=== PATIENT | female | born 1940 | race Caucasian/White ===

== ENCOUNTER 2016-02-26 13:42 | Inpatient (IN) | payer MEDICARE, BC ==
[2016-02-26] MEDS ORDERED: Piperac/Tazob 3.375 gm in NS* 3.375 GM/100 ML BAG IVPB ONE (14:21)
[2016-02-26] MEDS: NS 0.9% 1000 ML* 2,000 ML IV ONE ×2 (14:30→16:35)
--- NOTE | 2016-02-26 14:59 | RAD ---
INDICATION: Short of breath COMPARISON: December 11, 2015 TECHNIQUE: PA and lateral dual-energy views were obtained. FINDINGS: Bones/Soft Tissues: There are no acute bony findings. There is osteopenia with kyphoscoliosis. Cardiomediastinal: The cardiomediastinal silhouette is normal. Lungs: There are no infiltrates. There is left upper lobe scarring. There is hyperinflation. Pleura: There are no pleural effusions. Other: Postsurgical changes left breast IMPRESSION: NO ACTIVE DISEASE. HYPERINFLATION.
[2016-02-26 15:03] LABS: Hematocrit 45 % (35-47); Hemoglobin 14.7 g/dl (12.0-16.0); Mean Corpuscular HGB Conc 33 g/dl (31-36); Mean Corpuscular Hemoglobin 29 pg (27-31); Mean Corpuscular Volume 89 fL (80-97); Mean Platelet Volume 9 um3 (7.4-10.4); Red Blood Count 5.05 10^6/ul (4.0-5.4); Red Cell Distribution Width 14 % (10.5-15)
[2016-02-26 15:10] LABS: Add Diff/Slide Review? Slide Review Added; Comments Flag Yes
[2016-02-26 15:21] LABS: ALT 15 U/L (7-52); AST 25 U/L (13-39); Albumin 3.6 g/dL (3.2-5.2); Alkaline Phosphatase 58 U/L (34-104); Anion Gap 5 mmol/L (2-11); BUN/Creatinine Ratio 30.3 (8-20); Blood Urea Nitrogen 23 mg/dL (6-24); C Reactive Protein 17.93 mg/L (< 5.00); CO2 Carbon Dioxide 31 mmol/L (22-32); Calcium 10.3 mg/dL (8.6-10.3); Chloride 101 mmol/L (101-111); Creatine Kinase 49 U/L (10-223); EGFR African American 95.2 (>60); Glucose 109 mg/dL (70-100); Lipase < 10 U/L (11.0-82.0); Magnesium 1.9 mg/dL (1.9-2.7); Potassium 3.3 mmol/L (3.5-5.0); Sodium 137 mmol/L (133-145); Total Protein 6.6 g/dL (6.4-8.9)
[2016-02-26] MEDS ORDERED: Ondansetron INJ* 2 MG/ML VIAL IV PRN (15:24)
--- NOTE | 2016-02-26 15:30 | ED ---
Brandi Mesa SooYoung, scribed for Angel Rush MD on 02/26/16 at 1415 . Shortness of Breath - HPI Summary HPI Summary: A 75 y/o F presents to ED with SOB and referred for admission by Dr. Santos at 1200. Pt is being treated for known PNA for past two months, but she is getting worse. She is on Cipro and Prednisone for 30 days. Associated sx: maxT of 102 last night. Neg sx: dysuria, diarrhea, LE edema. - History of Current Complaint Chief Complaint: EDShortnessOfBreath Time Seen by Provider: 02/26/16 13:57 Hx Obtained From: Patient Onset/Duration: Still Present Associated Signs & Symptoms: Fever - Allergy/Home Medications Allergies/Adverse Reactions: Allergies Allergy/AdvReac Type Severity Reaction Status Date / Time Sulfa Drugs Allergy Severe Hives Verified 07/18/15 12:05 Levofloxacin [From Levaquin] Allergy Dizziness Verified 07/18/15 12:05 Varenicline [From Chantix] Allergy Unknown Verified 07/18/15 12:05 Reaction Details PMH/Surg Hx/FS Hx/Imm Hx Previously Healthy: No Endocrine/Hematology History: Reports: Hx Thyroid Disease - parathyroid surgery , Other Endocrine/Hematological Disorders - Parathyroid surgery Denies: Hx Diabetes Cardiovascular History: Reports: Hx Hypercholesterolemia, Hx Hypertension Denies: Hx Congestive Heart Failure, Hx Pacemaker/ICD, Other Cardiovascular Problems/Disorders - denies Respiratory History: Reports: Hx Asthma, Hx Chronic Bronchitis, Hx Chronic Obstructive Pulmonary Disease (COPD), Hx Lung Cancer, Other Respiratory Problems /Disorders - LUNG CANCER GI History: Reports: Hx Gall Bladder Disease - removed, Hx Ileostomy - PEG tube , Other GI Disorders - esophagel issues and abdominal surgeries Denies: Hx Ulcer History: Reports: Hx Renal Disease - cyst kidney new dx, Other Problems/ Disorders - per pt she has a cyst on her kidney found on us Denies: Hx Dialysis Musculoskeletal History: Reports: Hx Arthritis, Hx Osteoporosis, Hx Scoliosis, Other Musculoskeletal History - left side of body under developed r/t radiation per pt Denies: Hx Rheumatoid Arthritis Sensory History: Reports: Hx Contacts or Glasses, Hx Macular Degeneration Denies: Hx Hearing Aid Opthamlomology History: Reports: Hx Contacts or Glasses, Hx Macular Degeneration Neurological History: Reports: Other Neuro Impairments/Disorders - PAIN CLINIC PT Psychiatric History: Denies: Hx Panic Disorder - Cancer History Cancer Type, Location and Year: 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 Hx Chemotherapy: No Hx Radiation Therapy: Yes - As extensive radiation/ PT HAS HX LUNG CA 2012 - Surgical History Surgery Procedure, Year, and Place: hysterectomy;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;appendectomy;D&C x 2;cholecystectomy;left knee tumor; wrist benign;peg tube 16 yrs ago - stricture throat;cataract x 2 12/10, Skin CA removal Hx Anesthesia Reactions: No Infectious Disease History: No Infectious Disease History: Reports: Hx Clostridium Difficile Denies: Hx Hepatitis, Hx Human Immunodeficiency Virus (HIV), Hx of Known/ Suspected MRSA, Hx Shingles, Hx Tuberculosis, Hx Known/Suspected VRE, Hx Known/ Suspected VRSA, History Other Infectious Disease, Traveled Outside the [place] in Last 30 Days - Family History Known Family History: Positive: Other - Neg: breast CA - Social History Occupation: Retired Lives: With Family Alcohol Use: None Substance Use Type: Reports: None Hx Tobacco Use: No Smoking Status (MU): Former Smoker Type: Cigarettes Length of Time of Smoking/Using Tobacco: Trying to quit, uses patch most days Have You Smoked in the Last Year: Yes Review of Systems Positive: Fever Positive: Shortness Of Breath Negative: Diarrhea Negative: dysuria Negative: Edema All Other Systems Reviewed And Are Negative: Yes Physical Exam Triage Information Reviewed: Yes Vital Signs On Initial Exam: Initial Vitals Temp Pulse Resp BP Pulse Ox 98.8 F 115 18 139/51 92 02/26/16 13:46 02/26/16 13:46 02/26/16 13:46 02/26/16 13:46 02/26/16 13:46 Vital Signs Reviewed: Yes Appearance: Positive: Well-Appearing, Ill-Appearing - MILD/MODERATE, Pain Distress - MILD RESPIRATORY DISTRESS Skin: Positive: Warm, Skin Color Reflects Adequate Perfusion, Dry Head/Face: Positive: Normal Head/Face Inspection Eyes: Positive: EOMI, THEODORA ENT: Positive: Normal ENT inspection Neck: Positive: Supple, Nontender Respiratory/Lung Sounds: Positive: Breath Sounds Present, Rhonchi - BILAT Cardiovascular: Positive: RRR Abdomen Description: Positive: Nontender, Soft Bowel Sounds: Positive: Present Musculoskeletal: Positive: Normal, Strength/ROM Intact Neurological: Positive: Normal, Sensory/Motor Intact, Alert, Oriented to Person Place, Time Psychiatric: Positive: Affect/Mood Appropriate Diagnostics - Vital Signs Vital Signs Temp Pulse Resp BP Pulse Ox 02/26/16 13:46 98.8 F 115 18 139/51 92 - Laboratory Lab Results: Lab Results 02/26/16 02/26/16 02/26/16 Range/Units 14:50 14:50 14:50 WBC 12.0 H (3.5-10.8) 10^3/ul RBC 5.05 (4.0-5.4) 10^6/ul Hgb 14.7 (12.0-16.0) g/dl Hct 45 (35-47) % MCV 89 (80-97) fL MCH 29 (27-31) pg MCHC 33 (31-36) g/dl RDW 14 (10.5-15) % Plt Count 234 (150-450) 10^3/ul MPV 9 (7.4-10.4) um3 Neut % (Auto) 73.4 (38-83) % Lymph % (Auto) 11.4 L (25-47) % [place] % (Auto) 14.4 H (1-9) % Eos % (Auto) 0 (0-6) % Baso % (Auto) 0.8 (0-2) % Absolute Neuts (auto) 8.8 H (1.5-7.7) 10^3/ul Absolute Lymphs (auto) 1.4 (1.0-4.8) 10^3/ul Absolute Monos (auto) 1.7 H (0-0.8) 10^3/ul Absolute Eos (auto) 0 (0-0.6) 10^3/ul Absolute Basos (auto) 0.1 (0-0.2) 10^3/ul Absolute Nucleated RBC 0 10^3/ul Nucleated RBC % 0 INR (Anticoag Therapy) 0.90 (0.89-1.11) APTT 26.8 (26.0-36.3) seconds Sodium (133-145) mmol/L Potassium (3.5-5.0) mmol/L Chloride (101-111) mmol/L Carbon Dioxide (22-32) mmol/L Anion Gap (2-11) mmol/L BUN (6-24) mg/dL Creatinine (0.51-0.95) mg/dL Est GFR ( Amer) (>60) Est GFR (Non-Af Amer) (>60) BUN/Creatinine Ratio (8-20) Glucose (70-100) mg/dL Lactic Acid (0.5-2.0) mmol/L Calcium (8.6-10.3) mg/dL Magnesium (1.9-2.7) mg/dL Total Bilirubin (0.2-1.0) mg/dL AST (13-39) U/L ALT (7-52) U/L Alkaline Phosphatase (34-104) U/L Total Creatine Kinase (10-223) U/L CK-MB (CK-2) (0.6-6.3) ng/mL Troponin I C-Reactive Protein (< 5.00) mg/L B-Natriuretic Peptide 104 H ( - 100) pg/mL Total Protein (6.4-8.9) g/dL Albumin (3.2-5.2) g/dL Globulin (2-4) g/dL Albumin/Globulin Ratio (1-3) Lipase (11.0-82.0) U/L TSH 02/26/16 02/26/16 Range/Units 14:50 14:50 WBC (3.5-10.8) 10^3/ul RBC (4.0-5.4) 10^6/ul Hgb (12.0-16.0) g/dl Hct (35-47) % MCV (80-97) fL MCH (27-31) pg MCHC (31-36) g/dl RDW (10.5-15) % Plt Count (150-450) 10^3/ul MPV (7.4-10.4) um3 Neut % (Auto) (38-83) % Lymph % (Auto) (25-47) % [place] % (Auto) (1-9) % Eos % (Auto) (0-6) % Baso % (Auto) (0-2) % Absolute Neuts (auto) (1.5-7.7) 10^3/ul Absolute Lymphs (auto) (1.0-4.8) 10^3/ul Absolute Monos (auto) (0-0.8) 10^3/ul Absolute Eos (auto) (0-0.6) 10^3/ul Absolute Basos (auto) (0-0.2) 10^3/ul Absolute Nucleated RBC 10^3/ul Nucleated RBC % INR (Anticoag Therapy) (0.89-1.11) APTT (26.0-36.3) seconds Sodium 137 (133-145) mmol/L Potassium 3.3 L (3.5-5.0) mmol/L Chloride 101 (101-111) mmol/L Carbon Dioxide 31 (22-32) mmol/L Anion Gap 5 (2-11) mmol/L BUN 23 (6-24) mg/dL Creatinine 0.76 (0.51-0.95) mg/dL Est GFR ( Amer) 95.2 (>60) Est GFR (Non-Af Amer) 74.0 (>60) BUN/Creatinine Ratio 30.3 H (8-20) Glucose 109 H (70-100) mg/dL Lactic Acid 1.7 (0.5-2.0) mmol/L Calcium 10.3 (8.6-10.3) mg/dL Magnesium 1.9 (1.9-2.7) mg/dL Total Bilirubin 0.50 (0.2-1.0) mg/dL AST 25 (13-39) U/L ALT 15 (7-52) U/L Alkaline Phosphatase 58 (34-104) U/L Total Creatine Kinase 49 (10-223) U/L CK-MB (CK-2) 3.6 (0.6-6.3) ng/mL Troponin I Pending C-Reactive Protein 17.93 H (< 5.00) mg/L B-Natriuretic Peptide ( - 100) pg/mL Total Protein 6.6 (6.4-8.9) g/dL Albumin 3.6 (3.2-5.2) g/dL Globulin 3.0 (2-4) g/dL Albumin/Globulin Ratio 1.2 (1-3) Lipase < 10 L (11.0-82.0) U/L TSH Pending Result Diagrams: 02/26/16 14:50 02/26/16 14:50 Lab Statement: Any lab studies that have been ordered have been reviewed, and results considered in the medical decision making process. - Radiology CXR Xray Interpretation: No Acute Changes Radiology Interpretation Completed By: Radiologist - IMPRESSION: No active disease. Hyperinflation. - EKG 1 EKG Rhythm: Sinus Tachycardia ST Segment: Normal Ectopy: None Course/Dx - Course Assessment/Plan: ADMIT HOSPITALIST STABLE. - Diagnoses Provider Diagnoses: Pneumonia, Dyspnea - Physician Notifications Discussed Care of Patient With: Dr. Sears, hospitalist Time Discussed With Above Provider: 14:19 Discharge - Discharge Plan Condition: Stable Disposition: ADMITTED TO [facility] Referrals: Alonso Santos MD [Primary Care Provider] - The documentation as recorded by the Brandi alicia SooYoung accurately reflects the service I personally performed and the decisions made by , Angel Rush MD.
[2016-02-26 15:35] LABS: Troponin I 0.04 ng/mL (<0.04)
[2016-02-26 15:41] LABS: Neutrophil % 79 % (38-83); RBC Morphology Normal (Normal); Reactive Lymph % 5 % (0-6)
[2016-02-26] MEDS ORDERED: NS 0.9% 1000 ML* 1,000 ML IV SCH (15:45)
[2016-02-26] MEDS ORDERED: Fluticasone NASAL SPRAY 50MCG* 16 gm SPRAY BTL BOTH NARES PRN (15:46)
[2016-02-26] MEDS ORDERED: Polyethylene Glycol 3350* 17 GM PACKET G TUBE PRN (15:46)
[2016-02-26] MEDS ORDERED: Albuterol 2.5 MG/3 ML NEB.SOL* (0.083%) INH PRN (15:46)
[2016-02-26] MEDS ORDERED: PTO: Levalbuterol HFA INHALER* 1 PUFF MDI INH PRN (15:46)
[2016-02-26 15:58] LABS: TSH (Thyroid Stimulating Horm) 0.43 mcIU/mL (0.34-5.60)
[2016-02-26] MEDS ORDERED: Enoxaparin(*) 40 MG/0.4 ML SYR SUBCUT SCH (16:00)
[2016-02-26] MEDS ORDERED: Piperac/Tazob 3.375 gm in NS* 3.375 GM/100 ML BAG IVPB SCH ×2 (16:00→18:30)
--- NOTE | 2016-02-26 16:20 | RAD ---
INDICATION: Shortness of breath COMPARISON: Most recent chest CT is dated February 10, 2016 TECHNIQUE: Axial source images of the chest were acquired without intravenous contrast from just above the lung apices to the base of the diaphragm. Coronal and sagittal reconstructed images were acquired. FINDINGS: Again seen is a pleural-based spiculated mass along the posterior margin of the right upper lobe measuring approximately 2.5 x 2.8 cm in the axial plane. There has been no substantial change in the appearance of this mass when compared to the 2 previous CTs of the chest. There is severe centrilobular emphysematous change. Patchy density at the lingula of the left upper lobe is similar in appearance to the [address]s. The heart is normal in size. There is no evidence of pericardial effusion. There is no evidence of aortic aneurysm or dissection. Again seen is advanced atherosclerotic calcification involving the coronary arteries, aortic ring and arch of the aorta. Calcified atherosclerosis is seen at the suprarenal abdominal aorta. There is no readily apparent mediastinal, hilar, or axillary lymphadenopathy. Dextroconvex curvature of the thoracolumbar spine and multilevel degenerative changes are again noted. The percutaneous gastrostomy tube appears to be a properly positioned in the lumen of the stomach. There are surgical clips in the gallbladder fossa. IMPRESSION: Extensive chronic findings as described above with no substantial change when compared to the [address] examinations of the chest.
[2016-02-26] MEDS ORDERED: methylPREDNISolone SOD 40 MG* 1 ML VIAL IV SCH (17:00)
[2016-02-26] MEDS ORDERED: Ciprofloxacin 400MG IVPREMIX(* 400 MG/200 ML BAG IVPB SCH (17:00)
[2016-02-26] MEDS ORDERED: Cinacalcet TAB* 30 MG G TUBE SCH (18:00)
[2016-02-26] MEDS ORDERED: NUTRITIONAL SUPPLEMENTS G TUBE SCH (18:00)
[2016-02-26] MEDS ORDERED: Vancomycin(*) 750 MG in NS 0.9% 250 ML* 250 ML IVPB ONE ×2 (18:00→20:00)
--- NOTE | 2016-02-26 19:03 | PN ---
Hospitalist Progress Note HOSPITALIST ADDENDUM Case was reviewed and d/w Marilin Iqbal DENTAL APPLIANCE REPAIRER. Case was d/w patient's PCP (Dr. Santos) earlier today. Mrs. Trotter is a 75yo F with PMH of COPD and Lung CA who was diagnosed with possible Pseudomonas pneumonia and prescribed a prolonged course of Cipro with no significant improvement. She presented to his office with c/o cough, dyspnea, fever. She'll be admitted as she failed outpatient therapy. Will panculture, and start broad spectrum antibiotics.
[2016-02-26 19:32] LABS: Urine Bilirubin Negative (Negative); Urine Glucose Negative (Negative); Urine Nitrite Negative (Negative)
[2016-02-26] MEDS ORDERED: Vancomycin per Pharmacy* NOTE FOLLOW UP PRN (19:42)
[2016-02-26] MEDS ORDERED: methylPREDNISolone SOD 40 MG* 1 ML VIAL IV ONE (20:00)
[2016-02-26] MEDS: Enoxaparin(*) 40 MG/0.4 ML SYR SUBCUT SCH (20:13)
[2016-02-26] MEDS: Mupirocin 2% OINT* TUBE TOPICAL SCH ×2 (20:14→20:34)
[2016-02-26] MEDS: guaiFENesin LIQ* 100 MG/5 ML UDC G TUBE SCH (20:14)
[2016-02-26] MEDS: Mometasone/Formoter 200/5 MDI INH SCH (20:15)
[2016-02-26] MEDS: Metoclopramide TAB* 10 MG G TUBE SCH ×2 (20:16)
[2016-02-26] MEDS: Cinacalcet TAB* 30 MG G TUBE SCH (20:16)
[2016-02-26] MEDS: PTO: Aclidinium POWDER MDI(NF) INH SCH (21:51)
--- NOTE | 2016-02-26 22:13 | HP ---
ADMISSION HISTORY AND PHYSICAL: DATE OF ADMISSION: 02/26/16 PRIMARY CARE PROVIDER: Alonso Santos MD FISH PACKER: Radha Shea MD ADMITTING PROVIDER: WILBER Saha SUPERVISING PHYSICIAN: Emelia Galvez MD* (report dictated by WILBER Saha). CHIEF COMPLAINT: Shortness of breath and cough. HISTORY OF PRESENT ILLNESS: This is a 75-year-old female with a history of COPD , hypertension, hyperlipidemia, history of squamous cell lung carcinoma, status post radiation, followed by Dr. Trevino as well as a chronic feeding tube in place due to esophageal stricture and recurrent aspiration who was referred from her primary care provider's office for admission today. The patient has been struggling with a pneumonia for the last couple of months. Sputum sample from the end of November grew pseudomonas. The patient had been treated with Ceftin, Biaxin, and doxycycline, but was started on Cipro and prednisone by Dr. Shea approximately 2 weeks ago on 02/10/16. According to micro results from that sputum, pseudomonas at good sensitivity to Cipro. Despite appropriate antibiotics and steroids, the patient continued to have significant fatigue, shortness of breath, and productive cough. She has also been intermittently febrile most afternoon. She said she has a fever between 101 and 103 degrees Fahrenheit. She does not use supplemental oxygen at home. When the patient was seen by her primary care provider earlier today, she was noted to be febrile and hypoxic and was referred to the emergency department for further evaluation. The patient denies any other associated symptoms including chest pain, palpitations, abdominal pain, nausea, vomiting, or diarrhea. Denies associated lower extremity swelling or orthopnea. The patient also reports that in her coughing, she often feels as though she aspirates on her G-tube feedings. She otherwise does not take anything by mouth. PAST MEDICAL HISTORY: 1. COPD. 2. Hypertension. 3. Hyperlipidemia. 4. History of squamous cell lung carcinoma, status post radiation therapy, followed by Dr. Trevino. 5. History of chest radiation as a child. 6. Feeding tube in place due to esophageal stricture and recurrent aspiration. 7. Gastroparesis. PAST SURGICAL HISTORY: 1. Cholecystectomy. 2. Appendectomy. 3. Hysterectomy. 4. Exploratory laparoscopy. HOME MEDICATIONS: 1. Tudorza 400 mcg inhaled twice daily. 2. Albuterol nebulized 2.5 mg inhaled q.6 hours p.r.n. shortness of breath. 3. Aspirin 81 mg via G-tube daily. 4. Atorvastatin 10 mg via G-tube daily. 5. Sensipar 30 mg via G-tube daily. 6. Cipro 750 mg via G-tube twice daily. 7. Vagifem 10 mcg vaginally weekly. 8. Fluconazole oral suspension 200 mg via G-tube daily as needed for yeast infection. 9. Flonase 50 mcg in each nose daily. 10. Advair 500/50 one puff inhaled twice daily. 11. Guaifenesin 200 mg via G-tube twice daily. 12. Ibuprofen 400 mg via G-tube daily. 13. Lactobacillus 1 capsule via G-tube daily. 14. Xopenex inhaler 2 puffs inhaled q.6 hours p.r.n. shortness of breath. 15. Losartan 50 mg via G-tube daily. 16. Reglan 5 mg via G-tube 4 times daily. 17. Singulair 10 mg via G-tube daily. 18. Mupirocin ointment 2% nasally twice daily. 19. Osmolite G-tube feedings 1.2 calories 1 can every 3 hours while awake. 20. Phenylephrine-promethazine with codeine via G-tube every 4 hours as needed for nausea. 21. MiraLAX 17 g via G-tube daily. 22. Prednisone 10 mg via G-tube daily. 23. Detrol 2 mg via G-tube daily. SOCIAL HISTORY: The patient lives at home with her . She does have an extensive smoking history, but quit several years ago. REVIEW OF SYSTEMS: As noted in the HPI. PHYSICAL EXAMINATION GENERAL: This is a very pleasant elderly female accompanied by her , in mild amount of distress and appears mildly ill, but is able to speak in complete sentences. VITAL SIGNS: Temperature 98.8 degrees Fahrenheit, pulse 115 beats per minute, respiratory rate 18 per minute, oxygen saturation 92% on room air, and mid 90s on 2 L via nasal cannula, blood pressure 139/51 mmHg. HEENT: Head is normocephalic and atraumatic. Mucous membranes are pink and moist. RESPIRATORY: There is a wheeze appreciated in the posterior lung mohr associated with decreased breath sounds. No other adventitious sounds appreciated. CARDIOVASCULAR: Heart has a regular rate and rhythm without murmurs, rubs, or gallops. ABDOMEN: Soft and nontender to palpation. EXTREMITIES: No lower extremity edema appreciated. SKIN: Limited exam shows no obvious rashes or lesions. PSYCH: The patient is alert and appropriately oriented and seems to have good understanding of her medical history. LABORATORY DATA: CBC shows white blood cell count of 12,000, hemoglobin 14.7 g /dL, and platelet count of 234,000. INR is 0.9. Comprehensive metabolic panel showed sodium of 137 mmol/L, potassium 3.3 mmol/L , normal BUN of 23, and creatinine of 0.76 with estimated GFR of 74. Transaminases and total bilirubin within normal limits. Troponin mildly elevated at 0.04. CRP mildly elevated at 17.9. BNP slightly elevated at 104. TSH is pending. HOSPITAL IMAGING: Chest x-ray shows significant hyperinflation, but no evidence of acute infiltrate. CT of the chest from 02/10/16 shows bilateral lower lobe infiltrates and left upper lobe cavitary lesion, which is unchanged from prior. CT of the chest today is still pending official read, but per personal review shows previously noted left upper lobe cavitary lesion without obvious changes. Some atelectasis versus infiltrates in the right middle lobe and appears to be otherwise unremarkable. EKG shows a normal sinus rhythm. ASSESSMENT AND PLAN: This is a 75-year-old female with a history of chronic obstructive pulmonary disease and longstanding respiratory infection that has failed outpatient antibiotics. She will be admitted to the hospital for further evaluation and treatment. 1. Respiratory infection: CT scan from a couple of weeks ago showed bilateral lower lobe infiltrates. Per personal review of today's CT, it appears that those infiltrates have resolved. She does have a history of lung cancer and status post radiation and is left with a large cavitary lesion. Sputum from grew pseudomonas sensitive to Zosyn, quinolones, and meropenem. Could consider this being more of a bronchiectasis type picture. We will continue with pseudomonal coverage. Based on prior micro results, we will continue with the Cipro in IV form and add Zosyn for broad spectrum coverage and ask for an additional sputum sample to see if there is any resistant pathogen still growing. Consider there being a chronic obstructive pulmonary disease exacerbation component to this and started Solu-Medrol in addition to continuing her typical inhaled medications. Unfortunately, her tie hacker, Dr. Shea, is not available for consult at this time. 2. Severe chronic obstructive pulmonary disease with exacerbation: Continue inhaled medication and add Solu-Medrol. 3. Elevated troponin: Assume that this is demand related, but we will trend these troponins. She is not having any chest pain and has no EKG changes appreciated. 4. Hypertension: Continue home antihypertensives. 5. Gastroparesis: Continue Reglan. 6. History of squamous cell lung carcinoma status post radiation therapy, followed Dr. Trevino. 7. Feeding tube in place due to esophageal stricture and recurrent aspiration. We will continue her current dietary regimen. All of her medications will need to go through her G-tube as well. 8. Code status: The patient is a full code. 9. Healthcare proxy is listed as her . 10. DVT prophylaxis: The patient is [id number] risk for deep venous thrombosis and will be placed on subcu Lovenox daily. DISPOSITION: The patient is being admitted as an inpatient to the hospital after failing outpatient antibiotics. ANTICIPATED LENGTH OF STAY: Greater than 2 days. WILBER SAHA CC: Dr. Santos; Dr. Shea* [id number]/[facility] #: [id number] TANYA
[2016-02-26] MEDS: Nicotine PATCH 7 MG/24 HR* PATCH TRANSDERM SCH (22:23)
[2016-02-26] MEDS: Ciprofloxacin 400MG IVPREMIX(* 400 MG/200 ML BAG IVPB SCH (22:26)
[2016-02-26] MEDS ORDERED: ALPRAZolam TAB* 0.5 MG ONE (23:46)
[2016-02-26] MEDS: ALPRAZolam TAB* 0.5 MG PO ONE (23:47)
[2016-02-26] MEDS: Piperac/Tazob 3.375 gm in NS* 3.375 GM/100 ML BAG IVPB SCH (23:55)
[2016-02-27] MEDS: ALPRAZolam TAB* 0.5 MG PO ONE (02:59)
[2016-02-27 05:00] LABS: Hematocrit 42 % (35-47); Hemoglobin 13.9 g/dl (12.0-16.0); Mean Corpuscular HGB Conc 33 g/dl (31-36); Mean Corpuscular Hemoglobin 30 pg (27-31); Mean Corpuscular Volume 91 fL (80-97); Mean Platelet Volume 9 um3 (7.4-10.4); Red Blood Count 4.65 10^6/ul (4.0-5.4); Red Cell Distribution Width 14 % (10.5-15)
[2016-02-27 05:09] LABS: BUN/Creatinine Ratio 24.3 (8-20); Calcium 8.5 mg/dL (8.6-10.3); EGFR African American 98.1 (>60); EGFR Non-African American 76.3 (>60); Potassium 3.9 mmol/L (3.5-5.0)
[2016-02-27] MEDS: Piperac/Tazob 3.375 gm in NS* 3.375 GM/100 ML BAG IVPB SCH ×4 (05:41→22:48)
[2016-02-27] MEDS: Mometasone/Formoter 200/5 MDI INH SCH ×2 (08:38→21:15)
[2016-02-27] MEDS ORDERED: Atorvastatin* 10 MG TAB G TUBE SCH (09:00)
[2016-02-27] MEDS ORDERED: Montelukast Sodium TAB* 10 MG PO SCH (09:00)
[2016-02-27] MEDS: Vancomycin(*) 500 MG in NS 0.9% 250 ML* 250 ML IVPB SCH ×2 (10:00→20:32)
[2016-02-27] MEDS: methylPREDNISolone SOD 40 MG* 1 ML VIAL IV SCH ×2 (10:01→20:54)
[2016-02-27] MEDS: guaiFENesin LIQ* 100 MG/5 ML UDC G TUBE SCH ×2 (11:24→21:10)
[2016-02-27] MEDS: PTO: Aclidinium POWDER MDI(NF) INH SCH ×2 (11:24→21:16)
[2016-02-27] MEDS: Metoclopramide TAB* 10 MG G TUBE SCH ×4 (11:26→21:02)
[2016-02-27] MEDS: Oxybutynin XL TAB* 5 MG PO SCH (11:26)
[2016-02-27] MEDS: Lactobacillus Acidophilu (GG)* 1 CAP CAP PO SCH (11:27)
[2016-02-27] MEDS: Losartan TAB* 25 MG G TUBE SCH (11:27)
[2016-02-27] MEDS: Aspirin Low Dose CHEW TAB* 81 MG G TUBE SCH (11:28)
[2016-02-27] MEDS: Mupirocin 2% OINT* TUBE TOPICAL SCH ×2 (11:29→21:06)
[2016-02-27] MEDS: Ibuprofen ADULT LIQ* 600 MG/30 ML UDC G TUBE SCH (11:30)
[2016-02-27] MEDS: Ciprofloxacin 400MG IVPREMIX(* 400 MG/200 ML BAG IVPB SCH ×2 (12:40→23:42)
[2016-02-27] MEDS ORDERED: Piperac/Tazob 3.375 gm in NS* 3.375 GM/100 ML BAG IVPB SCH (15:00)
[2016-02-27] MEDS ORDERED: Albuterol/Ipratropium NEB.SOL* Albuterol 2.5 MG/Ipratropium 0.5 MG 3 ML INH PRN (16:22)
--- NOTE | 2016-02-27 16:24 | PN ---
Subjective Date of Service: 02/27/16 Interval History: This is a 75 yo female with COPD and h/o lung CA with G-tube in place d/t esophageal stricture who presented after failing several weeks of outpatient antibiotics for a pneumonia. She grew Pseudomonas from sputum the end of November. She has been started on Vanco, Cipro and Zosyn. Blood cx neg at this time, sputum pending. She denies any change in symptoms. She still has some dyspnea and freq productive cough. She has been afebrile. Objective Active Medications: Aclidinium [place] (Lino Lowe Mdi(Nf)) 1 puff INH BID [facility] Last Admin: 02/27/16 11:24 Dose: 1 puff Albuterol (Ventolin 2.5 Mg/3 Ml Neb.Nereyda*) 2.5 mg INH Q6H PRN PRN Reason: SOB/WHEEZING Aspirin (Aspirin Low Dose Tab*) 81 mg G TUBE DAILY [facility] Last Admin: 02/27/16 11:28 Dose: 81 mg Atorvastatin Calcium (Lipitor*) 10 mg G TUBE BEDTIME [facility] Cinacalcet (Sensipar Tab*) 30 mg G TUBE 1999 [facility] Last Admin: 02/26/16 20:16 Dose: Not Given Enoxaparin Sodium (Lovenox(*)) 40 mg SUBCUT 1999 [facility] Last Admin: 02/26/16 20:13 Dose: 40 mg Fluticasone Propionate (Flonase Nasal [place] 50mcg*) 1 spray BOTH NARES BID PRN PRN Reason: CONGESTION Guaifenesin (Robitussin*) 10 ml G TUBE BID [facility] Last Admin: 02/27/16 11:24 Dose: 10 ml Vancomycin HCl 500 mg/ Sodium (Chloride) 250 mls @ 166.667 mls/hr IVPB Q12H [facility] Last Admin: 02/27/16 10:00 Dose: 166.667 mls/hr Ciprofloxacin/Dextrose (Cipro 400 Mg Ivpremix(*)) 400 mg in 200 mls @ 200 mls/ hr IVPB 1000,2200 [facility] Last Admin: 02/27/16 12:40 Dose: 200 mls/hr Piperacillin Sod/Tazobactam Sod (Zosyn 3.375 Gm In Ns Premix*) 3.375 gm in 100 mls @ 200 mls/hr IVPB Q6H [facility] Last Admin: 02/27/16 15:35 Dose: 200 mls/hr Ibuprofen (Motrin Liq Adult*) 400 mg G TUBE DAILY [facility] Last Admin: 02/27/16 11:30 Dose: 400 mg Lactobacillus Rhamnosus (Culturelle*) 1 cap PO DAILY [facility] Last Admin: 02/27/16 11:27 Dose: 1 cap Levalbuterol HCl (Xopenex Hfa Inhaler*) 2 puff INH Q6HR PRN PRN Reason: WHEEZING Losartan Potassium (Cozaar Tab*) 50 mg G TUBE DAILY [facility] Last Admin: 02/27/16 11:27 Dose: 50 mg Methylprednisolone Sodium Succinate (Solu-Medrol*) 40 mg IV Q12H [facility] Last Admin: 02/27/16 10:01 Dose: 40 mg Metoclopramide HCl (Reglan Tab*) 5 mg G TUBE QID [facility] Last Admin: 02/27/16 13:28 Dose: 5 mg Mometasone Furoate/Formoterol Fumar (Dulera 200/5 Mdi*) 2 puff INH BID [facility] Last Admin: 02/27/16 08:38 Dose: 2 puff Montelukast Sodium (Singulair Tab*) 10 mg PO BEDTIME [facility] Mupirocin (Bactroban 2 % Oint*) 2 applic TOPICAL BID [facility] Last Admin: 02/27/16 11:29 Dose: Not Given Nicotine (Nicotine Patch 7 Mg/24 Hr*) 1 patch TRANSDERM Q24H [facility] Last Admin: 02/26/16 22:23 Dose: 1 patch Phenyleph- Promethazine W/ Cod [Promethazine Vc/Codeine 6.25-5-10 Mg /5m 1 syp G TUBE Q4H PRN PRN Reason: NAUSEA Ondansetron HCl (Zofran Inj*) 4 mg IV Q4H PRN PRN Reason: NAUSEA/VOMITING Oxybutynin Chloride (Ditropan Xl Tab*) 5 mg PO DAILY [facility] Last Admin: 02/27/16 11:26 Dose: 5 mg Pharmacy Consult (Vancomycin Per Pharmacy*) 1 note FOLLOW UP . PRN PRN Reason: PER PROTOCOL Pharmacy Profile Note (Vancomycin Trough Check) 1 note FOLLOW UP 0745 ONE Stop: 02/28/16 07:46 Pharmacy Profile Note (Nicotine Patch Removal Note*) 1 note FOLLOW UP 2100 [facility] Polyethylene Glycol/Electrolytes (Miralax*) 17 gm G TUBE DAILY PRN PRN Reason: CONSTIPATION Vital Signs: Temp Pulse Resp BP Pulse Ox 97.6 F 72 20 114/54 97 02/27/16 15:44 02/27/16 15:44 02/27/16 15:44 02/27/16 15:44 02/27/16 15:44 Oxygen Devices in Use Now: Nasal Cannula Appearance: Elderly, frail appearing female in NAD. Mildly ill appearing Respiratory: Symmetrical Chest Expansion and Respiratory Effort, - - diffuse wheeze and rhonchi Cardiovascular: NL Sounds; No Murmurs; No JVD, RRR Abdominal: NL Sounds; No Tenderness; No Distention Extremities: No Edema Skin: No Rash or Ulcers Neurological: Alert and Oriented x 3 Result Diagrams: 02/27/16 04:21 02/27/16 04:21 Additional Lab and Data: . Microbiology and Other Data: Microbiology 02/26/16 22:36 Gram Stain - Final Sputum Expectorated Diagnostic Imaging: CXR - NAD CT chest - RUL cavitary lesion which is stable, patchy density at the lingula. Significant emphysematous changes Assess/Plan/Problems-Billing Assessment: This is a 75 yo female with a h/o COPD, sqaumous cell lung CA s/p radiation, with a feeding tube in place due to chronic esophageal stricturewho has been on several weeks of oral antibiotics who presented with fever, hypoxia, dyspnea and prod cough. Admitted for pneumonia v bronchiectasis - Patient Problems (1) Respiratory infection Comment: Pneumonia v bronchiectasis Sputum from 12/22 grew Pseudomonas, she has been on several weeks of Cipro orally without improvement Started on Vanco, Cipro and Zosyn Blood cultures neg Sputum pending (2) COPD (chronic obstructive pulmonary disease) Comment: With acute exacerbation Cont home inhaled medications She still has sig wheeze on exam Start scheduled DuoNebs, cont SoluMedrol (3) History of lung cancer Comment: s/p radiation of squamous cell carcinoma with residual cavitary lesion in RUL that appears stable on serial imaging (4) Feeding by G-tube Comment: Uses Osmolite 1.2, 1 can ~q3h while awake (5) Gastroparesis Comment: Cont Reglan prior to feedings (6) Hyperlipidemia (7) Hypertension Status and Disposition: Cont IV abx, pending sputum results to guide therapy. Anticipate she will need several days of hospitalization.
[2016-02-27] MEDS: PROMETHAZINE G TUBE PRN ×2 (18:18→21:59)
[2016-02-27] MEDS: COD G TUBE PRN ×2 (18:18→21:59)
[2016-02-27] MEDS: [UNRECOGNIZED DRUG - OTHER] G TUBE PRN ×2 (18:18→21:59)
[2016-02-27] MEDS: Enoxaparin(*) 40 MG/0.4 ML SYR SUBCUT SCH (20:59)
[2016-02-27] MEDS: Cinacalcet TAB* 30 MG G TUBE SCH (20:59)
[2016-02-27] MEDS: Atorvastatin* 10 MG TAB G TUBE SCH (21:01)
[2016-02-27] MEDS: Montelukast Sodium TAB* 10 MG PO SCH (21:05)
[2016-02-27] MEDS: Nicotine PATCH 7 MG/24 HR* PATCH TRANSDERM SCH (21:07)
[2016-02-27] MEDS: Albuterol/Ipratropium NEB.SOL* Albuterol 2.5 MG/Ipratropium 0.5 MG 3 ML INH SCH (21:15)
[2016-02-27] MEDS: Nicotine Patch Removal NOTE FOLLOW UP SCH (21:18)
[2016-02-28] MEDS: Albuterol/Ipratropium NEB.SOL* Albuterol 2.5 MG/Ipratropium 0.5 MG 3 ML INH SCH ×7 (00:05→23:01)
[2016-02-28] MEDS: PROMETHAZINE G TUBE PRN ×3 (02:16→22:23)
[2016-02-28] MEDS: [UNRECOGNIZED DRUG - OTHER] G TUBE PRN ×3 (02:16→22:23)
[2016-02-28] MEDS: COD G TUBE PRN ×3 (02:16→22:23)
[2016-02-28] MEDS: Piperac/Tazob 3.375 gm in NS* 3.375 GM/100 ML BAG IVPB SCH ×3 (04:06→15:13)
[2016-02-28] MEDS ORDERED: Vancomycin Trough Check NOTE FOLLOW UP ONE (07:45)
[2016-02-28] MEDS: PTO: Aclidinium POWDER MDI(NF) INH SCH ×2 (07:49→20:38)
[2016-02-28] MEDS: Mometasone/Formoter 200/5 MDI INH SCH ×2 (07:51→20:38)
[2016-02-28] MEDS: Oxybutynin XL TAB* 5 MG PO SCH (08:24)
[2016-02-28] MEDS: Lactobacillus Acidophilu (GG)* 1 CAP CAP PO SCH (08:24)
[2016-02-28] MEDS: Losartan TAB* 25 MG G TUBE SCH (08:24)
[2016-02-28] MEDS: methylPREDNISolone SOD 40 MG* 1 ML VIAL IV SCH (08:24)
[2016-02-28] MEDS: Metoclopramide TAB* 10 MG G TUBE SCH ×4 (08:24→22:15)
[2016-02-28] MEDS: Aspirin Low Dose CHEW TAB* 81 MG G TUBE SCH (08:24)
[2016-02-28] MEDS: Ibuprofen ADULT LIQ* 600 MG/30 ML UDC G TUBE SCH (08:41)
[2016-02-28] MEDS: guaiFENesin LIQ* 100 MG/5 ML UDC G TUBE SCH ×2 (08:41→22:17)
[2016-02-28] MEDS: Mupirocin 2% OINT* TUBE TOPICAL SCH (08:42)
[2016-02-28] MEDS: Vancomycin(*) 500 MG in NS 0.9% 250 ML* 250 ML IVPB SCH (08:42)
[2016-02-28 09:31] LABS: Hematocrit 44 % (35-47); Mean Corpuscular HGB Conc 32 g/dl (31-36); Mean Corpuscular Hemoglobin 29 pg (27-31); Mean Corpuscular Volume 92 fL (80-97); Mean Platelet Volume 9 um3 (7.4-10.4); Red Blood Count 4.77 10^6/ul (4.0-5.4); Red Cell Distribution Width 14 % (10.5-15); White Blood Count 7.5 10^3/ul (3.5-10.8)
[2016-02-28 10:32] LABS: BUN/Creatinine Ratio 26.4 (8-20); Calcium 8.5 mg/dL (8.6-10.3); EGFR African American 101.3 (>60); EGFR Non-African American 78.8 (>60); Potassium 3.8 mmol/L (3.5-5.0)
[2016-02-28] MEDS: Ciprofloxacin 400MG IVPREMIX(* 400 MG/200 ML BAG IVPB SCH (11:48)
--- NOTE | 2016-02-28 16:29 | PN ---
Subjective Date of Service: 02/28/16 Interval History: Patient states that she has had no changes in her symptoms. She does feel some improvement after using a DuoNeb. Continues to cough with c/os dyspnea and fatigue. Objective Active Medications: Aclidinium [place] (Aileenrmega Lowe Mdi(Nf)) 1 puff INH BID [facility] Last Admin: 02/28/16 07:49 Dose: 1 puff Albuterol/Ipratropium (Duoneb Neb.Nereyda*) 1 neb INH [id number] AWAKE [facility] Last Admin: 02/28/16 11:20 Dose: 1 neb Albuterol/Ipratropium (Duoneb Neb.Nereyda*) 1 neb INH Q4H PRN PRN Reason: SOB/WHEEZING Aspirin (Aspirin Low Dose Tab*) 81 mg G TUBE DAILY [facility] Last Admin: 02/28/16 08:24 Dose: 81 mg Atorvastatin Calcium (Lipitor*) 10 mg G TUBE BEDTIME [facility] Last Admin: 02/27/16 21:01 Dose: 10 mg Enoxaparin Sodium (Lovenox(*)) 40 mg SUBCUT 1999 [facility] Last Admin: 02/27/16 20:59 Dose: 40 mg Fluticasone Propionate (Flonase Nasal [place] 50mcg*) 1 spray BOTH NARES BID PRN PRN Reason: CONGESTION Guaifenesin (Robitussin*) 10 ml G TUBE BID [facility] Last Admin: 02/28/16 08:41 Dose: 10 ml Piperacillin Sod/Tazobactam Sod (Zosyn 3.375 Gm In Ns Premix*) 3.375 gm in 100 mls @ 200 mls/hr IVPB Q6H [facility] Last Admin: 02/28/16 15:13 Dose: 200 mls/hr Vancomycin HCl 750 mg/ Sodium (Chloride) 250 mls @ 166.667 mls/hr IVPB 0800, 2000 [facility] Ibuprofen (Motrin Liq Adult*) 400 mg G TUBE DAILY [facility] Last Admin: 02/28/16 08:41 Dose: 400 mg Lactobacillus Rhamnosus (Culturelle*) 1 cap PO DAILY [facility] Last Admin: 02/28/16 08:24 Dose: 1 cap Levalbuterol HCl (Xopenex Hfa Inhaler*) 2 puff INH Q6HR PRN PRN Reason: WHEEZING Losartan Potassium (Cozaar Tab*) 50 mg G TUBE DAILY [facility] Last Admin: 02/28/16 08:24 Dose: 50 mg Metoclopramide HCl (Reglan Tab*) 5 mg G TUBE QID [facility] Last Admin: 02/28/16 11:54 Dose: 5 mg Mometasone Furoate/Formoterol Fumar (Dulera 200/5 Mdi*) 2 puff INH BID [facility] Last Admin: 02/28/16 07:51 Dose: 2 puff Montelukast Sodium (Singulair Tab*) 10 mg PO BEDTIME [facility] Last Admin: 02/27/16 21:05 Dose: 10 mg Nicotine (Nicotine Patch 7 Mg/24 Hr*) 1 patch TRANSDERM Q24H [facility] Last Admin: 02/27/16 21:07 Dose: 1 patch Pto: Promethazine W/Cod [Promethazine Vc/Codeine 6.25-5-10 Mg/5m 1 syp G TUBE Q4H PRN PRN Reason: NAUSEA Last Admin: 02/28/16 02:16 Dose: 1 syp Ondansetron HCl (Zofran Inj*) 4 mg IV Q4H PRN PRN Reason: NAUSEA/VOMITING Oxybutynin Chloride (Ditropan Xl Tab*) 5 mg PO DAILY [facility] Last Admin: 02/28/16 08:24 Dose: 5 mg Pharmacy Consult (Vancomycin Per Pharmacy*) 1 note FOLLOW UP . PRN PRN Reason: PER PROTOCOL Pharmacy Profile Note (Nicotine Patch Removal Note*) 1 note FOLLOW UP 2100 [facility] Last Admin: 02/27/16 21:18 Dose: Not Given Pharmacy Profile Note (Vancomycin Trough Check) 1 note FOLLOW UP 0745 ONE Stop: 03/01/16 07:46 Polyethylene Glycol/Electrolytes (Miralax*) 17 gm G TUBE DAILY PRN PRN Reason: CONSTIPATION Prednisone (Deltasone Tab*) 60 mg PO DAILY [facility] Vital Signs: Temp Pulse Resp BP Pulse Ox 98.2 F 88 18 111/45 97 02/28/16 15:32 02/28/16 15:32 02/28/16 15:32 02/28/16 15:32 02/28/16 15:32 Oxygen Devices in Use Now: Nasal Cannula Appearance: Ill appearing elderly female in NAD. Appears quite fatigued. Respiratory: Symmetrical Chest Expansion and Respiratory Effort, - - reduced breath sounds, with some wheeze, but improved over yesterday Cardiovascular: NL Sounds; No Murmurs; No JVD, RRR Abdominal: NL Sounds; No Tenderness; No Distention Extremities: No Edema Skin: No Rash or Ulcers Neurological: Alert and Oriented x 3 Result Diagrams: 02/28/16 07:26 02/28/16 07:26 Additional Lab and Data: . Microbiology and Other Data: Microbiology 02/26/16 22:36 Gram Stain - Final Sputum Expectorated Sputum culture: Rothia mucilaginosa, sensitivity pending Diagnostic Imaging: CXR - NAD CT chest - RUL cavitary lesion which is stable, patchy density at the lingula. Significant emphysematous changes Assess/Plan/Problems-Billing Assessment: This is a 75 yo female with a h/o COPD, sqaumous cell lung CA s/p radiation, with a feeding tube in place due to chronic esophageal stricture who has been on several weeks of oral antibiotics who presented with fever, hypoxia, dyspnea and prod cough. Admitted for pneumonia v bronchiectasis - Patient Problems (1) Respiratory infection Comment: Pneumonia v bronchiectasis Sputum from 12/22 grew Pseudomonas, she has been on several weeks of Cipro orally without improvement Sputum from admission now growing Rothia mucilaginosa Will discontinue Cipro, cont Zosyn and Vanco until sensitivities are available Blood cultures neg (2) COPD (chronic obstructive pulmonary disease) Comment: With acute exacerbation Cont home inhaled medications Wheeze has improved on exam Patient reports that she's having trouble producing enough force to effectively use her Tudorza, no respimat available on hospital formulation, will cont scheduled DuoNebs Will transition to oral prednisone from Solumedrol (3) History of lung cancer Comment: s/p radiation of squamous cell carcinoma with residual cavitary lesion in RUL that appears stable on serial imaging (4) Feeding by G-tube Comment: Uses Osmolite 1.2, 1 can ~q3h while awake (5) Gastroparesis Comment: Cont Reglan prior to feedings (6) Hyperlipidemia (7) Hypertension Status and Disposition: Cont IV abx, pending sensitvities to guide therapy. Anticipate she will need several days of hospitalization.
[2016-02-28] MEDS: Vancomycin(*) 750 MG in NS 0.9% 250 ML* 250 ML IVPB SCH (21:05)
[2016-02-28] MEDS: Enoxaparin(*) 40 MG/0.4 ML SYR SUBCUT SCH (22:14)
[2016-02-28] MEDS: Montelukast Sodium TAB* 10 MG PO SCH (22:14)
[2016-02-28] MEDS: Atorvastatin* 10 MG TAB G TUBE SCH (22:14)
[2016-02-28] MEDS: Nicotine PATCH 7 MG/24 HR* PATCH TRANSDERM SCH (22:23)
[2016-02-28] MEDS: Nicotine Patch Removal NOTE FOLLOW UP SCH (22:33)
[2016-02-29] MEDS: Piperac/Tazob 3.375 gm in NS* 3.375 GM/100 ML BAG IVPB SCH ×5 (00:09→22:33)
[2016-02-29] MEDS: Albuterol/Ipratropium NEB.SOL* Albuterol 2.5 MG/Ipratropium 0.5 MG 3 ML INH SCH ×6 (03:00→23:00)
[2016-02-29] MEDS: guaiFENesin LIQ* 100 MG/5 ML UDC G TUBE SCH ×2 (08:13→22:34)
[2016-02-29] MEDS: Losartan TAB* 25 MG G TUBE SCH (08:13)
[2016-02-29] MEDS: Lactobacillus Acidophilu (GG)* 1 CAP CAP PO SCH (08:13)
[2016-02-29] MEDS: Oxybutynin XL TAB* 5 MG PO SCH (08:13)
[2016-02-29] MEDS: Ibuprofen ADULT LIQ* 600 MG/30 ML UDC G TUBE SCH (08:13)
[2016-02-29] MEDS: Aspirin Low Dose CHEW TAB* 81 MG G TUBE SCH (08:14)
[2016-02-29] MEDS: Metoclopramide TAB* 10 MG G TUBE SCH ×4 (08:14→22:33)
[2016-02-29] MEDS: Vancomycin(*) 750 MG in NS 0.9% 250 ML* 250 ML IVPB SCH ×2 (08:15→20:13)
[2016-02-29] MEDS: Mometasone/Formoter 200/5 MDI INH SCH ×2 (08:39→20:35)
[2016-02-29] MEDS: PTO: Aclidinium POWDER MDI(NF) INH SCH ×2 (08:47→21:00)
[2016-02-29] MEDS ORDERED: predniSONE TAB* 20 MG PO SCH (09:00)
[2016-02-29] MEDS: methylPREDNISolone SOD 40 MG* 1 ML VIAL IV SCH ×2 (12:24→20:13)
[2016-02-29] MEDS ORDERED: oxyCODONE/Acetamin 5/325 MG* TAB PO PRN (15:48)
--- NOTE | 2016-02-29 15:57 | PN ---
Subjective Date of Service: 02/29/16 Interval History: Patient says she still feels lousy. Wants something to help her sleep like percocet. Objective Active Medications: Aclidinium [place] (iLno Lowe Mdi(Nf)) 1 puff INH BID [facility] Last Admin: 02/29/16 08:47 Dose: Not Given Albuterol/Ipratropium (Duoneb Neb.Nereyda*) 1 neb INH [id number] AWAKE [facility] Last Admin: 02/29/16 12:00 Dose: 1 neb Albuterol/Ipratropium (Duoneb Neb.Nereyda*) 1 neb INH Q4H PRN PRN Reason: SOB/WHEEZING Aspirin (Aspirin Low Dose Tab*) 81 mg G TUBE DAILY [facility] Last Admin: 02/29/16 08:14 Dose: 81 mg Atorvastatin Calcium (Lipitor*) 10 mg G TUBE BEDTIME [facility] Last Admin: 02/28/16 22:14 Dose: 10 mg Enoxaparin Sodium (Lovenox(*)) 40 mg SUBCUT 1999 [facility] Last Admin: 02/28/16 22:14 Dose: 40 mg Fluticasone Propionate (Flonase Nasal [place] 50mcg*) 1 spray BOTH NARES BID PRN PRN Reason: CONGESTION Guaifenesin (Robitussin*) 10 ml G TUBE BID [facility] Last Admin: 02/29/16 08:13 Dose: 10 ml Piperacillin Sod/Tazobactam Sod (Zosyn 3.375 Gm In Ns Premix*) 3.375 gm in 100 mls @ 200 mls/hr IVPB Q6H [facility] Last Admin: 02/29/16 15:37 Dose: 200 mls/hr Vancomycin HCl 750 mg/ Sodium (Chloride) 250 mls @ 166.667 mls/hr IVPB 0800, 1999 [facility] Last Admin: 02/29/16 08:15 Dose: 166.667 mls/hr Ibuprofen (Motrin Liq Adult*) 400 mg G TUBE DAILY [facility] Last Admin: 02/29/16 08:13 Dose: 400 mg Lactobacillus Rhamnosus (Culturelle*) 1 cap PO DAILY [facility] Last Admin: 02/29/16 08:13 Dose: 1 cap Levalbuterol HCl (Xopenex Hfa Inhaler*) 2 puff INH Q6HR PRN PRN Reason: WHEEZING Losartan Potassium (Cozaar Tab*) 50 mg G TUBE DAILY [facility] Last Admin: 02/29/16 08:13 Dose: 50 mg Methylprednisolone Sodium Succinate (Solu-Medrol*) 40 mg IV Q8H [facility] Last Admin: 02/29/16 12:24 Dose: 40 mg Metoclopramide HCl (Reglan Tab*) 5 mg G TUBE QID [facility] Last Admin: 02/29/16 12:25 Dose: 5 mg Mometasone Furoate/Formoterol Fumar (Dulera 200/5 Mdi*) 2 puff INH BID [facility] Last Admin: 02/29/16 08:39 Dose: 2 puff Montelukast Sodium (Singulair Tab*) 10 mg PO BEDTIME [facility] Last Admin: 02/28/16 22:14 Dose: 10 mg Nicotine (Nicotine Patch 7 Mg/24 Hr*) 1 patch TRANSDERM Q24H [facility] Last Admin: 02/28/16 22:23 Dose: 1 patch Pto: Promethazine W/Cod [Promethazine Vc/Codeine 6.25-5-10 Mg/5m 1 syp G TUBE Q4H PRN PRN Reason: NAUSEA Last Admin: 02/28/16 22:23 Dose: 1 syp Ondansetron HCl (Zofran Inj*) 4 mg IV Q4H PRN PRN Reason: NAUSEA/VOMITING Oxybutynin Chloride (Ditropan Xl Tab*) 5 mg PO DAILY [facility] Last Admin: 02/29/16 08:13 Dose: 5 mg Oxycodone/Acetaminophen (Percocet 5/325 Tab*) 1 tab PO BEDTIME PRN PRN Reason: pain/insomnia Pharmacy Consult (Vancomycin Per Pharmacy*) 1 note FOLLOW UP . PRN PRN Reason: PER PROTOCOL Pharmacy Profile Note (Nicotine Patch Removal Note*) 1 note FOLLOW UP 2100 [facility] Last Admin: 02/28/16 22:33 Dose: 1 note Pharmacy Profile Note (Vancomycin Trough Check) 1 note FOLLOW UP 0745 ONE Stop: 03/01/16 07:46 Polyethylene Glycol/Electrolytes (Miralax*) 17 gm G TUBE DAILY PRN PRN Reason: CONSTIPATION Vital Signs 02/28/16 02/28/16 02/28/16 16:43 19:42 21:00 Temperature Pulse Rate 105 103 Respiratory 16 18 20 Rate Blood Pressure (mmHg) O2 Sat by Pulse 99 97 Oximetry 12/30/16 12/31/16 12/31/16 23:01 00:07 08:00 Temperature 98.2 F Pulse Rate 93 108 Respiratory 17 15 22 Rate Blood Pressure 134/51 (mmHg) O2 Sat by Pulse 95 94 Oximetry 02/29/16 02/29/16 08:49 12:12 Temperature Pulse Rate 104 106 Respiratory 22 22 Rate Blood Pressure (mmHg) O2 Sat by Pulse 98 98 Oximetry Oxygen Devices in Use Now: Nasal Cannula Appearance: Thin elderly woman sitting up in her chair in NAD Eyes: No Scleral Icterus Ears/Nose/Mouth/Throat: Clear Oropharnyx Neck: No Thyroid Enlargement, Masses Respiratory: - - Decreased BS throughout Cardiovascular: - - S1S2 alycia Abdominal: NL Sounds; No Tenderness; No Distention, No Hepatosplenomegaly Lymphatic: No Cervical Adenopathy Extremities: No Clubbing, Cyanosis Skin: No Rash or Ulcers Neurological: Alert and Oriented x 3 Result Diagrams: 02/28/16 07:26 02/28/16 07:26 Additional Lab and Data: . Microbiology and Other Data: Microbiology 02/26/16 22:36 Gram Stain - Final Sputum Expectorated Sputum culture: Rothia mucilaginosa, sensitivity pending Diagnostic Imaging: CXR - NAD CT chest - RUL cavitary lesion which is stable, patchy density at the lingula. Significant emphysematous changes Assess/Plan/Problems-Billing Assessment: This is a 75 yo female with a h/o COPD, sqaumous cell lung CA s/p radiation, with a feeding tube in place due to chronic esophageal stricture who has been on several weeks of oral antibiotics who presented with fever, hypoxia, dyspnea and prod cough. Admitted for pneumonia v bronchiectasis - Patient Problems (1) Respiratory infection Current Visit: Yes Status: Acute Code(s): J98.8 - OTHER SPECIFIED RESPIRATORY DISORDERS SNOMED Code(s): 977119715 Comment: Pneumonia vs bronchiectasis Sputum from 12/22 grew Pseudomonas, she had been on several weeks of Cipro orally without improvement. Currently on Zosyn and Vanco. Sputum from admission now growing Rothia mucilaginosa, not a likely pathogen. May benefit from Pulm consult Will discontinue Cipro, cont Zosyn and Vanco until sensitivities are available Blood cultures neg (2) Feeding by G-tube Current Visit: Yes Status: Acute Code(s): Z93.1 - GASTROSTOMY STATUS SNOMED Code(s): 324728714 Comment: Uses Osmolite 1.2, 1 can ~q3h while awake (3) Gastroparesis Current Visit: Yes Status: Acute Code(s): K31.84 - GASTROPARESIS SNOMED Code(s): 191154217 Comment: Cont Reglan prior to feedings (4) History of lung cancer Current Visit: Yes Status: Acute Code(s): Z85.118 - PERSONAL HISTORY OF MALIGNANT NEOPLASM OF BRONCHUS AND LUNG SNOMED Code(s): 011791946 Comment: S/P radiation of squamous cell carcinoma with residual cavitary lesion in RUL that appears stable on serial imaging (5) COPD (chronic obstructive pulmonary disease) Current Visit: No Status: Acute Priority: Low Code(s): J44.9 - CHRONIC OBSTRUCTIVE PULMONARY DISEASE, UNSPECIFIED SNOMED Code(s): 85318804 Comment: With acute exacerbation Cont home inhaled medications No wheezing but not moving much air. Change back to IV solumedrol. (6) Hypertension Current Visit: No Status: Acute Priority: Low Code(s): I10 - ESSENTIAL ( PRIMARY) HYPERTENSION SNOMED Code(s): 23796597 Comment: Adequate control. Continue current regimen (7) DVT prophylaxis Current Visit: Yes Status: Acute Code(s): EDD4377 - SNOMED Code(s): 044052220 Comment: Lovenox (8) Full code status Current Visit: Yes Status: Acute Code(s): Z78.9 - OTHER SPECIFIED HEALTH STATUS SNOMED Code(s): 106018121 Status and Disposition: Cont IV abx, pending sensitvities to guide therapy. Anticipate she will need several days of hospitalization.
--- NOTE | 2016-02-29 16:53 | RAD ---
INDICATION: Pneumonia COMPARISON: Similar chest x-ray February 26, [address] of the chest dated February 26, 2016. TECHNIQUE: PA and lateral views of the chest were obtained. FINDINGS: The heart and mediastinum are normal in size and contour. Similar to the previous chest x-ray there is advanced hyperaeration, flattened diaphragm and increased retrosternal airspace. Again seen is density with a somewhat more focal 9 mm nodule overlying the left upper lobe. On the lateral view chest x-ray this corresponds to a pleural-based triangular density seen at the same level. There is no evidence of large pleural effusion. Visualized bones are normal for the patient's age. There is no radiographic evidence of free air beneath the diaphragm IMPRESSION: 1. DENSITY OVERLYING THE POSTERIOR LEFT UPPER LOBE CORRESPONDS TO THE PLEURAL-BASED DENSITY SEEN ON THE CT OF THE CHEST. 2. AGAIN SEEN IS THE APPEARANCE OF ADVANCED CHRONIC OBSTRUCTIVE PULMONARY DISEASE.
[2016-02-29] MEDS: Enoxaparin(*) 40 MG/0.4 ML SYR SUBCUT SCH (20:13)
[2016-02-29] MEDS: Montelukast Sodium TAB* 10 MG PO SCH (22:33)
[2016-02-29] MEDS: Atorvastatin* 10 MG TAB G TUBE SCH (22:33)
[2016-02-29] MEDS: COD G TUBE PRN (22:34)
[2016-02-29] MEDS: [UNRECOGNIZED DRUG - OTHER] G TUBE PRN (22:34)
[2016-02-29] MEDS: PROMETHAZINE G TUBE PRN (22:34)
[2016-02-29] MEDS: Nicotine PATCH 7 MG/24 HR* PATCH TRANSDERM SCH (22:35)
[2016-02-29] MEDS: Nicotine Patch Removal NOTE FOLLOW UP SCH (22:39)
[2016-03-01] MEDS: Albuterol/Ipratropium NEB.SOL* Albuterol 2.5 MG/Ipratropium 0.5 MG 3 ML INH SCH ×5 (03:00→19:23)
[2016-03-01] MEDS: methylPREDNISolone SOD 40 MG* 1 ML VIAL IV SCH ×3 (03:42→21:27)
[2016-03-01] MEDS: Piperac/Tazob 3.375 gm in NS* 3.375 GM/100 ML BAG IVPB SCH ×3 (03:43→15:24)
[2016-03-01] MEDS ORDERED: Vancomycin Trough Check NOTE FOLLOW UP ONE (07:45)
[2016-03-01] MEDS: Losartan TAB* 25 MG G TUBE SCH (07:54)
[2016-03-01] MEDS: Aspirin Low Dose CHEW TAB* 81 MG G TUBE SCH (07:54)
[2016-03-01] MEDS: guaiFENesin LIQ* 100 MG/5 ML UDC G TUBE SCH ×2 (07:54→21:28)
[2016-03-01] MEDS: Metoclopramide TAB* 10 MG G TUBE SCH ×2 (07:54→12:02)
[2016-03-01] MEDS: Oxybutynin XL TAB* 5 MG PO SCH (07:54)
[2016-03-01] MEDS: Lactobacillus Acidophilu (GG)* 1 CAP CAP PO SCH (07:54)
[2016-03-01] MEDS: Ibuprofen ADULT LIQ* 600 MG/30 ML UDC G TUBE SCH (07:55)
[2016-03-01] MEDS: Mometasone/Formoter 200/5 MDI INH SCH ×2 (07:59→19:26)
[2016-03-01] MEDS: Vancomycin(*) 750 MG in NS 0.9% 250 ML* 250 ML IVPB SCH ×2 (08:09→21:27)
[2016-03-01] MEDS: PTO: Aclidinium POWDER MDI(NF) INH SCH ×2 (08:11→21:28)
[2016-03-01] MEDS ORDERED: Oxybutynin TAB* 5 MG PO SCH (11:00)
[2016-03-01] MEDS: Oxybutynin TAB* 5 MG PO SCH ×2 (11:36→21:29)
--- NOTE | 2016-03-01 13:44 | PN ---
Subjective Date of Service: 03/01/16 Interval History: Patient seen this afternoon with present. Says she does not feel much change from the IV steroids yet. Still feels SOB. No fever or chills. Family History: Unchanged from Admission Social History: Unchanged from Admission Past Medical History: Unchanged from Admission Objective Active Medications: Aclidinium [place] (Aileenrmega Lowe Mdi(Nf)) 1 puff INH BID ARACELI Albuterol/Ipratropium (Duoneb Neb.Nereyda*) 1 neb INH [id number] AWAKE ARACELI Albuterol/Ipratropium (Duoneb Neb.Nereyda*) 1 neb INH Q4H PRN Aspirin (Aspirin Low Dose Tab*) 81 mg G TUBE DAILY ARACELI Atorvastatin Calcium (Lipitor*) 10 mg G TUBE BEDTIME ARACELI Enoxaparin Sodium (Lovenox(*)) 40 mg SUBCUT 2000 ARACELI Fluticasone Propionate (Flonase Nasal [place] 50mcg*) 1 spray BOTH NARES BID PRN Guaifenesin (Robitussin*) 10 ml G TUBE BID ARACELI Piperacillin Sod/Tazobactam Sod (Zosyn 3.375 Gm In Ns Premix*) 3.375 gm in 100 mls @ 200 mls/hr IVPB Q6H ARACELI Vancomycin HCl 750 mg/ Sodium (Chloride) 250 mls @ 166.667 mls/hr IVPB 0800, 2000 ARACELI Ibuprofen (Motrin Liq Adult*) 400 mg G TUBE DAILY ARACELI Lactobacillus Rhamnosus (Culturelle*) 1 cap PO DAILY ARACELI Levalbuterol HCl (Xopenex Hfa Inhaler*) 2 puff INH Q6HR PRN Losartan Potassium (Cozaar Tab*) 50 mg G TUBE DAILY ARACELI Methylprednisolone Sodium Succinate (Solu-Medrol*) 40 mg IV Q8H ARACELI Metoclopramide HCl (Reglan Liq*) 5 mg PEG TUBE QID ARACELI Mometasone Furoate/Formoterol Fumar (Dulera 200/5 Mdi*) 2 puff INH BID ARACELI Montelukast Sodium (Singulair Tab*) 10 mg PO BEDTIME ARACELI Nicotine (Nicotine Patch 7 Mg/24 Hr*) 1 patch TRANSDERM Q24H ARACELI Pto: Promethazine W/Cod [Promethazine Vc/Codeine 6.25-5-10 Mg/5m 1 syp G TUBE Q4H PRN Ondansetron HCl (Zofran Inj*) 4 mg IV Q4H PRN Oxybutynin Chloride (Ditropan Tab*) 5 mg PO BID ARACELI Oxycodone/Acetaminophen (Percocet 5/325 Tab*) 1 tab PO BEDTIME PRN Pharmacy Consult (Vancomycin Per Pharmacy*) 1 note FOLLOW UP . PRN Pharmacy Profile Note (Nicotine Patch Removal Note*) 1 note FOLLOW UP 2100 ARACELI Polyethylene Glycol/Electrolytes (Miralax*) 17 gm G TUBE DAILY PRN Vital Signs 02/29/16 02/29/16 02/29/16 15:54 16:02 20:30 Temperature 98.0 F Pulse Rate 92 84 Respiratory 19 20 20 Rate Blood Pressure 147/52 (mmHg) O2 Sat by Pulse 93 97 Oximetry 02/29/16 02/29/16 03/01/16 20:37 23:52 07:30 Temperature 98.0 F 97.9 F Pulse Rate 86 106 84 Respiratory 20 16 Rate Blood Pressure 122/49 120/60 (mmHg) O2 Sat by Pulse 98 98 99 Oximetry 03/01/16 03/01/16 03/01/16 08:13 09:42 11:24 Temperature Pulse Rate 94 98 Respiratory 20 22 20 Rate Blood Pressure (mmHg) O2 Sat by Pulse 99 99 Oximetry Oxygen Devices in Use Now: Nasal Cannula Appearance: Elderly, F, sitting in bed in NAD Eyes: No Scleral Icterus Ears/Nose/Mouth/Throat: Mucous Membranes Moist Neck: NL Appearance and Movements; NL JVP Respiratory: Symmetrical Chest Expansion and Respiratory Effort, - - Poor air movement, no wheezing appreciated Cardiovascular: NL Sounds; No Murmurs; No JVD, RRR Abdominal: NL Sounds; No Tenderness; No Distention Lymphatic: No Cervical Adenopathy Extremities: - - B/L LE pedal/ankle edema Skin: No Rash or Ulcers Neurological: Alert and Oriented x 3 Result Diagrams: 02/28/16 07:26 02/28/16 07:26 Additional Lab and Data: . Microbiology and Other Data: Microbiology 02/26/16 22:36 Gram Stain - Final Sputum Expectorated Sputum culture: Rothia mucilaginosa, sensitivity pending Diagnostic Imaging: CXR - NAD CT chest - RUL cavitary lesion which is stable, patchy density at the lingula. Significant emphysematous changes Assess/Plan/Problems-Billing Assessment: This is a 75 yo female with a h/o COPD, sqaumous cell lung CA s/p radiation, with a feeding tube in place due to chronic esophageal stricture who has been on several weeks of oral antibiotics who presented with fever, hypoxia, dyspnea and prod cough. Admitted for COPD exacerbation and possible pneumonia v bronchiectasis - Patient Problems (1) Respiratory infection Current Visit: Yes Comment: Pneumonia vs bronchiectasis Sputum from 12/22 grew Pseudomonas, she had been on several weeks of Cipro orally without improvement. Currently on Zosyn and Vanco. Sputum from admission now growing Rothia mucilaginosa, not a likely pathogen. Procaclitnonin negative. I'm not convinced she has a bacterial infection. Will get Pulm and ID consults once available after holiday weekend (2) COPD (chronic obstructive pulmonary disease) Current Visit: No Comment: With acute exacerbation Cont home inhaled medications No wheezing but not moving much air, continue IV solumedrol. (3) Feeding by G-tube Current Visit: Yes Comment: Uses Osmolite 1.2, 1 can ~q3h while awake (4) Gastroparesis Current Visit: Yes Comment: Cont Reglan prior to feedings (5) History of lung cancer Current Visit: Yes Comment: S/P radiation of squamous cell carcinoma with residual cavitary lesion in RUL that appears stable on serial imaging (6) Hypertension Current Visit: No Comment: Adequate control. Continue current regimen (7) DVT prophylaxis Current Visit: Yes Comment: Lovenox (8) Full code status Current Visit: Yes Status and Disposition: Cont IV abx for now, awaiting Pulm and ID input
[2016-03-01] MEDS: Metoclopramide LIQ* 10 MG/10 ML ORAL.SOLN PEG TUBE SCH ×2 (16:26→21:28)
[2016-03-01] MEDS: Atorvastatin* 10 MG TAB G TUBE SCH (21:19)
[2016-03-01] MEDS: Enoxaparin(*) 40 MG/0.4 ML SYR SUBCUT SCH (21:27)
[2016-03-01] MEDS: Montelukast Sodium TAB* 10 MG PO SCH (21:29)
[2016-03-01] MEDS: ALPRAZolam TAB* 0.5 MG PO PRN (21:38)
[2016-03-01] MEDS: [UNRECOGNIZED DRUG - OTHER] G TUBE PRN (21:39)
[2016-03-01] MEDS: PROMETHAZINE G TUBE PRN (21:39)
[2016-03-01] MEDS: COD G TUBE PRN (21:39)
[2016-03-01] MEDS: Nicotine PATCH 7 MG/24 HR* PATCH TRANSDERM SCH (21:40)
[2016-03-01] MEDS: Nicotine Patch Removal NOTE FOLLOW UP SCH (22:00)
[2016-03-02] MEDS: Albuterol/Ipratropium NEB.SOL* Albuterol 2.5 MG/Ipratropium 0.5 MG 3 ML INH SCH ×5 (00:02→15:21)
[2016-03-02] MEDS: Piperac/Tazob 3.375 gm in NS* 3.375 GM/100 ML BAG IVPB SCH ×5 (00:47→18:36)
[2016-03-02] MEDS: methylPREDNISolone SOD 40 MG* 1 ML VIAL IV SCH ×3 (05:01→21:34)
[2016-03-02] MEDS: Mometasone/Formoter 200/5 MDI INH SCH ×2 (08:02→20:41)
[2016-03-02] MEDS: Vancomycin(*) 750 MG in NS 0.9% 250 ML* 250 ML IVPB SCH ×2 (08:16→21:34)
[2016-03-02] MEDS: Ibuprofen ADULT LIQ* 600 MG/30 ML UDC G TUBE SCH (08:16)
[2016-03-02] MEDS: Aspirin Low Dose CHEW TAB* 81 MG G TUBE SCH (08:17)
[2016-03-02] MEDS: Lactobacillus Acidophilu (GG)* 1 CAP CAP PO SCH (08:17)
[2016-03-02] MEDS: Metoclopramide LIQ* 10 MG/10 ML ORAL.SOLN PEG TUBE SCH ×4 (08:17→21:20)
[2016-03-02] MEDS: Oxybutynin TAB* 5 MG PO SCH ×2 (08:17→21:18)
[2016-03-02] MEDS: Losartan TAB* 25 MG G TUBE SCH (08:17)
[2016-03-02] MEDS: guaiFENesin LIQ* 100 MG/5 ML UDC G TUBE SCH ×2 (08:17→21:20)
[2016-03-02] MEDS: PTO: Aclidinium POWDER MDI(NF) INH SCH ×2 (08:33→21:02)
--- NOTE | 2016-03-02 12:04 | PN ---
Subjective Date of Service: 03/02/16 Interval History: Patient seen this morning. Says she feels about the same overall, still somewhat SOB although ambulated to the bathroom with O2 and was pleased with this. Eating OK. No fever or chills. Family History: Unchanged from Admission Social History: Unchanged from Admission Past Medical History: Unchanged from Admission Objective Active Medications: Aclidinium [place] (Lino Lowe Mdi(Nf)) 1 puff INH BID ARACELI Albuterol/Ipratropium (Duoneb Neb.Nereyda*) 1 neb INH [id number] AWAKE ARACELI Albuterol/Ipratropium (Duoneb Neb.Nereyda*) 1 neb INH Q4H PRN Alprazolam (Xanax Tab*) 0.5 mg PO BEDTIME PRN Aspirin (Aspirin Low Dose Tab*) 81 mg G TUBE DAILY ARACELI Atorvastatin Calcium (Lipitor*) 10 mg G TUBE BEDTIME ARACELI Enoxaparin Sodium (Lovenox(*)) 40 mg SUBCUT 2000 ARACELI Fluticasone Propionate (Flonase Nasal [place] 50mcg*) 1 spray BOTH NARES BID PRN Guaifenesin (Robitussin*) 10 ml G TUBE BID ARACELI Vancomycin HCl 750 mg/ Sodium (Chloride) 250 mls @ 166.667 mls/hr IVPB 0800, 2000 ARACELI Piperacillin Sod/Tazobactam Sod (Zosyn 3.375 Gm In Ns Premix*) 3.375 gm in 100 mls @ 200 mls/hr IVPB 0000,0600,1200,1800 ARACELI Ibuprofen (Motrin Liq Adult*) 400 mg G TUBE DAILY ARACELI Lactobacillus Rhamnosus (Culturelle*) 1 cap PO DAILY ARACELI Levalbuterol HCl (Xopenex Hfa Inhaler*) 2 puff INH Q6HR PRN Losartan Potassium (Cozaar Tab*) 50 mg G TUBE DAILY ARACELI Methylprednisolone Sodium Succinate (Solu-Medrol*) 40 mg IV Q8H ARACELI Metoclopramide HCl (Reglan Liq*) 5 mg PEG TUBE QID ARACELI Mometasone Furoate/Formoterol Fumar (Dulera 200/5 Mdi*) 2 puff INH BID ARACELI Montelukast Sodium (Singulair Tab*) 10 mg PO BEDTIME ARACELI Nicotine (Nicotine Patch 7 Mg/24 Hr*) 1 patch TRANSDERM Q24H ARACELI Pto: Promethazine W/Cod [Promethazine Vc/Codeine 6.25-5-10 Mg/5m 1 syp G TUBE Q4H PRN Ondansetron HCl (Zofran Inj*) 4 mg IV Q4H PRN Oxybutynin Chloride (Ditropan Tab*) 5 mg PO BID ARACELI Oxycodone/Acetaminophen (Percocet 5/325 Tab*) 1 tab PO BEDTIME PRN Pharmacy Consult (Vancomycin Per Pharmacy*) 1 note FOLLOW UP . PRN Pharmacy Profile Note (Nicotine Patch Removal Note*) 1 note FOLLOW UP 2100 [facility] Polyethylene Glycol/Electrolytes (Miralax*) 17 gm G TUBE DAILY PRN Vital Signs 03/01/16 03/01/16 03/01/16 16:05 19:26 20:00 Temperature 97.8 F Pulse Rate 67 83 Respiratory 18 20 14 Rate Blood Pressure 141/58 (mmHg) O2 Sat by Pulse 96 95 Oximetry 03/01/16 03/01/16 03/01/16 21:38 23:38 23:44 Temperature 97.7 F Pulse Rate 88 Respiratory 20 16 14 Rate Blood Pressure 110/54 (mmHg) O2 Sat by Pulse 98 Oximetry 03/02/16 03/02/16 03/02/16 07:25 08:00 10:15 Temperature 98.0 F Pulse Rate 70 88 Respiratory 16 18 18 Rate Blood Pressure 118/47 (mmHg) O2 Sat by Pulse 99 96 Oximetry 03/02/16 11:28 Temperature Pulse Rate 78 Respiratory 16 Rate Blood Pressure (mmHg) O2 Sat by Pulse 100 Oximetry Oxygen Devices in Use Now: Nasal Cannula Appearance: Elderly, F, laying in bed in NAD Eyes: No Scleral Icterus Ears/Nose/Mouth/Throat: Mucous Membranes Moist Neck: NL Appearance and Movements; NL JVP Respiratory: Symmetrical Chest Expansion and Respiratory Effort, - - Fair air movement, no wheezing appreciated Cardiovascular: NL Sounds; No Murmurs; No JVD, RRR Abdominal: - - Soft, mild distension, PEG tube in place, ecchymoses over lower abdomen Lymphatic: No Cervical Adenopathy Extremities: No Edema Skin: No Rash or Ulcers Neurological: Alert and Oriented x 3 Result Diagrams: 02/28/16 07:26 02/28/16 07:26 Additional Lab and Data: . Microbiology and Other Data: Microbiology 02/26/16 22:36 Gram Stain - Final Sputum Expectorated Sputum culture: Rothia mucilaginosa, sensitivity pending Diagnostic Imaging: CXR - NAD CT chest - RUL cavitary lesion which is stable, patchy density at the lingula. Significant emphysematous changes Assess/Plan/Problems-Billing Assessment: This is a 75 yo female with a h/o COPD, sqaumous cell lung CA s/p radiation, with a feeding tube in place due to chronic esophageal stricture who has been on several weeks of oral antibiotics who presented with fever, hypoxia, dyspnea and prod cough. Admitted for COPD exacerbation and possible pneumonia v bronchiectasis - Patient Problems (1) Respiratory infection Current Visit: Yes Comment: Pneumonia vs bronchiectasis Sputum from 12/22 grew Pseudomonas, she had been on several weeks of Cipro orally without improvement. Currently on Zosyn and Vanco. Sputum from admission now growing Rothia mucilaginosa, not a likely pathogen. Procaclitnonin negative. I'm not convinced she has a bacterial infection. Will get Pulm and ID consults once available after holiday weekend ?[employer] (2) COPD (chronic obstructive pulmonary disease) Current Visit: No Comment: With acute exacerbation Cont home inhaled medications No wheezing but not moving much air, continue IV solumedrol. (3) Feeding by G-tube Current Visit: Yes Comment: Uses Osmolite 1.2, 1 can ~q3h while awake (4) Gastroparesis Current Visit: Yes Comment: Cont Reglan prior to feedings (5) History of lung cancer Current Visit: Yes Comment: S/P radiation of squamous cell carcinoma with residual cavitary lesion in RUL that appears stable on serial imaging (6) Hypertension Current Visit: No Comment: Adequate control. Continue current regimen (7) DVT prophylaxis Current Visit: Yes Comment: Lovenox (8) Full code status Current Visit: Yes Status and Disposition: Cont IV abx for now, awaiting Pulm and ID input
[2016-03-02] MEDS: Montelukast Sodium TAB* 10 MG PO SCH (21:19)
[2016-03-02] MEDS: Enoxaparin(*) 40 MG/0.4 ML SYR SUBCUT SCH (21:19)
[2016-03-02] MEDS: Atorvastatin* 10 MG TAB G TUBE SCH (21:20)
[2016-03-02] MEDS: ALPRAZolam TAB* 0.5 MG PO PRN (21:31)
[2016-03-02] MEDS: [UNRECOGNIZED DRUG - OTHER] G TUBE PRN (21:32)
[2016-03-02] MEDS: PROMETHAZINE G TUBE PRN (21:32)
[2016-03-02] MEDS: COD G TUBE PRN (21:32)
[2016-03-02] MEDS: Nicotine PATCH 7 MG/24 HR* PATCH TRANSDERM SCH (21:35)
[2016-03-02] MEDS: Nicotine Patch Removal NOTE FOLLOW UP SCH (21:43)
[2016-03-03] MEDS: Piperac/Tazob 3.375 gm in NS* 3.375 GM/100 ML BAG IVPB SCH ×2 (00:08→05:12)
[2016-03-03] MEDS: methylPREDNISolone SOD 40 MG* 1 ML VIAL IV SCH ×2 (05:12→13:15)
[2016-03-03 07:55] VITALS: BP 115/45
[2016-03-03] MEDS: Losartan TAB* 25 MG G TUBE SCH (07:57)
[2016-03-03] MEDS: Oxybutynin TAB* 5 MG PO SCH (07:57)
[2016-03-03] MEDS: Aspirin Low Dose CHEW TAB* 81 MG G TUBE SCH (07:58)
[2016-03-03] MEDS: Metoclopramide LIQ* 10 MG/10 ML ORAL.SOLN PEG TUBE SCH ×2 (07:58→13:15)
[2016-03-03] MEDS: Ibuprofen ADULT LIQ* 600 MG/30 ML UDC G TUBE SCH (07:58)
[2016-03-03] MEDS: Vancomycin(*) 750 MG in NS 0.9% 250 ML* 250 ML IVPB SCH ×2 (07:58→08:05)
[2016-03-03] MEDS: PTO: Aclidinium POWDER MDI(NF) INH SCH (07:58)
[2016-03-03] MEDS: Lactobacillus Acidophilu (GG)* 1 CAP CAP PO SCH (07:58)
[2016-03-03] MEDS: guaiFENesin LIQ* 100 MG/5 ML UDC G TUBE SCH (08:07)
[2016-03-03] MEDS: Mometasone/Formoter 200/5 MDI INH SCH (09:28)
--- NOTE | 2016-03-03 14:40 | DCNOTE ---
Patient seen this morning. Says he breathing feels better. No fever or chills. Dr. Shea felt she was doing well and could go home. Dr. Tavares to see but in discussing case he did not feel she needed any further ABx. On exam, clear lung sounds, poor air movement, mild LE edema. Will discharge home with Prednisone taper, no ABx. Will need to follow-up with Dr. Shea and PCP.
--- NOTE | 2016-03-03 21:20 | CONS ---
CONSULTATION REPORT: DATE OF CONSULTATION: 03/03/16 REQUESTING PHYSICIAN: Dr. Bartlett. CONSULTING SERVICE: Infectious Disease. REASON FOR CONSULTATION: Cough, hypoxia. IMPRESSION: 1. Chronic pulmonary disease with acute worsening of dyspnea and hypoxia, some chills. CT of the chest showed no acute changes, shows chronic lung mass. She did not have influenza like symptoms and she had a flu PCR that was negative mid January. This could have been another viral infection causing a viral bronchitis or lower respiratory tract infection. She did have a few days of vancomycin and Zosyn. A sputum culture include normal gal and Rothia mucilaginosa, which is oral gal. There are 4+ epithelial cells in the samples , so I do not think that represents a pulmonary pathogen. 2. Hypoxia, improving. 3. Chronic obstructive pulmonary disease. 4. Squamous cell lung cancer, status post radiation therapy. 5. Recurrent aspiration with feeding tube. RECOMMENDATION: Agree with stopping antibiotics. She will have monitoring of her oxygen saturation, which was 93% on room air at rest. She has plans to follow up with Dr. Shea. We discussed need to return with fever, worsening cough, hypoxia, or chest pain. HISTORY OF PRESENT ILLNESS: This is a 75-year-old woman with COPD and history of lung cancer and chest radiation admitted with worsening cough and dyspnea at rest on 02/26/16. She has been followed with Dr. Shea as an outpatient. A chest CT was done with patchy airspace disease of left upper lobe, which had been there since in the previous year, unchanged and then a chest mass in the right upper lobe, which is 2.5 x 2.8 cm, which is unchanged as well. She was started on vancomycin and Zosyn. She had been 92% on room air when she arrived. She also noted fatigue and occasional cough, which was nonproductive. She has had 5 days of broad spectrum antibiotics. Sputum culture as above. Blood cultures are negative. She is afebrile. Breathing more comfortably. She has no dyspnea at rest. She is all short of breath when she is walking to bathroom. Otherwise, feels well. She is anxious to go home. PAST MEDICAL HISTORY: 1. COPD. 2. History of chest radiation as a child. 3. Squamous cell lung caner, status post radiation. 4. Hypertension. 5. Hyperlipidemia. 6. Gastrostomy tube for recurrent aspiration. 7. Gastroparesis. 8. Status post cholecystectomy. 9. Status post appendectomy. 10. Status post hysterectomy. 11. Status post exploratory laparoscopy. ALLERGIES: SULFA, LEVAQUIN, CHANTIX. HOME MEDICATIONS: 1. Xanax. 2. Aspirin. 3. Lipitor. 4. Enoxaparin. 5. Fluticasone nasal spray. 6. Lactobacillus. 7. Albuterol inhaler. 8. Losartan. 9. Reglan. 10. Nicotine patch. 11. Oxybutynin. 12. Oxycodone. 13. Methylprednisolone. SOCIAL HISTORY: She lives with her in [place]. No travel. No sick contacts. FAMILY HISTORY: No recurrent infections or tuberculosis. REVIEW OF SYSTEMS: All negative except as noted above. PHYSICAL EXAMINATION: Vital signs: Temperature 36.7, heart rate 87, respiratory rate 20, blood pressure 115/45, O2 sat 93% on room air. General: She is in no acute distress. She is not diaphoretic. Neurologic: She is oriented x3, follows all commands. Moves all extremities. HEENT: There is no conjunctival hemorrhage. Oropharynx without lesions. There is some fissuring of the tongue with white coating. Neck: Supple without nuchal rigidity. Lymph Nodes: There is no cervical, supraclavicular, inguinal, axillary, or epitrochlear lymphadenopathy. Heart: Regular rate and rhythm without murmurs, rubs, or gallops. There is distant heart sounds. Lungs: Decreased breath sounds at the bases without wheezes, rales, or rhonchi. Abdomen: Soft, nontender, nondistended without hepatosplenomegaly. Skin: There are no rashes or splinter hemorrhages. Musculoskeletal: No spine tenderness to palpation or joint synovitis with 1+ bilateral lower extremity edema. DIAGNOSTIC STUDIES/LABORATORY DATA: White blood cell count 17.5, hemoglobin 14 , platelets 176, creatinine 0.7. Procalcitonin is less than 0.1. CRP was 17 on admission. Please see impression and recommendations as outlined above, which I have discussed with Dr. Bartlett. Thanks for asking me to see Ms. Trotter in consultation. [id number]/[facility] #: [id number] [facility]
--- NOTE | 2016-03-03 23:08 | CONS ---
PULMONARY CONSULTATION REPORT: DATE OF CONSULTATION: 03/03/16 CONSULTATION REQUESTED BY: Serjio Bartlett MD REASON FOR CONSULTATION: Evaluation of shortness of breath and fatigue. HISTORY OF PRESENT ILLNESS: The patient is a 75-year-old female with history of COPD, squamous cell carcinoma of the lung, status post radiation, known to me from outpatient evaluation. The patient was admitted over the weekend for evaluation of shortness of breath and cough. The patient was being treated with outpatient antibiotics for pseudomonas bronchitis. The patient was treated with Ceftin, Biaxin, and doxycycline in the past. The patient was found to have resistant pseudomonas and was initiated on Cipro. The patient has been having worsening shortness of breath associated with cough and fatigue , which prompted ED evaluation. The patient also had fevers to 101 and 103 prior to the admission. The patient was sent to the ED by her primary care physician for further evaluation. The patient had repeat sputum cultures, which did not demonstrate pseudomonas. She also had repeat CT scan of the chest which showed left upper lobe cavitary lesion without any change. Layered atelectasis in the right middle lobe which appears to be unchanged. The patient was treated with broad-spectrum antibiotics. ID was consulted regarding further management. The patient was seen and examined at bedside earlier by me this morning. The patient reported improvement in breathing and cough. Fevers have resolved. The patient continues to have significant fatigue. Her O2 requirements have improved since admission. The patient denied chest pain, palpitations, abdominal pain, nausea, vomiting and diarrhea. The patient denied lower extremity swelling. PAST MEDICAL HISTORY: 1. COPD. 2. Hypertension. 3. Hyperlipidemia. 4. Squamous cell carcinoma of the lung, status post radiation. 5. Chest radiation as a child. 6. Feeding tube placement for esophageal strictures and recurrent aspiration. 7. Gastroparesis. PAST SURGICAL HISTORY: 1. Cholecystectomy. 2. Appendectomy. 3. Hysterectomy. 4. Exploratory laparoscopy. MEDICATIONS AT HOME: 1. Tudorza. 2. Albuterol. 3. Aspirin. 4. Atorvastatin. 5. Sensipar. 6. Cipro. 7. Vagifem. 8. Fluconazole. 9. Flonase. 10. Advair. 11. Guaifenesin. 12. Ibuprofen. 13. Lactobacillus. 14. Xopenex. 15. Losartan. 16. Reglan. 17. Singulair. 18. Osmolite tube feeds. 19. Phenylephrine-promethazine with codeine for nausea. 20. MiraLAX. 21. Prednisone 10 mg through G-tube. 22. Detrol 2 mg via G-tube. ALLERGIES: SULFA DRUGS, LEVOFLOXACIN, VARENICLINE. SOCIAL HISTORY: Lives at home with her . An extensive history of smoking, quit several years ago. No history of alcohol or drug abuse. REVIEW OF SYSTEMS: As per HPI, all 14 systems were reviewed. PHYSICAL EXAM: General: The patient in bed in no apparent distress, alert, awake, and oriented. Vital Signs: Temperature 98.1, pulse 79 beats per minute , O2 sat 93% at rest, 89% with ambulation needing O2 at 2 L, blood pressure 115/ 45. HEENT: Pupils equal, reactive to light, mucous membranes moist. Neck: Supple, trachea midline. Respiratory: Scattered wheeze bilaterally, good air entry. Cardiovascular: S1, S2 present, regular. Abdomen: Soft, nontender, nondistended. Bowel sounds present. Extremities: Normal range of motion. No fractures. Skin: No rash or bruits. Neuro: No focal deficits. DIAGNOSTIC STUDIES/LAB DATA: Laboratory data showed leukocytosis on admission, which resolved with a white count of 7.5, hemoglobin of 14. Sodium is 141 with potassium of 3.8, lactic acid of 1.7, troponins stable at 0.04, procalcitonin less than 0.1, and UA negative. CT scan of the chest performed on 02/26/16 was personally reviewed by me - extensive centrilobular emphysematous changes bilaterally, cavitary lesion in left upper lobe with pleural based spiculated mass measuring 2.5 x 2.8 cm with no significant change compared to prior scan. Evidence of linear atelectasis in the right middle lobe. No other acute findings noted. IMPRESSION/RECOMMENDATIONS: 75-year-old female with history of squamous cell cancer of the lung, extensive COPD with outpatient bronchitis secondary to pseudomonas and possible pneumonia, failed outpatient therapy, with fevers and fatigue along with worsening shortness of breath and cough. The patient treated with broad-spectrum antibiotics, repeat sputum cultures are negative for pseudomonas. Her procalcitonin levels were within normal limits , so is the lactate level. Do not suspect residual infection at this point. It is okay to discontinue antibiotics. The patient is stable enough to be discharged home. Might need O2 supplementation at home. Thank you for allowing me to participate in the care of your patient. Will follow up with you. [id number]/[facility] #: [id number] TANYA
--- NOTE | 2016-03-04 03:35 | DS ---
DISCHARGE SUMMARY: DATE OF ADMISSION: 02/26/16 DATE OF DISCHARGE: 03/03/16 PRIMARY CARE PHYSICIAN: Alonso Santos MD. PULMONOLOGY: Dr. Shea. PRINCIPAL DISCHARGE DIAGNOSIS: Chronic obstructive pulmonary disease exacerbation, possible viral infection. SECONDARY DIAGNOSES: 1. Chronic obstructive pulmonary disease. 2. Hypertension. 3. Hyperlipidemia. 4. History of squamous cell lung carcinoma status post radiation therapy. 5. Feeding tube due to esophageal stricture and recurrent aspiration. 6. Gastroparesis. STUDIES DONE DURING HOSPITALIZATION: 1. Chest x-ray, impression: No active disease. Hyperinflation. 2. CT of the chest without contrast, impression: Extensive chronic findings as described above with no substantial change when compared to the previous two CT examinations of the chest. 3. Repeat chest x-ray: Density overlying the posterior left upper lobe corresponds to the pleural-based density seen on the 02/26/16 CT of the chest. Again seen is the appearance of advanced chronic obstructive pulmonary disease. DISCHARGE MEDICATION REGIMEN: 1. Nystatin 100,000 units by mouth 4 times daily. 2. Prednisone taper 40 mL via the G-tube daily for 5 days, then decrease by 10 mL every 5 days until back to prior 10 mL daily dosing. 3. Osmolite 1 can in the G-tube every 3 hours. 4. Flonase 50 mcg 2 times daily as needed for congestion. 5. Aclidinium bromide 400 mcg inhaled 3 times daily. 6. Advair 1 puff inhaled 3 times daily. 7. Xopenex 2 puffs inhaled every 6 hours as needed for shortness of breath. 8. Promethazine 1 syrup with the G-tube every 4 hours as needed for nausea. 9. Atorvastatin 10 mg in the G-tube daily. 10. Ventolin 2.5 mg inhaled every 6 hours as needed for shortness of breath or wheezing. 11. MiraLAX 17 g by mouth daily as needed for constipation. 12. Detrol 2 mg per G-tube daily. 13. Reglan 5 mg per G-tube every 4 times daily. 14. Singulair 10 mg per G-tube daily. 15. Ibuprofen 20 mL in the G-tube daily. 16. Lactobacillus 1 capsule in the G-tube daily. 17. Losartan 50 mg in the G-tube daily. 18. Fluconazole 200 mg in the G-tube daily as needed for yeast infection. 19. Guaifenesin 10 mL via the G-tube 3 times daily. 20. Aspirin 81 mg by mouth daily. 21. Estradiol 10 mcg vaginally weekly. HISTORY OF PRESENT ILLNESS AND HOSPITAL SUMMARY: Please see the full history and physical by WILBER Mehta, for full details. Briefly, Ms. Trotter is a 75-year- old female with a past medical history as above, who presented to the hospital with worsening shortness of breath, productive cough, and fatigue despite outpatient therapy with antibiotics and steroids. The patient states she had been intermittently febrile. Here in the hospital, she had a mild leukocytosis of 12, was afebrile during the hospitalization. She had imaging of the chest, which did not show any significant disease. She was treated with IV Solu-Medrol and was initially started on broad-spectrum antibiotics as she recently had a Pseudomonas from her sputum cultures. Over the following days, her breathing slowly improved. Procalcitonin was added, which was negative. Dr. Tavares evaluated the patient along with Dr. Shea and felt that there was no need for further antibiotic therapy. Dr. Shea felt that the patient was nearly at her baseline and that she could be discharged home and she will follow up with her in the clinic. She was discharged on a prednisone taper as above and no further antibiotic therapy. TIME SPENT: Total time spent on this discharge, 45 minutes. This is a summary of the hospitalization, please see the full medical record for further details. CC: Alonso Santos MD; Dr. Shea* [id number]/[facility] #: [id number] MTDD
== END 2016-03-03 15:20 | disposition home or self-care (01) | DRG 190 ==
LOC: ED 13:42 → MED 15:24
PROVIDERS: ADMIT Internal Medicine; ATTEND Hospitalist
DX: J44.1 Chronic obstructive pulmonary disease with (acute) exacerbation (principal); J15.1 Pneumonia due to Pseudomonas; J98.11 Atelectasis; I10 Essential (primary) hypertension; E78.5 Hyperlipidemia, unspecified; K22.2 Esophageal obstruction; R74.8 Abnormal levels of other serum enzymes; K31.84 Gastroparesis; Z79.82 Long term (current) use of aspirin; Z79.1 Long term (current) use of non-steroidal anti-inflammatories (NSAID); Z79.52 Long term (current) use of systemic steroids; Z79.899 Other long term (current) drug therapy; Z87.891 Personal history of nicotine dependence; Z85.118 Personal history of other malignant neoplasm of bronchus and lung; Z92.3 Personal history of irradiation; Z93.1 Gastrostomy status; Z09 Encounter for follow-up examination after completed treatment for conditions other than malignant neoplasm; Z88.2 Allergy status to sulfonamides; Z88.8 Allergy status to other drugs, medicaments and biological substances
CPT/HCPCS: 36415; 71020; 71250; 80048; 80053; 80202; 81003; 82550; 82553; 83605; 83690; 83735; 83880; 84145; 84443; 84484; 85025; 85610; 85730; 86140; 87040; 87070; 87077; 87205; 93005; 94640; 94760; A9270-GY; J0744; J1650; J2543; J2920; J3370; J7512

== ENCOUNTER 2016-09-06 12:44 | Emergency (ER) | payer MEDICARE, BC ==
--- NOTE | 2016-09-06 13:59 | UC ---
Skin Complaint HPI - HPI Summary HPI Summary: Patient has blood blister and a popped blister on the right side of the body no trauma or pain it has been there for about a week - History of Current Complaint Chief Complaint: UCSkin Time Seen by Provider: 09/06/16 13:27 Stated Complaint: BRUISE ON SIDE Hx Obtained From: Patient ?: No Onset/Duration: Sudden Onset, Lasting Days Skin Exposure Onset/Duration: Days Ago Pain Intensity: 0 Pain Scale Used: 0-10 Numeric Location: Discrete - Allergy/Home Medications Allergies/Adverse Reactions: Allergies Allergy/AdvReac Type Severity Reaction Status Date / Time Sulfa Drugs Allergy Severe Hives Verified 08/06/16 11:26 Levofloxacin [From Levaquin] Allergy Dizziness Verified 08/06/16 11:26 Varenicline [From Chantix] Allergy Unknown Verified 08/06/16 11:26 Reaction Details Review of Systems Constitutional: Negative Skin: Other - 2 lesions Eyes: Negative ENT: Negative Respiratory: Negative Cardiovascular: Negative Gastrointestinal: Negative Genitourinary: Negative Motor: Negative Neurovascular: Negative Musculoskeletal: Negative Neurological: Negative Psychological: Negative All Other Systems Reviewed And Are Negative: Yes PMH/Surg Hx/FS Hx/Imm Hx Previously Healthy: Yes - Surgical History Surgical History: Yes Surgery Procedure, Year, and Place: hysterectomy;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;appendectomy;D&C x 2;cholecystectomy;left knee tumor; wrist benign;peg tube 16 yrs ago - stricture throat;cataract x 2 12/10, Skin CA removal - Family History Known Family History: Positive: Other - Neg: breast CA - Social History Alcohol Use: None Substance Use Type: None Smoking Status (MU): Former Smoker Type: Cigarettes Length of Time of Smoking/Using Tobacco: Trying to quit, uses patch most days Have You Smoked in the Last Year: No When Did the Patient Quit Smoking/Using Tobacco: 2 yrs ago Household Exposure Type: Cigarettes - Immunization History Most Recent Influenza Vaccination: per pt: this season Most Recent Tetanus Shot: fall 2011 Most Recent Pneumonia Vaccination: unk Physical Exam Triage Information Reviewed: Yes Appearance: Well-Appearing, Pain Distress, Thin Vital Signs: Initial Vital Signs Temp 98.2 F 09/06/16 13:08 Pulse 40 09/06/16 13:08 Resp 16 09/06/16 13:08 Pulse Ox 99 09/06/16 13:08 Vital Signs Reviewed: Yes Eye Exam: Normal ENT Exam: Normal Dental Exam: Normal Neck exam: Normal Respiratory Exam: Normal Cardiovascular Exam: Normal Abdominal Exam: Normal Bowel Sounds: Positive: Present Musculoskeletal Exam: Normal Neurological Exam: Normal Psychological Exam: Normal Skin: Positive: significant lesion(s) - 1 cm blood blister to the right flank, not painful, 2 cm open blister on right hip, periwound erythema noted, painful to touch Course/Dx - Course Course Of Treatment: hx obtained, exam performed, area covered, bacitracin to the open blister. - Differential Diagnoses - Skin Complaint Differential Diagnoses: Abscess, Urticaria - Diagnoses Provider Diagnoses: Blood blister,. open blister Discharge - Discharge Plan Condition: Stable Disposition: HOME Referrals: Alonso Santos MD [Primary Care Provider] - Additional Instructions: 1. You have a 1 cm size blood blister on your side, keep the area covered to protect from your clothes, I would continue to use the bacitracin for the next two days on the open blister on your hip and keep it covered as well. If the area becomes more painful follow up with your provider.
== END 2016-09-06 13:45 | disposition home or self-care (01) ==
LOC: UCEAST 12:44
DX: L02.91 Cutaneous abscess, unspecified (principal); L50.9 Urticaria, unspecified; Z72.0 Tobacco use
CPT/HCPCS: 99212; G0463

== ENCOUNTER 2016-11-05 16:30 | Inpatient (IN) | payer MEDICARE, OTHER ==
--- NOTE | 2016-11-05 17:45 | RAD ---
Indication: Shortness of breath. Clinical concern for pneumonia. Chronic obstructive pulmonary disease. Comparison: August 12, 2016 chest radiograph and July 03, 2016 CT. June 06, 2014 CT. Technique: Upright AP 1722 hours Report: Elevated lung volumes and both diffuse mild prominence of the interstitial markings and patchy rarefaction of the mid to upper lung zone interstitial markings. Approximate 3 cm LEFT apical consolidation or mass appears increased in size. Mild bibasilar linear subsegmental atelectasis. Negative for pleural effusions or pneumothorax. The heart, pulmonary vasculature, and mediastinal contours are unremarkable. Upper abdominal surgical clips and percutaneous gastric feeding tube noted. IMPRESSION: 1. Stigmata of advanced chronic obstructive pulmonary disease and emphysema. 2. Consolidation versus mass at the LEFT lung apex. Correlate with clinical assessment and consider contrast-enhanced CT for further evaluation.
[2016-11-05] MEDS: NS 0.9% 1000 ML* 1,000 ML IV SCH (17:51)
[2016-11-05 18:07] LABS: Hematocrit 43 % (35-47); Hemoglobin 14.2 g/dl (12.0-16.0); Mean Corpuscular HGB Conc 33 g/dl (31-36); Mean Corpuscular Hemoglobin 31 pg (27-31); Mean Corpuscular Volume 92 fL (80-97); Mean Platelet Volume 9 um3 (7.4-10.4); Red Blood Count 4.66 10^6/ul (4.0-5.4); Red Cell Distribution Width 14 % (10.5-15); White Blood Count 14.5 10^3/ul (3.5-10.8)
[2016-11-05 18:24] LABS: ALT 38 U/L (7-52); AST 35 U/L (13-39); Albumin 3.6 g/dL (3.2-5.2); Alkaline Phosphatase 91 U/L (34-104); BUN/Creatinine Ratio 33.3 (8-20); Blood Urea Nitrogen 26 mg/dL (6-24); C Reactive Protein 2.71 mg/L (< 5.00); CO2 Carbon Dioxide 27 mmol/L (22-32); Calcium 10.7 mg/dL (8.6-10.3); Chloride 104 mmol/L (101-111); EGFR African American 92.1 (>60); EGFR Non-African American 71.6 (>60); Glucose 94 mg/dL (70-100); Lipase < 10 U/L (11.0-82.0); Magnesium 2.1 mg/dL (1.9-2.7); Potassium 4.1 mmol/L (3.5-5.0); Total Protein 6.6 g/dL (6.4-8.9); Troponin I 0.02 ng/mL (<0.04)
[2016-11-05 18:39] LABS: Anion Gap 7 mmol/L (2-11); Sodium 138 mmol/L (133-145)
[2016-11-05 18:56] LABS: TSH (Thyroid Stimulating Horm) 0.77 mcIU/mL (0.34-5.60)
[2016-11-05] MEDS ORDERED: cefTRIAXone(*) 1 GM in NS 0.9% 50 ML* 50 ML IVPB ONE (19:03)
[2016-11-05] MEDS ORDERED: Azithromycin IV(*) 500 MG in NS 0.9% 250 ML* 250 ML IVPB ONE (19:04)
[2016-11-05] MEDS ORDERED: Iohexol 350* (CONTRAST) 500 ML MDV IV ONE (19:32)
[2016-11-05] MEDS ORDERED: Montelukast Sodium TAB* 10 MG PRN (19:47)
[2016-11-05] MEDS ORDERED: Polyethylene Glycol 3350* 17 GM PACKET G TUBE PRN (19:47)
[2016-11-05] MEDS ORDERED: Al Hydrox/Mg Hydrox/Simet LIQ* 30 ML UDC PO PRN (20:00)
[2016-11-05] MEDS ORDERED: oxyCODONE/Acetamin 5/325 MG* TAB PO PRN (20:00)
[2016-11-05] MEDS ORDERED: Morphine INJ* 2 MG/ML 1 ML SYRINGE IV PRN (20:00)
[2016-11-05] MEDS ORDERED: Magnesium Hydroxide LIQ* 30 ML UDC PO PRN (20:00)
[2016-11-05] MEDS ORDERED: Acetaminophen TAB* 325 MG PO PRN (20:00)
[2016-11-05] MEDS ORDERED: Ondansetron INJ* 2 MG/ML VIAL IV PRN (20:00)
--- NOTE | 2016-11-05 20:24 | RAD ---
INDICATION: LEFT upper chest mass. Hypoxia. COMPARISON: Chest radiograph of the same date and July 03, 2016 CT thorax. TECHNIQUE: Multidetector CT images were obtained from the lung apices to the upper abdomen with 46 mL Omnipaque 350 IV contrast. Pulmonary angiogram protocol. Multiplanar reformation including with maximum intensity projection. REPORT: In addition to the nonspecific pleural parenchymal scarring versus mass at the posterior aspect of the apical posterior segment of the LEFT upper lobe measuring up to 3.2 cm AP by 2.9 cm transverse there is a new irregular shaped focus of consolidation at the anterior aspect of the apical posterior segment of the LEFT upper lobe accounting for the radiographic finding measuring up to 1.8 cm AP by 1.7 cm transverse with suggestion of air bronchograms versus cavitation. Mild bibasilar subsegmental atelectasis. Diffuse moderately severe emphysema. Negative for pleural effusion or pneumothorax. Negative for thoracic lymphadenopathy. Negative for cardiomegaly or pericardial effusion. Mild atherosclerotic plaque of normal diameter abdominal aorta. No evidence for aortic dissection. Normal variant common origin of the RIGHT brachiocephalic and LEFT common carotid arteries. No filling defects are identified from the main to the subsegmental pulmonary arteries to indicate presence of a pulmonary embolism. Images through the upper abdomen are remarkable for a percutaneous gastric feeding tube and innumerable cysts at the partially visualized LEFT kidney. Unchanged LEFT fourth and fifth rib fractures with healing response. Negative for suspicious osseous lesions. IMPRESSION: 1. No evidence for pulmonary embolism. 2. New region of consolidation at the apical posterior segment of the LEFT upper lobe is most suspicious for inflammatory consolidation given suggestion of air bronchograms and absence of gross displacement of normal bronchovascular bundles. Correlate with clinical presentation and consider reassessment after antibiotic therapy to assess for regression versus growth. 3. No significant change in pre-existing parenchymal mass versus scarring at the posterior aspect of the apical posterior segment of the LEFT upper lobe. 4. Advanced chronic obstructive pulmonary disease and emphysema. 6. Negative for thoracic lymphadenopathy.
[2016-11-05 20:35] LABS: Urine Bacteria Absent (Absent); Urine Bilirubin Negative (Negative); Urine Glucose Negative (Negative); Urine Nitrite Negative (Negative)
[2016-11-05] MEDS: Mometasone/Formoter 200/5 MDI INH SCH (21:11)
[2016-11-05] MEDS ORDERED: Azithromycin IV(*) 500 MG in NS 0.9% 250 ML* 250 ML IVPB SCH (21:15)
[2016-11-05] MEDS ORDERED: Codeine TAB* 15 MG PO ONE (21:18)
--- NOTE | 2016-11-05 21:39 | ED ---
Domenico Mesa Benjamin, scribed for Angel Rush MD on 11/05/16 at 1843 . Shortness of Breath - HPI Summary HPI Summary: 76yo female comes in with SOB. Pt had URI like symptoms for 2 weeks, which pt was rxed with Z-adiel then erythromycin by her PCP. Her Abx werent helping and pts symptoms were worsening over time. Pt also reported producing yellow sputum despite her abx meds. Pt was seen again at her PCPs office, where pt had O2 sat of 80s. Pt was given breathing tx and O2, which brought her O2 sat up to 90. Pt was sent to ED to r/o PNA. Pt has hx of lung CA, with radiotherapy interventions. - History of Current Complaint Chief Complaint: EDShortnessOfBreath Time Seen by Provider: 11/05/16 18:09 Hx Obtained From: Patient Onset/Duration: Gradual Onset, Lasting Weeks - 2 weeks, Still Present, Worse Since - gradually worsening Timing: Constant Current Severity: Mild Dyspnea At: Rest Aggrevating Factors: Nothing Alleviating Factors: EMS Tx, Oxygen Associated Signs & Symptoms: Cough (Productive) - yellow - Allergy/Home Medications Allergies/Adverse Reactions: Allergies Allergy/AdvReac Type Severity Reaction Status Date / Time Sulfa Drugs Allergy Severe Hives Verified 11/05/16 16:51 Levofloxacin [From Levaquin] Allergy Dizziness Verified 11/05/16 16:51 Varenicline [From Chantix] Allergy Unknown Verified 11/05/16 16:51 Reaction Details PMH/Surg Hx/FS Hx/Imm Hx Endocrine/Hematology History: Reports: Hx Thyroid Disease - parathyroid surgery , Other Endocrine/Hematological Disorders - Parathyroid surgery Denies: Hx Diabetes Cardiovascular History: Reports: Hx Hypercholesterolemia, Hx Hypertension Denies: Hx Congestive Heart Failure, Hx Pacemaker/ICD, Other Cardiovascular Problems/Disorders - MITRAL VALVE LEAKING Respiratory History: Reports: Hx Asthma, Hx Chronic Bronchitis, Hx Chronic Obstructive Pulmonary Disease (COPD), Hx Lung Cancer, Other Respiratory Problems /Disorders - LUNG CANCER GI History: Reports: Hx Gall Bladder Disease - removed, Hx Ileostomy - PEG tube , Other GI Disorders - esophagel issues and abdominal surgeries, gastroparesis Denies: Hx Ulcer History: Reports: Hx Renal Disease - cyst kidney new dx, Other Problems/ Disorders - per pt she has a cyst on her kidney found on us Denies: Hx Dialysis Musculoskeletal History: Reports: Hx Arthritis, Hx Osteoporosis, Hx Scoliosis, Other Musculoskeletal History - left side of body under developed r/t radiation per pt Denies: Hx Rheumatoid Arthritis Sensory History: Reports: Hx Contacts or Glasses, Hx Macular Degeneration Denies: Hx Hearing Aid Opthamlomology History: Reports: Hx Contacts or Glasses, Hx Macular Degeneration Neurological History: Reports: Other Neuro Impairments/Disorders - PAIN CLINIC PT Psychiatric History: Denies: Hx Panic Disorder - Cancer History Cancer Type, Location and Year: 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 Hx Chemotherapy: No Hx Radiation Therapy: Yes - As infant extensive radiation/ PT HAS HX LUNG CA 2012 - Surgical History Surgery Procedure, Year, and Place: hysterectomy;as ribs- malignant tumor left with radiation;appendectomy;D&C x 2;cholecystectomy;left knee tumor; wrist benign;peg tube 16 yrs ago - stricture throat;cataract x 2 12/10, Skin CA removal Hx Anesthesia Reactions: No Infectious Disease History: No Infectious Disease History: Reports: Hx Clostridium Difficile Denies: Hx Hepatitis, Hx Human Immunodeficiency Virus (HIV), Hx of Known/ Suspected MRSA, Hx Shingles, Hx Tuberculosis, Hx Known/Suspected VRE, Hx Known/ Suspected VRSA, History Other Infectious Disease, Traveled Outside the [place] in Last 30 Days - Family History Known Family History: Positive: Other - Neg: breast CA - Social History Lives: With Family Alcohol Use: None Substance Use Type: Reports: None Hx Tobacco Use: No Smoking Status (MU): Former Smoker Type: Cigarettes Length of Time of Smoking/Using Tobacco: Trying to quit, uses patch most days Have You Smoked in the Last Year: No Review of Systems Constitutional: Negative Eyes: Negative ENT: Negative Cardiovascular: Negative Positive: Shortness Of Breath, Cough - yellow sputum Gastrointestinal: Negative Genitourinary: Negative Musculoskeletal: Negative Skin: Negative Neurological: Negative Psychological: Normal All Other Systems Reviewed And Are Negative: Yes Physical Exam Vital Signs On Initial Exam: Initial Vitals Temp Pulse Resp BP Pulse Ox 99.4 F 102 20 150/54 91 11/05/16 16:41 11/05/16 16:41 11/05/16 16:41 11/05/16 16:41 11/05/16 16:41 Appearance: Positive: Well-Appearing, Well-Nourished, Pain Distress - mildly SOB Skin: Positive: Warm, Skin Color Reflects Adequate Perfusion, Dry Head/Face: Positive: Normal Head/Face Inspection Eyes: Positive: EOMI, THEODORA ENT: Positive: Normal ENT inspection, Hearing grossly normal Neck: Positive: Supple, Nontender Respiratory/Lung Sounds: Positive: Breath Sounds Present, Rhonchi - left side Cardiovascular: Positive: RRR, Pulses are Symmetrical in both Upper and Lower Extremities Abdomen Description: Positive: Nontender, Soft Bowel Sounds: Positive: Present Musculoskeletal: Positive: Strength/ROM Intact Neurological: Positive: Sensory/Motor Intact, Alert, Oriented to Person Place, Time Psychiatric: Positive: Affect/Mood Appropriate - Stef Coma Scale Coma Scale Total: 15 Diagnostics - Vital Signs Vital Signs Temp Pulse Resp BP Pulse Ox 11/05/16 18:30 79 20 139/74 94 11/05/16 18:00 78 19 129/54 95 11/05/16 17:00 93 115/83 94 11/05/16 16:58 98.2 F 95 20 91/78 93 11/05/16 16:55 93 93 11/05/16 16:54 91/78 11/05/16 16:41 99.4 F 102 20 150/54 91 - Laboratory Lab Results: Lab Results 11/05/16 11/05/16 11/05/16 Range/Units 17:50 17:50 17:50 WBC (3.5-10.8) 10^3/ul RBC (4.0-5.4) 10^6/ul Hgb (12.0-16.0) g/dl Hct (35-47) % MCV (80-97) fL MCH (27-31) pg MCHC (31-36) g/dl RDW (10.5-15) % Plt Count (150-450) 10^3/ul MPV (7.4-10.4) um3 Neut % (Auto) (38-83) % Lymph % (Auto) (25-47) % Drew % (Auto) (1-9) % Eos % (Auto) (0-6) % Baso % (Auto) (0-2) % Absolute Neuts (auto) (1.5-7.7) 10^3/ul Absolute Lymphs (auto) (1.0-4.8) 10^3/ul Absolute Monos (auto) (0-0.8) 10^3/ul Absolute Eos (auto) (0-0.6) 10^3/ul Absolute Basos (auto) (0-0.2) 10^3/ul Absolute Nucleated RBC 10^3/ul Nucleated RBC % INR (Anticoag Therapy) 0.88 L (0.89-1.11) APTT 31.0 (26.0-36.3) seconds D-Dimer, Quantitative < 200 (Less Than 230) ng/mL Sodium Pending Potassium 4.1 (3.5-5.0) mmol/L Chloride 104 (101-111) mmol/L Carbon Dioxide 27 (22-32) mmol/L Anion Gap Pending BUN 26 H (6-24) mg/dL Creatinine 0.78 (0.51-0.95) mg/dL Est GFR ( Amer) 92.1 (>60) Est GFR (Non-Af Amer) 71.6 (>60) BUN/Creatinine Ratio 33.3 H (8-20) Glucose 94 (70-100) mg/dL Lactic Acid (0.5-2.0) mmol/L Calcium 10.7 H (8.6-10.3) mg/dL Magnesium 2.1 (1.9-2.7) mg/dL Total Bilirubin 0.90 (0.2-1.0) mg/dL AST 35 (13-39) U/L ALT 38 (7-52) U/L Alkaline Phosphatase 91 (34-104) U/L Troponin I 0.02 (<0.04) ng/mL C-Reactive Protein 2.71 (< 5.00) mg/L B-Natriuretic Peptide 97 ( - 100) pg/mL Total Protein 6.6 (6.4-8.9) g/dL Albumin 3.6 (3.2-5.2) g/dL Globulin 3.0 (2-4) g/dL Albumin/Globulin Ratio 1.2 (1-3) Lipase < 10 L (11.0-82.0) U/L TSH Pending 11/05/16 11/05/16 Range/Units 17:50 17:50 WBC 14.5 H (3.5-10.8) 10^3/ul RBC 4.66 (4.0-5.4) 10^6/ul Hgb 14.2 (12.0-16.0) g/dl Hct 43 (35-47) % MCV 92 (80-97) fL MCH 31 (27-31) pg MCHC 33 (31-36) g/dl RDW 14 (10.5-15) % Plt Count 311 (150-450) 10^3/ul MPV 9 (7.4-10.4) um3 Neut % (Auto) 77.0 (38-83) % Lymph % (Auto) 15.0 L (25-47) % Drew % (Auto) 7.4 (1-9) % Eos % (Auto) 0.1 (0-6) % Baso % (Auto) 0.5 (0-2) % Absolute Neuts (auto) 11.2 H (1.5-7.7) 10^3/ul Absolute Lymphs (auto) 2.2 (1.0-4.8) 10^3/ul Absolute Monos (auto) 1.1 H (0-0.8) 10^3/ul Absolute Eos (auto) 0 (0-0.6) 10^3/ul Absolute Basos (auto) 0.1 (0-0.2) 10^3/ul Absolute Nucleated RBC 0.01 10^3/ul Nucleated RBC % 0 INR (Anticoag Therapy) (0.89-1.11) APTT (26.0-36.3) seconds D-Dimer, Quantitative (Less Than 230) ng/mL Sodium Potassium (3.5-5.0) mmol/L Chloride (101-111) mmol/L Carbon Dioxide (22-32) mmol/L Anion Gap BUN (6-24) mg/dL Creatinine (0.51-0.95) mg/dL Est GFR ( Amer) (>60) Est GFR (Non-Af Amer) (>60) BUN/Creatinine Ratio (8-20) Glucose (70-100) mg/dL Lactic Acid 0.8 (0.5-2.0) mmol/L Calcium (8.6-10.3) mg/dL Magnesium (1.9-2.7) mg/dL Total Bilirubin (0.2-1.0) mg/dL AST (13-39) U/L ALT (7-52) U/L Alkaline Phosphatase (34-104) U/L Troponin I (<0.04) ng/mL C-Reactive Protein (< 5.00) mg/L B-Natriuretic Peptide ( - 100) pg/mL Total Protein (6.4-8.9) g/dL Albumin (3.2-5.2) g/dL Globulin (2-4) g/dL Albumin/Globulin Ratio (1-3) Lipase (11.0-82.0) U/L TSH Result Diagrams: 11/05/16 17:50 11/05/16 17:50 Lab Statement: Any lab studies that have been ordered have been reviewed, and results considered in the medical decision making process. - Radiology CXR Xray Interpretation: Positive (See Comments) - IMPRESSION: 1. Stigmata of advanced chronic obstructive pulmonary disease and emphysema. 2. Consolidation versus mass at the LEFT lung apex. Correlate with clinical assessment and consider contrast-enhanced CT for further evaluation. Radiology Interpretation Completed By: Radiologist - ED physician has reviewed this radiology report and agrees. - CT CTA Chest CT Interpretation: Positive (See Comments) - IMPRESSION: 1. No evidence for pulmonary embolism. 2. New region of consolidation at the apical posterior segment of the LEFT upper lobe is most suspicious for inflammatory consolidation given suggestion of air bronchograms and absence of gross displacement of normal bronchovascular bundles. Correlate with clinical presentation and consider reassessment after antibiotic therapy to assess for regression versus growth. 3. No significant change in pre-existing parenchymal mass versus scarring at the posterior aspect of the apical posterior segment of the LEFT upper lobe. 4. Advanced chronic obstructive pulmonary disease and emphysema. 6. Negative for thoracic lymphadenopathy. CT Interpretation Completed By: Radiologist - ED physician has reviewed this radiology report and agrees. - EKG 1733. Cardiac Rate: NL - 88bpm EKG Rhythm: Sinus Rhythm ST Segment: : Normal - borderline T abnormalities in the lateral leads Ectopy: PACs EKG Interpretation: LVH Course/Dx - Course Course Of Treatment: Reviewed pts medication and allergy lists. High blood pressure noted. ADMIT HOSPITALIST. NO CRITICAL CARE TIME. - Diagnoses Provider Diagnoses: Pneumonia, Lung cancer, Hypoxia Discharge - Discharge Plan Condition: Stable Disposition: ADMITTED TO [facility] documentation as recorded by the Domenico alicia Benjamin accurately reflects the service I personally performed and the decisions made by , Angel Rush MD.
[2016-11-05] MEDS: cefTRIAXone VIAL(*) 1,000 MG in NS 0.9% 50 ML* 50 ML IVPB SCH (21:52)
[2016-11-05] MEDS: Promethazine TAB* 25 MG PO SCH (22:37)
[2016-11-06] MEDS ORDERED: CMCS Melatonin (NF) 3 MG TAB PO PRN (00:11)
--- NOTE | 2016-11-06 00:16 | HP ---
CC: Dr. Santos; Dr. Shea; Dr. Trevino * HISTORY AND PHYSICAL: DATE OF ADMISSION: 11/05/16 PRIMARY CARE PROVIDER: Alonso Santos MD CHIEF COMPLAINT: Shortness of breath and cough. HISTORY OF PRESENT ILLNESS: Leilani Trotter is a 76-year-old female with history of COPD, not oxygen dependent continuously, but the patient uses oxygen at night , who has been having cough and complaining of bringing up brown sputum for the past 3 weeks. Originally, she was on azithromycin for several days and she is on approximately 10th day of clarithromycin. Despite that, she continues to feel worn down. She feels short of breath with exertion. She continues to bring up brown sputum. The patient has a history of COPD, and she stopped smoking just 6 months ago. She had history of 70-heiv-laja smoking prior. She also has a history of esophageal stricture and recurrent aspirations. She had a G-tube placed in the past. In the past year, she lost approximately 10 pounds of weight and she stated that her tube feed residuals had been high. She stated that she has a medical laboratory technician whom she sees from [place], who is managing her problems with possible gastroparesis. When the patient presented to her primary care provider today, she was noted to have oxygen saturation in the 80s and cyanosis. She received a nebulizer treatment and currently her oxygen saturation is 96% on room air. She is going to be placed for admission with the diagnosis of pneumonia. PAST MEDICAL HISTORY: 1. COPD, on oxygen at night. 2. Hypertension. 3. Hyperlipidemia. 4. 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 Trevino. 5. History of status post G-tube placement due to esophageal stricture, recurrent aspiration, possibility of gastroparesis. 6. History of cholecystectomy. 7. History of appendectomy. 8. History of hysterectomy. 9. History of exploratory laparoscopy in the past. MEDICATIONS: Outpatient medications include: 1. Promethazine with Codeine nightly for cough. 2. Nicotine 7 mg daily. 3. Oxygen 2 L at night. 4. Albuterol nebulizer. 5. Aspirin 81 mg daily. 6. Tylenol on a p.r.n. basis. 7. Maalox 30 mg every 6 hours p.r.n. 8. Lipitor 10 mg daily. 9. Sensipar 30 mg daily. 10. Tudorza Pressair 400 mcg b.i.d. 11. Lactobacillus 1 capsule daily. 12. Ibuprofen 20 mL via G-tube daily. 13. Advair 500/50 one puff b.i.d. 14. Fluticasone nasal 50 mcg alternate nares b.i.d. 15. Detrol 2 mg G-tube daily. 16. MiraLAX 17 g G-tube daily p.r.n. 17. Singulair 10 mg daily via G-tube. 18. Cozaar 50 mg daily. 19. Xopenex inhaler 2 puffs every 6 hours p.r.n. ALLERGIES: Include SULFA, LEVOFLOXACIN, and CHANTIX. SOCIAL HISTORY: The patient lives at home with her . She has a history of 60-pack year smoking, and she quit 6 months ago. She denies any alcohol or drug use. She is fully independent with her activities of daily living. She names her son, Angel, as the surrogate. Angel's phone number is [phone]. FAMILY HISTORY: Positive for mother with history of heart disease in her 60s who of big stroke at the age of 72. The patient's father had a history of kidney cancer. REVIEW OF SYSTEMS: Please see history of present illness. In addition to the above mentioned, the patient denies any recent fevers. She denies wheezing. She complains of dyspnea on exertion. As mentioned above, the patient has had high residuals on her tube feeds and she had to cut down in the past year from 6 cans a day to 5 cans a day. She uses Osmolite tube feeds at 1.2 kilocalories. All the remaining 14 systems were reviewed with the patient and were otherwise negative. PHYSICAL EXAMINATION GENERAL: The patient is a very pleasant 76-year-old female whose BMI is 17 kg/ m2 and her total body weight is 83 pounds. The patient is in no acute distress. Alert, awake, and oriented x3. VITAL SIGNS: Blood pressure of 135/64, heart rate 76 and regular, respiratory rate 16, oxygen saturation 96% on room air, temperature 97.8. HEENT: Head: Atraumatic, normocephalic. Eyes: Pupils equal and reactive to light and accommodation. Oropharynx clear. Mucosa moist. NECK: Supple. No JVD. No bruits bilaterally. RESPIRATORY: Distant breath sounds bilaterally with bibasilar crackles. CARDIOVASCULAR: Regular rate and rhythm. No murmur. ABDOMEN: Soft, mildly distended, protuberant, nontender. Bowel sounds present in all 4 quadrants. G-tube is in place. EXTREMITIES: There is no edema. Pulses are +2 bilaterally. No clubbing or cyanosis. NEUROLOGIC: Speech clear. Cranial nerves II through XII are grossly intact. Motor strength is 5/5 bilaterally. PSYCHIATRIC EVALUATION: Oriented x3, pleasant and cooperative with evaluation with no evidence of anxiety or depression. SKIN: On evaluation of the skin, no ecchymotic areas or rashes noted. DIAGNOSTIC STUDIES/LAB DATA: Show white blood cell count of 14.5, hemoglobin of 14.2, hematocrit of 43, and platelets of 311. D-dimer below 200. Procalcitonin level was below 0.1. Liver function tests were unremarkable. Sodium was 138, potassium 4.1, chloride 104, carbon dioxide 27, BUN 26, creatinine 0.78. TSH was 0.77. Urinalysis was grossly unremarkable apart from epithelial cells present and trace of esterase. CT angiogram of the chest obtained in the emergency room prior to admission showed the new lesion of consolidation at the apicoposterior segment of the left upper lobe most suspicious for inflammatory consolidation given suggestion of air bronchograms and absence of gross displacement of normal bronchovascular bundles. Correlate with clinical presentation and consider reassessment after antibiotic treatment to assess for regression versus growth. There was also no significant change in preexisting parenchymal masses, the scarring at the posterior aspect of the apicoposterior segment of the left upper lobe. Advanced emphysema was also seen. The patient's EKG showed normal sinus rhythm with heart rate of 88 beats per minute with occasional PACs and no significant ST changes. ASSESSMENT AND PLAN: 1. In regards to the patient's cough and hypoxemia. At this point, due to procalcitonin levels of below detectible, I doubt this is bacterial infection. Nevertheless for the time being, the patient is going to be continued on ceftriaxone and azithromycin that was started in the emergency department. I will also check legionella and streptococcus pneumoniae antigens in the urine. I will discuss it with Dr. Shea, but my suspicion is that the patient's consolidation in the left lung is either radiation related or related to a viral infection. Also, the patient has history of problems with gaining weight and high G-tube residuals. At this point, her coughing up brown sputum, it is possible that she is just frequently aspirating. I did discuss with the patient that G-tube does not prevent aspiration. Nevertheless, once again, due to low procalcitonin level, possibility of bacterial aspiration pneumonia is very low. At this point once again, the patient is going to be treated with IV antibiotics additionally. I will also place the patient on p.o. prednisone for chronic obstructive pulmonary disease exacerbation and continue nebulizer treatments. Please note that the patient was originally hypoxemic when she was seen in her primary care physician's office, but that resolved after a nebulizer treatment. 2. In regards to her history of aspiration and G-tube feeds, the patient is going to be continued with Osmolite at her current dose. 3. In regards to the patient's history of dyslipidemia, Lipitor is going to be continued. 4. In regards to her history of lung cancer. That is followed with Dr. Trevino. The patient does have some residual changes at the left lung base, which is unchanged from prior. 5. In regards to history of smoking, the patient has not been smoking for 6 months, but she requires a nicotine supplementation which will be provided. 6. For DVT prophylaxis, the patient is going to be placed on heparin subcutaneous. 7. The patient's code status is full and surrogate is son, Angel. TIME SPENT: Approximately 75 minutes were spent on admission of this patient, more than half of the time was spent [id number] with the patient during the interview, physical exam, and counseling. [id number]/[facility] #: [id number] TANYA
[2016-11-06] MEDS: Albuterol/Ipratropium NEB.SOL* Albuterol 2.5 MG/Ipratropium 0.5 MG 3 ML INH SCH ×6 (00:46→22:50)
[2016-11-06] MEDS: NS 0.9% 1000 ML* 1,000 ML IV SCH ×2 (01:45→08:48)
[2016-11-06 05:47] LABS: Hematocrit 37 % (35-47); Hemoglobin 12.3 g/dl (12.0-16.0); Mean Corpuscular HGB Conc 33 g/dl (31-36); Mean Corpuscular Hemoglobin 31 pg (27-31); Mean Corpuscular Volume 93 fL (80-97); Mean Platelet Volume 9 um3 (7.4-10.4); Red Blood Count 4.01 10^6/ul (4.0-5.4); Red Cell Distribution Width 14 % (10.5-15); White Blood Count 10.4 10^3/ul (3.5-10.8)
[2016-11-06 05:59] LABS: BUN/Creatinine Ratio 31.4 (8-20); Calcium 9.1 mg/dL (8.6-10.3); EGFR African American 104.4 (>60); EGFR Non-African American 81.1 (>60); Potassium 4.2 mmol/L (3.5-5.0)
[2016-11-06] MEDS: Mometasone/Formoter 200/5 MDI INH SCH ×2 (07:49→20:09)
[2016-11-06] MEDS: Atorvastatin* 10 MG TAB PEG TUBE SCH (08:43)
[2016-11-06] MEDS: Cinacalcet TAB* 30 MG PO SCH (08:43)
[2016-11-06] MEDS: Nicotine PATCH 7 MG/24 HR* PATCH TRANSDERM SCH (08:43)
[2016-11-06] MEDS: Losartan TAB* 25 MG G TUBE SCH (08:43)
[2016-11-06] MEDS: Aspirin Low Dose CHEW TAB* 81 MG G TUBE SCH (08:43)
[2016-11-06] MEDS: predniSONE TAB* 20 MG PO SCH (10:26)
--- NOTE | 2016-11-06 11:40 | CONS ---
PULMONARY CONSULTATION REPORT: DATE OF CONSULT: 11/06/16 CONSULTATION REQUESTED BY: Bisi Redmond MD. REASON FOR CONSULTATION: Evaluation of abnormal CT chest. HISTORY OF PRESENT ILLNESS: 76-year-old female known to me from prior outpatient and inpatient evaluation. The patient has history of severe COPD with significant emphysematous changes, history of recurrent pneumonias, lung cancer of the left lung, status post radiation, has been following up with Oncology in [place] and also locally with Dr. Trevino. 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 The patient also has history of recurrent aspirations secondary to esophageal strictures status post G-tube placement and has history of gastroparesis. The patient was sent in from primary care physician's office for evaluation of hypoxemia and shortness of breath. The patient reported having worsening shortness of breath and cough productive of brown to yellow phlegm over the past 2 weeks. The patient was seen by primary care physician 2 weeks ago and was given [id number]. The patient's symptoms did not improve, followed with primary care again and was started on clarithromycin. The patient was on the 10th day of clarithromycin, she was feeling worn down and has significant dyspnea on exertion and went back to her primary care physician. The patient was noted to be hypoxemic in the primary care physician's office, which improved with nebulizer treatment. The patient was sent in to the emergency room for evaluation and possible admission. The patient was admitted for possible COPD exacerbation. CT of the chest performed in the emergency room was personally reviewed by me - patient noted to have consolidation in the apical posterior segment of left upper lobe suspicious for inflammatory consolidation with evidence of air bronchograms. This finding is new in comparison with her prior CT. The patient also has known history of left upper lobe lesion, status post radiation with evidence of scarring in the area which has not changed significantly. No other changes were noted. She does have mild atelectasis in the right middle lobe and also the left lower lobe areas which is unchanged. The patient has extensive emphysematous changes. Patient was seen and examined at [facility] this morning. Patient was started on nebulizers, started on antibiotics with Rocephin and Zithromax. The patient also is on prednisone for acute COPD exacerbation. The patient reports mild improvement in breathing this morning. The patient reported that she did receive nebulizer treatment last night. The patient continues to intermittently cough and is bringing up brown phlegm. The patient denies fevers or chills at home. The patient does have a history of aspiration of stomach content due to gastroparesis and esophageal stricture. Her esophagus appears to be dilated on the CT scan. The patient has normal procalcitonin level. She had elevated WBC count on admission, which could have been secondary to being on prednisone recently. The patient also with normal lactate. Her Pro-BNP is within normal limits. Her bicarb does not appear to be elevated on BMP. Patient denied N. V, constipation, headaches, weakness, urinary complaints. PAST MEDICAL HISTORY: 1. COPD on O2 at night. 2. Significant emphysema. 3. Hypertension. 4. Hyperlipidemia. 5. History of squamous cell carcinoma of the left lung, status post radiation. 6. Status post G-tube placement for esophageal strictures. 7. Recurrent aspiration and gastroparesis. 8. Cholecystectomy. 9. Appendectomy. 10. Hysterectomy. 11. Exploratory laparoscopy in the past. MEDICATIONS: 1. Promethazine with codeine nightly for cough. 2. Nicotine 7 mg daily. 3. Oxygen 2 L at night. 4. Albuterol nebulizers. 5. Aspirin 81 mg daily. 6. Tylenol p.r.n. 7. Maalox 30 mg q. 6 hours. 8. Lipitor 10 mg daily. 9. Sensipar 30 mg daily. 10. Tudorza 400 mcg b.i.d. 11. Lactobacillus 1 capsule daily. 12. Ibuprofen 20 mg via G-tube daily. 13. Advair 500/50. 14. Fluticasone nasal spray. 15. Detrol 2 mg through G-tube daily. 16. MiraLAX 17 g through G-tube p.r.n. 17. Singulair 10 mg daily via G-tube. 18. Cozaar 50 mg daily. 19. Xopenex 2 puffs q. 6 hours p.r.n. ALLERGIES: SULFA, LEVOFLOXACIN, and CHANTIX. FAMILY HISTORY: Mother with history of heart disease in 60 who due to stroke at 70. Father with kidney cancer. SOCIAL HISTORY: She lives at home with her . [id number] smoking history and quit 6 months ago. Denies alcohol or drug abuse. Independent with activities of daily living. REVIEW OF SYSTEMS: All 14 systems reviewed and as per HPI. PHYSICAL EXAM: General: The patient is in bed, in no apparent distress, mild use of accessory respiratory muscles. Vital Signs: Temperature 98, pulse 71 beats per minute, respiratory rate 18 per minute, O2 sat 99% on 2 L. HEENT: Pupils are equal and reactive to light, mucous membranes moist. Neck: Supple. No JVD. Respiratory: Distant breath sounds bilaterally, bibasilar crackles, wheeze present bilaterally. Cardiovascular: Regular rate and rhythm. No murmur. Abdomen: Soft, nondistended, and nontender. G-tube in place. Extremities: No edema, 2+ pulses. No cyanosis or clubbing. Neurologic: Alert , awake, and oriented x3. No focal deficits. Skin: No ecchymosis or rash. DIAGNOSTIC STUDIES/LABORATORY DATA: WBC count 14.5 on admission and 10.4 this morning. Hemoglobin 12.3, hematocrit 37, and platelet count 255. Sodium 141, potassium 4.2, chloride 111, BUN 27, creatinine 0.7. Procalcitonin less than 0.1, TSH 0.77. Troponin within normal limits. BNP normal. CT of the chest as described above in HPI. IMPRESSION AND RECOMMENDATIONS: 76-year-old female with significant emphysema, chronic obstructive pulmonary disease on O2 at night, recurrent aspiration pneumonias, admitted with worsening shortness of breath, hypoxemia likely secondary to acute chronic obstructive pulmonary disease exacerbation. 1. Acute chronic obstructive pulmonary disease exacerbation. 2. New left upper lobe lesion with air bronchogram suggestive of possible pneumonia, fungal pneumonia in the differential. 3. Hypoxemic respiratory failure likely secondary to acute chronic obstructive pulmonary disease exacerbation. The patient with improvement in symptoms. Procalcitonin within normal limits probably since she was treated with antibiotics for at least 10 days as outpatient. She does appear to have consolidative changes in the left upper lobe with some air bronchograms; differentials include pneumonia with possibility of fungal pneumonia, patient had radiation 6 years ago less likely; however, cannot rule out completely rule out the possibility of radiation pneumonitis, recurrence of malignancy possible, probably less likely. Continue with current management for chronic obstructive pulmonary disease. Continue with tapering doses of prednisone, bronchodilators, O2 supplementation. Continue with antibiotics even though procalcitonin is normal. She does have history of C. diff in the past and understands the risk of antibiotic usage without good evidence of underlying infection. Will check sputum cultures, and send for fungal cultures. Flutter valve usage. The patient has a followup appointment with her cancer doctors at [place] in 2 weeks. Further recommendations as per them regarding the new density. Thank you for allowing me to participate in the care of Ms Trotter. Will follow up with you. [id number]/[facility] #: [id number] TANYA
--- NOTE | 2016-11-06 16:52 | PN ---
Subjective Date of Service: 11/06/16 Interval History: Pt feels better. Still c/o coughing up brown sputum Objective Active Medications: Acetaminophen (Tylenol Tab*) 650 mg PO Q4H PRN PRN Reason: FEVER/PAIN Al Hydrox/Mg Hydrox/Simethicone (Maalox Plus*) 30 ml PO Q6H PRN PRN Reason: INDIGESTION Albuterol/Ipratropium (Duoneb (Albuterol 2.5 Mg/Ipratropium 0.5 Mg)) 1 neb INH [id number] AWAKE [facility] Last Admin: 11/06/16 15:39 Dose: 1 neb Aspirin (Aspirin Low Dose Tab*) 81 mg G TUBE DAILY [facility] Last Admin: 11/06/16 08:43 Dose: 81 mg Atorvastatin Calcium (Lipitor*) 10 mg PEG TUBE DAILY [facility] Last Admin: 11/06/16 08:43 Dose: 10 mg Cinacalcet (Sensipar Tab*) 30 mg PO DAILY [facility] Last Admin: 11/06/16 08:43 Dose: Not Given Ceftriaxone Sodium 1,000 mg/ (Sodium Chloride) 50 mls @ 200 mls/hr IVPB Q24H [facility] Last Admin: 11/05/16 21:52 Dose: 200 mls/hr Azithromycin 500 mg/ Sodium (Chloride) 250 mls @ 250 mls/hr IVPB 2000 [facility] Lactobacillus Rhamnosus (Culturelle*) 1 cap .SEE ORDER BID [facility] Losartan Potassium (Cozaar Tab*) 50 mg G TUBE DAILY [facility] Last Admin: 11/06/16 08:43 Dose: 50 mg Magnesium Hydroxide (Milk Of Magnesia Liq*) 30 ml PO Q4H PRN PRN Reason: CONSTIPATION Melatonin (Melatonin (Nf)) 3 mg PO BEDTIME PRN; Protocol PRN Reason: Sleep Mometasone Furoate/Formoterol Fumar (Dulera 200/5 Mdi*) 2 puff INH BID [facility] Last Admin: 11/06/16 07:49 Dose: 2 puff Montelukast Sodium (Singulair Tab*) 10 mg .SEE ORDER DAILY PRN PRN Reason: CONGESTION Morphine Sulfate (Morphine Inj (Syringe)*) 2 mg IV Q4H PRN PRN Reason: PAIN Nicotine (Nicotine Patch 7 Mg/24 Hr*) 1 patch TRANSDERM DAILY [facility] Last Admin: 11/06/16 08:43 Dose: 1 patch Ondansetron HCl (Zofran Inj*) 4 mg IV Q4H PRN PRN Reason: NAUSEA/VOMITING Oxycodone/Acetaminophen (Percocet 5/325 Tab*) 1 tab PO Q4H PRN PRN Reason: Pain Pharmacy Profile Note (Nicotine Patch Removal Note*) 1 note PATCH OFF 2100 [facility] Polyethylene Glycol/Electrolytes (Miralax*) 17 gm G TUBE DAILY PRN PRN Reason: CONSTIPATION Prednisone (Deltasone Tab*) 40 mg PO DAILY [facility] Last Admin: 11/06/16 10:26 Dose: 40 mg Promethazine HCl (Phenergan Tab*) 25 mg PO BEDTIME [facility] Last Admin: 11/05/16 22:37 Dose: 25 mg Vital Signs 11/05/16 11/05/16 11/05/16 19:30 20:00 20:05 Temperature 97.8 F Pulse Rate 77 78 76 Respiratory 18 21 16 Rate Blood Pressure 138/58 135/64 (mmHg) O2 Sat by Pulse 94 96 96 Oximetry 11/05/16 11/05/16 11/05/16 20:11 20:30 22:12 Temperature 98.0 F Pulse Rate 77 78 Respiratory 21 20 20 Rate Blood Pressure 135/64 132/86 (mmHg) O2 Sat by Pulse 96 96 Oximetry 11/05/16 11/05/16 11/06/16 22:37 23:41 04:38 Temperature 98.4 F 98.1 F Pulse Rate 72 72 Respiratory 20 16 16 Rate Blood Pressure 128/56 118/56 (mmHg) O2 Sat by Pulse 100 100 Oximetry 11/06/16 11/06/16 11/06/16 07:48 07:52 08:00 Temperature 98.0 F Pulse Rate 74 71 Respiratory 16 18 16 Rate Blood Pressure 122/54 (mmHg) O2 Sat by Pulse 97 99 Oximetry 11/06/16 11/06/16 11/06/16 12:14 13:46 15:29 Temperature 98.0 F Pulse Rate 71 70 Respiratory 16 18 Rate Blood Pressure 112/50 (mmHg) O2 Sat by Pulse 97 90 99 Oximetry 11/06/16 15:42 Temperature Pulse Rate 78 Respiratory 18 Rate Blood Pressure (mmHg) O2 Sat by Pulse 98 Oximetry Oxygen Devices in Use Now: None Appearance: 76 yo F in NAD, AAOx3, thin body habitus Eyes: No Scleral Icterus, PERRLA Ears/Nose/Mouth/Throat: NL Teeth, Lips, Gums, Mucous Membranes Moist Neck: NL Appearance and Movements; NL JVP, Trachea Midline Respiratory: Symmetrical Chest Expansion and Respiratory Effort, - - distal breath sounds b/l scant bibasiliar wheezes Cardiovascular: NL Sounds; No Murmurs; No JVD, RRR Abdominal: NL Sounds; No Tenderness; No Distention, No Hepatosplenomegaly, - - G tube in place Lymphatic: No Cervical Adenopathy Extremities: No Edema, No Clubbing, Cyanosis Skin: No Rash or Ulcers, No Nodules or Sclerosis Neurological: Alert and Oriented x 3, NL Muscle Strength and Tone Result Diagrams: 11/06/16 05:20 11/06/16 05:20 Additional Lab and Data: Lab Results 11/05/16 11/05/16 11/05/16 Range/Units 17:50 17:50 17:50 WBC (3.5-10.8) 10^3/ul RBC (4.0-5.4) 10^6/ul Hgb (12.0-16.0) g/dl Hct (35-47) % MCV (80-97) fL MCH (27-31) pg MCHC (31-36) g/dl RDW (10.5-15) % Plt Count (150-450) 10^3/ul MPV (7.4-10.4) um3 Neut % (Auto) (38-83) % Lymph % (Auto) (25-47) % Fountain % (Auto) (1-9) % Eos % (Auto) (0-6) % Baso % (Auto) (0-2) % Absolute Neuts (auto) (1.5-7.7) 10^3/ul Absolute Lymphs (auto) (1.0-4.8) 10^3/ul Absolute Monos (auto) (0-0.8) 10^3/ul Absolute Eos (auto) (0-0.6) 10^3/ul Absolute Basos (auto) (0-0.2) 10^3/ul Absolute Nucleated RBC 10^3/ul Nucleated RBC % INR (Anticoag Therapy) 0.88 L (0.89-1.11) APTT 31.0 (26.0-36.3) seconds D-Dimer, Quantitative < 200 (Less Than 230) ng/mL Sodium Pending Potassium 4.1 (3.5-5.0) mmol/L Chloride 104 (101-111) mmol/L Carbon Dioxide 27 (22-32) mmol/L Anion Gap Pending BUN 26 H (6-24) mg/dL Creatinine 0.78 (0.51-0.95) mg/dL Est GFR ( Amer) 92.1 (>60) Est GFR (Non-Af Amer) 71.6 (>60) BUN/Creatinine Ratio 33.3 H (8-20) Glucose 94 (70-100) mg/dL Lactic Acid (0.5-2.0) mmol/L Calcium 10.7 H (8.6-10.3) mg/dL Magnesium 2.1 (1.9-2.7) mg/dL Total Bilirubin 0.90 (0.2-1.0) mg/dL AST 35 (13-39) U/L ALT 38 (7-52) U/L Alkaline Phosphatase 91 (34-104) U/L Troponin I 0.02 (<0.04) ng/mL C-Reactive Protein 2.71 (< 5.00) mg/L B-Natriuretic Peptide 97 ( - 100) pg/mL Total Protein 6.6 (6.4-8.9) g/dL Albumin 3.6 (3.2-5.2) g/dL Globulin 3.0 (2-4) g/dL Albumin/Globulin Ratio 1.2 (1-3) Lipase < 10 L (11.0-82.0) U/L TSH Pending 11/05/16 11/05/16 Range/Units 17:50 17:50 WBC 14.5 H (3.5-10.8) 10^3/ul RBC 4.66 (4.0-5.4) 10^6/ul Hgb 14.2 (12.0-16.0) g/dl Hct 43 (35-47) % MCV 92 (80-97) fL MCH 31 (27-31) pg MCHC 33 (31-36) g/dl RDW 14 (10.5-15) % Plt Count 311 (150-450) 10^3/ul MPV 9 (7.4-10.4) um3 Neut % (Auto) 77.0 (38-83) % Lymph % (Auto) 15.0 L (25-47) % Fountain % (Auto) 7.4 (1-9) % Eos % (Auto) 0.1 (0-6) % Baso % (Auto) 0.5 (0-2) % Absolute Neuts (auto) 11.2 H (1.5-7.7) 10^3/ul Absolute Lymphs (auto) 2.2 (1.0-4.8) 10^3/ul Absolute Monos (auto) 1.1 H (0-0.8) 10^3/ul Absolute Eos (auto) 0 (0-0.6) 10^3/ul Absolute Basos (auto) 0.1 (0-0.2) 10^3/ul Absolute Nucleated RBC 0.01 10^3/ul Nucleated RBC % 0 INR (Anticoag Therapy) (0.89-1.11) APTT (26.0-36.3) seconds D-Dimer, Quantitative (Less Than 230) ng/mL Sodium Potassium (3.5-5.0) mmol/L Chloride (101-111) mmol/L Carbon Dioxide (22-32) mmol/L Anion Gap BUN (6-24) mg/dL Creatinine (0.51-0.95) mg/dL Est GFR ( Amer) (>60) Est GFR (Non-Af Amer) (>60) BUN/Creatinine Ratio (8-20) Glucose (70-100) mg/dL Lactic Acid 0.8 (0.5-2.0) mmol/L Calcium (8.6-10.3) mg/dL Magnesium (1.9-2.7) mg/dL Total Bilirubin (0.2-1.0) mg/dL AST (13-39) U/L ALT (7-52) U/L Alkaline Phosphatase (34-104) U/L Troponin I (<0.04) ng/mL C-Reactive Protein (< 5.00) mg/L B-Natriuretic Peptide ( - 100) pg/mL Total Protein (6.4-8.9) g/dL Albumin (3.2-5.2) g/dL Globulin (2-4) g/dL Albumin/Globulin Ratio (1-3) Lipase (11.0-82.0) U/L TSH Microbiology and Other Data: Microbiology 11/05/16 20:10 Legionella Urinary Antigen - Final Urine Negative Legionella Streptococcus pneumoniae Ag Screen - Final Negative S. pneumo Antigen Assess/Plan/Problems-Billing Assessment: 76 yo F with h/o COPD on 02 at night, G tube for gastroparesis and esophageal stricture, lung ca s/p radiation presents with MARK pneumonia - Patient Problems (1) Pneumonia Comment: suspect viral or post radiation pneumonitis. Nevertheless as d/w Dr. Thompson will cont Ceftriaxone and Azithro (2) COPD (chronic obstructive pulmonary disease) Comment: With acute exacerbation Cont home inhaled medications, prednisone Pt qualifies for 02 when walking (3) Feeding by G-tube Comment: Uses Osmolite 1.2, 1 can ~q3h while awake (4) Hyperlipidemia Comment: cont lipitor (5) Hypertension Comment: Adequate control. Continue current regimen (6) DVT prophylaxis Comment: HSQ Status and Disposition: inpatient
[2016-11-06] MEDS ORDERED: Azithromycin IV(*) 500 MG in NS 0.9% 250 ML* 250 ML IVPB SCH (20:00)
[2016-11-06] MEDS ORDERED: Nicotine Patch Removal NOTE PATCH OFF SCH (21:00)
[2016-11-06] MEDS: cefTRIAXone VIAL(*) 1,000 MG in NS 0.9% 50 ML* 50 ML IVPB SCH (21:07)
[2016-11-06] MEDS: Promethazine TAB* 25 MG PO SCH (21:56)
[2016-11-06] MEDS: Lactobacillus Acidophilu (GG)* 1 CAP CAP SCH (21:56)
[2016-11-07] MEDS: Albuterol/Ipratropium NEB.SOL* Albuterol 2.5 MG/Ipratropium 0.5 MG 3 ML INH SCH ×2 (03:24→07:13)
[2016-11-07] MEDS: Mometasone/Formoter 200/5 MDI INH SCH (07:13)
[2016-11-07] MEDS: predniSONE TAB* 20 MG PO SCH (08:36)
[2016-11-07] MEDS: Aspirin Low Dose CHEW TAB* 81 MG G TUBE SCH (08:36)
[2016-11-07] MEDS: Losartan TAB* 25 MG G TUBE SCH (08:37)
[2016-11-07] MEDS: Lactobacillus Acidophilu (GG)* 1 CAP CAP SCH (08:38)
[2016-11-07] MEDS: Cinacalcet TAB* 30 MG PO SCH (08:46)
[2016-11-07] MEDS: Nicotine PATCH 7 MG/24 HR* PATCH TRANSDERM SCH (08:46)
[2016-11-07] MEDS: Atorvastatin* 10 MG TAB PEG TUBE SCH (08:46)
[2016-11-07 10:18] VITALS: BP 123/51
--- NOTE | 2016-11-07 22:45 | DS ---
CC: Dr. Santos; Dr. Trevino; Dr. Shea DISCHARGE SUMMARY: DATE OF ADMISSION: 11/05/16 DATE OF DISCHARGE: 11/07/16 PRIMARY CARE PROVIDER: Dr. Santos. DISCHARGE DIAGNOSES: 1. Left lung pneumonia, suspect viral or post radiation cause. 2. Chronic obstructive pulmonary disease exacerbation. SECONDARY DIAGNOSES: 1. History of lung cancer, status post radiation. 2. History of chronic dysphagia and gastroparesis, status post G-tube placed. 3. History of cholecystectomy. 4. Appendectomy. 5. History of nephrectomy. 6. Hypertension. 7. Hyperlipidemia. 8. The patient is oxygen dependent at night and currently qualified for oxygen with ambulation at discharge. MEDICATIONS AT DISCHARGE: Include: 1. Detrol 2 mg via G-tube daily. 2. Prednisolone 50 mg via G-tube daily for 4 days start on and then stop. 3. MiraLAX 17 g via G-tube daily. 4. Singulair 10 mg daily. 5. Cozaar 50 mg daily. 6. Xopenex inhaler 2 puffs every 6 hours p.r.n. 7. Probiotic 1 capsule daily. 8. Ibuprofen on a p.r.n. basis. 9. Advair 500/50 one inhalation b.i.d. 10. Fluticasone nasal 50 mcg alternate nares daily. 11. Sensipar 30 mg daily. 12. Cefdinir 300 mg b.i.d. for 7 days total. 13. Azithromycin 200 mg oral solution placed via G-tube daily for total of 4 days. 14. Lipitor 10 mg daily. 15. Aspirin 81 mg daily. 16. Albuterol nebulizer treatment up to 4 times a day p.r.n. wheezing. 17. Tudorza Pressair 400 mcg inhalation b.i.d. CONSULTATIONS DURING THE HISTORY STAY: Included Dr. Shea from Pulmonology. HOSPITALIZATION COURSE: Leilani Trotter is a 76-year-old female with a history of COPD, oxygen dependent at night, who also has a history of G-tube placement and placement over 20 years ago for chronic dysphagia and gastroparesis, who presented to the hospital with complaints of shortness of breath and cough despite 2 courses of antibiotics as an outpatient. The patient was diagnosed with COPD exacerbation and her CT angiogram of the chest showed new region of consolidation at the apical posterior segment of the left upper lobe. Although , the patient's procalcitonin level was below detectable and C-reactive protein was 2.7. The patient did have leukocytosis at admission. At this point, the differential included likely viral infection, although possibly partially treated bacterial pneumonia could yield low procalcitonin level. Nevertheless, the patient was placed on broad spectrum antibiotics and prednisone and did very well over the course of 2 days. She did require oxygen while ambulating and she likely will be discharged with oxygen to ambulate at home. At discharge, the patient will follow up with her primary care provider, Dr. Santos, and Dr. Shea. She is also scheduled with Dr. Trevino as previously noted for routine followup after her lung cancer. LABORATORY DATA/STUDIES PERFORMED DURING THE HOSPITAL STAY: On 11/06/16, white blood cell count of 10.4, hemoglobin of 12.3, hematocrit of 37, platelets of 255. Sodium is 141, potassium of 4.2, chloride 111, carbon dioxide 27, BUN 22, creatinine 0.7. Microbiology study showed negative legionella, negative strep pneumo antigen. Urine cultures, no growth. Blood cultures, no growth. CT angiogram of the chest on 11/05/16. Impression: "No evidence of pulmonary embolism. Region of consolidation at the apical posterior segment of the left upper lobe is most suspicious for inflammatory consolidation given suggestion of air bronchogram and absence of gross displacement of normal bronchovascular bundles. Correlate with clinical presentation and consider reassessment after antibiotic treatment to assess for regression versus growth. No significant change in preexisting parenchymal mass versus scarring into posterior aspect of the apical posterior segment of the left upper lobe. Advanced chronic obstructive pulmonary disease and emphysema. Negative for lymphadenopathy." PHYSICAL EXAMINATION: At the time of discharge, blood pressure 153/51, heart rate of 69 and regular, respiratory rate 22, oxygen saturation 100% on 2 L of oxygen nasal cannula, and temperature of 97.8. General: The patient is a very pleasant 76-year-old female of thin body habitus with BMI of 17. The patient is in no acute distress, alert, awake and oriented x3. HEENT: Head: Atraumatic, normocephalic. Eyes: Pupils are equal, reactive to light and accommodation. Oropharynx clear. Mucosa moist. Neck: Supple. No JVD. No bruits bilaterally. Chest: The patient's bilateral chest appeared, there are distant breath sounds bilaterally with fine crackles in bilateral bases, otherwise clear. Abdomen: Slightly protuberant, soft, nontender. Bowel sounds present in all 4 quadrants. G-tube in place. Left lower extremity: There is minimal left ankle edema. Pulses +2 bilaterally. There is no clubbing or cyanosis. Evaluation of the skin, no ecchymotic areas or rashes noted. Neuro evaluation, speech is clear. Cranial nerves II through XII grossly intact. Motor strength is 5/5 bilaterally. Please note that this is a short summary of the patient's hospitalization. Please refer to further medical records for details. TIME SPENT: Approximately 35 minutes were spent on the patient's discharge. [id number]/[facility] #: [id number] MTDD
== END 2016-11-07 11:45 | disposition home health service (06) | DRG 190 ==
LOC: ED 16:30 → MED 19:02
PROVIDERS: ADMIT Internal Medicine; ATTEND Internal Medicine
DX: J44.0 Chronic obstructive pulmonary disease with (acute) lower respiratory infection (principal); J12.9 Viral pneumonia, unspecified; J70.0 Acute pulmonary manifestations due to radiation; M41.9 Scoliosis, unspecified; K22.2 Esophageal obstruction; K31.84 Gastroparesis; J44.1 Chronic obstructive pulmonary disease with (acute) exacerbation; R13.10 Dysphagia, unspecified; I10 Essential (primary) hypertension; M81.0 Age-related osteoporosis without current pathological fracture; R40.2412 Glasgow coma scale score 13-15, at arrival to emergency department; E78.5 Hyperlipidemia, unspecified; M19.90 Unspecified osteoarthritis, unspecified site; H35.30 Unspecified macular degeneration; Z85.118 Personal history of other malignant neoplasm of bronchus and lung; Z92.3 Personal history of irradiation; Z90.710 Acquired absence of both cervix and uterus; Z90.49 Acquired absence of other specified parts of digestive tract; Z99.81 Dependence on supplemental oxygen; Z98.42 Cataract extraction status, left eye; Z98.41 Cataract extraction status, right eye; Z93.1 Gastrostomy status; Z88.1 Allergy status to other antibiotic agents; Z88.2 Allergy status to sulfonamides; Z88.8 Allergy status to other drugs, medicaments and biological substances; Z82.49 Family history of ischemic heart disease and other diseases of the circulatory system; Z85.828 Personal history of other malignant neoplasm of skin; Z80.3 Family history of malignant neoplasm of breast; Z87.891 Personal history of nicotine dependence; Z82.3 Family history of stroke; Z80.51 Family history of malignant neoplasm of kidney; Z79.82 Long term (current) use of aspirin
CPT/HCPCS: 36415; 71010; 71275; 80048; 80053; 81003; 81015; 83605; 83690; 83735; 83880; 84145; 84443; 84484; 85025; 85379; 85610; 85730; 86140; 87040; 87086; 87899; 93005; 94640; 94760; A9270-GY; J0456; J0696; J7512; Q9967

== ENCOUNTER 2017-01-15 18:17 | Emergency (ER) | payer MEDICARE, OTHER ==
[2017-01-15 18:25] VITALS: BP 145/58
--- NOTE | 2017-01-15 19:17 | UC ---
Lower Extremity/Ankle HPI - HPI Summary HPI Summary: Patient presents with a past medical history of lung cancer, copd. Patient presents with complaints of leg swelling x one day. She states she rode home from [place] yesterday a seven hours car ride and she usually get swelling in her feet.The left left edema has resolved, but the right leg edema has persisted, with calf pain. - History of Current Complaint Chief Complaint: UCLowerExtremity Stated Complaint: FOOT PAIN Time Seen by Provider: 01/15/17 18:36 Hx Obtained From: Patient Onset/Duration: Sudden Onset, Lasting Days Severity Initially: Mild Severity Currently: Moderate Aggravating Factor(s): Standing, Ambulation Alleviating Factor(s): Nothing Able to Bear Weight: Yes - Risk Factors Gout Risk Factors: Negative DVT Risk Factors: Negative - Allergies/Home Medications Allergies/Adverse Reactions: Allergies Allergy/AdvReac Type Severity Reaction Status Date / Time Sulfa Drugs Allergy Severe Hives Verified 01/15/17 19:18 Levofloxacin [From Levaquin] Allergy Dizziness Verified 01/15/17 19:18 Varenicline [From Chantix] Allergy Unknown Verified 01/15/17 19:18 Reaction Details Home Medications: Home Medications Estradiol VAGINAL TAB(NF) [Vagifem] 01/15/17 [History] Oxygen* 01/15/17 [History] PMH/Surg Hx/FS Hx/Imm Hx Previously Healthy: Yes - Surgical History Surgical History: Yes Surgery Procedure, Year, and Place: hysterectomy;as ribs- malignant tumor left with radiation;appendectomy;D&C x 2;cholecystectomy;left knee tumor; wrist benign;peg tube 16 yrs ago - stricture throat;cataract x 2 12/10, Skin CA removal - Family History Known Family History: Positive: Other - Neg: breast CA - Social History Occupation: Retired Lives: Alone Alcohol Use: None Substance Use Type: None Smoking Status (MU): Former Smoker Type: Cigarettes Length of Time of Smoking/Using Tobacco: Trying to quit, uses patch most days Have You Smoked in the Last Year: No When Did the Patient Quit Smoking/Using Tobacco: 2 yrs ago Household Exposure Type: Cigarettes - Immunization History Most Recent Influenza Vaccination: per pt: this season Most Recent Tetanus Shot: fall 2011 Most Recent Pneumonia Vaccination: Patient reports having, but unsure of year Review of Systems Constitutional: Negative Skin: Negative Eyes: Negative ENT: Negative Respiratory: Negative Cardiovascular: Negative Gastrointestinal: Negative Genitourinary: Negative Motor: Negative Neurovascular: Negative Musculoskeletal: Calf Tenderness Neurological: Negative Psychological: Negative All Other Systems Reviewed And Are Negative: Yes Physical Exam Triage Information Reviewed: Yes Appearance: Well-Appearing Vital Signs: Initial Vital Signs Temp 100.0 F 01/15/17 18:21 Pulse 87 01/15/17 18:21 Resp 16 01/15/17 18:21 BP 145/58 01/15/17 18:21 Pulse Ox 98 01/15/17 18:21 Vital Signs Reviewed: Yes Eye Exam: Normal ENT Exam: Normal Neck exam: Normal Neck: Positive: 1 Respiratory Exam: Normal Cardiovascular Exam: Normal Abdominal Exam: Normal Musculoskeletal Exam: Normal Musculoskeletal: Positive: Edema @ - RLE edema 3+ calf tenderness on palpation. foot mildly erthemic. Neurological Exam: Normal Psychological Exam: Normal Skin Exam: Normal Lower Extremity Course/Dx - Course Course Of Treatment: Patient was referred directly to the ED for evaluation of RLE edema to r/o DVT. - Differential Dx/Diagnosis Differential Diagnosis/HQI/PQRI: Other - edema Provider Diagnoses: edema Discharge - Discharge Plan Condition: Stable Disposition: HOME Patient Education Materials: Edema (ED) Referrals: Alonso Santos MD [Primary Care Provider] - Additional Instructions: r/o pe/dvt
== END 2017-01-15 18:45 | disposition home or self-care (01) ==
LOC: UCEAST 18:17
DX: R60.9 Edema, unspecified (principal); Z99.81 Dependence on supplemental oxygen; Z85.118 Personal history of other malignant neoplasm of bronchus and lung; J44.9 Chronic obstructive pulmonary disease, unspecified; Z87.891 Personal history of nicotine dependence
CPT/HCPCS: 99212; G0463

== ENCOUNTER 2017-01-15 19:03 | Inpatient (IN) | payer MEDICARE, OTHER ==
--- NOTE | 2017-01-15 20:32 | RAD ---
INDICATION: RIGHT lower extremity edema. COMPARISON: No relevant prior exams available on the [facility] PACS for comparison. TECHNIQUE: Daugherty scale, color Doppler, and spectral analysis of the deep veins of the RIGHT lower extremity. Vessel compression, phasicity, and augmentation assessed. REPORT: The RIGHT common femoral, great saphenous, profunda femoral, femoral, popliteal, peroneal, and posterior tibial veins are patent. Patency of the LEFT common femoral vein documented. IMPRESSION: No evidence for RIGHT lower extremity deep venous thrombosis.
[2017-01-15] MEDS ORDERED: Acetaminophen TAB* 325 MG PO ONE (20:52)
[2017-01-15] MEDS ORDERED: NS 0.9% 1000 ML* 1,000 ML IV ONE (20:53)
[2017-01-15] MEDS ORDERED: ceFAZolin 1 GM VIAL(*) 1 GM in NS 0.9% 50 ML* 50 ML IVPB ONE (20:58)
[2017-01-15 21:20] LABS: Urine Bilirubin Negative (Negative); Urine Glucose Negative (Negative); Urine Nitrite Negative (Negative)
[2017-01-15] MEDS ORDERED: ceFAZolin 1 GM ADVAN(*) 1 GM ADDV.VIAL IVPB ONE (21:28)
--- NOTE | 2017-01-15 22:00 | RAD ---
INDICATION: Fever. Swollen RIGHT foot and leg after long car trip. COMPARISON: December 25, 2016 PET/CT. TECHNIQUE: Dual energy PA and routine lateral views of the chest were obtained. REPORT: Severely elevated lung volumes and both diffuse mixed prominence and rarefaction of the interstitial markings. Linear atelectasis or pleural-parenchymal scarring along the course of the RIGHT minor fissure. Opacity at the LEFT lung apex is unchanged compared with the December 25, 2016 CT and based on correlation with multiple prior exams appears to represent pleural-parenchymal scarring subjacent to a previous fracture at the LEFT fourth rib posteriorly. Negative for pleural effusions or pneumothorax. Negative for cardiomegaly. Prominent central pulmonary vasculature with peripheral attenuation suspicious for pulmonary arterial hypertension. Gastric feeding tube noted. IMPRESSION: 1. Stigmata of severe chronic obstructive pulmonary disease and emphysema with probable pulmonary arterial hypertension. 2. Opacity at the LEFT lung apex is unchanged compared with the December 25, 2016 CT and based on correlation with multiple prior exams appears to represent pleural-parenchymal scarring subjacent to a previous fracture at the LEFT fourth rib posteriorly. 3. No acute cardiopulmonary process evident.
--- NOTE | 2017-01-15 22:03 | RAD ---
Indication: RIGHT foot pain and edema following a long car ride. Comparison: No relevant prior exams available on the [facility] [place] for comparison. Technique: AP, mortise, and lateral views RIGHT ankle. REPORT AND IMPRESSION: Normal articular alignment. Negative for fracture. No significant arthropathic change evident. Nonspecific soft tissue swelling most prominent over the lateral malleolus.
[2017-01-15 22:18] LABS: Hematocrit 39 % (35-47); Mean Corpuscular HGB Conc 33 g/dl (31-36); Mean Corpuscular Hemoglobin 31 pg (27-31); Mean Corpuscular Volume 92 fL (80-97); Mean Platelet Volume 9 um3 (7.4-10.4); Red Blood Count 4.27 10^6/ul (4.0-5.4); Red Cell Distribution Width 14 % (10.5-15); White Blood Count 11.9 10^3/ul (3.5-10.8)
[2017-01-15 22:31] LABS: Albumin 3.8 g/dL (3.2-5.2); BUN/Creatinine Ratio 32.4 (8-20); Calcium 10.7 mg/dL (8.6-10.3); EGFR African American 102.7 (>60); EGFR Non-African American 79.8 (>60); Globulin 2.8 g/dL (2-4); Potassium 3.8 mmol/L (3.5-5.0); Total Bilirubin 0.7 mg/dL (0.2-1.0); Total Protein 6.6 g/dL (6.4-8.9)
--- NOTE | 2017-01-15 23:00 | ED ---
Vibha Mesa Gabriel, scribed for Josemanuel Santiago MD on 01/15/17 at 2050 . Lower Extremity - HPI Summary HPI Summary: This patient is a 76 year old F presenting to [facility] accompanied by family with a chief complaint of a painful and swollen right foot since yesterday. The patient rates the pain 4/10 in severity and described the pain as throbbing and radiating up to her knee. Symptoms aggravated by bearing weight. Symptoms alleviated by nothing. Patient reports erythema and flakey skin on right foot. Patient denies any trauma to ankle. - History of Current Complaint Chief Complaint: EDExtremityLower Stated Complaint: RT FOOT PAIN/SENT FROM [facility] Time Seen by Provider: 01/15/17 20:10 Hx Obtained From: Patient Onset/Duration: Days - 1 Severity Currently: Moderate Pain Intensity: 4 Pain Scale Used: 0-10 Numeric Timing: Constant Location: Radiates To - knee Character Of Pain: Throbbing Associated Signs And Symptoms: Positive: Redness, Fever, Other - flaking Aggravating Factor(s): Weight Bearing Able to Bear Weight: Yes - with some discomfort - Allergies/Home Medications Allergies/Adverse Reactions: Allergies Allergy/AdvReac Type Severity Reaction Status Date / Time Sulfa Drugs Allergy Severe Hives Verified 01/15/17 19:18 Levofloxacin [From Levaquin] Allergy Dizziness Verified 01/15/17 19:18 Varenicline [From Chantix] Allergy Unknown Verified 01/15/17 19:18 Reaction Details PMH/Surg Hx/FS Hx/Imm Hx Previously Healthy: No Endocrine/Hematology History: Reports: Hx Thyroid Disease - parathyroid surgery , Other Endocrine/Hematological Disorders - Parathyroid surgery Denies: Hx Diabetes Cardiovascular History: Reports: Hx Hypercholesterolemia, Hx Hypertension Denies: Hx Congestive Heart Failure, Hx Pacemaker/ICD, Other Cardiovascular Problems/Disorders - MITRAL VALVE LEAKING Respiratory History: Reports: Hx Asthma, Hx Chronic Bronchitis, Hx Chronic Obstructive Pulmonary Disease (COPD), Hx Lung Cancer, Other Respiratory Problems /Disorders - LUNG CANCER GI History: Reports: Hx Gall Bladder Disease - removed, Hx Ileostomy - PEG tube , Other GI Disorders - esophagel issues and abdominal surgeries, gastroparesis Denies: Hx Ulcer History: Reports: Hx Renal Disease - cyst kidney new dx, Other Problems/ Disorders - per pt she has a cyst on her kidney found on us Denies: Hx Dialysis Musculoskeletal History: Reports: Hx Arthritis, Hx Osteoporosis, Hx Scoliosis, Other Musculoskeletal History - left side of body under developed r/t radiation per pt Denies: Hx Rheumatoid Arthritis Sensory History: Reports: Hx Contacts or Glasses, Hx Macular Degeneration Denies: Hx Hearing Aid Opthamlomology History: Reports: Hx Contacts or Glasses, Hx Macular Degeneration Neurological History: Reports: Other Neuro Impairments/Disorders - PAIN CLINIC PT Psychiatric History: Denies: Hx Panic Disorder - Cancer History Cancer Type, Location and Year: 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 Hx Chemotherapy: No Hx Radiation Therapy: Yes - As extensive radiation/ PT HAS HX LUNG CA 2012 - Surgical History Surgery Procedure, Year, and Place: hysterectomy;as ribs- malignant tumor left with radiation;appendectomy;D&C x 2;cholecystectomy;left knee tumor; wrist benign;peg tube 16 yrs ago - stricture throat;cataract x 2 12/10, Skin CA removal Hx Anesthesia Reactions: No Infectious Disease History: No Infectious Disease History: Reports: Hx Clostridium Difficile Denies: Hx Hepatitis, Hx Human Immunodeficiency Virus (HIV), Hx of Known/ Suspected MRSA, Hx Shingles, Hx Tuberculosis, Hx Known/Suspected VRE, Hx Known/ Suspected VRSA, History Other Infectious Disease, Traveled Outside the [place] in Last 30 Days - Family History Known Family History: Positive: Other - Neg: breast CA - Social History Alcohol Use: None Substance Use Type: Reports: None Hx Tobacco Use: No Smoking Status (MU): Former Smoker Type: Cigarettes Length of Time of Smoking/Using Tobacco: Trying to quit, uses patch most days Have You Smoked in the Last Year: No Review of Systems Constitutional: Negative - trauma Positive: Fever Positive: Edema - right food, Other - Pain in right foot radiating to knee Positive: Other - Erythema and flaking of right foot All Other Systems Reviewed And Are Negative: Yes Physical Exam Triage Information Reviewed: Yes Vital Signs On Initial Exam: Initial Vitals Temp Pulse Resp BP Pulse Ox 100.1 F 92 14 139/71 94 01/15/17 19:14 01/15/17 19:14 01/15/17 19:14 01/15/17 19:14 01/15/17 19:14 Vital Signs Reviewed: Yes Appearance: Positive: Well-Appearing, No Pain Distress Head/Face: Positive: Normal Head/Face Inspection Eyes: Positive: EOMI ENT: Positive: Pharynx normal Respiratory/Lung Sounds: Positive: Clear to Auscultation, Breath Sounds Present Cardiovascular: Positive: RRR. Negative: Murmur Abdomen Description: Positive: Nontender, Other: - there is a feeding tube present Musculoskeletal: Positive: Other - right ankle and upper foot with redness, tenderness and probable effusion. Pain on rom Neurological: Positive: Sensory/Motor Intact, Alert, Oriented to Person Place, Time, CN Intact II-III Psychiatric: Positive: Normal - [place] Coma Scale Best Eye Response: 4 - Spontaneous Best Motor Response: 6 - Obeys Commands Best Verbal Response: 5 - Oriented Diagnostics - Vital Signs Vital Signs Temp Pulse Resp BP Pulse Ox 01/15/17 20:08 102 92 01/15/17 20:05 139/72 01/15/17 19:14 100.1 F 92 14 139/71 94 - Laboratory Lab Results: Lab Results 01/15/17 01/15/17 Range/Units 20:50 22:02 WBC 11.9 H (3.5-10.8) 10^3/ul RBC 4.27 (4.0-5.4) 10^6/ul Hgb 13.0 (12.0-16.0) g/dl Hct 39 (35-47) % MCV 92 (80-97) fL MCH 31 (27-31) pg MCHC 33 (31-36) g/dl RDW 14 (10.5-15) % Plt Count 296 (150-450) 10^3/ul MPV 9 (7.4-10.4) um3 Neut % (Auto) 68.5 (38-83) % Lymph % (Auto) 21.3 L (25-47) % [place] % (Auto) 9.3 H (1-9) % Eos % (Auto) 0 (0-6) % Baso % (Auto) 0.9 (0-2) % Absolute Neuts (auto) 8.2 H (1.5-7.7) 10^3/ul Absolute Lymphs (auto) 2.5 (1.0-4.8) 10^3/ul Absolute Monos (auto) 1.1 H (0-0.8) 10^3/ul Absolute Eos (auto) 0 (0-0.6) 10^3/ul Absolute Basos (auto) 0.1 (0-0.2) 10^3/ul Absolute Nucleated RBC 0 10^3/ul Nucleated RBC % 0 ESR Pending Urine Color Yellow Urine Appearance Clear Urine pH 8.0 (5-9) Ur Specific [place] 1.006 L (1.010-1.030) Urine Protein Negative (Negative) Urine Ketones Negative (Negative) Urine Blood Negative (Negative) Urine Nitrate Negative (Negative) Urine Bilirubin Negative (Negative) Urine Urobilinogen Negative (Negative) Ur Leukocyte Esterase Negative (Negative) Urine Glucose Negative (Negative) Urine Ascorbic Acid * H (Negative) Result Diagrams: 01/15/17 22:02 01/15/17 22:02 Lab Statement: Any lab studies that have been ordered have been reviewed, and results considered in the medical decision making process. - Radiology CXR Radiology Interpretation Completed By: Radiologist - CXR reveals, per radiologist, 1. Stigmata of severe chronic obstructive pulmonary disease and emphysema with probable pulmonary arterial hypertension. 2. Opacity at the LEFT lung apex is unchanged compared with the December 25, 2016 CT and based on correlation with multiple prior exams appears to represent pleural-parenchymal scarring subjacent to a previous fracture at the LEFT fourth rib posteriorly. 3. No acute cardiopulmonary process evident. ED physician has reviewed this radiology report and agrees. Ankle X-RAY Radiology Interpretation Completed By: Radiologist - Normal articular alignment. Negative for fracture. No significant arthropathic change evident. Nonspecific soft tissue swelling most prominent over the lateral malleolus. ED physician has reviewed this radiology report and agrees. - Additional Comments Diagnostic Additional Comments: Venous Doppler Study reveals, per radiologist, No evidence for RIGHT lower extremity deep venous thrombosis. ED physician has reviewed this radiology report and agrees. Lower Extremity Course/Dx - Course Course Of Treatment: 76 yr old with redness, probable effusion, fever and pain to right ankle. I have consulted Dr Polo from ortho who will see the patient. She has cellulitis to the skin. Admit to hospitalists for IV antibiotics. - Diagnoses Provider Diagnoses: Fever, Right ankle pain, Cellulitis Discharge - Discharge Plan Condition: Good Disposition: ADMITTED TO [facility] Referrals: Alonso Santos MD [Primary Care Provider] - The documentation as recorded by the Vibha alicia Gabriel accurately reflects the service I personally performed and the decisions made by me, Josemanuel Santiago MD.
[2017-01-15 23:31] LABS: Erythrocyte Sed Rate 20 mm/Hr (0-40)
[2017-01-16] MEDS ORDERED: Polyethylene Glycol 3350* 17 GM PACKET G TUBE PRN (00:48)
[2017-01-16] MEDS: Enoxaparin(*) 40 MG/0.4 ML SYR SUBCUT SCH ×2 (02:09→23:57)
[2017-01-16] MEDS: guaiFENesin/CODIEN 100MG-10MG* 5 ML UDC PO PRN ×2 (02:34→21:18)
[2017-01-16] MEDS: HYDROcodone/ACETAMIN 5-325 MG* 1 TAB PO PRN ×2 (02:48→14:12)
[2017-01-16] MEDS: ceFAZolin 1 GM VIAL(*) 1 GM in NS 0.9% 50 ML* 50 ML IVPB SCH ×3 (06:12→21:03)
[2017-01-16] MEDS: Mometasone/Formoter 200/5 MDI INH SCH ×2 (08:31→21:02)
--- NOTE | 2017-01-16 08:48 | PN ---
Subjective Date of Service: 01/16/17 Interval History: patient reports she traveled this week to [place] for a routine f/u with her Oncologist. She reports her feet and ankles usually swell with travel however she noted on Wednesday that her right ankle became red, painful and more swollen. She reports its painful to apply weight and painful with any touch or movement. No fevers or chills. No N/V/D. Otherwise feels well. Objective Active Medications: Hydrocodone Bitart/Acetaminophen ([place] 5-325 Tab*) 1 tab PO Q4H PRN PRN Reason: PAIN Last Admin: 01/16/17 02:48 Dose: 1 tab Aclidinium [place] (Tudorza Pressair Mdi(Nf)) 1 puff INH BID [facility] Albuterol (Ventolin 2.5 Mg/3 Ml Neb.Nereyda*) 2.5 mg INH Q6H PRN PRN Reason: WHEEZING Aspirin (Aspirin Low Dose Tab*) 81 mg G TUBE DAILY [facility] Atorvastatin Calcium (Lipitor*) 10 mg G TUBE DAILY [facility] Cinacalcet (Sensipar Tab*) 30 mg PO DAILY [facility] Enoxaparin Sodium (Lovenox(*)) 40 mg SUBCUT Q24H [facility] Last Admin: 01/16/17 02:09 Dose: 40 mg Guaifenesin/Codeine Phosphate (Robitussin Ac 100mg-10mg*) 10 ml PO Q6H PRN PRN Reason: COUGH Last Admin: 01/16/17 02:34 Dose: 10 ml Cefazolin Sodium 1 gm/ Sodium (Chloride) 50 mls @ 200 mls/hr IVPB Q8H [facility] Last Admin: 01/16/17 06:12 Dose: 200 mls/hr Lactobacillus Rhamnosus (Culturelle*) 1 cap PO DAILY [facility] Losartan Potassium (Cozaar Tab*) 25 mg G TUBE DAILY [facility] Mometasone Furoate/Formoterol Fumar (Dulera 200/5 Mdi*) 2 puff INH BID [facility] Last Admin: 01/16/17 08:31 Dose: 2 puff Nicotine (Nicotine Patch 7 Mg/24 Hr*) 1 patch TRANSDERM DAILY [facility] Oxybutynin Chloride (Ditropan Tab*) 5 mg G TUBE DAILY [facility] Pharmacy Profile Note (Nicotine Patch Removal Note*) 1 note FOLLOW UP 2100 [facility] Polyethylene Glycol/Electrolytes (Miralax*) 17 gm G TUBE DAILY PRN PRN Reason: CONSTIPATION Vital Signs 01/16/17 01/16/17 01/16/17 00:00 00:14 00:17 Temperature Pulse Rate 89 82 83 Respiratory Rate Blood Pressure 137/102 141/62 (mmHg) O2 Sat by Pulse 96 96 96 Oximetry 01/16/17 01/16/17 01/16/17 00:30 00:43 01:00 Temperature Pulse Rate 80 73 Respiratory 16 Rate Blood Pressure 123/70 126/61 (mmHg) O2 Sat by Pulse 97 97 Oximetry 01/16/17 01/16/17 01/16/17 02:17 02:48 06:06 Temperature 98.2 F Pulse Rate 76 Respiratory 16 15 16 Rate Blood Pressure 139/64 (mmHg) O2 Sat by Pulse 97 Oximetry 01/16/17 07:19 Temperature 98.5 F Pulse Rate 64 Respiratory 16 Rate Blood Pressure 137/58 (mmHg) O2 Sat by Pulse 99 Oximetry Oxygen Devices in Use Now: None Appearance: thin elderly female sitting up in bed in NAD A+O x3 Eyes: No Scleral Icterus, PERRLA Ears/Nose/Mouth/Throat: NL Teeth, Lips, Gums, Mucous Membranes Moist Neck: NL Appearance and Movements; NL JVP Respiratory: Symmetrical Chest Expansion and Respiratory Effort, Clear to Auscultation Cardiovascular: NL Sounds; No Murmurs; No JVD, RRR, No Edema Abdominal: NL Sounds; No Tenderness; No Distention Extremities: - - right medial and lateral malleous both tender of palpation; mild generalized edema of the ankle/foot; with generalized erythema. Neurological: Alert and Oriented x 3, NL Sensation Lines/Tubes/Other Access: Clean, Dry and Intact Other Access - peg tube Result Diagrams: 01/16/17 09:04 01/16/17 09:04 Additional Lab and Data: Lab Results 01/15/17 01/15/17 Range/Units 20:50 22:02 WBC 11.9 H (3.5-10.8) 10^3/ul RBC 4.27 (4.0-5.4) 10^6/ul Hgb 13.0 (12.0-16.0) g/dl Hct 39 (35-47) % MCV 92 (80-97) fL MCH 31 (27-31) pg MCHC 33 (31-36) g/dl RDW 14 (10.5-15) % Plt Count 296 (150-450) 10^3/ul MPV 9 (7.4-10.4) um3 Neut % (Auto) 68.5 (38-83) % Lymph % (Auto) 21.3 L (25-47) % [place] % (Auto) 9.3 H (1-9) % Eos % (Auto) 0 (0-6) % Baso % (Auto) 0.9 (0-2) % Absolute Neuts (auto) 8.2 H (1.5-7.7) 10^3/ul Absolute Lymphs (auto) 2.5 (1.0-4.8) 10^3/ul Absolute Monos (auto) 1.1 H (0-0.8) 10^3/ul Absolute Eos (auto) 0 (0-0.6) 10^3/ul Absolute Basos (auto) 0.1 (0-0.2) 10^3/ul Absolute Nucleated RBC 0 10^3/ul Nucleated RBC % 0 ESR Pending Urine Color Yellow Urine Appearance Clear Urine pH 8.0 (5-9) Ur Specific [place] 1.006 L (1.010-1.030) Urine Protein Negative (Negative) Urine Ketones Negative (Negative) Urine Blood Negative (Negative) Urine Nitrate Negative (Negative) Urine Bilirubin Negative (Negative) Urine Urobilinogen Negative (Negative) Ur Leukocyte Esterase Negative (Negative) Urine Glucose Negative (Negative) Urine Ascorbic Acid * H (Negative) Assess/Plan/Problems-Billing Assessment: 76 yo female with a PMH of COPD, on O2 QHS, HTN, 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 - blood cx pending - continue cefazolin - appreciate ortho consult; plan for MRI right ankle to evaluate for effusion and infection (2) COPD (chronic obstructive pulmonary disease) Comment: not an acute issue at this time Cont home inhaled medications (3) Feeding by G-tube Comment: hx of esophageal stricture s/p peg tube placement 20 years Uses Osmolite 1.2, 1 can ~q3h while awake (4) History of lung cancer Comment: S/P radiation of squamous cell carcinoma with residual cavitary lesion in RUL that appears stable on serial imaging - Dx [address] Trevino locally, but mostly follows with an Onc group in [place] (5) Tobacco abuse Comment: - Quit Mar 2016 - nictotine patch - reports she plans to use lifelong - smoking cessation (6) DVT prophylaxis Comment: Lovenox (7) Full code status Status and Disposition: inpatient with cellulitis with concern for septic ankle joint. Home when stable.
[2017-01-16] MEDS ORDERED: Atorvastatin* 10 MG TAB G TUBE SCH (09:00)
[2017-01-16] MEDS ORDERED: Cinacalcet TAB* 30 MG PO SCH (09:00)
[2017-01-16] MEDS: ACLIDINIUM INH SCH ×2 (09:07→21:01)
[2017-01-16] MEDS: Losartan TAB* 25 MG G TUBE SCH (09:24)
[2017-01-16] MEDS: Lactobacillus Acidophilu (GG)* 1 CAP CAP PO SCH (09:24)
[2017-01-16] MEDS: Nicotine PATCH 7 MG/24 HR* PATCH TRANSDERM SCH (09:25)
[2017-01-16] MEDS: Aspirin Low Dose CHEW TAB* 81 MG G TUBE SCH (09:25)
[2017-01-16] MEDS: Oxybutynin TAB* 5 MG G TUBE SCH (09:25)
[2017-01-16 09:30] LABS: Hematocrit 37 % (35-47); Hemoglobin 12.3 g/dl (12.0-16.0); Mean Corpuscular HGB Conc 33 g/dl (31-36); Mean Corpuscular Hemoglobin 31 pg (27-31); Mean Corpuscular Volume 92 fL (80-97); Mean Platelet Volume 8 um3 (7.4-10.4); Red Blood Count 3.99 10^6/ul (4.0-5.4); Red Cell Distribution Width 14 % (10.5-15); White Blood Count 9.5 10^3/ul (3.5-10.8)
[2017-01-16 09:49] LABS: BUN/Creatinine Ratio 28.6 (8-20); Calcium 9.7 mg/dL (8.6-10.3); EGFR African American 104.4 (>60); EGFR Non-African American 81.1 (>60)
[2017-01-16 11:19] LABS: C Reactive Protein 6.96 mg/L (< 5.00)
--- NOTE | 2017-01-16 14:19 | HP ---
CC: Dr. Polo * ADMISSION HISTORY AND PHYSICAL: DATE OF ADMISSION: 01/15/17. CHIEF COMPLAINT: Right ankle pain. HISTORY OF PRESENT ILLNESS: Ms. Trotter is a 76-year-old woman with complex medical history including lung cancer and hypercalcemia, who noted swelling in both her ankles the day prior to admission after seven hour trip back from [place] where she was a passenger. She has had swelling like this in the past and was not too concerned. However during the day prior to admission, the patient's edema resolved in the left leg and the right ankle became more red and painful. She has similar pain in the right ankle with weightbearing. She has no history of gout or rheumatoid arthritis. She denies any trauma to the right ankle. She denies any fevers at home. She feels well overall. The patient has had history of pneumonia earlier this year in April. She had edema in both legs after hospital stay for pneumonia, which was attributed to right-sided heart failure. This had resolved after a month or two. Most recently, she was admitted to this hospital on 11/15 with a milder case of pneumonia. She had some swelling in her legs after that, but not as severe as in the last winter. PAST MEDICAL HISTORY: COPD, which is advanced, dependent on oxygen at night, hypertension, hyperlipidemia, history of squamous cell carcinoma of the left lung followed at [facility] in [place] and also by Dr. Trevino. She had radiation for this, but no chemotherapy. The patient also had radiation to her left chest area and neck as a child for unclear reasons, potentially a benign growth. The patient has cricopharyngeal dysphagia and is dependent on G- tube for all her nutrition. The patient has recently had rare residuals after losing weight due to poor absorption of her liquid food. She is seeing a surgeon about it, is converting to a J-tube up in [place] or in [place]. She has history of hypo-parathyroidism status post parathyroidectomy, followed by Dr. Milan. She has chronic hypercalcemia and osteoporosis. MEDICATIONS ON ADMISSION: 1. Tudorza one inhalation b.i.d. 2. Albuterol nebulizer q. 6 hours p.r.n. 3. Aspirin 81 mg p.o. q. day. 4. Atorvastatin 10 mg by G-tube q. day. 5. Sensipar 30 mg by G-tube daily. 6. Estradiol Vagifem tablet [address] of vagina 2 times a week. 7. Fluticasone nasal spray 1 spray alternate nostrils daily as needed. 8. Advair 500/50 one inhalation b.i.d. 9. Probiotic one cap by G-tube daily. 10. Xopenex MDI as needed. 11. Losartan 25 mg by G-tube daily. 12. Singulair 10 mg by G-tube daily. 13. MiraLax as needed by G-tube for constipation. 14. Detrol 2 mg by G-tube daily. 15. She takes 7 mg nicotine patch daily. Her food consists of Jevity 1.2, 5 drinks cans per day which she has been having changed by sex therapist recently. ALLERGIES: SULFA, LEVAQUIN, and CHANTIX. FAMILY HISTORY: Notable for heart disease in her mother in the 60s. Mother of stroke in her 70s. The patient's father had kidney cancer. SOCIAL HISTORY: She is a retired teacher. She has 2 children, who are adopted. She is , lives with her . She quit tobacco years ago, but remains dependent on nicotine patch. No alcohol or drug use. REVIEW OF SYSTEMS: The patient denies any anorexia, but she has had weight loss recently due to possible gastroparesis. The patient denies any chest pain or palpitations. The patient denies any vomiting or diarrhea. The patient reports chronic shortness of breath with exertion. The remainder of the 14- point review of systems is negative other than mentioned in the HPI. PHYSICAL EXAMINATION GENERAL: She is alert, in no acute distress. VITAL SIGNS: Temperature is 38.3, pulse 85, respirations 14, blood pressure is 132/68, and oxygen saturation is 98%. HEENT: Head is normocephalic and atraumatic. Sclerae anicteric. Pupils are equal, round, and reactive to light and accommodation. Oropharynx is moist, no lesions. NECK: There are postsurgical changes on the left side of the neck. There is no adenopathy. LUNGS: Very diminished throughout. No rales or wheezes. HEART: Regular rate and rhythm without murmurs or gallops. ABDOMEN: There is a G-tube in the left upper quadrant. It is soft and nontender. No masses. EXTREMITIES: There is erythema, warmth, and severe pain with any range of motion of the right ankle. The erythema extends above and below the ankle a few centimeters, is not having sharply defined border. NEUROLOGIC: Cranial nerves II through XII are intact. Motor strength is 5/5 throughout. Deep tendon reflexes are symmetric. SKIN: Notable for bruising on her shins. No open areas. LABORATORY DATA: Sodium 140, potassium 3.8, chloride 106, bicarb 28, BUN 23, creatinine 0.71, glucose is 87, calcium 10.7, albumin 3.8, AST 31, ALT 20, bilirubin 0.7. CRP is 4.9. White count 11.9, hemoglobin 13.0, hematocrit of 39 %, platelets are 296. Urinalysis is negative. IMAGING: Chest x-ray shows chronic changes in the left upper lobe, where she has scarring from previous cancer, as well as signs of COPD, no infiltrates or effusions. X-ray of the right foot shows an ankle effusion, but no joint disruption or fracture. Ultrasound of the right lower extremity shows no DVT. ASSESSMENT AND PLAN: 1. A 76-year-old woman with complex medical history presenting with cellulitis versus septic arthritis in the right ankle. The patient will be going to the hospital and treated for cellulitis with elevation of the right lower extremity and IV Kefzol. There is no history of MRSA, but we could add vancomycin if she is not clinically responding to the Kefzol. The patient will have a consultation with Dr. Polo, Orthopedics. who can look at potentially aspirating the ankle to rule out septic joint. The patient was immunosuppressed due to previous diagnosis of cancer, but there is no obvious cause of severe immunosuppression or septic joint other than her malnutrition. Her malnutrition is evidenced by low ability to take her G-tubes and recent weight loss down to 37 kg with a BMI of 17. She has a borderline albumin also. 2. For chronic obstructive pulmonary disease, continue her normal inhalers. 3. For hypercalcemia, she will continue her Sensipar. 4. Code status is full. 5. She is a very high risk of deep venous thrombosis. So, she will have sequential compressive devices and Lovenox while she is here in the hospital. Discussed the case with her is in the room. The patient identifies her son, Angel as her healthcare proxy. [id number]/[facility] #: [id number] [facility]ITAL[facility]
[2017-01-16] MEDS: Albuterol 2.5 MG/3 ML NEB.SOL* (0.083%) INH PRN (14:22)
--- NOTE | 2017-01-16 20:27 | CONS ---
ORTHOPEDIC CONSULTATION REPORT: DATE OF CONSULT: 01/16/17. CHIEF COMPLAINT: Right ankle pain. HISTORY OF PRESENT ILLNESS: Ms. Trotter is a 76-year-old female with 48 hours of right ankle pain, sw elling and erythema. She reports that she traveled to [place] to see her oncologist. She has been tr eated for years for lung cancer. She has had prolonged history of feeding tube and needs a G-tube pl acement, so she went back to [place] to speak with her surgeon about her gastroparesis. Upon her retur n, she has had swelling and pain with weightbearing in the right ankle. She developed some erythema and warmth. She was seen at [facility] Room last night and [facility] for cellulitis. I am consulted for orthopedic care and my opinion on whether she has a septic right ankle joint. The patient had a low-grade temperature yesterday, but is currently afebrile. Some mild leukocytosis which is normalized today. No elevated CRP or ESR. She reports 4/10 aching pain. She has difficulty weightbearing. She denies any other areas of eryth jacob, swelling or pain. She reports that she frequently has lower extremity swelling, but it resolves on its own. PAST MEDICAL HISTORY: 1. COPD with emphysema. 2. Hypertension. 3. Hyperlipidemia. 4. History of squamous cell carcinoma of the left lung status post radiation. 5. Recurrent gastroparesis and aspiration. 6. Chronic G-tube placement for esophageal stricture. PAST SURGICAL HISTORY: 1. G-tube placement, feeding tube placement. 2. Cholecystectomy. 3. Appendectomy. 4. Hysterectomy. 5. Exploratory laparoscopy. HOME MEDICATIONS: 1. Promethazine q.h.s. 2. Nicotine patch daily. 3. Oxygen 2 L at night. 4. Albuterol nebulizers. 5. Aspirin 81 mg p.o. daily. 6. Tylenol p.r.n. for pain. 7. MiraLAX 30 mL p.o. q.6 hours. 8. Lipitor 10 mg p.o. daily. 9. Sensipar 30 mg p.o. daily. 10. Tudorza 400 mcg p.o. b.i.d. 11. Lactobacillus 1 capsule p.o. daily. 12. Ibuprofen as needed. 13. Advair 500/50. 14. Fluticasone nasal spray. 15. Detrol 2 mg through G-tube daily. 16. MiraLAX 17 g through G-tube daily. 17. Singulair 10 mg daily through G-tube. 18. Cozaar 50 mg p.o. daily. 19. Xopenex 2 puffs q.6 hours p.r.n. ALLERGIES: SULFA, LEVOFLOXACIN, CHANTIX. FAMILY HISTORY: Patient has maternal heart disease and stroke. Paternal kidney cancer. SOCIAL HISTORY: Patient lives with her . [id number]-pibc smoking history, quit 6 months ago. S he denies alcohol or drug abuse. Normally ambulates independently. REVIEW OF SYSTEMS: A 14-systems reviewed with the patient today. Positive for right ankle pain and swelling. Chronic GI problems. Recent low-grade fever. She denies chills, chest pain, shortness of breath, nausea, vomiting, headache or dizziness. Otherwise, patient reports review of systems is ne gative or not relevant. PHYSICAL EXAM: General: The patient is a thin female in no apparent distress. Alert and oriented x3 . Pleasant mood and appropriate affect, accompanied by her at the bedside. Vitals: Temperat ure 98.5, pulse 64, blood pressure 137/58. HEENT: Atraumatic, normocephalic. Chest: No labored b reathing. Right lower extremity: The patient's skin is intact. No abrasions or open wounds. Some slight erythema around the dorsal foot and ankle up to the distal tibial region. Some generalized swe lling here. This is non-pitting edema. Mild effusion at the ankle. She can dorsiflex and plantarfl ex with some pain. 4+/5 strength. Full sensation to light touch in all nerve distributions and 2+ p alpable DP pulse. No calf swelling or tenderness. RADIOGRAPHS: Multiple views of the right ankle show no obvious fracture or dislocation. Some soft t issue swelling is noted as well as possible effusion at the ankle joint. LABORATORY DATA: Laboratory values 01/15/17, white blood cell elevated at 11.9, today at 9.5, it is normalized, no left shift; hematocrit 37; platelets 242. Chemistry shows sodium 139, potassium 4.0, B UN and creatinine 20 and 0.7. Urine is negative. Urinalysis is negative. On 01/15/17, CRP normal a t 4.94. ESR normal at 20. ASSESSMENT AND PLAN: Ms. Rose Marie is a 76-year-old female with chronic medical problems. She has long standing COPD, lung cancer and difficulty gaining weight. The patient has no leukocytosis or elevated CRP, ESR today. My suspicion for inspection is low. How ever, with the patient's frail state and chronic likely malnutrition, I am unsure whether she can osmar nt an appropriate immune response to significant joint infection. The patient and I discussed and I agree with IV antibiotics for cellulitis. We discussed the risks a nd benefits of a right ankle aspiration as the definitive way to exclude any infection in the joint. She would like to hold off on this procedure for now due to pain associated with the procedure. I would like an MRI of the right ankle without contrast to evaluate further for an effusion in the an kle joint or any sign of infection. If there is indeed an effusion at the ankle joint, I will once a gain recommend an aspiration of the right ankle joint to the patient. For now, she will be monitored and have her IV antibiotics. I will follow up after the MRI. Thank you for this orthopedic consultation. [id number]/[facility] #: [id number]
[2017-01-16] MEDS: Cinacalcet TAB* 30 MG PO SCH (21:02)
[2017-01-16] MEDS: Atorvastatin* 10 MG TAB G TUBE SCH (21:02)
[2017-01-16] MEDS: Nicotine Patch Removal NOTE FOLLOW UP SCH (21:03)
[2017-01-17 04:39] LABS: Hematocrit 37 % (35-47); Hemoglobin 12.4 g/dl (12.0-16.0); Mean Corpuscular HGB Conc 33 g/dl (31-36); Mean Corpuscular Hemoglobin 31 pg (27-31); Mean Corpuscular Volume 92 fL (80-97); Mean Platelet Volume 9 um3 (7.4-10.4); Red Blood Count 4.05 10^6/ul (4.0-5.4); Red Cell Distribution Width 14 % (10.5-15)
[2017-01-17 04:56] LABS: BUN/Creatinine Ratio 25.4 (8-20); Calcium 9.1 mg/dL (8.6-10.3); EGFR African American 109.8 (>60); EGFR Non-African American 85.3 (>60); Potassium 3.7 mmol/L (3.5-5.0)
[2017-01-17] MEDS: ceFAZolin 1 GM VIAL(*) 1 GM in NS 0.9% 50 ML* 50 ML IVPB SCH ×3 (06:23→21:38)
[2017-01-17] MEDS: Losartan TAB* 25 MG G TUBE SCH (08:47)
[2017-01-17] MEDS: Lactobacillus Acidophilu (GG)* 1 CAP CAP PO SCH (08:47)
[2017-01-17] MEDS: Oxybutynin TAB* 5 MG G TUBE SCH (08:48)
[2017-01-17] MEDS: HYDROcodone/ACETAMIN 5-325 MG* 1 TAB PO PRN ×2 (08:49→21:44)
[2017-01-17] MEDS: Aspirin Low Dose CHEW TAB* 81 MG G TUBE SCH (08:49)
[2017-01-17] MEDS: Nicotine PATCH 7 MG/24 HR* PATCH TRANSDERM SCH (08:51)
[2017-01-17] MEDS: Mometasone/Formoter 200/5 MDI INH SCH ×2 (09:24→21:55)
[2017-01-17] MEDS: ACLIDINIUM INH SCH ×2 (09:35→21:54)
--- NOTE | 2017-01-17 12:55 | PN ---
Progress Note - Progress Note Date of Service: 01/17/17 SOAP: Subjective: Pt. reports continued pain R ankle. Objective: RLE - 2+ pitting edema to mid calf, erythema entire foot, mild warmth. nvi. Vital Signs: Temp Pulse Resp BP Pulse Ox 98.2 F 94 18 125/60 97 01/17/17 07:20 01/17/17 07:20 01/17/17 12:49 01/17/17 07:20 01/17/17 07:20 Laboratory Results - last 24 hr 01/17/17 01/17/17 04:13 04:13 WBC 10.0 RBC 4.05 Hgb 12.4 Hct 37 MCV 92 MCH 31 MCHC 33 RDW 14 Plt Count 251 MPV 9 Neut % (Auto) 70.8 Lymph % (Auto) 21.0 L [place] % (Auto) 7.5 Eos % (Auto) 0 Baso % (Auto) 0.7 Absolute Neuts (auto) 7.1 Absolute Lymphs (auto) 2.1 Absolute Monos (auto) 0.8 Absolute Eos (auto) 0 Absolute Basos (auto) 0.1 Absolute Nucleated RBC 0 Nucleated RBC % 0 Sodium 137 Potassium 3.7 Chloride 107 Carbon Dioxide 26 Anion Gap 4 BUN 17 Creatinine 0.67 Est GFR ( Amer) 109.8 Est GFR (Non-Af Amer) 85.3 BUN/Creatinine Ratio 25.4 H Glucose 89 Calcium 9.1 C-React Prot High Sens 9.01 Assessment: 76 yo F with RLE cellulitis/ankle pain Plan: cont iv abx will order fx boot - recommend mobilize with RW and PT MRI - no effusion R ankle or indication of infection ortho to follow
--- NOTE | 2017-01-17 13:45 | PN ---
Subjective Date of Service: 01/17/17 Interval History: Pt reports she continues to have pain and swelling but a little better today. No fevers or chills. Otherwise she feels well. Continues to be painful when bearing weight. no hx of gout. Objective Active Medications: Hydrocodone Bitart/Acetaminophen ([place] 5-325 Tab*) 1 tab PO Q4H PRN PRN Reason: PAIN Last Admin: 01/17/17 08:49 Dose: 1 tab Aclidinium [place] (Tudorza Pressair Mdi(Nf)) 1 puff INH BID [facility] Last Admin: 01/17/17 09:35 Dose: 1 puff Albuterol (Ventolin 2.5 Mg/3 Ml Neb.Nereyda*) 2.5 mg INH Q6H PRN PRN Reason: WHEEZING Last Admin: 01/16/17 14:22 Dose: 2.5 mg Aspirin (Aspirin Low Dose Tab*) 81 mg G TUBE DAILY [facility] Last Admin: 01/17/17 08:49 Dose: 81 mg Atorvastatin Calcium (Lipitor*) 10 mg G TUBE 2100 [facility] Last Admin: 01/16/17 21:02 Dose: 10 mg Cinacalcet (Sensipar Tab*) 30 mg PO 2100 [facility] Last Admin: 01/16/17 21:02 Dose: 30 mg Enoxaparin Sodium (Lovenox(*)) 40 mg SUBCUT Q24H [facility] Last Admin: 01/16/17 23:57 Dose: 40 mg Guaifenesin/Codeine Phosphate (Robitussin Ac 100mg-10mg*) 10 ml PO Q6H PRN PRN Reason: COUGH Last Admin: 01/16/17 21:18 Dose: 10 ml Cefazolin Sodium 1 gm/ Sodium (Chloride) 50 mls @ 200 mls/hr IVPB Q8H [facility] Last Admin: 01/17/17 06:23 Dose: 200 mls/hr Lactobacillus Rhamnosus (Culturelle*) 1 cap PO DAILY [facility] Last Admin: 01/17/17 08:47 Dose: 1 cap Losartan Potassium (Cozaar Tab*) 25 mg G TUBE DAILY [facility] Last Admin: 01/17/17 08:47 Dose: 25 mg Mometasone Furoate/Formoterol Fumar (Dulera 200/5 Mdi*) 2 puff INH BID [facility] Last Admin: 11/19/17 09:24 Dose: 2 puff Nicotine (Nicotine Patch 7 Mg/24 Hr*) 1 patch TRANSDERM DAILY [facility] Last Admin: 01/17/17 08:51 Dose: 1 patch Oxybutynin Chloride (Ditropan Tab*) 5 mg G TUBE DAILY [facility] Last Admin: 01/17/17 08:48 Dose: 5 mg Pharmacy Profile Note (Nicotine Patch Removal Note*) 1 note FOLLOW UP 2100 [facility] Last Admin: 01/16/17 21:03 Dose: 1 note Polyethylene Glycol/Electrolytes (Miralax*) 17 gm G TUBE DAILY PRN PRN Reason: CONSTIPATION Vital Signs 01/16/17 01/16/17 01/16/17 14:12 14:25 15:34 Temperature 98.3 F Pulse Rate 73 78 Respiratory 24 20 22 Rate Blood Pressure 115/51 (mmHg) O2 Sat by Pulse 93 91 Oximetry 01/16/17 01/16/17 01/16/17 15:36 19:14 19:48 Temperature 98.6 F Pulse Rate 75 Respiratory 16 20 Rate Blood Pressure 129/49 (mmHg) O2 Sat by Pulse 91 94 Oximetry 01/16/17 01/16/17 01/17/17 20:00 23:18 00:00 Temperature 98.5 F Pulse Rate 73 Respiratory 20 18 Rate Blood Pressure 133/58 (mmHg) O2 Sat by Pulse 97 97 Oximetry 01/17/17 01/17/17 01/17/17 03:33 07:20 08:00 Temperature 99.0 F 98.2 F Pulse Rate 71 94 Respiratory 18 20 20 Rate Blood Pressure 122/51 125/60 (mmHg) O2 Sat by Pulse 95 97 Oximetry 01/17/17 01/17/17 08:49 12:49 Temperature Pulse Rate Respiratory 18 18 Rate Blood Pressure (mmHg) O2 Sat by Pulse Oximetry Oxygen Devices in Use Now: Nasal Cannula Appearance: 76 yo eldelry female A+O x3 in NAD Eyes: No Scleral Icterus, PERRLA Ears/Nose/Mouth/Throat: NL Teeth, Lips, Gums, Mucous Membranes Moist Respiratory: Symmetrical Chest Expansion and Respiratory Effort, Clear to Auscultation Cardiovascular: NL Sounds; No Murmurs; No JVD, RRR, No Edema Abdominal: NL Sounds; No Tenderness; No Distention, - - peg tube intact - no noted erythema Extremities: No Clubbing, Cyanosis Skin: - - right foot ankle generalized 1+ edema with generalized erythema - + sensation Neurological: Alert and Oriented x 3, NL Sensation, NL Gait, NL Muscle Strength and Tone Lines/Tubes/Other Access: Clean, Dry and Intact Peripheral IV Nutrition: Taking PO's Result Diagrams: 01/17/17 04:13 01/17/17 04:13 Additional Lab and Data: Lab Results 01/15/17 01/15/17 Range/Units 20:50 22:02 WBC 11.9 H (3.5-10.8) 10^3/ul RBC 4.27 (4.0-5.4) 10^6/ul Hgb 13.0 (12.0-16.0) g/dl Hct 39 (35-47) % MCV 92 (80-97) fL MCH 31 (27-31) pg MCHC 33 (31-36) g/dl RDW 14 (10.5-15) % Plt Count 296 (150-450) 10^3/ul MPV 9 (7.4-10.4) um3 Neut % (Auto) 68.5 (38-83) % Lymph % (Auto) 21.3 L (25-47) % [place] % (Auto) 9.3 H (1-9) % Eos % (Auto) 0 (0-6) % Baso % (Auto) 0.9 (0-2) % Absolute Neuts (auto) 8.2 H (1.5-7.7) 10^3/ul Absolute Lymphs (auto) 2.5 (1.0-4.8) 10^3/ul Absolute Monos (auto) 1.1 H (0-0.8) 10^3/ul Absolute Eos (auto) 0 (0-0.6) 10^3/ul Absolute Basos (auto) 0.1 (0-0.2) 10^3/ul Absolute Nucleated RBC 0 10^3/ul Nucleated RBC % 0 ESR Pending Urine Color Yellow Urine Appearance Clear Urine pH 8.0 (5-9) Ur Specific [place] 1.006 L (1.010-1.030) Urine Protein Negative (Negative) Urine Ketones Negative (Negative) Urine Blood Negative (Negative) Urine Nitrate Negative (Negative) Urine Bilirubin Negative (Negative) Urine Urobilinogen Negative (Negative) Ur Leukocyte Esterase Negative (Negative) Urine Glucose Negative (Negative) Urine Ascorbic Acid * H (Negative) Assess/Plan/Problems-Billing Assessment: 76 yo female with a PMH of COPD, on O2 QHS, HTN, hx of squamous cell lung carcinome of the left lung s/p radiation, s/p peg-tube placement 2nd to esophageal stricture, recurrent aspiration, gastroparesis, hx of tobacco abuse who presented to the emergency department on 01/15 with c/o right ankle swelling and redness found to have cellulitis and concern for effusion - Patient Problems (1) Cellulitis Comment: - right ankle/foot - xray showing no fx, but showing soft tissue swelling most prominent over lateral malleolus. Spoke with Dr. Miller -MRI showing superficial inflammation consistent with cellulitis, no joint effusion noted - does not think septic arthritis. CRP and ESR are normal. Dr. Polo following also has low suspicion for septic joint- suggested possible Gout flare and cellulitis? No Hx of Gout and CRP/ESR are normal. Will add on uric acid level. Discussed with pt and plan to wait another 24 hours and re-evaluate - if she has continued swelling and pain - consider colchicine. - blood cx negative Day 1 - continue IV cefazolin - Ortho is following; plan to order a boot for her. (2) COPD (chronic obstructive pulmonary disease) Comment: not an acute issue at this time Cont home inhaled medications (3) Feeding by G-tube Comment: hx of esophageal stricture s/p peg tube placement 20 years Uses Osmolite 1.2, 1 can ~q3h while awake (4) History of lung cancer Comment: S/P radiation of squamous cell carcinoma with residual cavitary lesion in RUL that appears stable on serial imaging - Dx [address] Trevino locally, but mostly follows with an Onc group in [place] (5) Tobacco abuse Comment: - Quit Mar 2016 - nictotine patch - reports she plans to use lifelong - smoking cessation (6) DVT prophylaxis Comment: Lovenox (7) Full code status Status and Disposition: inpatient with cellulitis with concern for septic ankle joint. Home when stable.
[2017-01-17 14:16] LABS: Uric Acid 3.7 mg/dL (2.3-6.6)
[2017-01-17] MEDS: Cinacalcet TAB* 30 MG PO SCH (21:38)
[2017-01-17] MEDS: Nicotine Patch Removal NOTE FOLLOW UP SCH (21:38)
[2017-01-17] MEDS: Atorvastatin* 10 MG TAB G TUBE SCH (21:38)
[2017-01-17] MEDS: guaiFENesin/CODIEN 100MG-10MG* 5 ML UDC PO PRN (21:47)
[2017-01-18] MEDS: Enoxaparin(*) 40 MG/0.4 ML SYR SUBCUT SCH ×2 (00:09→22:53)
[2017-01-18 04:53] LABS: Hematocrit 36 % (35-47); Hemoglobin 12.3 g/dl (12.0-16.0); Mean Corpuscular HGB Conc 34 g/dl (31-36); Mean Corpuscular Hemoglobin 31 pg (27-31); Mean Corpuscular Volume 93 fL (80-97); Mean Platelet Volume 9 um3 (7.4-10.4); Red Blood Count 3.93 10^6/ul (4.0-5.4); Red Cell Distribution Width 14 % (10.5-15); White Blood Count 11.1 10^3/ul (3.5-10.8)
[2017-01-18 05:06] LABS: BUN/Creatinine Ratio 30.4 (8-20); Calcium 9.1 mg/dL (8.6-10.3); EGFR African American 106.1 (>60); EGFR Non-African American 82.5 (>60); Potassium 3.7 mmol/L (3.5-5.0)
[2017-01-18] MEDS: ceFAZolin 1 GM VIAL(*) 1 GM in NS 0.9% 50 ML* 50 ML IVPB SCH ×3 (06:19→21:43)
--- NOTE | 2017-01-18 08:06 | RAD ---
Indication: RIGHT ankle pain and swelling with redness after a long car ride. Cellulitis. Comparison: January 15, 2017 radiographs. Technique: Noncontrast multiplanar T1 and inversion recovery series of the RIGHT ankle. Remember The [place] 1.5 Frances [id number] with GEM suite. Report: Diffuse subcutaneous edema and mild edema within the muscular compartments throughout without evidence for a loculated abscess collection. Normal bone marrow signal throughout the [id number]. Negative for fracture or focal osseous lesion. Small talocrural and subtalar joint effusions. Partial-thickness generalized thinning of the hyaline articular cartilage without focal osteochondral lesion. No significant abnormality of the supporting ligaments about the ankle or tendons within the [id number]. IMPRESSION: Extensive superficial and to a lesser extent deep soft tissue edema as well as small talocrural and subtalar joint effusions. No loculated abscess collection or evidence for osteomyelitis.
[2017-01-18] MEDS: Mometasone/Formoter 200/5 MDI INH SCH ×2 (08:55→20:55)
[2017-01-18] MEDS: ACLIDINIUM INH SCH ×2 (08:56→20:58)
[2017-01-18] MEDS: HYDROcodone/ACETAMIN 5-325 MG* 1 TAB PO PRN ×2 (09:16→20:36)
[2017-01-18] MEDS: Lactobacillus Acidophilu (GG)* 1 CAP CAP PO SCH (09:16)
[2017-01-18] MEDS: Nicotine PATCH 7 MG/24 HR* PATCH TRANSDERM SCH (09:17)
[2017-01-18] MEDS: Aspirin Low Dose CHEW TAB* 81 MG G TUBE SCH (09:17)
[2017-01-18] MEDS: Losartan TAB* 25 MG G TUBE SCH (09:17)
[2017-01-18] MEDS: Oxybutynin TAB* 5 MG G TUBE SCH (09:17)
--- NOTE | 2017-01-18 11:16 | PN ---
Progress Note - Progress Note Date of Service: 01/18/17 SOAP: Subjective: []Patient seen at bedside. She reports her right ankle has decreased redness and swelling. She has not yet had PT Objective: [] Vital Signs Temp 98.8 F 01/18/17 07:13 Pulse 68 01/18/17 07:13 Resp 22 01/18/17 09:16 BP 150/59 01/18/17 07:13 Pulse Ox 99 01/18/17 08:00 Intake & Output 01/17/17 01/18/17 01/18/17 18:59 06:59 18:59 Intake Total 874 917 337 Output Total 0 Balance 874 917 337 Intake: IV Fluids 80 ceFAZolin 80 IVPB 50 ceFAZolin 50 Oral 300 450 Tube Feeding 474 237 237 Tube Feeding Flush Amount 100 100 100 Output: Urine 0 Other: Estimated Void Medium # Bowel Movements 1 Estimated Stool Amount Medium # Voids 2 Laboratory Last Values WBC 11.1 10^3/ul (3.5-10.8) H 01/18/17 04:18 RBC 3.93 10^6/ul (4.0-5.4) L 01/18/17 04:18 Hgb 12.3 g/dl (12.0-16.0) 01/18/17 04:18 Hct 36 % (35-47) 01/18/17 04:18 MCV 93 fL (80-97) 01/18/17 04:18 MCH 31 pg (27-31) 01/18/17 04:18 MCHC 34 g/dl (31-36) 01/18/17 04:18 RDW 14 % (10.5-15) 01/18/17 04:18 Plt Count 261 10^3/ul (150-450) 01/18/17 04:18 MPV 9 um3 (7.4-10.4) 01/18/17 04:18 Neut % (Auto) 70.5 % (38-83) 01/18/17 04:18 Lymph % (Auto) 19.6 % (25-47) L 01/18/17 04:18 [place] % (Auto) 9.4 % (1-9) H 01/18/17 04:18 Eos % (Auto) 0 % (0-6) 01/18/17 04:18 Baso % (Auto) 0.5 % (0-2) 01/18/17 04:18 Absolute Neuts (auto) 7.8 10^3/ul (1.5-7.7) H 01/18/17 04:18 Absolute Lymphs (auto) 2.2 10^3/ul (1.0-4.8) 01/18/17 04:18 Absolute Monos (auto) 1.0 10^3/ul (0-0.8) H 01/18/17 04:18 Absolute Eos (auto) 0 10^3/ul (0-0.6) 01/18/17 04:18 Absolute Basos (auto) 0.1 10^3/ul (0-0.2) 01/18/17 04:18 Absolute Nucleated RBC 0 10^3/ul 01/18/17 04:18 Nucleated RBC % 0 01/18/17 04:18 ESR 20 mm/Hr (0-40) 01/15/17 22:02 Sodium 137 mmol/L (133-145) 01/18/17 04:18 Potassium 3.7 mmol/L (3.5-5.0) 01/18/17 04:18 Chloride 105 mmol/L (101-111) 01/18/17 04:18 Carbon Dioxide 27 mmol/L (22-32) 01/18/17 04:18 Anion Gap 5 mmol/L (2-11) 01/18/17 04:18 BUN 21 mg/dL (6-24) 01/18/17 04:18 Creatinine 0.69 mg/dL (0.51-0.95) 01/18/17 04:18 Est GFR ( Amer) 106.1 (>60) 01/18/17 04:18 Est GFR (Non-Af Amer) 82.5 (>60) 01/18/17 04:18 BUN/Creatinine Ratio 30.4 (8-20) H 01/18/17 04:18 Glucose 93 mg/dL (70-100) 01/18/17 04:18 Lactic Acid 0.9 mmol/L (0.5-2.0) 01/15/17 22:02 Uric Acid 3.7 mg/dL (2.3-6.6) 01/17/17 04:13 Calcium 9.1 mg/dL (8.6-10.3) 01/18/17 04:18 Total Bilirubin 0.70 mg/dL (0.2-1.0) 01/15/17 22:02 AST 31 U/L (13-39) 01/15/17 22:02 ALT 20 U/L (7-52) 01/15/17 22:02 Alkaline Phosphatase 83 U/L (34-104) 01/15/17 22:02 C-Reactive Protein 6.96 mg/L (< 5.00) H 01/16/17 09:04 C-React Prot High Sens 9.01 mg/L 01/17/17 04:13 Total Protein 6.6 g/dL (6.4-8.9) 01/15/17 22:02 Albumin 3.8 g/dL (3.2-5.2) 01/15/17 22:02 Globulin 2.8 g/dL (2-4) 01/15/17 22:02 Albumin/Globulin Ratio 1.4 (1-3) 01/15/17 22:02 Urine Color Yellow 01/15/17 20:50 Urine Appearance Clear 01/15/17 20:50 Urine pH 8.0 (5-9) 01/15/17 20:50 Ur Specific [place] 1.006 (1.010-1.030) L 01/15/17 20:50 Urine Protein Negative (Negative) 01/15/17 20:50 Urine Ketones Negative (Negative) 01/15/17 20:50 Urine Blood Negative (Negative) 01/15/17 20:50 Urine Nitrate Negative (Negative) 01/15/17 20:50 Urine Bilirubin Negative (Negative) 01/15/17 20:50 Urine Urobilinogen Negative (Negative) 01/15/17 20:50 Ur Leukocyte Esterase Negative (Negative) 01/15/17 20:50 Urine Glucose Negative (Negative) 01/15/17 20:50 Urine Ascorbic Acid * (Negative) H 01/15/17 20:50 General: Well appearing in no acute distress, calm and cooperative RLE: Minimal erythema spanning proximal aspect of medial maleolus to medial midfoot. Warm and tender, no fluctuance. 2+ DP/PT pulses. Pain of proximal dorsum with dorsiflexion, inversion and eversion. Sensation intact distally. Assessment: [] Plan: []cont iv abx fx boot - recommend mobilize with RW and PT MRI showed no effusion R ankle or indication of infection ortho to follow
--- NOTE | 2017-01-18 12:36 | PN ---
Subjective Date of Service: 01/18/17 Interval History: Patient seen and examined at bedside. Denies fever, chills, chest discomfort, N/ V/D. Pt states that she has shortness of breath at baseline and uses 2L O2 at HS at home. Pt states that her right ankle is feeling better today and the redness is improving. Family History: Unchanged from Admission Social History: Unchanged from Admission Past Medical History: Unchanged from Admission Objective Active Medications: Hydrocodone Bitart/Acetaminophen ([place] 5-325 Tab*) 1 tab PO Q4H PRN Reason: PAIN Aclidinium [place] (Tudorza Pressair Mdi(Nf)) 1 puff INH BID ARACELI Albuterol (Ventolin 2.5 Mg/3 Ml Neb.Nereyda*) 2.5 mg INH Q6H PRN Reason: WHEEZING Aspirin (Aspirin Low Dose Tab*) 81 mg G TUBE DAILY ARACELI Atorvastatin Calcium (Lipitor*) 10 mg G TUBE 2100 ARACELI Cinacalcet (Sensipar Tab*) 30 mg PO 2100 ARACELI Enoxaparin Sodium (Lovenox(*)) 40 mg SUBCUT Q24H ARACELI Guaifenesin/Codeine Phosphate (Robitussin Ac 100mg-10mg*) 10 ml PO Q6H PRN Reason: COUGH Cefazolin Sodium 1 gm/ Sodium (Chloride) 50 mls @ 200 mls/hr IVPB Q8H ARACELI Lactobacillus Rhamnosus (Culturelle*) 1 cap PO DAILY ARACELI Losartan Potassium (Cozaar Tab*) 25 mg G TUBE DAILY ARACELI Mometasone Furoate/Formoterol Fumar (Dulera 200/5 Mdi*) 2 puff INH BID ARACELI Nicotine (Nicotine Patch 7 Mg/24 Hr*) 1 patch TRANSDERM DAILY ARACELI Oxybutynin Chloride (Ditropan Tab*) 5 mg G TUBE DAILY ARACELI Pharmacy Profile Note (Nicotine Patch Removal Note*) 1 note FOLLOW UP 2100 ARACELI Polyethylene Glycol/Electrolytes (Miralax*) 17 gm G TUBE DAILY PRN Reason: CONSTIPATION Vital Signs 01/17/17 01/17/17 01/17/17 12:49 15:39 19:45 Temperature 99.1 F Pulse Rate 79 Respiratory 18 18 18 Rate Blood Pressure 125/50 (mmHg) O2 Sat by Pulse 96 Oximetry 01/17/17 01/17/17 01/17/17 20:25 21:44 23:15 Temperature 98.8 F 98.7 F Pulse Rate 81 85 Respiratory 18 18 16 Rate Blood Pressure 146/58 125/51 (mmHg) O2 Sat by Pulse 95 97 Oximetry 01/18/17 01/18/17 01/18/17 00:39 00:43 03:51 Temperature 97.8 F Pulse Rate 68 Respiratory 18 16 Rate Blood Pressure 118/54 (mmHg) O2 Sat by Pulse 97 98 Oximetry 01/18/17 01/18/17 01/18/17 07:13 08:00 09:16 Temperature 98.8 F Pulse Rate 68 Respiratory 18 22 22 Rate Blood Pressure 150/59 (mmHg) O2 Sat by Pulse 100 99 Oximetry Oxygen Devices in Use Now: Nasal Cannula Appearance: NAD, laying in bed Respiratory: Symmetrical Chest Expansion and Respiratory Effort, Clear to Auscultation Cardiovascular: NL Sounds; No Murmurs; No JVD - 2L, RRR Abdominal: NL Sounds; No Tenderness; No Distention Extremities: - - Mild edema to right medial ankle Skin: - - Erythema to right medial ankle, Pt states improved Neurological: Alert and Oriented x 3, NL Muscle Strength and Tone Lines/Tubes/Other Access: Clean, Dry and Intact Peripheral IV - site benign, Clean, Dry and Intact Percuteneous Feeding Tube Nutrition: Taking PO's Result Diagrams: 01/18/17 04:18 01/18/17 04:18 Additional Lab and Data: Assess/Plan/Problems-Billing Assessment: Ms. 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 - Patient Problems (1) Cellulitis Code(s): L03.90 - CELLULITIS, UNSPECIFIED SNOMED Code(s): 158832079 Comment: - Right ankle/foot. - CRP and ESR are normal. - Xray showing no fx, but showing soft tissue swelling most prominent over lateral malleolus. Spoke with Dr. Miller - MRI showing superficial inflammation consistent with cellulitis, no joint effusion noted - does not think septic arthritis. - Dr. Polo following also has low suspicion for septic joint- suggested possible Gout flare and cellulitis?. - No Hx of Gout and CRP/ESR are normal. Uric acid level is normal. - Blood cx negative, Day 2 - Continue IV cefazolin (2) Feeding by G-tube Code(s): Z93.1 - GASTROSTOMY STATUS SNOMED Code(s): 008196472 Comment: - Hx of esophageal stricture s/p peg tube placement 20 years - Uses Osmolite 1.2, 1 can ~q3h while awake (3) History of lung cancer Code(s): Z85.118 - PERSONAL HISTORY OF MALIGNANT NEOPLASM OF BRONCHUS AND LUNG SNOMED Code(s): 198838931 Comment: - S/P radiation of squamous cell carcinoma with residual cavitary lesion in RUL that appears stable on serial imaging - Dx 2012 - Followed by Dr. Trevino locally, but mostly follows with an Onc group in [place] (4) COPD (chronic obstructive pulmonary disease) Code(s): J44.9 - CHRONIC OBSTRUCTIVE PULMONARY DISEASE, UNSPECIFIED SNOMED Code(s): 94522095 Comment: - No signs of exacerbation at this time - Continue home inhaled medications (5) Tobacco abuse Code(s): Z72.0 - TOBACCO USE SNOMED Code(s): 525981957 Comment: - Quit Mar 2016 - Continue Nictotine patch - reports she plans to use lifelong (6) Hyperlipidemia Code(s): E78.5 - HYPERLIPIDEMIA, UNSPECIFIED SNOMED Code(s): 60913490 Comment: - Continue lipitor (7) Hypertension Code(s): I10 - ESSENTIAL (PRIMARY) HYPERTENSION SNOMED Code(s): 44454036 Comment: - SBP 110-150's - Continue Losartan (8) DVT prophylaxis Code(s): EXX5280 - SNOMED Code(s): 026841863 Comment: - Lovenox (9) Full code status Code(s): Z78.9 - OTHER SPECIFIED HEALTH STATUS SNOMED Code(s): 734410359 Status and Disposition: Inpatient with cellulitis with concern for possible septic ankle joint. Discharge to home when medically stable.
--- NOTE | 2017-01-18 14:21 | PN ---
Progress Note - Progress Note Date of Service: 01/18/17 SOAP: Subjective: []Patient seen at bedside. She reports improvement of pain, swelling and redness of her right ankle. Denies fever or chills. Objective: [] Vital Signs Temp 98.6 F 01/18/17 11:09 Pulse 86 01/18/17 11:09 Resp 18 01/18/17 11:38 BP 125/44 01/18/17 11:09 Pulse Ox 97 01/18/17 11:09 Intake & Output 01/17/17 01/18/17 01/18/17 18:59 06:59 18:59 Intake Total 874 917 737 Output Total 0 Balance 874 917 737 Intake: IV Fluids 80 ceFAZolin 80 IVPB 50 ceFAZolin 50 Oral 300 450 400 Tube Feeding 474 237 237 Tube Feeding Flush Amount 100 100 100 Output: Urine 0 Other: Estimated Void Medium # Bowel Movements 1 Estimated Stool Amount Medium # Voids 2 Laboratory Last Values WBC 11.1 10^3/ul (3.5-10.8) H 01/18/17 04:18 RBC 3.93 10^6/ul (4.0-5.4) L 01/18/17 04:18 Hgb 12.3 g/dl (12.0-16.0) 01/18/17 04:18 Hct 36 % (35-47) 01/18/17 04:18 MCV 93 fL (80-97) 01/18/17 04:18 MCH 31 pg (27-31) 01/18/17 04:18 MCHC 34 g/dl (31-36) 01/18/17 04:18 RDW 14 % (10.5-15) 01/18/17 04:18 Plt Count 261 10^3/ul (150-450) 01/18/17 04:18 MPV 9 um3 (7.4-10.4) 01/18/17 04:18 Neut % (Auto) 70.5 % (38-83) 01/18/17 04:18 Lymph % (Auto) 19.6 % (25-47) L 01/18/17 04:18 [place] % (Auto) 9.4 % (1-9) H 01/18/17 04:18 Eos % (Auto) 0 % (0-6) 01/18/17 04:18 Baso % (Auto) 0.5 % (0-2) 01/18/17 04:18 Absolute Neuts (auto) 7.8 10^3/ul (1.5-7.7) H 01/18/17 04:18 Absolute Lymphs (auto) 2.2 10^3/ul (1.0-4.8) 01/18/17 04:18 Absolute Monos (auto) 1.0 10^3/ul (0-0.8) H 01/18/17 04:18 Absolute Eos (auto) 0 10^3/ul (0-0.6) 01/18/17 04:18 Absolute Basos (auto) 0.1 10^3/ul (0-0.2) 01/18/17 04:18 Absolute Nucleated RBC 0 10^3/ul 01/18/17 04:18 Nucleated RBC % 0 01/18/17 04:18 ESR 20 mm/Hr (0-40) 01/15/17 22:02 Sodium 137 mmol/L (133-145) 01/18/17 04:18 Potassium 3.7 mmol/L (3.5-5.0) 01/18/17 04:18 Chloride 105 mmol/L (101-111) 01/18/17 04:18 Carbon Dioxide 27 mmol/L (22-32) 01/18/17 04:18 Anion Gap 5 mmol/L (2-11) 01/18/17 04:18 BUN 21 mg/dL (6-24) 01/18/17 04:18 Creatinine 0.69 mg/dL (0.51-0.95) 01/18/17 04:18 Est GFR ( Amer) 106.1 (>60) 01/18/17 04:18 Est GFR (Non-Af Amer) 82.5 (>60) 01/18/17 04:18 BUN/Creatinine Ratio 30.4 (8-20) H 01/18/17 04:18 Glucose 93 mg/dL (70-100) 01/18/17 04:18 Lactic Acid 0.9 mmol/L (0.5-2.0) 01/15/17 22:02 Uric Acid 3.7 mg/dL (2.3-6.6) 01/17/17 04:13 Calcium 9.1 mg/dL (8.6-10.3) 01/18/17 04:18 Total Bilirubin 0.70 mg/dL (0.2-1.0) 01/15/17 22:02 AST 31 U/L (13-39) 01/15/17 22:02 ALT 20 U/L (7-52) 01/15/17 22:02 Alkaline Phosphatase 83 U/L (34-104) 01/15/17 22:02 C-Reactive Protein 6.96 mg/L (< 5.00) H 01/16/17 09:04 C-React Prot High Sens 9.01 mg/L 01/17/17 04:13 Total Protein 6.6 g/dL (6.4-8.9) 01/15/17 22:02 Albumin 3.8 g/dL (3.2-5.2) 01/15/17 22:02 Globulin 2.8 g/dL (2-4) 01/15/17 22:02 Albumin/Globulin Ratio 1.4 (1-3) 01/15/17 22:02 Urine Color Yellow 01/15/17 20:50 Urine Appearance Clear 01/15/17 20:50 Urine pH 8.0 (5-9) 01/15/17 20:50 Ur Specific [place] 1.006 (1.010-1.030) L 01/15/17 20:50 Urine Protein Negative (Negative) 01/15/17 20:50 Urine Ketones Negative (Negative) 01/15/17 20:50 Urine Blood Negative (Negative) 01/15/17 20:50 Urine Nitrate Negative (Negative) 01/15/17 20:50 Urine Bilirubin Negative (Negative) 01/15/17 20:50 Urine Urobilinogen Negative (Negative) 01/15/17 20:50 Ur Leukocyte Esterase Negative (Negative) 01/15/17 20:50 Urine Glucose Negative (Negative) 01/15/17 20:50 Urine Ascorbic Acid * (Negative) H 01/15/17 20:50 General: Well appearing, no acute distress RLE: 1+ pitting edema and erythema of right medial ankle/ foot spanning from proximal medial maleolus to medial midfoot. No streaking erythema. Mild tenderness over erythematous area. DP/PT 2+. Painful dorsiflexion, inversion and eversion. Brisk capillary refill distally. Calf supple and nontender without erythema or edema aside from distally as noted above. Assessment: []R ankle cellulitis Plan: []WBAT, oob with PT in cam boot Continue IV cefazolin Hospitalist co-management
[2017-01-18] MEDS: Acetaminophen ADULT LIQ* 650 MG/20.3 ML UDC PO PRN (16:15)
--- NOTE | 2017-01-18 17:17 | RAD ---
INDICATION: Fever COMPARISON: Chest x-ray January 15, 2017 TECHNIQUE: PA and lateral views of the chest were obtained. FINDINGS: The heart and mediastinum are normal in size and contour. Similar the prior chest x-rays the lungs appear hyper aerated. On the lateral view there is an increased retrosternal airspace and flattened diaphragm. There is increased blunting of the right costophrenic angle. Linear density crossing the mid-level right lung is unchanged in the prior chest x-ray. Visualized bones are normal for the patient's age. There is no radiographic evidence of free air beneath the diaphragm IMPRESSION: AGAIN SEEN IS THE STIGMATA OF CHRONIC OBSTRUCTIVE PULMONARY DISEASE WITH LIKELY INCREASE IN THE SIZE OF THE SMALL RIGHT PLEURAL EFFUSION.
[2017-01-18] MEDS: Atorvastatin* 10 MG TAB G TUBE SCH (20:30)
[2017-01-18] MEDS: Cinacalcet TAB* 30 MG PO SCH (20:30)
[2017-01-18] MEDS: guaiFENesin/CODIEN 100MG-10MG* 5 ML UDC PO PRN (20:30)
[2017-01-18] MEDS: Nicotine Patch Removal NOTE FOLLOW UP SCH (20:39)
[2017-01-18 23:30] LABS: Urine Bilirubin Negative (Negative); Urine Glucose Negative (Negative); Urine Nitrite Negative (Negative)
[2017-01-19] MEDS: HYDROcodone/ACETAMIN 5-325 MG* 1 TAB PO PRN ×2 (03:06→22:16)
[2017-01-19 05:24] LABS: Hematocrit 34 % (35-47); Hemoglobin 11.3 g/dl (12.0-16.0); Mean Corpuscular HGB Conc 34 g/dl (31-36); Mean Corpuscular Hemoglobin 31 pg (27-31); Mean Corpuscular Volume 92 fL (80-97); Mean Platelet Volume 8 um3 (7.4-10.4); Red Blood Count 3.62 10^6/ul (4.0-5.4); Red Cell Distribution Width 14 % (10.5-15); White Blood Count 12.1 10^3/ul (3.5-10.8)
[2017-01-19] MEDS: ceFAZolin 1 GM VIAL(*) 1 GM in NS 0.9% 50 ML* 50 ML IVPB SCH ×3 (05:50→22:17)
[2017-01-19] MEDS: ACLIDINIUM INH SCH ×2 (07:31→20:56)
[2017-01-19] MEDS: Mometasone/Formoter 200/5 MDI INH SCH ×2 (07:32→20:59)
--- NOTE | 2017-01-19 07:37 | PN ---
Progress Note - Progress Note Date of Service: 01/19/17 SOAP: Subjective: Pt. is alert, reports pain and wb improved R ankle/foot. Objective: RLE - erythema resolving, improved df/pf, swelling continues. distally nvi. Vital Signs: Temp Pulse Resp BP Pulse Ox 99.2 F 70 16 116/52 98 01/19/17 03:03 01/19/17 03:03 01/19/17 06:16 01/19/17 03:03 01/19/17 03:03 Laboratory Results - last 24 hr 01/18/17 01/18/17 01/18/17 15:59 18:14 23:10 WBC RBC Hgb Hct MCV MCH MCHC RDW Plt Count MPV Neut % (Auto) Lymph % (Auto) [place] % (Auto) Eos % (Auto) Baso % (Auto) Absolute Neuts (auto) Absolute Lymphs (auto) Absolute Monos (auto) Absolute Eos (auto) Absolute Basos (auto) Absolute Nucleated RBC Nucleated RBC % Lactic Acid 1.3 C-Reactive Protein Urine Color Yellow Urine Appearance Clear Urine pH 6.0 Ur Specific [place] 1.014 Urine Protein Negative Urine Ketones Negative Urine Blood Negative Urine Nitrate Negative Urine Bilirubin Negative Urine Urobilinogen Negative Ur Leukocyte Esterase Negative Urine Glucose Negative Urine Ascorbic Acid * H Influenza A (Rapid) Negative Influenza B (Rapid) Negative 01/19/17 01/19/17 05:00 05:00 WBC 12.1 H RBC 3.62 L Hgb 11.3 L Hct 34 L MCV 92 MCH 31 MCHC 34 RDW 14 Plt Count 236 MPV 8 Neut % (Auto) 73.4 Lymph % (Auto) 13.3 L [place] % (Auto) 13.0 H Eos % (Auto) 0 Baso % (Auto) 0.3 Absolute Neuts (auto) 8.9 H Absolute Lymphs (auto) 1.6 Absolute Monos (auto) 1.6 H Absolute Eos (auto) 0 Absolute Basos (auto) 0 Absolute Nucleated RBC 0 Nucleated RBC % 0 Lactic Acid C-Reactive Protein 54.95 H Urine Color Urine Appearance Urine pH Ur Specific [place] Urine Protein Urine Ketones Urine Blood Urine Nitrate Urine Bilirubin Urine Urobilinogen Ur Leukocyte Esterase Urine Glucose Urine Ascorbic Acid Influenza A (Rapid) Influenza B (Rapid) Assessment: 76 yo F with RLE cellulitis, ankle pain without trauma. Multiple medical comorbidities and general frailty. Plan: mobilize with PT wbat rle IV abx - cellulitis resolving
[2017-01-19] MEDS: Losartan TAB* 25 MG G TUBE SCH (09:53)
[2017-01-19] MEDS: Oxybutynin TAB* 5 MG G TUBE SCH (09:53)
[2017-01-19] MEDS: Lactobacillus Acidophilu (GG)* 1 CAP CAP PO SCH (09:53)
[2017-01-19] MEDS: Aspirin Low Dose CHEW TAB* 81 MG G TUBE SCH (09:53)
[2017-01-19] MEDS: Acetaminophen ADULT LIQ* 650 MG/20.3 ML UDC PO PRN ×2 (09:58→17:49)
[2017-01-19] MEDS: Nicotine PATCH 7 MG/24 HR* PATCH TRANSDERM SCH (09:59)
[2017-01-19] MEDS: guaiFENesin/CODIEN 100MG-10MG* 5 ML UDC PO PRN ×2 (11:57→22:16)
--- NOTE | 2017-01-19 15:19 | PN ---
Subjective Date of Service: 01/19/17 Interval History: Patient seen and examined at bedside. Denies fever, chills, chest discomfort, N/ V/D. Pt states that she has some shortness of breath, this is near her baseline. Pt notes that she is having some low O2 sats. Pt continues to feel generally ill and reports an intermittent cough. Pt states that she has lost ~ 17 ponds in the last 6-12 months. She reports that she has recently been able to gain a few pounds back. Family History: Unchanged from Admission Social History: Unchanged from Admission Past Medical History: Unchanged from Admission Objective Active Medications: Acetaminophen (Tylenol Adult Liq*) 650 mg PO Q4H PRN Reason: FEVER/PAIN Hydrocodone Bitart/Acetaminophen ([place] 5-325 Tab*) 1 tab PO Q4H PRN Reason: PAIN Aclidinium [place] (Tudorza Pressair Mdi(Nf)) 1 puff INH BID ARACELI Albuterol (Ventolin 2.5 Mg/3 Ml Neb.Nereyda*) 2.5 mg INH Q6H PRN Reason: WHEEZING Aspirin (Aspirin Low Dose Tab*) 81 mg G TUBE DAILY ARACELI Atorvastatin Calcium (Lipitor*) 10 mg G TUBE 2100 ARACELI Cinacalcet (Sensipar Tab*) 30 mg PO 2100 ARACELI Enoxaparin Sodium (Lovenox(*)) 40 mg SUBCUT Q24H ARACELI Guaifenesin/Codeine Phosphate (Robitussin Ac 100mg-10mg*) 10 ml PO Q6H PRN Reason: COUGH Cefazolin Sodium 1 gm/ Sodium (Chloride) 50 mls @ 200 mls/hr IVPB Q8H ARACELI Lactobacillus Rhamnosus (Culturelle*) 1 cap PO DAILY ARACELI Losartan Potassium (Cozaar Tab*) 25 mg G TUBE DAILY ARACELI Mometasone Furoate/Formoterol Fumar (Dulera 200/5 Mdi*) 2 puff INH BID ARACELI Nicotine (Nicotine Patch 7 Mg/24 Hr*) 1 patch TRANSDERM DAILY ARACELI Oxybutynin Chloride (Ditropan Tab*) 5 mg G TUBE DAILY ARACELI Pharmacy Profile Note (Nicotine Patch Removal Note*) 1 note FOLLOW UP 2100 ARACELI Polyethylene Glycol/Electrolytes (Miralax*) 17 gm G TUBE DAILY PRN Reason: CONSTIPATION Vital Signs 01/18/17 01/18/17 01/18/17 15:48 15:50 19:09 Temperature 102.3 F 98.8 F Pulse Rate 86 73 Respiratory 26 20 Rate Blood Pressure 166/62 112/46 (mmHg) O2 Sat by Pulse 99 97 Oximetry 01/18/17 01/18/17 01/18/17 19:37 20:36 22:58 Temperature Pulse Rate Respiratory 20 20 Rate Blood Pressure (mmHg) O2 Sat by Pulse 97 Oximetry 01/18/17 01/18/17 01/19/17 23:26 23:59 03:03 Temperature 98.3 F 99.2 F Pulse Rate 76 70 Respiratory 16 16 16 Rate Blood Pressure 117/46 116/52 (mmHg) O2 Sat by Pulse 98 98 Oximetry 01/19/17 01/19/17 01/19/17 03:06 06:16 07:32 Temperature 99.1 F Pulse Rate 67 Respiratory 16 16 16 Rate Blood Pressure 102/47 (mmHg) O2 Sat by Pulse 96 Oximetry 01/19/17 08:00 Temperature Pulse Rate Respiratory 16 Rate Blood Pressure (mmHg) O2 Sat by Pulse 96 Oximetry Oxygen Devices in Use Now: None Appearance: NAD, sitting up on the side of the bed Ears/Nose/Mouth/Throat: Mucous Membranes Moist Respiratory: Symmetrical Chest Expansion and Respiratory Effort, Clear to Auscultation Cardiovascular: NL Sounds; No Murmurs; No JVD, RRR Abdominal: NL Sounds; No Tenderness; No Distention Extremities: - - Edema to right ankle and foot Skin: - - Erythema to right lateral medial malleous Neurological: Alert and Oriented x 3, NL Muscle Strength and Tone Lines/Tubes/Other Access: Clean, Dry and Intact Peripheral IV - site benign Nutrition: Taking PO's Result Diagrams: 01/19/17 05:00 01/18/17 04:18 Additional Lab and Data: Microbiology and Other Data: Microbiology 01/18/17 17:50 Influenza Types A,B Antigen (CANDIDA) - Final Nasal Specimen received for Influenza A/B Molecular testing Assess/Plan/Problems-Billing Assessment: Ms. 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 - Patient Problems (1) Cellulitis Code(s): L03.90 - CELLULITIS, UNSPECIFIED SNOMED Code(s): 655813227 Comment: - Right ankle/foot. - Fever ~ 102 max, leukocytosis, CRP elevated today. - Xray showing no fx, but showing soft tissue swelling most prominent over lateral malleolus. Spoke with Dr. Miller - MRI showing superficial inflammation consistent with cellulitis, no joint effusion noted - does not think septic arthritis. - Dr. Polo following also has low suspicion for septic joint- suggested possible Gout flare and cellulitis?. - No Hx of Gout and ESR are normal. Uric acid level is normal. - Blood cx negative, Day 3 - Continue IV cefazolin (2) Feeding by G-tube Code(s): Z93.1 - GASTROSTOMY STATUS SNOMED Code(s): 856540340 Comment: - Hx of esophageal stricture s/p peg tube placement 20 years - Uses Osmolite 1.2, 1 can ~q3h while awake (3) History of lung cancer Code(s): Z85.118 - PERSONAL HISTORY OF MALIGNANT NEOPLASM OF BRONCHUS AND LUNG SNOMED Code(s): 446705559 Comment: - S/P radiation of squamous cell carcinoma with residual cavitary lesion in RUL that appears stable on serial imaging - Dx 2012 - Followed by Dr. Trevino locally, but mostly follows with an Onc group in [place] (4) COPD (chronic obstructive pulmonary disease) Code(s): J44.9 - CHRONIC OBSTRUCTIVE PULMONARY DISEASE, UNSPECIFIED SNOMED Code(s): 74236687 Comment: - No signs of exacerbation at this time - Continue home inhaled medications (5) Tobacco abuse Code(s): Z72.0 - TOBACCO USE SNOMED Code(s): 496307043 Comment: - Quit Mar 2016 - Continue Nictotine patch - reports she plans to use lifelong (6) Hyperlipidemia Code(s): E78.5 - HYPERLIPIDEMIA, UNSPECIFIED SNOMED Code(s): 14586445 Comment: - Continue lipitor (7) Hypertension Code(s): I10 - ESSENTIAL (PRIMARY) HYPERTENSION SNOMED Code(s): 32541106 Comment: - SBP 100-160's - Continue Losartan (8) DVT prophylaxis Code(s): ITY6239 - SNOMED Code(s): 423161394 Comment: - Karolinax (9) Full code status Code(s): Z78.9 - OTHER SPECIFIED HEALTH STATUS SNOMED Code(s): 875578637 Status and Disposition: Inpatient with cellulitis with concern for possible septic ankle joint. Discharge to home when medically stable.
[2017-01-19] MEDS: Cinacalcet TAB* 30 MG PO SCH (22:16)
[2017-01-19] MEDS: Atorvastatin* 10 MG TAB G TUBE SCH (22:17)
[2017-01-19] MEDS: Enoxaparin(*) 40 MG/0.4 ML SYR SUBCUT SCH (22:56)
[2017-01-20 05:14] LABS: Hematocrit 35 % (35-47); Hemoglobin 11.4 g/dl (12.0-16.0); Mean Corpuscular HGB Conc 33 g/dl (31-36); Mean Corpuscular Hemoglobin 30 pg (27-31); Mean Corpuscular Volume 93 fL (80-97); Mean Platelet Volume 9 um3 (7.4-10.4); Red Blood Count 3.75 10^6/ul (4.0-5.4); Red Cell Distribution Width 14 % (10.5-15); White Blood Count 11.8 10^3/ul (3.5-10.8)
[2017-01-20] MEDS: ceFAZolin 1 GM VIAL(*) 1 GM in NS 0.9% 50 ML* 50 ML IVPB SCH ×3 (05:47→22:30)
[2017-01-20] MEDS: Nicotine Patch Removal NOTE FOLLOW UP SCH ×2 (06:30→22:30)
[2017-01-20] MEDS: Mometasone/Formoter 200/5 MDI INH SCH ×2 (08:17→20:30)
[2017-01-20] MEDS: ACLIDINIUM INH SCH ×2 (08:18→20:32)
[2017-01-20] MEDS: Nicotine PATCH 7 MG/24 HR* PATCH TRANSDERM SCH (09:15)
[2017-01-20] MEDS: HYDROcodone/ACETAMIN 5-325 MG* 1 TAB PO PRN ×2 (09:20→22:23)
[2017-01-20] MEDS: Losartan TAB* 25 MG G TUBE SCH (09:22)
[2017-01-20] MEDS: Lactobacillus Acidophilu (GG)* 1 CAP CAP PO SCH (09:22)
[2017-01-20] MEDS: Aspirin Low Dose CHEW TAB* 81 MG G TUBE SCH (09:23)
[2017-01-20] MEDS: Oxybutynin TAB* 5 MG G TUBE SCH (09:23)
--- NOTE | 2017-01-20 11:02 | PN ---
Subjective Date of Service: 01/20/17 Interval History: Patient seen and examined at bedside. Denies fever, chills, shortness of breath (not increased from baseline), chest discomfort, N/V/D. Pt states that she has been having neck pain and limited ROM since she woke up Wednesday morning. She feels like she may have slept wrong. Denies any history of injury or falls. Pt states that she has some chest congestion and is able to bring up some sputum after she takes cough syrup. Family History: Unchanged from Admission Social History: Unchanged from Admission Past Medical History: Unchanged from Admission Objective Active Medications: Acetaminophen (Tylenol Adult Liq*) 650 mg PO Q4H PRN Reason: FEVER/PAIN Hydrocodone Bitart/Acetaminophen ([place] 5-325 Tab*) 1 tab PO Q4H PRN Reason: PAIN Aclidinium [place] (Tudorza Pressair Mdi(Nf)) 1 puff INH BID ARACELI Albuterol (Ventolin 2.5 Mg/3 Ml Neb.Nereyda*) 2.5 mg INH Q6H PRN Reason: WHEEZING Aspirin (Aspirin Low Dose Tab*) 81 mg G TUBE DAILY ARACELI Atorvastatin Calcium (Lipitor*) 10 mg G TUBE 2100 ARACELI Cinacalcet (Sensipar Tab*) 30 mg PO 2100 ARACELI Enoxaparin Sodium (Lovenox(*)) 40 mg SUBCUT Q24H ARACELI Guaifenesin/Codeine Phosphate (Robitussin Ac 100mg-10mg*) 10 ml PO Q6H PRN Reason: COUGH Cefazolin Sodium 1 gm/ Sodium (Chloride) 50 mls @ 200 mls/hr IVPB Q8H ARACELI Lactobacillus Rhamnosus (Culturelle*) 1 cap PO DAILY ARACELI Losartan Potassium (Cozaar Tab*) 25 mg G TUBE DAILY ARACELI Mometasone Furoate/Formoterol Fumar (Dulera 200/5 Mdi*) 2 puff INH BID ARACELI Nicotine (Nicotine Patch 7 Mg/24 Hr*) 1 patch TRANSDERM DAILY ARACELI Oxybutynin Chloride (Ditropan Tab*) 5 mg G TUBE DAILY ARACELI Pharmacy Profile Note (Nicotine Patch Removal Note*) 1 note FOLLOW UP 2100 ARACELI Polyethylene Glycol/Electrolytes (Miralax*) 17 gm G TUBE DAILY PRN Reason: CONSTIPATION Vital Signs 01/19/17 01/19/17 01/19/17 15:16 19:22 20:59 Temperature 98.6 F Pulse Rate 84 82 Respiratory 19 20 20 Rate Blood Pressure 114/44 (mmHg) O2 Sat by Pulse 93 99 Oximetry 01/19/17 01/19/17 01/20/17 22:16 23:24 00:00 Temperature 98.8 F Pulse Rate 91 Respiratory 20 16 Rate Blood Pressure 127/90 (mmHg) O2 Sat by Pulse 97 97 Oximetry 01/20/17 01/20/17 01/20/17 05:44 07:16 08:00 Temperature 99.1 F Pulse Rate 78 Respiratory 18 20 20 Rate Blood Pressure 112/78 (mmHg) O2 Sat by Pulse 99 Oximetry 01/20/17 09:20 Temperature Pulse Rate Respiratory 20 Rate Blood Pressure (mmHg) O2 Sat by Pulse Oximetry Oxygen Devices in Use Now: None, Nasal Cannula - 2L at HS Appearance: NAD, sitting up in bed Ears/Nose/Mouth/Throat: Mucous Membranes Moist Respiratory: Symmetrical Chest Expansion and Respiratory Effort, Clear to Auscultation Cardiovascular: NL Sounds; No Murmurs; No JVD, RRR Abdominal: NL Sounds; No Tenderness; No Distention Extremities: - - Right foot and ankle with swelling. Pt's posterior neck with mild tenderness and tightness. Skin: No Rash or Ulcers Neurological: Alert and Oriented x 3, NL Muscle Strength and Tone Lines/Tubes/Other Access: Clean, Dry and Intact Peripheral IV - site benign Nutrition: Taking PO's Result Diagrams: 01/20/17 04:39 01/18/17 04:18 Additional Lab and Data: Microbiology and Other Data: Microbiology 01/18/17 17:50 Influenza Types A,B Antigen (CANDIDA) - Final Nasal Specimen received for Influenza A/B Molecular testing Assess/Plan/Problems-Billing Assessment: Ms. 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 - Patient Problems (1) Cellulitis Code(s): L03.90 - CELLULITIS, UNSPECIFIED SNOMED Code(s): 518865875 Comment: - Right ankle/foot. - Fever ~ 102 max, now afebrile, leukocytosis, CRP elevated. - Xray showing no fx, but showing soft tissue swelling most prominent over lateral malleolus. Spoke with Dr. Miller - MRI showing superficial inflammation consistent with cellulitis, no joint effusion noted - does not think septic arthritis. - Dr. Polo following also has low suspicion for septic joint- suggested possible Gout flare and cellulitis?. - No Hx of Gout and ESR are normal. Uric acid level is normal. - Blood cx negative, Day 4 and Day 1 - Continue IV cefazolin (2) Feeding by G-tube Code(s): Z93.1 - GASTROSTOMY STATUS SNOMED Code(s): 455284741 Comment: - Hx of esophageal stricture s/p peg tube placement 20 years - Uses Osmolite 1.2, 1 can ~q3h while awake (3) Neck pain, bilateral posterior Code(s): M54.2 - CERVICALGIA SNOMED Code(s): 43650154 Comment: - Started 2 days ago, Pt feels she may have slept wrong Wednesday night - Tenderness and tightness to posterior lateral neck - Pt should follow-up with PCP if pain continues (4) History of lung cancer Code(s): Z85.118 - PERSONAL HISTORY OF MALIGNANT NEOPLASM OF BRONCHUS AND LUNG SNOMED Code(s): 934584092 Comment: - S/P radiation of squamous cell carcinoma with residual cavitary lesion in RUL that appears stable on serial imaging - Dx 2012 - Followed by Dr. Trevino locally, but mostly follows with an Onc group in [place] (5) COPD (chronic obstructive pulmonary disease) Code(s): J44.9 - CHRONIC OBSTRUCTIVE PULMONARY DISEASE, UNSPECIFIED SNOMED Code(s): 44429430 Comment: - No signs of exacerbation at this time - Continue home inhaled medications (6) Tobacco abuse Code(s): Z72.0 - TOBACCO USE SNOMED Code(s): 602529416 Comment: - Quit Mar 2016 - Continue Nictotine patch - reports she plans to use lifelong (7) Hyperlipidemia Code(s): E78.5 - HYPERLIPIDEMIA, UNSPECIFIED SNOMED Code(s): 53570291 Comment: - Continue lipitor (8) Hypertension Code(s): I10 - ESSENTIAL (PRIMARY) HYPERTENSION SNOMED Code(s): 83041036 Comment: - SBP 100-120's - Continue Losartan (9) DVT prophylaxis Code(s): DQI3794 - SNOMED Code(s): 630845747 Comment: - Lovenox (10) Full code status Code(s): Z78.9 - OTHER SPECIFIED HEALTH STATUS SNOMED Code(s): 117514828 Status and Disposition: Inpatient with cellulitis. Discharge to home when medically stable, possibly in 1-2 days.
[2017-01-20] MEDS: guaiFENesin/CODIEN 100MG-10MG* 5 ML UDC PO PRN ×2 (13:15→22:24)
[2017-01-20] MEDS: Acetaminophen ADULT LIQ* 650 MG/20.3 ML UDC PO PRN (17:30)
[2017-01-20] MEDS: Albuterol 2.5 MG/3 ML NEB.SOL* (0.083%) INH PRN (17:40)
[2017-01-20] MEDS: Ciprofloxacin 400MG IVPREMIX(* 400 MG/200 ML BAG IVPB SCH (18:55)
[2017-01-20] MEDS: Cinacalcet TAB* 30 MG PO SCH (22:20)
[2017-01-20] MEDS: Atorvastatin* 10 MG TAB G TUBE SCH (22:21)
[2017-01-20] MEDS: Enoxaparin(*) 40 MG/0.4 ML SYR SUBCUT SCH (22:37)
[2017-01-21] MEDS: Ciprofloxacin 400MG IVPREMIX(* 400 MG/200 ML BAG IVPB SCH ×2 (03:13→11:10)
[2017-01-21] MEDS: ceFAZolin 1 GM VIAL(*) 1 GM in NS 0.9% 50 ML* 50 ML IVPB SCH (05:47)
[2017-01-21 06:01] LABS: Hematocrit 32 % (35-47); Hemoglobin 10.6 g/dl (12.0-16.0); Mean Corpuscular HGB Conc 34 g/dl (31-36); Mean Corpuscular Hemoglobin 31 pg (27-31); Mean Corpuscular Volume 93 fL (80-97); Mean Platelet Volume 9 um3 (7.4-10.4); Red Blood Count 3.41 10^6/ul (4.0-5.4); Red Cell Distribution Width 13 % (10.5-15); White Blood Count 12.1 10^3/ul (3.5-10.8)
[2017-01-21] MEDS: Lactobacillus Acidophilu (GG)* 1 CAP CAP PO SCH (08:21)
[2017-01-21] MEDS: Oxybutynin TAB* 5 MG G TUBE SCH (08:21)
[2017-01-21] MEDS: Nicotine PATCH 7 MG/24 HR* PATCH TRANSDERM SCH (08:21)
[2017-01-21] MEDS: Aspirin Low Dose CHEW TAB* 81 MG G TUBE SCH (08:21)
[2017-01-21] MEDS: Losartan TAB* 25 MG G TUBE SCH (08:21)
[2017-01-21] MEDS: HYDROcodone/ACETAMIN 5-325 MG* 1 TAB PO PRN ×2 (08:28→22:13)
[2017-01-21] MEDS: guaiFENesin/CODIEN 100MG-10MG* 5 ML UDC PO PRN ×2 (08:28→22:13)
[2017-01-21] MEDS: ACLIDINIUM INH SCH ×2 (09:11→19:30)
[2017-01-21] MEDS: Mometasone/Formoter 200/5 MDI INH SCH ×2 (09:11→19:33)
--- NOTE | 2017-01-21 09:46 | PN ---
Progress Note - Progress Note Date of Service: 01/21/17 SOAP: Subjective: [Pt reports pain with movement of R ankle, foot. Otherwise pain managed with meds. Has been wbat RLE.] Objective: [A and O x 3, NAD. Afebrile. Laboratory Results - last 24 hr 01/21/17 05:25 WBC 12.1 H RBC 3.41 L Hgb 10.6 L Hct 32 L MCV 93 MCH 31 MCHC 34 RDW 13 Plt Count 247 MPV 9 Neut % (Auto) 72.6 Lymph % (Auto) 15.5 L [place] % (Auto) 11.5 H Eos % (Auto) 0.1 Baso % (Auto) 0.3 Absolute Neuts (auto) 8.8 H Absolute Lymphs (auto) 1.9 Absolute Monos (auto) 1.4 H Absolute Eos (auto) 0 Absolute Basos (auto) 0 Absolute Nucleated RBC 0 Nucleated RBC % 0 R ankle /foot with mild/mod pitting edema. TTP generally. Erythema continues to resolve. Good motion in ankle and toes but painful Distally nvi. Vital Signs: Temp Pulse Resp BP Pulse Ox 98.6 F 81 22 111/50 96 01/21/17 07:20 01/21/17 09:18 01/21/17 09:18 01/21/17 07:23 01/21/17 09:18 ] Assessment: [RLE cellulitis, ankle pain without trauma. Multiple medical comorbidities and general frailty] Plan: [Mobilize with PT WABAT RLE Con't IV abx Cellulitis resolving]
--- NOTE | 2017-01-21 11:27 | PN ---
Subjective Date of Service: 01/21/17 Interval History: Patient seen and examined at bedside. Denies fever, chills, chest discomfort, N/ V/D. Pt states that she continues to have increased shortness of breath and cough with some sputum production. Pt would like to see Dr. Shea is she is available tomorrow. Family History: Unchanged from Admission Social History: Unchanged from Admission Past Medical History: Unchanged from Admission Objective Active Medications: Acetaminophen (Tylenol Adult Liq*) 650 mg PO Q4H PRN Reason: FEVER/PAIN Hydrocodone Bitart/Acetaminophen ([place] 5-325 Tab*) 1 tab PO Q4H PRN Reason: PAIN Aclidinium [place] (Tudorza Pressair Mdi(Nf)) 1 puff INH BID ARACELI Albuterol (Ventolin 2.5 Mg/3 Ml Neb.Nereyda*) 2.5 mg INH Q6H PRN Reason: WHEEZING Aspirin (Aspirin Low Dose Tab*) 81 mg G TUBE DAILY ARACELI Atorvastatin Calcium (Lipitor*) 10 mg G TUBE 2100 ARACELI Cinacalcet (Sensipar Tab*) 30 mg PO 2100 ARACELI Enoxaparin Sodium (Lovenox(*)) 40 mg SUBCUT Q24H ARACELI Guaifenesin/Codeine Phosphate (Robitussin Ac 100mg-10mg*) 10 ml PO Q6H PRN Reason: COUGH Cefazolin Sodium 1 gm/ Sodium (Chloride) 50 mls @ 200 mls/hr IVPB Q8H ARACELI Ciprofloxacin/Dextrose (Cipro 400 Mg Ivpremix(*)) 400 mg in 200 mls @ 200 mls/ hr IVPB Q8H ARACELI Lactobacillus Rhamnosus (Culturelle*) 1 cap PO DAILY ARACELI Losartan Potassium (Cozaar Tab*) 25 mg G TUBE DAILY ARACELI Mometasone Furoate/Formoterol Fumar (Dulera 200/5 Mdi*) 2 puff INH BID ARACELI Nicotine (Nicotine Patch 7 Mg/24 Hr*) 1 patch TRANSDERM DAILY ARACELI Oxybutynin Chloride (Ditropan Tab*) 5 mg G TUBE DAILY ARACELI Pharmacy Profile Note (Nicotine Patch Removal Note*) 1 note FOLLOW UP 2100 ARACELI Polyethylene Glycol/Electrolytes (Miralax*) 17 gm G TUBE DAILY PRN Reason: CONSTIPATION Vital Signs 01/20/17 01/20/17 01/20/17 13:14 15:12 16:00 Temperature 100.0 F Pulse Rate 94 Respiratory 16 18 Rate Blood Pressure 131/52 (mmHg) O2 Sat by Pulse 100 98 Oximetry 01/20/17 01/20/17 01/20/17 17:49 19:10 20:00 Temperature 98.4 F Pulse Rate 97 91 Respiratory 18 20 16 Rate Blood Pressure 112/54 (mmHg) O2 Sat by Pulse 98 96 Oximetry 01/20/17 01/20/17 01/20/17 20:34 22:23 23:15 Temperature 98.7 F Pulse Rate 91 85 Respiratory 20 20 22 Rate Blood Pressure 101/43 (mmHg) O2 Sat by Pulse 97 99 Oximetry 01/21/17 01/21/17 01/21/17 00:00 01:03 07:20 Temperature 98.6 F Pulse Rate 79 Respiratory 18 18 Rate Blood Pressure 80/51 (mmHg) O2 Sat by Pulse 99 98 Oximetry 01/21/17 01/21/17 01/21/17 07:23 08:00 08:28 Temperature Pulse Rate 78 Respiratory 18 18 Rate Blood Pressure 111/50 (mmHg) O2 Sat by Pulse 98 Oximetry 01/21/17 09:18 Temperature Pulse Rate 81 Respiratory 22 Rate Blood Pressure (mmHg) O2 Sat by Pulse 96 Oximetry Oxygen Devices in Use Now: Nasal Cannula - 2L Appearance: NAD, sitting up in bed Respiratory: Symmetrical Chest Expansion and Respiratory Effort, Clear to Auscultation Cardiovascular: NL Sounds; No Murmurs; No JVD, RRR Abdominal: NL Sounds; No Tenderness; No Distention Extremities: - - Edema to right lateral malleous, edema to foot and medial malleous almost resolved Neurological: Alert and Oriented x 3, NL Muscle Strength and Tone Lines/Tubes/Other Access: Clean, Dry and Intact Peripheral IV - site benign, Clean, Dry and Intact Percuteneous Feeding Tube - site benign Nutrition: Taking PO's - Pt takes clear liquids Result Diagrams: 01/21/17 05:25 01/18/17 04:18 Additional Lab and Data: Microbiology and Other Data: Microbiology 01/18/17 17:50 Influenza Types A,B Antigen (CANDIDA) - Final Nasal Specimen received for Influenza A/B Molecular testing Assess/Plan/Problems-Billing Assessment: Ms. 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 - Patient Problems (1) Pneumonia Code(s): J18.9 - PNEUMONIA, UNSPECIFIED ORGANISM SNOMED Code(s): 809148037 Comment: - Now afebrile with intermittent low grade fevers - Sputum with psudomonas - 01/18/17 Chest xray - COPD, small right pleural effusion - Will check a chest xray today with the increased SOB - Will check s. pneumo and legionella in urine - Started Cipro IV (Pt states that she has toelrated in the past) yesterday, but will change to meropenem now that sensitivities are back - Will consider pulm consult if Pt continues to have increased SOB and not improving (2) Cellulitis Code(s): L03.90 - CELLULITIS, UNSPECIFIED SNOMED Code(s): 566849545 Comment: - Right ankle/foot. Overall erythema and swelling improving. - Fever ~ 102 max 3 days ago, now afebrile but intermittent low grade temp, leukocytosis, CRP elevated. - Xray showing no fx, but showing soft tissue swelling most prominent over lateral malleolus. Spoke with Dr. Miller - MRI showing superficial inflammation consistent with cellulitis, no joint effusion noted - does not think septic arthritis. - Dr. Polo following also has low suspicion for septic joint- suggested possible Gout flare and cellulitis?. - No Hx of Gout and ESR are normal. Uric acid level is normal. - Blood cx negative, Day 5 and Day 2 - Change IV ABX to meropenem (3) Feeding by G-tube Code(s): Z93.1 - GASTROSTOMY STATUS SNOMED Code(s): 205728542 Comment: - Hx of esophageal stricture s/p peg tube placement 20 years - Uses Osmolite 1.2, 1 can ~q3h while awake (4) Neck pain, bilateral posterior Code(s): M54.2 - CERVICALGIA SNOMED Code(s): 03661127 Comment: - Improving - Started 2 days ago, Pt feels she may have slept wrong Wednesday night - Tenderness and tightness to posterior lateral neck - Pt should follow-up with PCP if pain continues (5) Asymptomatic bacteriuria Code(s): R82.71 - BACTERIURIA SNOMED Code(s): 218202566 Comment: - Urine culture with Group B strep 10-25K (6) History of lung cancer Code(s): Z85.118 - PERSONAL HISTORY OF MALIGNANT NEOPLASM OF BRONCHUS AND LUNG SNOMED Code(s): 530788432 Comment: - S/P radiation of squamous cell carcinoma with residual cavitary lesion in RUL that appears stable on serial imaging - Dx 2012 - Followed by Dr. Trevino locally, but mostly follows with an Onc group in [place] (7) COPD (chronic obstructive pulmonary disease) Code(s): J44.9 - CHRONIC OBSTRUCTIVE PULMONARY DISEASE, UNSPECIFIED SNOMED Code(s): 84304265 Comment: - No signs of exacerbation at this time - Continue home inhaled medications (8) Tobacco abuse Code(s): Z72.0 - TOBACCO USE SNOMED Code(s): 682008668 Comment: - Quit Mar 2016 - Continue Nictotine patch - reports she plans to use lifelong (9) Hyperlipidemia Code(s): E78.5 - HYPERLIPIDEMIA, UNSPECIFIED SNOMED Code(s): 21314406 Comment: - Continue lipitor (10) Hypertension Code(s): I10 - ESSENTIAL (PRIMARY) HYPERTENSION SNOMED Code(s): 94539298 Comment: - SBP 80-130's - Continue Losartan (11) DVT prophylaxis Code(s): ULV9714 - SNOMED Code(s): 384574319 Comment: - Lovenox (12) Full code status Code(s): Z78.9 - OTHER SPECIFIED HEALTH STATUS SNOMED Code(s): 444649549 Status and Disposition: Inpatient with cellulitis. Discharge to home when medically stable, possibly in 1-2 days.
[2017-01-21] MEDS ORDERED: Albuterol 2.5 MG/3 ML NEB.SOL* (0.083%) INH SCH ×2 (12:00→13:00)
[2017-01-21] MEDS: Meropenem 500MG PREMIX(*) 500 MG/50 ML BAG IV SCH ×3 (12:55→20:35)
--- NOTE | 2017-01-21 13:04 | RAD ---
INDICATION: Worsening shortness of breath COMPARISON: Most recent comparison chest x-ray January 18, 2017 TECHNIQUE: PA and lateral views of the chest were obtained. FINDINGS: The heart and mediastinum are normal in size and contour. Similar to the prior chest x-ray the lungs are hyperaerated on the AP view. There is flattened diaphragm and increased retrosternal airspace on the lateral view. There is a stable horizontal density crossing the midline and right lung unchanged in the prior chest x-ray. Density obscuring the right lung base has increased in size relative to the previous chest x-ray. There is blunting of the left costophrenic angle as well. Visualized bones are normal for the patient's age. There is no radiographic evidence of free air beneath the diaphragm IMPRESSION: INTERVAL CHANGES SINCE THE PRIOR CHEST X-RAY INDICATE WORSENING PLEURAL EFFUSION AND/OR CONSOLIDATION INVOLVING THE RIGHT LUNG BASE. ADDITIONAL CHRONIC FINDINGS INCLUDING THE STIGMATA OF COPD ARE UNCHANGED.
[2017-01-21] MEDS: Albuterol 2.5 MG/3 ML NEB.SOL* (0.083%) INH SCH ×2 (13:35→19:34)
[2017-01-21] MEDS: Acetaminophen ADULT LIQ* 650 MG/20.3 ML UDC PO PRN (19:45)
[2017-01-21] MEDS: Atorvastatin* 10 MG TAB G TUBE SCH (22:12)
[2017-01-21] MEDS: Cinacalcet TAB* 30 MG PO SCH ×2 (22:12→22:32)
[2017-01-21] MEDS: Nicotine Patch Removal NOTE FOLLOW UP SCH (22:14)
[2017-01-21] MEDS: Enoxaparin(*) 40 MG/0.4 ML SYR SUBCUT SCH (23:26)
[2017-01-22] MEDS: Albuterol 2.5 MG/3 ML NEB.SOL* (0.083%) INH SCH ×4 (01:33→20:15)
[2017-01-22] MEDS: Meropenem 500MG PREMIX(*) 500 MG/50 ML BAG IV SCH ×2 (04:15→11:53)
[2017-01-22 05:56] LABS: Hematocrit 32 % (35-47); Hemoglobin 10.7 g/dl (12.0-16.0); Mean Corpuscular HGB Conc 34 g/dl (31-36); Mean Corpuscular Hemoglobin 31 pg (27-31); Mean Corpuscular Volume 92 fL (80-97); Mean Platelet Volume 9 um3 (7.4-10.4); Red Blood Count 3.44 10^6/ul (4.0-5.4); Red Cell Distribution Width 13 % (10.5-15); White Blood Count 10.1 10^3/ul (3.5-10.8)
[2017-01-22] MEDS: Mometasone/Formoter 200/5 MDI INH SCH ×2 (07:01→20:13)
[2017-01-22] MEDS: ACLIDINIUM INH SCH ×2 (07:02→20:15)
[2017-01-22] MEDS: Oxybutynin TAB* 5 MG G TUBE SCH (10:00)
[2017-01-22] MEDS: HYDROcodone/ACETAMIN 5-325 MG* 1 TAB PO PRN ×2 (10:00→21:58)
[2017-01-22] MEDS: Losartan TAB* 25 MG G TUBE SCH (10:00)
[2017-01-22] MEDS: Nicotine PATCH 7 MG/24 HR* PATCH TRANSDERM SCH (10:01)
[2017-01-22] MEDS: Lactobacillus Acidophilu (GG)* 1 CAP CAP PO SCH (10:01)
[2017-01-22] MEDS: Aspirin Low Dose CHEW TAB* 81 MG G TUBE SCH (10:01)
--- NOTE | 2017-01-22 13:26 | PN ---
Progress Note - Progress Note Date of Service: 01/22/17 SOAP: Subjective: 76 y/o female admitted with PNA with concurrent R ankle edema, erythema. Patient reports pain localized to bridge of foot, continued swelling, pain with WB. Seen by PT, D/C'd. Objective: General- well appearing, NAD, AO, sitting in bed doing annie tx. MSK- L ankle with minimal pitting edema, full ROM without pain, no warmth. PT pulses 2+ b/l, sensation intact to light touch b/l. R ankle with pain with dorsiflexion, full plantarflexion. full ROM toes without difficulty, tenderness to palpation over anterior ankle and prox 1, 2, metatarsal, no tenderness over b/l mal. +1 pitting edema R ankle diffusely. Vital Signs Temp 97.6 F 01/22/17 07:14 Pulse 78 01/22/17 13:12 Resp 16 01/22/17 13:12 BP 124/55 01/22/17 07:14 Pulse Ox 98 01/22/17 13:12 Intake & Output 01/21/17 01/22/17 01/22/17 18:59 06:59 18:59 Intake Total 607 457 726 Output Total 0 200 Balance 607 257 726 Intake: IV Fluids 20 Merrem 20 IVPB 270 120 59 Merrem 60 120 59 cipro 210 Oral 100 0 170 Tube Feeding 237 237 237 Tube Feeding Flush Amount 100 240 Output: Urine 0 200 Other: Estimated Void Medium # Bowel Movements 0 # Voids 2 Laboratory Results - last 24 hr 01/22/17 01/22/17 05:21 05:21 WBC 10.1 RBC 3.44 L Hgb 10.7 L Hct 32 L MCV 92 MCH 31 MCHC 34 RDW 13 Plt Count 273 MPV 9 Neut % (Auto) 70.6 Lymph % (Auto) 18.0 L [place] % (Auto) 10.9 H Eos % (Auto) 0 Baso % (Auto) 0.5 Absolute Neuts (auto) 7.1 Absolute Lymphs (auto) 1.8 Absolute Monos (auto) 1.1 H Absolute Eos (auto) 0 Absolute Basos (auto) 0.1 Absolute Nucleated RBC 0 Nucleated RBC % 0 C-Reactive Protein 68.39 H Assessment: R ankle edema, erythema Plan: - Continue ABX for PNA - Continued pain, swelling in ankle- Elevate as much as possible, ice PRN for pain, swelling. Re-eval over weekend, if no improvement possible repeat doppler - Continue ambulation as tolerated on foot - MRI neg for joint infection, abscess;, doppler neg for DVT 01/15 Active Medications Generic Name Dose Route Start Last Admin Trade Name Freq PRN Reason Stop Dose Admin Acetaminophen 650 mg 01/18/17 15:57 01/21/17 19:45 Tylenol Adult Liq* PO 650 mg Q4H PRN Administration FEVER/PAIN Hydrocodone Bitart/Acetaminophen 1 tab 01/16/17 02:37 01/22/17 10:00 [place] 5-325 Tab* PO 1 tab Q4H PRN Administration PAIN Aclidinium [place] 1 puff 01/16/17 09:00 01/22/17 07:02 Lino [place] Mdi(Nf) INH 1 puff BID ARACELI Administration Albuterol 2.5 mg 01/21/17 13:00 01/22/17 13:09 Ventolin 2.5 Mg/3 Ml Neb.Nereyda* INH 2.5 mg Q6H ARACELI Administration Aspirin 81 mg 01/16/17 09:00 01/22/17 10:01 Aspirin Low Dose Tab* G TUBE 81 mg DAILY ARACELI Administration Atorvastatin Calcium 10 mg 01/16/17 21:00 01/21/17 22:12 Lipitor* G TUBE 10 mg 2100 ARACELI Administration Cinacalcet 30 mg 01/16/17 21:00 01/21/17 22:32 Sensipar Tab* PO Not Given 2100 ARACELI Enoxaparin Sodium 40 mg 01/15/17 23:45 01/21/17 23:26 Lovenox(*) SUBCUT 40 mg Q24H ARACELI Administration Guaifenesin/Codeine Phosphate 10 ml 01/16/17 00:47 01/21/17 22:13 Robitussin Ac 100mg-10mg* PO 10 ml Q6H PRN Administration COUGH Meropenem 500 mg in 50 mls @ 100 mls/hr 01/21/17 12:00 01/22/17 11:53 Merrem 500mg Premix(*) IV 100 mls/hr Q8H ARACELI Administration Lactobacillus Rhamnosus 1 cap 01/16/17 09:00 01/22/17 10:01 Culturelle* PO 1 cap DAILY ARACELI Administration Losartan Potassium 25 mg 01/16/17 09:00 01/22/17 10:00 Cozaar Tab* G TUBE 25 mg DAILY ARACELI Administration Mometasone Furoate/Formoterol Fumar 2 puff 01/16/17 09:00 01/22/17 07:01 Dulera 200/5 Mdi* INH 2 puff BID ARACELI Administration Nicotine 1 patch 01/16/17 09:00 01/22/17 10:01 Nicotine Patch 7 Mg/24 Hr* TRANSDERM 1 patch DAILY ARACELI Administration Oxybutynin Chloride 5 mg 01/16/17 09:00 01/22/17 10:00 Ditropan Tab* G TUBE 5 mg DAILY ARACELI Administration Pharmacy Profile Note 1 note 01/16/17 21:00 01/21/17 22:14 Nicotine Patch Removal Note* FOLLOW UP 1 note 2100 ARACELI Administration Polyethylene Glycol/Electrolytes 17 gm 01/16/17 00:48 Miralax* G TUBE DAILY PRN CONSTIPATION
--- NOTE | 2017-01-22 18:16 | PN ---
Subjective Date of Service: 01/22/17 Interval History: Alana is a 76 yo female with a PMH of COPD, , HTN, hx of squamous cell lung CA, s /p peg-tube placement 2nd to esophageal stricture, recurrent aspiration, gastroparesis, who presented to the emergency department on 01/15 with c/o right ankle swelling, pain and redness found to have cellulitis. Family History: Unchanged from Admission Social History: Unchanged from Admission Past Medical History: Unchanged from Admission Objective Active Medications: Acetaminophen (Tylenol Adult Liq*) 650 mg PO Q4H PRN PRN Reason: FEVER/PAIN Last Admin: 01/21/17 19:45 Dose: 650 mg Hydrocodone Bitart/Acetaminophen ([place] 5-325 Tab*) 1 tab PO Q4H PRN PRN Reason: PAIN Last Admin: 01/22/17 10:00 Dose: 1 tab Aclidinium [place] (Tudorza Pressair Mdi(Nf)) 1 puff INH BID [facility] Last Admin: 01/22/17 07:02 Dose: 1 puff Albuterol (Ventolin 2.5 Mg/3 Ml Neb.Nereyda*) 2.5 mg INH Q6H [facility] Last Admin: 01/22/17 13:09 Dose: 2.5 mg Aspirin (Aspirin Low Dose Tab*) 81 mg G TUBE DAILY [facility] Last Admin: 01/22/17 10:01 Dose: 81 mg Atorvastatin Calcium (Lipitor*) 10 mg G TUBE 2100 [facility] Last Admin: 01/21/17 22:12 Dose: 10 mg Cinacalcet (Sensipar Tab*) 30 mg PO 2100 [facility] Last Admin: 01/21/17 22:32 Dose: Not Given Enoxaparin Sodium (Lovenox(*)) 40 mg SUBCUT Q24H [facility] Last Admin: 01/21/17 23:26 Dose: 40 mg Guaifenesin/Codeine Phosphate (Robitussin Ac 100mg-10mg*) 10 ml PO Q6H PRN PRN Reason: COUGH Last Admin: 01/21/17 22:13 Dose: 10 ml Ciprofloxacin/Dextrose (Cipro 400 Mg Ivpremix(*)) 400 mg in 200 mls @ 200 mls/ hr IVPB Q8HR [facility] Lactobacillus Rhamnosus (Culturelle*) 1 cap PO DAILY [facility] Last Admin: 01/22/17 10:01 Dose: 1 cap Losartan Potassium (Cozaar Tab*) 25 mg G TUBE DAILY [facility] Last Admin: 01/22/17 10:00 Dose: 25 mg Mometasone Furoate/Formoterol Fumar (Dulera 200/5 Mdi*) 2 puff INH BID [facility] Last Admin: 01/22/17 07:01 Dose: 2 puff Nicotine (Nicotine Patch 7 Mg/24 Hr*) 1 patch TRANSDERM DAILY [facility] Last Admin: 01/22/17 10:01 Dose: 1 patch Oxybutynin Chloride (Ditropan Tab*) 5 mg G TUBE DAILY [facility] Last Admin: 01/22/17 10:00 Dose: 5 mg Pharmacy Profile Note (Nicotine Patch Removal Note*) 1 note FOLLOW UP 2100 [facility] Last Admin: 01/21/17 22:14 Dose: 1 note Polyethylene Glycol/Electrolytes (Miralax*) 17 gm G TUBE DAILY PRN PRN Reason: CONSTIPATION Vital Signs 01/21/17 01/21/17 01/21/17 19:18 19:30 19:36 Temperature 100.6 F Pulse Rate 98 110 Respiratory 18 18 Rate Blood Pressure 115/51 (mmHg) O2 Sat by Pulse 98 97 Oximetry 01/21/17 01/21/17 01/21/17 19:45 20:00 20:07 Temperature Pulse Rate 120 74 109 Respiratory 18 Rate Blood Pressure (mmHg) O2 Sat by Pulse 99 Oximetry 01/21/17 01/21/17 01/21/17 20:18 20:27 23:34 Temperature 98.3 F Pulse Rate 85 Respiratory Rate Blood Pressure (mmHg) O2 Sat by Pulse 94 Oximetry 01/22/17 01/22/17 01/22/17 01:00 01:33 07:05 Temperature Pulse Rate 74 68 Respiratory 16 18 17 Rate Blood Pressure (mmHg) O2 Sat by Pulse 99 98 Oximetry 01/22/17 01/22/17 01/22/17 07:14 08:00 10:00 Temperature 97.6 F Pulse Rate 79 Respiratory 16 16 16 Rate Blood Pressure 124/55 (mmHg) O2 Sat by Pulse 99 99 Oximetry 01/22/17 01/22/17 01/22/17 11:56 13:12 15:18 Temperature 98.3 F Pulse Rate 78 75 Respiratory 16 16 20 Rate Blood Pressure 122/58 (mmHg) O2 Sat by Pulse 98 99 Oximetry 01/22/17 15:31 Temperature Pulse Rate Respiratory Rate Blood Pressure (mmHg) O2 Sat by Pulse 99 Oximetry Oxygen Devices in Use Now: Nasal Cannula Eyes: No Scleral Icterus, PERRLA Ears/Nose/Mouth/Throat: NL Teeth, Lips, Gums, Mucous Membranes Moist Respiratory: Symmetrical Chest Expansion and Respiratory Effort, - - diminished breath sounds, no appreciable wheeze Cardiovascular: RRR - grade II/ Murmur Abdominal: NL Sounds; No Tenderness; No Distention, - - PEG tube in place Skin: - - erythematous right foot, primarily on the dorsal aspect Neurological: Alert and Oriented x 3 Lines/Tubes/Other Access: Clean, Dry and Intact Percuteneous Feeding Tube - PEG Nutrition: - - Tube feeds Result Diagrams: 01/22/17 05:21 01/18/17 04:18 Additional Lab and Data: Microbiology and Other Data: Microbiology 01/18/17 17:50 Influenza Types A,B Antigen (CANDIDA) - Final Nasal Specimen received for Influenza A/B Molecular testing Diagnostic Imaging: CXR - R lung consolidation/effusion Assess/Plan/Problems-Billing Assessment: This is a 76 year old female with complex pulmonary issues that presents with rith foot cellulitis - Patient Problems (1) Cellulitis Code(s): L03.90 - CELLULITIS, UNSPECIFIED SNOMED Code(s): 046963238 Comment: - Right ankle/foot. Overall erythema and swelling improving. - Trend temps, improving - Monitor WBCs and CRP - Imaging shows no joint effusion, no fracture not septic joint - Ortho consult appreciated, supportive care, no intervention at this point - Does not appear gouty in nature - Blood cx NTD - If there is joint or bone involvement, will leave on cipro for now (2) Pneumonia SNOMED Code(s): 243677247 Comment: - Now afebrile with intermittent low grade fevers, mostly improved - Sputum with psudomonas, susceptibility to cipro - 01/18/17 Chest xray - COPD, small right pleural effusion - Respiratory status is stable - Continue O2 to keep sate >92% (3) Asthma Code(s): J45.909 - UNSPECIFIED ASTHMA, UNCOMPLICATED SNOMED Code(s): 946680165 Comment: - Currently stable (4) COPD (chronic obstructive pulmonary disease) Current Visit: No Status: Chronic Priority: Low Code(s): J44.9 - CHRONIC OBSTRUCTIVE PULMONARY DISEASE, UNSPECIFIED SNOMED Code(s): 61273195 Comment: - No signs of exacerbation at this time - Continue home inhaled medications (5) Feeding by G-tube Code(s): Z93.1 - GASTROSTOMY STATUS SNOMED Code(s): 756334002 Comment: - Hx of esophageal stricture s/p peg tube placement 20 years - Continue Osmolite 1.2, 1 can ~q3h while awake (6) History of lung cancer Code(s): Z85.118 - PERSONAL HISTORY OF MALIGNANT NEOPLASM OF BRONCHUS AND LUNG SNOMED Code(s): 867598900 Comment: - Last tx in 2012, stable (7) Hyperlipidemia Code(s): E78.5 - HYPERLIPIDEMIA, UNSPECIFIED SNOMED Code(s): 60362789 Comment: - Continue lipitor in evening (8) Hypertension Code(s): I10 - ESSENTIAL (PRIMARY) HYPERTENSION SNOMED Code(s): 09519230 Comment: - Monitor BP, stable last 24 h - Continue Losartan Status and Disposition: Inpatient with cellulitis/PNA. Discharge to home when medically stable, possibly over the weekend. Continue to follow cultures to tailor atbx therapy FULL CODE Counseling and/or Coordination of Care Minutes: Coordinated with nursing staff Attending: Clarita Beach
[2017-01-22] MEDS: guaiFENesin/CODIEN 100MG-10MG* 5 ML UDC PO PRN (21:54)
[2017-01-22] MEDS: Acetaminophen ADULT LIQ* 650 MG/20.3 ML UDC PO PRN (21:56)
[2017-01-22] MEDS: Atorvastatin* 10 MG TAB G TUBE SCH (21:58)
[2017-01-22] MEDS: Cinacalcet TAB* 30 MG PO SCH (21:58)
[2017-01-22] MEDS: Nicotine Patch Removal NOTE FOLLOW UP SCH (22:06)
[2017-01-22] MEDS: Ciprofloxacin 400MG IVPREMIX(* 400 MG/200 ML BAG IVPB SCH (22:17)
[2017-01-22] MEDS: Enoxaparin(*) 40 MG/0.4 ML SYR SUBCUT SCH (23:57)
[2017-01-23] MEDS: Albuterol 2.5 MG/3 ML NEB.SOL* (0.083%) INH SCH ×4 (02:01→20:16)
[2017-01-23] MEDS: Ciprofloxacin 400MG IVPREMIX(* 400 MG/200 ML BAG IVPB SCH ×3 (05:24→22:46)
[2017-01-23] MEDS: ACLIDINIUM INH SCH ×2 (08:21→20:18)
[2017-01-23] MEDS: Mometasone/Formoter 200/5 MDI INH SCH ×2 (08:22→20:18)
[2017-01-23] MEDS: Losartan TAB* 25 MG G TUBE SCH (09:47)
[2017-01-23] MEDS: Nicotine PATCH 7 MG/24 HR* PATCH TRANSDERM SCH (09:47)
[2017-01-23] MEDS: Oxybutynin TAB* 5 MG G TUBE SCH (09:47)
[2017-01-23] MEDS: Lactobacillus Acidophilu (GG)* 1 CAP CAP PO SCH (09:47)
[2017-01-23] MEDS: Aspirin Low Dose CHEW TAB* 81 MG G TUBE SCH (09:47)
[2017-01-23] MEDS: HYDROcodone/ACETAMIN 5-325 MG* 1 TAB PO PRN ×2 (09:53→22:31)
[2017-01-23] MEDS: guaiFENesin/CODIEN 100MG-10MG* 5 ML UDC PO PRN ×2 (09:53→22:35)
--- NOTE | 2017-01-23 14:43 | PN ---
Subjective Date of Service: 01/23/17 Interval History: Patient is dyspneic beyond baseline. Cough is dry. Edema in RT ankle comes and goes when dependent. Redness in ankle is less than admission. Family History: Unchanged from Admission Social History: Unchanged from Admission Past Medical History: Unchanged from Admission Objective Active Medications: Acetaminophen (Tylenol Adult Liq*) 650 mg PO Q4H PRN PRN Reason: FEVER/PAIN Last Admin: 01/22/17 21:56 Dose: 650 mg Hydrocodone Bitart/Acetaminophen ([place] 5-325 Tab*) 1 tab PO Q4H PRN PRN Reason: PAIN Last Admin: 01/23/17 09:53 Dose: 1 tab Aclidinium [place] (Tudorza Pressair Mdi(Nf)) 1 puff INH BID [facility] Last Admin: 01/23/17 08:21 Dose: 1 puff Albuterol (Ventolin 2.5 Mg/3 Ml Neb.Nereyda*) 2.5 mg INH Q6H [facility] Last Admin: 01/23/17 12:47 Dose: 2.5 mg Aspirin (Aspirin Low Dose Tab*) 81 mg G TUBE DAILY [facility] Last Admin: 01/23/17 09:47 Dose: 81 mg Atorvastatin Calcium (Lipitor*) 10 mg G TUBE 2100 [facility] Last Admin: 01/22/17 21:58 Dose: 10 mg Cinacalcet (Sensipar Tab*) 30 mg PO 2100 [facility] Last Admin: 01/22/17 21:58 Dose: 30 mg Enoxaparin Sodium (Lovenox(*)) 40 mg SUBCUT Q24H [facility] Last Admin: 01/22/17 23:57 Dose: 40 mg Guaifenesin/Codeine Phosphate (Robitussin Ac 100mg-10mg*) 10 ml PO Q6H PRN PRN Reason: COUGH Last Admin: 01/23/17 09:53 Dose: 10 ml Ciprofloxacin/Dextrose (Cipro 400 Mg Ivpremix(*)) 400 mg in 200 mls @ 200 mls/ hr IVPB Q8HR [facility] Last Admin: 01/23/17 14:05 Dose: 200 mls/hr Lactobacillus Rhamnosus (Culturelle*) 1 cap PO DAILY [facility] Last Admin: 01/23/17 09:47 Dose: 1 cap Losartan Potassium (Cozaar Tab*) 25 mg G TUBE DAILY [facility] Last Admin: 01/23/17 09:47 Dose: 25 mg Mometasone Furoate/Formoterol Fumar (Dulera 200/5 Mdi*) 2 puff INH BID [facility] Last Admin: 01/23/17 08:22 Dose: 2 puff Nicotine (Nicotine Patch 7 Mg/24 Hr*) 1 patch TRANSDERM DAILY [facility] Last Admin: 01/23/17 09:47 Dose: 1 patch Oxybutynin Chloride (Ditropan Tab*) 5 mg G TUBE DAILY [facility] Last Admin: 01/23/17 09:47 Dose: 5 mg Pharmacy Profile Note (Nicotine Patch Removal Note*) 1 note FOLLOW UP 2100 [facility] Last Admin: 01/22/17 22:06 Dose: 1 note Polyethylene Glycol/Electrolytes (Miralax*) 17 gm G TUBE DAILY PRN PRN Reason: CONSTIPATION Vital Signs 01/23/17 01/23/17 01/23/17 02:36 07:11 07:28 Temperature 36.6 C Pulse Rate 70 Respiratory 18 16 16 Rate Blood Pressure 124/54 (mmHg) O2 Sat by Pulse 99 99 Oximetry 01/23/17 01/23/17 01/23/17 07:33 08:23 09:53 Temperature Pulse Rate 81 Respiratory 18 18 24 Rate Blood Pressure (mmHg) O2 Sat by Pulse 98 Oximetry Oxygen Devices in Use Now: Nasal Cannula Appearance: no distress Eyes: No Scleral Icterus Ears/Nose/Mouth/Throat: NL Teeth, Lips, Gums Neck: No Thyroid Enlargement, Masses Respiratory: - - diminished throughout, no rales/wheezes Cardiovascular: RRR, - - 2/6 systolic murmur Abdominal: NL Sounds; No Tenderness; No Distention, - - G-tube LUQ Extremities: - - 1+ edema LLE, 2+ edema RT ankle, w/ mild erythema, pain w/ full dorsiflexion Neurological: Alert and Oriented x 3 Lines/Tubes/Other Access: Clean, Dry and Intact Peripheral IV, Clean, Dry and Intact Other Access - G-tube Nutrition: - - NPO Result Diagrams: 01/22/17 05:21 01/18/17 04:18 Microbiology and Other Data: Microbiology Microbiology 01/21/17 22:10 Urine Legionella Urinary Antigen - Final 01/21/17 22:10 Urine Streptococcus pneumoniae Ag Screen - Final Negative Legionella Negative S. pneumo Antigen 01/19/17 14:15 Sputum Gram Stain - Final 01/19/17 14:15 Sputum Sputum Culture - Final Pseudomonas Aeruginosa Normal Paulina 01/18/17 23:20 Blood Venous Aerobic Blood Culture - Preliminary 01/18/17 23:20 Blood Venous Anaerobic Blood Culture - Preliminary No Growth Day 4 No Growth Day 4 01/18/17 18:59 Blood Venous Aerobic Blood Culture - Preliminary 01/18/17 18:59 Blood Venous Anaerobic Blood Culture - Preliminary No Growth Day 4 No Growth Day 4 Diagnostic Imaging: CXR - R lung consolidation/effusion Assess/Plan/Problems-Billing Assessment: This is a 76 year old female with complex pulmonary issues that presents with right foot cellulitis, developed pneumonia while inpatient - Patient Problems (1) Cellulitis Current Visit: Yes Status: Acute Priority: High Code(s): L03.90 - CELLULITIS, UNSPECIFIED SNOMED Code(s): 082475142 Comment: - Right ankle/foot. Overall erythema and swelling improving. - Monitor WBCs and CRP - Does not appear gouty in nature - will discharge home w/ oral cephalosporin (2) Pneumonia Current Visit: Yes Status: Acute Priority: High Code(s): J18.9 - PNEUMONIA , UNSPECIFIED ORGANISM SNOMED Code(s): 557507417 Comment: - Now afebrile with intermittent low grade fevers, mostly improved - Sputum with psudomonas, susceptible to cipro - COPD exacerbation also present, will add steroids by G-tube - Continue O2 to keep sate >92% (3) Feeding by G-tube Current Visit: No Status: Chronic Code(s): Z93.1 - GASTROSTOMY STATUS SNOMED Code(s): 142138741 Comment: - Hx of esophageal stricture s/p peg tube placement 20 years - Continue Osmolite 1.2, 1 can ~q3h while awake (4) DVT prophylaxis Current Visit: Yes Status: Acute Code(s): MDL2732 - SNOMED Code(s): 302551102 Comment: - on SC Lovenox Status and Disposition: Inpatient with cellulitis/PNA. Discharge to home when medically stable, possibly tomorrow. FULL CODE
[2017-01-23] MEDS: PrednisoLONE LIQ 3 MG/ML* 15 MG/5 ML UDC G TUBE SCH (15:30)
[2017-01-23] MEDS: Atorvastatin* 10 MG TAB G TUBE SCH (22:30)
[2017-01-23] MEDS: Cinacalcet TAB* 30 MG PO SCH (22:31)
[2017-01-23] MEDS: Nicotine Patch Removal NOTE FOLLOW UP SCH (22:46)
[2017-01-23] MEDS: Enoxaparin(*) 40 MG/0.4 ML SYR SUBCUT SCH (23:24)
[2017-01-24] MEDS: Albuterol 2.5 MG/3 ML NEB.SOL* (0.083%) INH SCH ×2 (01:32→07:59)
[2017-01-24] MEDS: Ciprofloxacin 400MG IVPREMIX(* 400 MG/200 ML BAG IVPB SCH (05:32)
--- NOTE | 2017-01-24 07:44 | PN ---
Progress Note - Progress Note Date of Service: 01/24/17 SOAP: Subjective: [Pt. reprts feeling better but cont's to c/o swelling, pain R ankle/foot. Has concerns about being discharged because of medical issues (PNA, R ankle swelling) and the fact that she has limited help at home. Denies CP, SOB, nausea, dizziness, calf pain.] Objective: [A and O x 3, NAD R ankle with edema, mild erythema. Good motion of ankle and toes but pain with motion, TTP at ankle and across bridge of foot. 1 + pitting edema diffusely around ankle. NV function intact. Vital Signs: Temp Pulse Resp BP Pulse Ox 98.3 F 82 18 134/54 98 01/23/17 23:39 01/24/17 01:33 01/24/17 07:22 01/23/17 23:39 01/24/17 01:33 ] Assessment: [76 you female with R ankle edema, erythema and PNA] Plan: [Con't abx Elevation R LE, ice to R ankle WBAT R LE MRI negative for infection, abscess. Doppler negative for DVT 01/15/17. Ortho will con't to follow as needed]
[2017-01-24] MEDS: Mometasone/Formoter 200/5 MDI INH SCH (07:54)
[2017-01-24] MEDS: ACLIDINIUM INH SCH (07:55)
[2017-01-24] MEDS: Nicotine PATCH 7 MG/24 HR* PATCH TRANSDERM SCH (09:56)
[2017-01-24] MEDS: PrednisoLONE LIQ 3 MG/ML* 15 MG/5 ML UDC G TUBE SCH (09:56)
[2017-01-24] MEDS: Oxybutynin TAB* 5 MG G TUBE SCH (09:57)
[2017-01-24] MEDS: Lactobacillus Acidophilu (GG)* 1 CAP CAP PO SCH (09:57)
[2017-01-24] MEDS: Aspirin Low Dose CHEW TAB* 81 MG G TUBE SCH (09:57)
[2017-01-24] MEDS: Losartan TAB* 25 MG G TUBE SCH (09:57)
[2017-01-24] MEDS: guaiFENesin/CODIEN 100MG-10MG* 5 ML UDC PO PRN (10:00)
--- NOTE | 2017-01-24 10:49 | PN ---
Progress Note - Progress Note Date of Service: 01/24/17 Note: Discharge Note Primary diagnosis: Cellulitis RLE Secondary diagnoses: pneumonia, unknown organism COPD exacerbation MARK squamous cell lung cancer, in remission crichopharyngeal dysphagia, on G-tube feeding nicotine dependence hyperlipidemia hypertension peripheral edema due to cor pulmonale hyperparathyroidism, primary osteoporosis Procedures; None Consultations: Dr. Polo of Orthopedics Pertinent lab/radiology findings: Laboratory Tests 01/18/17 01/19/17 01/20/17 15:59 05:00 04:39 Lactic Acid 1.3 C-Reactive Protein 54.95 H 69.84 H 01/22/17 05:21 Lactic Acid C-Reactive Protein 68.39 H 01/21 ; CXR shows RLL infiltrate, small effusion MRI RT ankle: no effusion, no osteomyelitis RLE venous doppler: no DVT Ankle X-ray: swelling, no fracture Tests pending on discharge: none Physical Exam on discharge: Frail, no distress Lungs: diminished BS throughout, no rales Heart; RRR, no murmur Abdo: soft, NT, G-tube LUQ 1+ ankle edema bilat, no significant erythema Selected Entries 01/23/17 01/24/17 23:39 07:57 Temperature 36.8 C Pulse Rate 94 74 Respiratory 16 20 Rate Blood Pressure 134/54 (mmHg) Blood Pressure 76 Mean O2 Sat by Pulse 98 99 Oximetry Oxygen Flow 2 Rate Patient on Room No No Air
[2017-01-24] MEDS ORDERED: Levalbuterol HFA INHALER* 1 PUFF MDI INH PRN (12:07)
[2017-01-24 14:09] VITALS: BP 117/52
[2017-01-24] MEDS ORDERED: CIPROFLOXACIN 250 MG/5 ML G TUBE SCH (21:00)
--- NOTE | 2017-01-25 04:25 | DS ---
Cc: Dr. Polo; Dr. Trevino; Dr. Tavares; Dr. Shea. * DISCHARGE SUMMARY: DATE OF ADMISSION: 01/16/17 DATE OF DISCHARGE: 01/24/17 PRIMARY DIAGNOSIS: Cellulitis of right ankle due to unknown organism. SECONDARY DIAGNOSES: 1. Pneumonia. 2. Chronic obstructive pulmonary disease exacerbation. 3. History of left upper lobe squamous lung cancer, in remission post radiation treatment. 4. Cricopharyngeal dysphagia, on chronic gastric tube feeding with malabsorption and malnutrition. 5. Nicotine dependence. 6. Hyperlipidemia. 7. Hypertension. 8. Peripheral edema due to cor pulmonale. 9. Hyperparathyroidism. 10. Osteoporosis. MEDICATIONS UPON DISCHARGE: 1. Tudorza 400 mcg inhale b.i.d. 2. Albuterol nebulizer 4 times a day p.r.n. 3. Aspirin 81 mg p.o. daily. 4. Atorvastatin 10 mg G-tube q.p.m. 5. Sensipar 30 mg G-tube daily. 6. Ciprofloxacin liquid 500 mg G-tube b.i.d. for 5 days. 7. Estradiol vaginal tab, Vagifem 10 mcg per vagina twice a week. 8. Fluticasone nasal spray 50 mcg alternate nostrils daily. `. 10. Furosemide liquid 20 mg G-tube q.a.m. for 1 week. 11. Probiotic 1 cap by G-tube daily. 12. Albuterol inhaler 2 puffs q.4 hours p.r.n. wheezing. 13. Cozaar 25 mg G-tube daily. 14. Singulair 10 mg G-tube daily. 15. Nicotine patch 7 mg topically daily. 16. Oxygen 2 L nasal cannula, continuous. 17. MiraLAX 17 g by G-tube daily, mix with water. 18. Prednisolone 3 mg/mL liquid 39 mg by G-tube tomorrow and then 30 mg G-tube for 3 days and then reduce by 6 mg every 2 days until stopped. 19. Detrol 2 mg G-tube daily. ALLERGIES: SULFA DRUGS, LEVAQUIN AND CHANTIX. HOSPITAL COURSE: The patient was admitted with new onset of redness and swelling and loss of range of motion and pain with weightbearing of the right ankle. There was concern about septic arthritis versus cellulitis. Blood cultures did not reveal any causitive organism. MRI of the right ankle was obtained which showed no effusion, no osteomyelitis. Orthopedic consult was obtained with Dr. Polo who felt that the patient had cellulitis and not septic arthritis or osteomyelitis and no biopsies or joint taps were performed. The patient also had a right lower extremity venous Doppler, which showed no DVT and an ankle x-ray, which showed no fracture. The patient's white count was 11.9 on admission and was 10.1 as discharge. Her hematocrit was 32% on discharge. Electrolytes were normal. Lactic acid 1.3. C-reactive protein was 54 up to 68 and 69 during the hospital stay. Influenza A and B by nasal swab were negative. The patient after initial treatment for cellulitis with intravenous Kefzol, the patient developed cough and shortness of breath. Chest x-ray that was completed on the 01/18/17 showed small right pleural effusion with a small infiltrate nearby. The patient was treated with IV Cipro due to growth of pseudomonas from her sputum. The patient completed her 7- day course of cephalosporins and was discharged to complete Cipro by G-tube to treat this pseudomonal lung infection. DISPOSITION: To home where she is to have activity as tolerated. Her diet should be low-salt, low-fat. She is to elevate her legs when she is at rest. The patient will be seen in primary care office within a week and referred to see Dr. Tavares about the pseudomonas infection in her lung as well as to Dr. Shea about her recent pulmonary issues. I spent more than 60 minutes in arranging this discharge, examining the patient and communicating with specialists. [id number]/CPS #: [id number] TANYA
[2017-01-25] MEDS ORDERED: Furosemide SOL* 10 MG/ML 60 ML BOT G TUBE SCH (09:00)
== END 2017-01-24 14:48 | disposition home health service (06) | DRG 602 ==
LOC: ED 19:03 → MED 23:34 → MEDTELE 01-16 00:35 → OBSVTOIN 01-16 12:00
PROVIDERS: ADMIT Internal Medicine; ATTEND Internal Medicine
DX: L03.115 Cellulitis of right lower limb (principal); J15.1 Pneumonia due to Pseudomonas; E46 Unspecified protein-calorie malnutrition; I27.81 Cor pulmonale (chronic); J44.1 Chronic obstructive pulmonary disease with (acute) exacerbation; Z99.81 Dependence on supplemental oxygen; R82.71 Bacteriuria; K31.84 Gastroparesis; Z68.1 Body mass index [BMI] 19.9 or less, adult; R13.19 Other dysphagia; E78.5 Hyperlipidemia, unspecified; F17.290 Nicotine dependence, other tobacco product, uncomplicated; I10 Essential (primary) hypertension; E21.3 Hyperparathyroidism, unspecified; M81.0 Age-related osteoporosis without current pathological fracture; R60.0 Localized edema; Z93.1 Gastrostomy status; Z85.118 Personal history of other malignant neoplasm of bronchus and lung; Z79.82 Long term (current) use of aspirin; Z79.899 Other long term (current) drug therapy; Z88.1 Allergy status to other antibiotic agents; Z88.2 Allergy status to sulfonamides; Z88.8 Allergy status to other drugs, medicaments and biological substances; Z82.49 Family history of ischemic heart disease and other diseases of the circulatory system; Z82.3 Family history of stroke; Z80.51 Family history of malignant neoplasm of kidney; M54.2 Cervicalgia
CPT/HCPCS: 36415; 71020; 80048; 80053; 81003; 83605; 84550; 85025; 85652; 86140; 86141; 87040; 87070; 87077; 87086; 87186; 87205; 87502; 87899; 94640; 94760; 99212; A9270-GY; G0463; J0690; J0744; J1650; J7510

== ENCOUNTER 2017-07-05 11:57 | Emergency (ER) | payer MEDICARE, OTHER ==
[2017-07-05 12:17] VITALS: BP 108/62
--- NOTE | 2017-07-05 12:30 | UC ---
Abdominal Pain Female HPI - HPI Summary HPI Summary: 76 y/o female presents to the urgent care accompany by c/o LLQ abdominal pain s/p J-tube placement on 05/18/2017 at [facility] w/ Dr [place]. Pt reports she has been feeling a intermittent burning sensation around the J-tube after placement. She went to see Dr Franco last week and he told her there was not problem w/ the tube. Pain is worse today sharp and burning at times 6/10 around the J-tube associated w/ swelling. Pt denies urinary problems, she has a normal bowel movement today. Pt denies fever, SOB, chest pain, N/V/D. G-tube was placed 20 years ago. - History of Current Complaint Chief Complaint: UCAbdominalPain Stated Complaint: ABD PAIN Time Seen by Provider: 07/05/17 12:18 Hx Obtained From: Patient, Family/Laboratory Apparatus Glass Blower - Onset/Duration: Gradual Onset, Lasting Days - 1 week, Still Present, Worse Since - today Timing: Intermittent Episodes Lasting: - hrs Severity Initially: Mild Severity Currently: Moderate Pain Intensity: 6 Pain Scale Used: 0-10 Numeric Radiates: No Radiates to: LLQ - around J-tube placement Character: Burning, Sharp Aggravating Factor(s): Nothing Alleviating Factor(s): Nothing Associated Signs and Symptoms: Positive: Negative. Negative: Fever, Chest Pain , Dizzy, Constipation, Blood in Stool, Urinary Symptoms, Nausea, Vomiting, Diarrhea - Risk Factors Ectopic Risk Factor: Negative Ovarian Torsion Risk Factor: Negative Allergies/Adverse Reactions: Allergies Allergy/AdvReac Type Severity Reaction Status Date / Time Sulfa (Sulfonamide Allergy Severe Hives Verified 06/15/17 16:08 Antibiotics) levofloxacin Allergy Unknown Dizziness Verified 06/15/17 16:10 [email or web address] Allergy Unknown Verified 06/15/17 16:17 Reaction Details Home Medications: Home Medications Fluticasone NASAL SPRAY 50MCG* [Flonase NASAL SPRAY 50MCG*] 1 spray NASAL BID [History Confirmed 07/05/17] Tolterodine Tartrate [Detrol] 2 mg PO DAILY 07/05/17 [History Confirmed 07/05/17 ] PMH/Surg Hx/FS Hx/Imm Hx Previously Healthy: Yes Cardiovascular History: Hypertension Respiratory History: COPD Cancer History: Lung Cancer Other Cancer History: Skin cancer - Surgical History Surgical History: None Surgery Procedure, Year, and Place: hysterectomy;as ribs- malignant tumor left with radiation;appendectomy;D&C x 2;cholecystectomy;left knee tumor; wrist benign;peg tube 20 yrs ago - stricture throat;cataract x 2 12/10, Skin CA removal, parathyroid surgery, J tube 05/16 - Family History Known Family History: Positive: Hypertension - Social History Occupation: Retired Lives: With Family Alcohol Use: None Substance Use Type: None Smoking Status (MU): Never Smoked Tobacco Type: Cigarettes Length of Time of Smoking/Using Tobacco: Trying to quit, uses patch most days Have You Smoked in the Last Year: No - is currently using AMILCAR patch When Did the Patient Quit Smoking/Using Tobacco: 2 yrs ago Household Exposure Type: Cigarettes - Immunization History Most Recent Influenza Vaccination: per pt: this Most Recent Tetanus Shot: fall 2011 Most Recent Pneumonia Vaccination: Patient reports having, but unsure of year Review of Systems Constitutional: Negative Skin: Negative Eyes: Negative ENT: Negative Respiratory: Negative Cardiovascular: Negative Gastrointestinal: Abdominal Pain - LLQ burining and sharp pain around J-tube Genitourinary: Negative Motor: Negative Neurovascular: Negative Musculoskeletal: Negative Neurological: Negative Psychological: Negative Is Patient Immunocompromised?: No All Other Systems Reviewed And Are Negative: Yes Physical Exam - Summary Physical Exam Summary: Vital Signs Reviewed: Yes General:Patient is a well developed and nourished thin female who is sitting comfortable in the examining table. Patient is not in any acute respiratory distress. Eyes: Positive: Conjunctiva Clear - PERRLA, EOMI, fundi grossly normal ENT: Positive: Normal ENT inspection, Hearing grossly normal, Pharynx normal, TMs normal Neck: Positive: Supple, Nontender, No Lymphadenopathy Respiratory: Positive: Chest non-tender, Lungs clear, Normal breath sounds, No respiratory distress Cardiovascular: Positive: RRR,S1 and S2 present, No Murmur, Pulses Normal, Brisk Capillary Refill Abdomen Description: Positive: Nontender, Abd: w/ a G tube in the mid abdomen , no signs of infection, and a J tube in the LLQ w/ mild distention around, J tube in place, sroounding area moderated tenderness on palpation . normal bowel sounds present in all four quadrants. . No masses palpated, no pulsation in epigastric area. No organomegaly. Negative [place] signs. No periumbilical tenderness. No rebound in the lower quadrants. NT over McBurneys point. Good femoral pulses bilaterally. No hernia noted. No CVAT bilaterally Musculoskeletal: Positive: Strength Intact, ROM Intact, No Edema,FROM in all major joints, no edema, no cyanosis or clubbing. Neuro: Alert and oriented x 3. No acute neurological deficits. Speech is normal. Psychological: WNL Skin: Dry and warm Triage Information Reviewed: Yes Vital Signs: Initial Vital Signs Temp 99.2 F 07/05/17 12:10 Pulse 93 07/05/17 12:10 Resp 16 07/05/17 12:10 BP 108/62 07/05/17 12:10 Pulse Ox 95 07/05/17 12:10 Abd Pain Female Course/Dx - Course Course Of Treatment: 76 y/o female presents to the urgent care accompany by c/o LLQ abdominal pain s/p J-tube placement on 05/18/2017 at [facility] w/ Dr Montana. Pt reports she has been feeling a intermittent burning sensation around the J-tube after placement. She went to see Dr Franco last week and he told her there was not problem w/ the tube. Pain is worse today sharp and burning at times 6/10 around the J-tube associated w/ swelling. Pt denies urinary problems, she has a normal bowel movement today. Pt denies fever, SOB, chest pain, N/V/D. Hx obtained. Pt w/Abd: w/ a G tube in the mid abdomen , no signs of infection, and a J tube in the LLQ w/ mild distention around, J tube in place, sroounding area moderated tenderness on palpation on examiantion. UA ordered: negative. I discussed Pt's symptoms w/ Dr Ceja who recommended to call DR Franco for consult or sent Pt to the ER. I spoke to DR Franco at his office and he recommended to sent Pt to the ER for further manamgement. I explained the Pt the need for further evaluation and management in the ER. Pt agreed to go and stated he will take her to the ER. I spoke to charge Nurse Obdulia who accepted the Pt. Pt left the clinic hemodynamically stable, A&OX3 - Differential Dx/Diagnosis Differential Diagnosis: Bowel Obstruction, Diverticulitis, Renal Colic, Urinary Tract Infection Provider Diagnoses: 1- Acute LLQ abdominal pain s/p J-tube placement Discharge - Sign-Out/Discharge Documenting (check all that apply): Discharge/Admit/Transfer - Pt navneetnghly recommended to go to the ER for further management. Pt agreed to go by private care - Discharge Plan Condition: Stable Disposition: [facility] [facility] CARE FAC Patient Education Materials: Abdominal Pain (ED) Referrals: Alonso Santos MD [Primary Care Provider] - 1 Day Additional Instructions: I think you need a higher level or care for your presenting symptoms. I highly recommend you to go to the ER for further evaluation and treatment. The risks of not going can be , sepsis, heart attack, etc. I spoke to the ER Charge Nurse Obdulia . They are expecting you. - Billing Disposition and Condition Condition: STABLE Disposition: [facility]
== END 2017-07-05 13:03 | disposition short-term general hospital (02) ==
LOC: UCEAST 11:57
DX: R10.32 Left lower quadrant pain (principal); Z93.1 Gastrostomy status; I10 Essential (primary) hypertension; J44.9 Chronic obstructive pulmonary disease, unspecified; Z85.118 Personal history of other malignant neoplasm of bronchus and lung; Z85.828 Personal history of other malignant neoplasm of skin; Z88.1 Allergy status to other antibiotic agents; Z88.2 Allergy status to sulfonamides; Z87.891 Personal history of nicotine dependence
CPT/HCPCS: 81003; 99212; G0463

== ENCOUNTER 2017-07-05 13:31 | Emergency (ER) | payer MEDICARE, OTHER ==
[2017-07-05 16:47] LABS: ABS Basophils 0.1 10^3/ul (0-0.2); ABS Eosinophils 0 10^3/ul (0-0.6); ABS Lymphocytes 2.7 10^3/ul (1.0-4.8); ABS Neutrophils 7.8 10^3/ul (1.5-7.7); ABS Nucleated RBC 0 10^3/ul; Eosinophil % 0.1 % (0-6); Hematocrit 36 % (35-47); Hemoglobin 11.8 g/dl (12.0-16.0); Lymphocyte % 23.4 % (25-47); Mean Corpuscular HGB Conc 33 g/dl (31-36); Mean Corpuscular Hemoglobin 31 pg (27-31); Mean Corpuscular Volume 93 fL (80-97); Mean Platelet Volume 7.9 um3 (7.4-10.4); Nucleated Red Blood Cells % 0; Platelet Count 357 10^3/ul (150-450); Red Blood Count 3.85 10^6/ul (4.0-5.4); Red Cell Distribution Width 14 % (10.5-15); White Blood Count 11.7 10^3/ul (3.5-10.8)
[2017-07-05 17:05] LABS: EGFR Non-African American 73.8 (>60)
[2017-07-05] MEDS ORDERED: Iohexol 300* (CONTRAST) 10 ML SDV IV ONE (18:18)
--- NOTE | 2017-07-05 19:46 | RAD ---
CLINICAL HISTORY: Abdominal pain. Relevant surgical history includes hysterectomy, appendectomy and cholecystectomy. COMPARISON: Most recent comparison CT examination is dated June 24, 2015 TECHNIQUE: Contrast enhanced CT examination of the abdomen and pelvis from the lung bases through the initial tuberosities. The patient received 48 mL Omnipaque 300 intravenously prior to imaging.The patient received oral contrast as well prior to imaging. FINDINGS: VISUALIZED LUNG BASES: Similar the prior CT examination, there are advanced centrilobular emphysematous changes of the lungs. ABDOMEN AND PELVIS: Evaluation of the gastrointestinal tract is limited in the absence of oral contrast. The patient has a jejunostomy tube with the tip terminating in the junction of the jejunum and ileum at the midline abdomen. Loops of air-filled bowel are top normal in diameter measuring up to 2.2 cm. There is no free intraperitoneal air. There is no definite wall thickening. The liver, spleen, pancreas and adrenal glands are grossly normal in appearance. The gallbladder is surgically absent. There are numerable fluid density cysts in the bilateral kidneys more severely affecting the left than the right. The cortices otherwise enhance symmetrically. There is no definite hydronephrosis. There is no gross retroperitoneal or mesenteric lymphadenopathy. The uterus is surgically absent. There is coarse atherosclerotic calcification of the lower abdominal aorta extending into the iliac arteries. Degenerative changes include multilevel loss of intervertebral disc height involving the lower thoracic and lumbar spine.There are no sinister bone lesions. IMPRESSION: 1. The patient's jejunostomy tube appears to be appropriately positioned with the tip terminating at the junction of the jejunum and ileum. 2. There are air-filled loops of small bowel measuring up to 2.3 cm in diameter exhibiting air-fluid levels which could be due to ileus and/or partial obstruction. The bowel is not pathologically dilated. 3. Extensive chronic, degenerative and iatrogenic findings described in body the report.
[2017-07-05 20:48] LABS: Urine Appearance Clear; Urine Blood Negative (Negative); Urine Color Yellow; Urine Ketones Negative (Negative); Urine Protein Negative (Negative); Urine Specific Gravity 1.034 (1.010-1.030); Urine Urobilinogen Negative (Negative)
[2017-07-05 20:50] VITALS: BP 117/78
--- NOTE | 2017-07-06 01:58 | ED ---
Abdominal Pain/Female - HPI Summary HPI Summary: Patient is a 76-year-old female who presents emergency department for ongoing abdominal pain 2-3 weeks. Patient has a history of lung cancer and has had a PEG tube 20 years. Patient states she had a J-tube placed a surgeon in [place] about 2 months ago. She states she's been having abdominal pain since. She is following with Dr. Franco for surgery in the area. Pt. reportedly saw Dr. Franco last week and was told everything looked good with j tube. She was sent to the ER today for CT scan for further evaluation. Pt. states pain is intermittent. She denies CP, SOB, fever, urinary symptoms, N/V. Has been having normal BMs. Symptoms are moderate in severity. - History of Current Complaint Chief Complaint: EDAbdPain Stated Complaint: NEEDS CT SCAN PER CC Time Seen by Provider: 07/05/17 16:17 Hx Obtained From: Patient Pain Intensity: 5 Pain Scale Used: 0-10 Numeric Allergies/Adverse Reactions: Allergies Allergy/AdvReac Type Severity Reaction Status Date / Time Sulfa (Sulfonamide Allergy Severe Hives Verified 07/05/17 13:39 Antibiotics) levofloxacin Allergy Unknown Dizziness Verified 07/05/17 13:39 [email or web address] Allergy Unknown Verified 07/05/17 13:39 Reaction Details PMH/Surg Hx/FS Hx/Imm Hx Previously Healthy: Yes Endocrine/Hematology History: Reports: Hx Thyroid Disease - parathyroid surgery , Other Endocrine/Hematological Disorders - Parathyroid surgery Denies: Hx Diabetes Cardiovascular History: Reports: Hx Hypercholesterolemia, Hx Hypertension - ON MEDS Denies: Hx Congestive Heart Failure, Hx Pacemaker/ICD, Other Cardiovascular Problems/Disorders - MITRAL VALVE LEAKING Respiratory History: Reports: Hx Asthma, Hx Chronic Bronchitis, Hx Chronic Obstructive Pulmonary Disease (COPD) - WITH EMPHYSEMA, Hx Lung Cancer, Other Respiratory Problems/Disorders - LUNG CANCER, RADIATION TEATMENT GI History: Reports: Hx Gall Bladder Disease - removed, Hx Ileostomy - PEG tube , Other GI Disorders - esophagel issues and abdominal surgeries, gastroparesis Denies: Hx Ulcer History: Reports: Other Problems/Disorders - per pt she has a cyst on her kidney found on us Denies: Hx Dialysis, Hx Renal Disease Musculoskeletal History: Reports: Hx Arthritis, Hx Osteoporosis, Hx Scoliosis, Other Musculoskeletal History - left side of body under developed r/t radiation per pt Denies: Hx Rheumatoid Arthritis Sensory History: Reports: Hx Contacts or Glasses, Hx Macular Degeneration Denies: Hx Hearing Aid Opthamlomology History: Reports: Hx Contacts or Glasses, Hx Macular Degeneration Neurological History: Reports: Other Neuro Impairments/Disorders - PAIN CLINIC PT Psychiatric History: Denies: Hx Panic Disorder - Cancer History Cancer Type, Location and Year: lung ca Hx Chemotherapy: No Hx Radiation Therapy: Yes - As extensive radiation/ PT HAS HX LUNG CA 2012 - Surgical History Surgery Procedure, Year, and Place: hysterectomy;as ribs- malignant tumor left with radiation;appendectomy;D&C x 2;cholecystectomy;left knee tumor; wrist benign;peg tube 20 yrs ago - stricture throat;cataract x 2 12/10, Skin CA removal, parathyroid surgery, J tube 05/16 Hx Anesthesia Reactions: No Infectious Disease History: No Infectious Disease History: Reports: Hx Clostridium Difficile Denies: Hx Hepatitis, Hx Human Immunodeficiency Virus (HIV), Hx of Known/ Suspected MRSA, Hx Shingles, Hx Tuberculosis, Hx Known/Suspected VRE, Hx Known/ Suspected VRSA, History Other Infectious Disease, Traveled Outside the in Last 30 Days - Family History Known Family History: Positive: Hypertension, Other - Neg: breast CA - Social History Occupation: Retired Lives: With Family Alcohol Use: None Substance Use Type: Reports: Prescribed Hx Tobacco Use: Yes Smoking Status (MU): Former Smoker Type: Cigarettes Length of Time of Smoking/Using Tobacco: Trying to quit, uses patch most days Have You Smoked in the Last Year: No - is currently using AMILCAR patch Review of Systems Constitutional: Negative Negative: Fever, Chills Eyes: Negative ENT: Negative Cardiovascular: Negative Negative: Palpitations, Chest Pain Respiratory: Negative Negative: Shortness Of Breath, Cough Positive: Abdominal Pain. Negative: Vomiting, Diarrhea, Nausea Genitourinary: Negative All Other Systems Reviewed And Are Negative: Yes Physical Exam Triage Information Reviewed: Yes Vital Signs On Initial Exam: Initial Vitals Temp Pulse Resp BP Pulse Ox 98.1 F 98 16 124/99 96 07/05/17 13:34 07/05/17 13:34 07/05/17 13:34 07/05/17 13:34 07/05/17 13:34 Vital Signs Reviewed: Yes Appearance: Positive: Well-Appearing - Patient sitting up in bed in no acute distress. present. Skin: Positive: Warm, Dry Head/Face: Positive: Normal Head/Face Inspection Neck: Positive: Supple Respiratory/Lung Sounds: Positive: Clear to Auscultation, Breath Sounds Present Cardiovascular: Positive: Normal Abdomen Description: Positive: Other: - Marked tenderness to left lower quadrant with just light palpation of the skin. PEG tube and J-tube are in place without signs of infection to the skin. Neurological: Positive: Normal, CN Intact II-III Psychiatric: Positive: Normal Diagnostics - Vital Signs Vital Signs Temp Pulse Resp BP Pulse Ox 07/05/17 20:40 99.0 F 90 16 117/78 94 07/05/17 20:36 93 117/78 93 07/05/17 20:08 139/89 07/05/17 20:00 89 20 95 07/05/17 19:39 85 23 143/76 92 07/05/17 19:09 87 27 147/71 93 07/05/17 19:00 85 26 94 07/05/17 18:09 78 27 136/61 94 07/05/17 18:00 83 26 94 07/05/17 17:39 87 26 137/67 94 07/05/17 17:09 88 27 131/71 95 07/05/17 17:00 21 07/05/17 16:38 24 131/61 07/05/17 16:08 85 26 133/68 93 07/05/17 16:00 89 24 95 07/05/17 15:45 91 26 132/64 97 07/05/17 15:43 96 92 07/05/17 13:34 98.1 F 98 16 124/99 96 - Laboratory Lab Results: Lab Results 07/05/17 07/05/17 07/05/17 Range/Units 16:32 16:32 16:32 WBC 11.7 H (3.5-10.8) 10^3/ul RBC 3.85 L (4.0-5.4) 10^6/ul Hgb 11.8 L (12.0-16.0) g/dl Hct 36 (35-47) % MCV 93 (80-97) fL MCH 31 (27-31) pg MCHC 33 (31-36) g/dl RDW 14 (10.5-15) % Plt Count 357 (150-450) 10^3/ul MPV 7.9 (7.4-10.4) um3 Neut % (Auto) 66.9 (38-83) % Lymph % (Auto) 23.4 L (25-47) % Gibson % (Auto) 8.8 H (0-7) % Eos % (Auto) 0.1 (0-6) % Baso % (Auto) 0.8 (0-2) % Absolute Neuts (auto) 7.8 H (1.5-7.7) 10^3/ul Absolute Lymphs (auto) 2.7 (1.0-4.8) 10^3/ul Absolute Monos (auto) 1.0 H (0-0.8) 10^3/ul Absolute Eos (auto) 0 (0-0.6) 10^3/ul Absolute Basos (auto) 0.1 (0-0.2) 10^3/ul Absolute Nucleated RBC 0 10^3/ul Nucleated RBC % 0 Sodium 142 (139-145) mmol/L Potassium 3.3 L (3.5-5.0) mmol/L Chloride 104 (101-111) mmol/L Carbon Dioxide 33 H (22-32) mmol/L Anion Gap 5 (2-11) mmol/L BUN 20 (6-24) mg/dL Creatinine 0.76 (0.51-0.95) mg/dL Est GFR ( Amer) 94.9 (>60) Est GFR (Non-Af Amer) 73.8 (>60) BUN/Creatinine Ratio 26.3 H (8-20) Glucose 90 (70-100) mg/dL Lactic Acid 0.7 (0.5-2.0) mmol/L Calcium 10.2 (8.6-10.3) mg/dL Total Bilirubin 0.60 (0.2-1.0) mg/dL AST 24 (13-39) U/L ALT 19 (7-52) U/L Alkaline Phosphatase 78 (34-104) U/L C-Reactive Protein 7.34 H (< 5.00) mg/L Total Protein 6.2 L (6.4-8.9) g/dL Albumin 3.6 (3.2-5.2) g/dL Globulin 2.6 (2-4) g/dL Albumin/Globulin Ratio 1.4 (1-3) Lipase 12 (11.0-82.0) U/L Urine Color Urine Appearance Urine pH (5-9) Ur Specific [place] (1.010-1.030) Urine Protein (Negative) Urine Ketones (Negative) Urine Blood (Negative) Urine Nitrate (Negative) Urine Bilirubin (Negative) Urine Urobilinogen (Negative) Ur Leukocyte Esterase (Negative) Urine WBC (Auto) (Absent) Urine RBC (Auto) (Absent) Ur Squamous Epith Cells (Absent) Urine Bacteria (Absent) Urine Glucose (Negative) Urine Ascorbic Acid (Negative) 07/05/17 Range/Units 20:15 WBC (3.5-10.8) 10^3/ul RBC (4.0-5.4) 10^6/ul Hgb (12.0-16.0) g/dl Hct (35-47) % MCV (80-97) fL MCH (27-31) pg MCHC (31-36) g/dl RDW (10.5-15) % Plt Count (150-450) 10^3/ul MPV (7.4-10.4) um3 Neut % (Auto) (38-83) % Lymph % (Auto) (25-47) % Gibson % (Auto) (0-7) % Eos % (Auto) (0-6) % Baso % (Auto) (0-2) % Absolute Neuts (auto) (1.5-7.7) 10^3/ul Absolute Lymphs (auto) (1.0-4.8) 10^3/ul Absolute Monos (auto) (0-0.8) 10^3/ul Absolute Eos (auto) (0-0.6) 10^3/ul Absolute Basos (auto) (0-0.2) 10^3/ul Absolute Nucleated RBC 10^3/ul Nucleated RBC % Sodium (139-145) mmol/L Potassium (3.5-5.0) mmol/L Chloride (101-111) mmol/L Carbon Dioxide (22-32) mmol/L Anion Gap (2-11) mmol/L BUN (6-24) mg/dL Creatinine (0.51-0.95) mg/dL Est GFR ( Amer) (>60) Est GFR (Non-Af Amer) (>60) BUN/Creatinine Ratio (8-20) Glucose (70-100) mg/dL Lactic Acid (0.5-2.0) mmol/L Calcium (8.6-10.3) mg/dL Total Bilirubin (0.2-1.0) mg/dL AST (13-39) U/L ALT (7-52) U/L Alkaline Phosphatase (34-104) U/L C-Reactive Protein (< 5.00) mg/L Total Protein (6.4-8.9) g/dL Albumin (3.2-5.2) g/dL Globulin (2-4) g/dL Albumin/Globulin Ratio (1-3) Lipase (11.0-82.0) U/L Urine Color Yellow Urine Appearance Clear Urine pH 8.0 (5-9) Ur Specific [place] 1.034 H (1.010-1.030) Urine Protein Negative (Negative) Urine Ketones Negative (Negative) Urine Blood Negative (Negative) Urine Nitrate Negative (Negative) Urine Bilirubin Negative (Negative) Urine Urobilinogen Negative (Negative) Ur Leukocyte Esterase 2+ A (Negative) Urine WBC (Auto) Trace(0-5/hpf) (Absent) Urine RBC (Auto) Absent (Absent) Ur Squamous Epith Cells Present A (Absent) Urine Bacteria Absent (Absent) Urine Glucose Negative (Negative) Urine Ascorbic Acid * A (Negative) Result Diagrams: 07/05/17 16:32 07/05/17 16:32 Lab Statement: Any lab studies that have been ordered have been reviewed, and results considered in the medical decision making process. Abdominal Pain Fem Course/Dx - Course Course Of Treatment: Patient presenting to the emergency department for ongoing abdominal pain after PEG tube placement. She is afebrile with stable vital signs. Blood work and CAT scan were ordered. Patient was offered pain medication which she declines. Blood work shows a mild elevation in WBC. Mild bleeding decreased potassium. Mild elevation in CRP. Labs are otherwise unremarkable. CT scan per radiology: IMPRESSION: 1. The patient's jejunostomy tube appears to be appropriately positioned with the tip. terminating at the junction of the jejunum and ileum. 2. There are air-filled loops of small bowel measuring up to 2.3 cm in diameter exhibiting. air-fluid levels which could be due to ileus and/or partial obstruction. The bowel is not. pathologically dilated. 3. Extensive chronic, degenerative and iatrogenic findings described in body the report. I discussed case with christo allen Dr. Hogan, who reviewed pt.'s test. He does not feel pt. needs any further evaluation in the ER today. Clinically pt. is well appearing and nontoxic. On re -exam pt. is resting comfortably. Results were discussed. Advised to call her sx tomorrow for a close f.u apt. for further evaluation of ongoing pain. To return to ER if sx change or worsen. - Diagnoses Provider Diagnoses: Abdominal pain Discharge - Sign-Out/Discharge Documenting (check all that apply): Discharge/Admit/Transfer - Discharge Plan Condition: Good Disposition: HOME Patient Education Materials: Abdominal Pain (ED) Referrals: Epi Franco MD [Medical Doctor] - Alonso Santos MD [Primary Care Provider] - Additional Instructions: Call Dr. Franco's office tomorrow for an appointment Return to ER if symptoms change or worsen - Billing Disposition and Condition Condition: GOOD Disposition: HOME
== END 2017-07-05 20:50 | disposition home or self-care (01) ==
LOC: ED 13:31
DX: R10.9 Unspecified abdominal pain (principal); N28.1 Cyst of kidney, acquired; I70.0 Atherosclerosis of aorta; Z93.4 Other artificial openings of gastrointestinal tract status; Z93.1 Gastrostomy status; Z90.49 Acquired absence of other specified parts of digestive tract; Z85.118 Personal history of other malignant neoplasm of bronchus and lung; Z90.710 Acquired absence of both cervix and uterus; Z87.891 Personal history of nicotine dependence; Z88.3 Allergy status to other anti-infective agents; Z88.2 Allergy status to sulfonamides; Z88.8 Allergy status to other drugs, medicaments and biological substances; R10.32 Left lower quadrant pain; I10 Essential (primary) hypertension; J44.9 Chronic obstructive pulmonary disease, unspecified; Z85.828 Personal history of other malignant neoplasm of skin; Z88.1 Allergy status to other antibiotic agents
CPT/HCPCS: 36415; 74177; 80053; 81003; 81015; 83605; 83690; 85025; 86140; 87040; 87086; 99212; 99284; G0463; Q9967

== ENCOUNTER 2017-08-05 23:15 | Inpatient (IN) | payer MEDICARE, OTHER ==
[2017-08-05] MEDS ORDERED: Albuterol/Ipratropium NEB.SOL* Albuterol 2.5 MG/Ipratropium 0.5 MG 3 ML INH ONE (23:20)
[2017-08-05] MEDS ORDERED: methylPREDNISolone 125 MG* 2 ML VIAL IV ONE (23:26)
[2017-08-05] MEDS ORDERED: Magnesium Sulfate 2 GM IV* 2 GM/50 ML BAG IVPB ONE (23:27)
[2017-08-05] MEDS ORDERED: Albuterol 2.5 MG/3 ML NEB.SOL* (0.083%) ONE (23:42)
[2017-08-05] MEDS: Albuterol 2.5 MG/3 ML NEB.SOL* (0.083%) INH SCH (23:45)
[2017-08-05 23:52] LABS: ABS Basophils 0 10^3/ul (0-0.2); ABS Eosinophils 0 10^3/ul (0-0.6); ABS Monocytes 1.3 10^3/ul (0-0.8); ABS Nucleated RBC 0 10^3/ul; Eosinophil % 0.1 % (0-6); Hematocrit 35 % (35-47); Hemoglobin 11.6 g/dl (12.0-16.0); Lymphocyte % 15.9 % (25-47); Mean Corpuscular HGB Conc 33 g/dl (31-36); Mean Corpuscular Hemoglobin 29 pg (27-31); Mean Corpuscular Volume 89 fL (80-97); Mean Platelet Volume 8.2 um3 (7.4-10.4); Nucleated Red Blood Cells % 0; Platelet Count 310 10^3/ul (150-450); Red Blood Count 3.97 10^6/ul (4.0-5.4); Red Cell Distribution Width 14 % (10.5-15); White Blood Count 12.3 10^3/ul (3.5-10.8)
[2017-08-05] MEDS ORDERED: Lidocaine 2.5%/Prilocain 2.5%* 5 GM TUBE ONE (23:56)
[2017-08-06 00:05] LABS: INR 0.87 (0.77-1.02)
[2017-08-06 00:21] LABS: EGFR Non-African American 77.3 (>60)
--- NOTE | 2017-08-06 00:54 | ED ---
[place] Angela, scribed for Antionette Christensen MD on 08/05/17 at 2336 . Shortness of Breath - HPI Summary HPI Summary: This pt is a 76 y/o female presenting to [facility] via EMS for moderate respiratory distress. Pt reports she has hx of COPD and SOB is chronic. She states her SOB has been worsening over the past 2 days, worse today. Pt additionally notes she has chest pain, described as band like around her chest. - History of Current Complaint Time Seen by Provider: 08/05/17 23:20 Hx Obtained From: Patient Onset/Duration: Lasting Days - 2, Still Present Timing: Constant Current Severity: Severe Dyspnea At: Rest Aggrevating Factors: Nothing Alleviating Factors: Nothing Associated Signs & Symptoms: Wheezing, Chest Pain Unrelated to Cough - Allergy/Home Medications Allergies/Adverse Reactions: Allergies Allergy/AdvReac Type Severity Reaction Status Date / Time Sulfa (Sulfonamide Allergy Severe Hives Verified 07/07/17 14:54 Antibiotics) levofloxacin Allergy Unknown Dizziness Verified 07/07/17 14:54 varenicline Allergy Unknown Verified 07/07/17 14:54 Reaction Details PMH/Surg Hx/FS Hx/Imm Hx Endocrine/Hematology History: Reports: Hx Thyroid Disease - parathyroid surgery , Other Endocrine/Hematological Disorders - Parathyroid surgery Denies: Hx Diabetes Cardiovascular History: Reports: Hx Hypercholesterolemia, Hx Hypertension - ON MEDS Denies: Hx Congestive Heart Failure, Hx Pacemaker/ICD, Other Cardiovascular Problems/Disorders - MITRAL VALVE LEAKING Respiratory History: Reports: Hx Asthma, Hx Chronic Bronchitis, Hx Chronic Obstructive Pulmonary Disease (COPD) - WITH EMPHYSEMA, Hx Lung Cancer, Other Respiratory Problems/Disorders - LUNG CANCER, RADIATION TEATMENT GI History: Reports: Hx Gall Bladder Disease - removed, Hx Ileostomy - PEG tube , Other GI Disorders - esophagel issues and abdominal surgeries, gastroparesis Denies: Hx Ulcer History: Reports: Other Problems/Disorders - per pt she has a cyst on her kidney found on us Denies: Hx Dialysis, Hx Renal Disease Musculoskeletal History: Reports: Hx Arthritis, Hx Osteoporosis, Hx Scoliosis, Other Musculoskeletal History - left side of body under developed r/t radiation per pt Denies: Hx Rheumatoid Arthritis Sensory History: Reports: Hx Contacts or Glasses, Hx Macular Degeneration Denies: Hx Hearing Aid Opthamlomology History: Reports: Hx Contacts or Glasses, Hx Macular Degeneration Neurological History: Reports: Other Neuro Impairments/Disorders - PAIN CLINIC PT Psychiatric History: Denies: Hx Panic Disorder - Cancer History Cancer Type, Location and Year: lung ca Hx Chemotherapy: No Hx Radiation Therapy: Yes - As extensive radiation/ PT HAS HX LUNG CA 2012 - Surgical History Surgery Procedure, Year, and Place: hysterectomy;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;appendectomy;D&C x 2;cholecystectomy;left knee tumor; wrist benign;peg tube 20 yrs ago - stricture throat;cataract x 2 12/10, Skin CA removal, parathyroid surgery, J tube 05/16 Hx Anesthesia Reactions: No Infectious Disease History: Reports: Hx Clostridium Difficile Denies: Hx Hepatitis, Hx Human Immunodeficiency Virus (HIV), Hx of Known/ Suspected MRSA, Hx Shingles, Hx Tuberculosis, Hx Known/Suspected VRE, Hx Known/ Suspected VRSA, History Other Infectious Disease, Traveled Outside the [place] in Last 30 Days - Family History Known Family History: Positive: Hypertension, Other - Neg: breast CA - Social History Alcohol Use: None Substance Use Type: Reports: Prescribed Hx Tobacco Use: Yes Smoking Status (MU): Former Smoker Type: Cigarettes Length of Time of Smoking/Using Tobacco: Trying to quit, uses patch most days Have You Smoked in the Last Year: No - is currently using AMILCAR patch Review of Systems Negative: Fever Positive: Chest Pain Positive: Shortness Of Breath Musculoskeletal: Negative Skin: Negative Neurological: Negative All Other Systems Reviewed And Are Negative: Yes Physical Exam - Summary Physical Exam Summary: VITAL SIGNS: Reviewed. GENERAL: Patient is a well-developed and nourished female who is lying comfortable in the stretcher. HEAD AND FACE: No signs of trauma. No ecchymosis, hematomas or skull depressions. No sinus tenderness. EYES: PERRLA, EOMI x 2, No injected conjunctiva, no nystagmus. EARS: Hearing grossly intact. Ear canals and tympanic membranes are within normal limits. MOUTH: Oropharynx within normal limits. NECK: Supple, trachea is midline, no adenopathy, no JVD, no carotid bruit, no c- spine tenderness, neck with full ROM. CHEST: Symmetric, no tenderness at palpation LUNGS: Diminished breath sounds bilaterally. CVS: Regular rate and rhythm, S1 and S2 present, no murmurs or gallops appreciated. ABDOMEN: Soft, non-tender. No signs of distention. No rebound no guarding, and no masses palpated. Bowel sounds are normal. EXTREMITIES: FROM in all major joints, no edema, no cyanosis or clubbing. NEURO: Alert and oriented x 3. No acute neurological deficits. Speech is normal and follows commands. SKIN: Dry and warm Triage Information Reviewed: Yes Vital Signs On Initial Exam: Initial Vitals Temp Pulse Resp BP Pulse Ox 97.9 F 102 25 140/90 95 08/05/17 23:35 08/05/17 23:35 08/05/17 23:35 08/05/17 23:35 08/05/17 23:35 Vital Signs Reviewed: Yes Diagnostics - Laboratory Result Diagrams: 08/05/17 23:36 08/05/17 23:36 Lab Statement: Any lab studies that have been ordered have been reviewed, and results considered in the medical decision making process. - Radiology Chest XR Xray Interpretation: No Acute Changes - CXR shows hyperinflation, no infiltrates. Pending official radiology report. Radiology Interpretation Completed By: ED Physician - EKG 23:20 Cardiac Rate: NL - at 92 bpm EKG Rhythm: Sinus Rhythm EKG Interpretation: Normal axis. Normal interval. No ischemic changes Course/Dx - Course Assessment/Plan: Pt is a 76 y/o female who presents with moderate respiratory distress. Pt reports she has hx of COPD and SOB is chronic. She states her SOB has been worsening over the past 2 days, worse today. Pt additionally notes she has chest pain, described as band like around her chest. Chest XR shows hyperinflation and no infiltrates. In the ED course the pt was given duoneb, solu-medrol, albuterol, BiPAP, magnesium sulfate. I discussed pt care with Dr. Epstein, hospitalist, who accepted the pt for admission. - Diagnoses Provider Diagnoses: COPD (chronic obstructive pulmonary disease) - Physician Notifications Discussed Care of Patient With: Bowen Epstein Time Discussed With Above Provider: 00:40 Instructed by Provider To: Other - I discussed pt care with Dr. Epstein, hospitalist, who accepted the pt for admission. Discharge - Sign-Out/Discharge Documenting (check all that apply): Discharge/Admit/Transfer - Admit - Discharge Plan Condition: Stable Disposition: ADMITTED TO [facility] Referrals: Alonso Santos MD [Primary Care Provider] - The documentation as recorded by the scrib[place] Angela accurately reflects the service I personally performed and the decisions made by me, Antionette Christensen MD.
[2017-08-06] MEDS ORDERED: Ondansetron 40 MG VIAL* 2 MG/ML 20 ML VIAL IV PRN (01:23)
[2017-08-06] MEDS ORDERED: Albuterol 2.5 MG/3 ML NEB.SOL* (0.083%) INH PRN (01:23)
[2017-08-06] MEDS ORDERED: Morphine VIAL* 4 MG/ML VIAL (1 ml vial) IV ONE ×2 (01:28→01:30)
[2017-08-06] MEDS ORDERED: Montelukast Sodium TAB* 10 MG PRN (01:38)
[2017-08-06] MEDS: methylPREDNISolone SOD 40 MG* 1 ML VIAL IV SCH ×3 (02:53→18:18)
[2017-08-06] MEDS: Azithromycin IV(*) 500 MG in NS 0.9% 250 ML* 250 ML IVPB SCH (02:53)
[2017-08-06] MEDS: cefTRIAXone(*) 1 GM in NS 0.9% 50 ML* 50 ML IVPB SCH (04:32)
[2017-08-06] MEDS: Morphine VIAL* 4 MG/ML VIAL (1 ml vial) IV PRN ×4 (04:38→22:20)
[2017-08-06] MEDS: Albuterol/Ipratropium NEB.SOL* Albuterol 2.5 MG/Ipratropium 0.5 MG 3 ML INH SCH ×7 (04:45→22:15)
[2017-08-06 05:37] LABS: ABS Basophils 0 10^3/ul (0-0.2); ABS Eosinophils 0 10^3/ul (0-0.6); ABS Lymphocytes 0.4 10^3/ul (1.0-4.8); ABS Monocytes 0 10^3/ul (0-0.8); ABS Neutrophils 9.3 10^3/ul (1.5-7.7); ABS Nucleated RBC 0 10^3/ul; Eosinophil % 0 % (0-6); Hematocrit 33 % (35-47); Hemoglobin 10.9 g/dl (12.0-16.0); Lymphocyte % 3.9 % (25-47); Mean Corpuscular HGB Conc 33 g/dl (31-36); Mean Corpuscular Hemoglobin 29 pg (27-31); Mean Corpuscular Volume 89 fL (80-97); Mean Platelet Volume 8.3 um3 (7.4-10.4); Nucleated Red Blood Cells % 0; Platelet Count 260 10^3/ul (150-450); Red Blood Count 3.71 10^6/ul (4.0-5.4); Red Cell Distribution Width 14 % (10.5-15); White Blood Count 9.7 10^3/ul (3.5-10.8)
[2017-08-06] MEDS: Heparin VIAL(*) 5000 UNITS/ML VIAL (FIVE THOUSAND) SUBCUT SCH ×3 (05:51→21:45)
[2017-08-06 05:59] LABS: EGFR Non-African American 77.3 (>60)
--- NOTE | 2017-08-06 07:43 | RAD ---
INDICATION: Shortness of breath. COMPARISON: Comparison is made with a prior chest x-ray study from April 09, 2017. TECHNIQUE: A portable view of the chest was obtained. FINDINGS: Cardiac and mediastinal contours appear to be within normal limits. The lungs are hyperinflated. There is slight increased density present at the left lung apex which is unchanged from the prior chest x-ray study and seen on multiple prior CT exams and appears unchanged. No pleural effusion is seen. IMPRESSION: FINDINGS SUGGESTIVE OF COPD, NO EVIDENCE FOR ACUTE FINDING.
[2017-08-06] MEDS: Mometasone/Formoter 200/5 MDI INH SCH ×3 (07:56→19:39)
[2017-08-06] MEDS: Ferrous Sulfate LIQ* 300 MG/5 ML UDC G TUBE SCH (09:18)
[2017-08-06] MEDS: Nicotine PATCH 7 MG/24 HR* PATCH TRANSDERM SCH (09:19)
[2017-08-06] MEDS: Aspirin 81 mg CHEW TAB* 81 MG TAB.CHEW G TUBE SCH (09:20)
[2017-08-06] MEDS: Atorvastatin* 10 MG TAB G TUBE SCH (09:20)
[2017-08-06] MEDS: Losartan TAB* 25 MG G TUBE SCH (09:20)
[2017-08-06] MEDS: Lactobacillus Acidophilus* 1 TAB SCH (09:20)
[2017-08-06] MEDS: Fluticasone NASAL SPRAY 50MCG* 16 gm SPRAY BTL NASAL SCH ×2 (09:21→21:45)
[2017-08-06] MEDS: Oxybutynin TAB* 5 MG G TUBE SCH ×2 (09:21→21:45)
--- NOTE | 2017-08-06 10:34 | PN ---
Progress Note - Progress Note Date of Service: 08/06/17 SOAP: Subjective: []Seen at request of hospitalist team d/t hx. lung cancer. Admitted overnight with COPD exacerbation. Had approx. 2 days of progressive SOB prior to arrival. Exhausted today. Still very SOB with minimal exertion. Band like chest pain stable. 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 Treated with SBRT @ [facility] in [place] (Dr. Alexander), completed 2012. No evidence for recurrence since. Recent CT of chest 08/04/2017 without evidence for recurrence. Question of new scattered nodules in RUL potentially inflammatory which would correlate with current admission. PMH reviewed, no updates Medications: Acetaminophen (Tylenol Adult Liq*) 650 mg G TUBE Q4H PRN PRN Reason: FEVER/PAIN Albuterol (Ventolin 2.5 Mg/3 Ml Neb.Nereyda*) 2.5 mg INH Q2H PRN PRN Reason: SOB/WHEEZING Last Admin: 08/06/17 05:17 Dose: 2.5 mg Albuterol/Ipratropium (Duoneb (Albuterol 2.5 Mg/Ipratropium 0.5 Mg)) 1 neb INH Q4H [facility] Last Admin: 08/06/17 07:57 Dose: Not Given Aspirin (Aspirin 81 Mg Chew Tab*) 81 mg G TUBE DAILY [facility] Last Admin: 08/06/17 09:20 Dose: 81 mg Atorvastatin Calcium (Lipitor*) 10 mg G TUBE DAILY [facility] Last Admin: 08/06/17 09:20 Dose: 10 mg Ferrous Sulfate (Feosol Liq*) 300 mg G TUBE DAILY [facility] Last Admin: 08/06/17 09:18 Dose: 300 mg Fluticasone Propionate (Flonase Nasal [place] 50mcg*) 1 spray NASAL BID [facility] Last Admin: 08/06/17 09:21 Dose: 1 spray Heparin Sodium (Porcine) (Heparin Vial(*)) 5,000 units SUBCUT Q8HR [facility] Last Admin: 08/06/17 05:51 Dose: 5,000 units Ceftriaxone Sodium 1 gm/ (Sodium Chloride) 50 mls @ 200 mls/hr IVPB Q24H [facility] Last Admin: 08/06/17 04:32 Dose: 200 mls/hr Azithromycin 500 mg/ Sodium (Chloride) 250 mls @ 250 mls/hr IVPB Q24H [facility] Last Admin: 08/06/17 02:53 Dose: 250 mls/hr Lactobacillus Rhamnosus (Lactobacillus Acidophilus*) 1 tab .SEE ORDER DAILY [facility] Last Admin: 08/06/17 09:20 Dose: 1 tab Losartan Potassium (Cozaar Tab*) 12.5 mg G TUBE DAILY [facility] Last Admin: 08/06/17 09:20 Dose: 12.5 mg Methylprednisolone Sodium Succinate (Solu-Medrol 40 Mg) 60 mg IV Q8H [facility] Last Admin: 08/06/17 09:19 Dose: 60 mg Mometasone Furoate/Formoterol Fumar (Dulera 200/5 Mdi*) 2 puff INH BID [facility] Last Admin: 08/06/17 07:56 Dose: Not Given Morphine Sulfate (Morphine Vial*) 2 mg IV Q4H PRN PRN Reason: PAIN - MILD Last Admin: 08/06/17 09:52 Dose: 2 mg Nicotine (Nicotine Patch 7 Mg/24 Hr*) 1 patch TRANSDERM DAILY [facility] Last Admin: 08/06/17 09:19 Dose: 1 patch Ondansetron HCl (Zofran 40 Mg Vial*) 4 mg IV Q6H PRN PRN Reason: NAUSEA Oxybutynin Chloride (Ditropan Tab*) 5 mg G TUBE BID [facility] Last Admin: 08/06/17 09:21 Dose: 5 mg Oxycodone HCl (Oxycodone Oral.Soln*) 5 mg PO Q6H PRN PRN Reason: PAIN Pharmacy Profile Note (Nicotine Patch Removal Note*) 1 note FOLLOW UP 2100 [facility] Objective: [] Vital Signs Temp Pulse Resp BP Pulse Ox 97.9 F 80 18 116/51 99 08/06/17 07:23 08/06/17 07:23 08/06/17 09:52 08/06/17 07:23 08/06/17 07:23 A&Ox3, EOMI, communicating clearly HRR, SR on tele LS diminished with labored respirations No edema, frail Laboratory Results - last 24 hr 08/05/17 08/05/17 08/05/17 23:36 23:36 23:36 WBC 12.3 H RBC 3.97 L Hgb 11.6 L Hct 35 MCV 89 MCH 29 MCHC 33 RDW 14 Plt Count 310 MPV 8.2 Neut % (Auto) 72.9 Lymph % (Auto) 15.9 L [place] % (Auto) 10.7 H Eos % (Auto) 0.1 Baso % (Auto) 0.4 Absolute Neuts (auto) 9.0 H Absolute Lymphs (auto) 2.0 Absolute Monos (auto) 1.3 H Absolute Eos (auto) 0 Absolute Basos (auto) 0 Absolute Nucleated RBC 0 Nucleated RBC % 0 INR (Anticoag Therapy) 0.87 APTT 31.1 ABG pH ABG pCO2 ABG pO2 ABG HCO3 ABG O2 Saturation ABG Base Excess Sodium 138 L Potassium 3.7 Chloride 102 Carbon Dioxide 29 Anion Gap 7 BUN 24 Creatinine 0.73 Est GFR ( Amer) 99.4 Est GFR (Non-Af Amer) 77.3 BUN/Creatinine Ratio 32.9 H Glucose 90 Lactic Acid Calcium 10.3 Total Bilirubin 0.50 AST 23 ALT 15 Alkaline Phosphatase 89 Troponin I 0.03 C-Reactive Protein 7.33 H B-Natriuretic Peptide Total Protein 6.5 Albumin 3.6 Globulin 2.9 Albumin/Globulin Ratio 1.2 08/05/17 08/05/17 08/06/17 23:36 23:36 01:10 WBC RBC Hgb Hct MCV MCH MCHC RDW Plt Count MPV Neut % (Auto) Lymph % (Auto) [place] % (Auto) Eos % (Auto) Baso % (Auto) Absolute Neuts (auto) Absolute Lymphs (auto) Absolute Monos (auto) Absolute Eos (auto) Absolute Basos (auto) Absolute Nucleated RBC Nucleated RBC % INR (Anticoag Therapy) APTT ABG pH 7.42 ABG pCO2 44 ABG pO2 85 ABG HCO3 27.6 ABG O2 Saturation 99.1 H ABG Base Excess 3.5 H Sodium Potassium Chloride Carbon Dioxide Anion Gap BUN Creatinine Est GFR ( Amer) Est GFR (Non-Af Amer) BUN/Creatinine Ratio Glucose Lactic Acid 0.8 Calcium Total Bilirubin AST ALT Alkaline Phosphatase Troponin I C-Reactive Protein B-Natriuretic Peptide 146 H Total Protein Albumin Globulin Albumin/Globulin Ratio 08/06/17 08/06/17 08/06/17 02:21 05:10 05:10 WBC 9.7 RBC 3.71 L Hgb 10.9 L Hct 33 L MCV 89 MCH 29 MCHC 33 RDW 14 Plt Count 260 MPV 8.3 Neut % (Auto) 95.6 H Lymph % (Auto) 3.9 L [place] % (Auto) 0.4 Eos % (Auto) 0 Baso % (Auto) 0.1 Absolute Neuts (auto) 9.3 H Absolute Lymphs (auto) 0.4 L Absolute Monos (auto) 0 Absolute Eos (auto) 0 Absolute Basos (auto) 0 Absolute Nucleated RBC 0 Nucleated RBC % 0 INR (Anticoag Therapy) APTT ABG pH ABG pCO2 ABG pO2 ABG HCO3 ABG O2 Saturation ABG Base Excess Sodium 137 L Potassium 4.1 Chloride 105 Carbon Dioxide 26 Anion Gap 6 BUN 24 Creatinine 0.73 Est GFR ( Amer) 99.4 Est GFR (Non-Af Amer) 77.3 BUN/Creatinine Ratio 32.9 H Glucose 226 H Lactic Acid Calcium 9.6 Total Bilirubin AST ALT Alkaline Phosphatase Troponin I 0.03 0.03 C-Reactive Protein B-Natriuretic Peptide Total Protein Albumin Globulin Albumin/Globulin Ratio CT 08/04/17 with stable MARK scarring and RLL infiltrate. New scattered nodules in RUL potentially inflammatory. +air space disease Assessment: []76 yo female followed by oncology for personal history of NSCLC now just under 5 years out from definitive SBRT to MARK mass. Her recent CT shows no evidence for recurrence and I suspect the nodules are inflammatory, however we will cont. to follow her while she is inpatient for COPD exacerbation. In terms of the nodules I suggest a repeat CT of the chest in approx. 6-12 weeks once fully recovered from acute insult. Plan: []1. Agree with management as per hospitalist 2. FU Dr. Trevino previously scheduled for 08/[address] Recent radiological images personally reviewed Plan of care discussed with pt. who is in agreement and appreciate of oncology visit Please contact Oncology with any further questions or concerns.
--- NOTE | 2017-08-06 12:20 | HP ---
CC: Dr. Santos; Dr. Trevino.* HISTORY AND PHYSICAL: DATE OF ADMISSION: 08/06/17 PRIMARY CARE PROVIDER: Alonso Santos MD ATTENDING PHYSICIAN WHILE IN THE HOSPITAL: Bowen Epstein MD * (report dictated by Joseph Whelan NP) CHIEF COMPLAINT: 1. Cough. 2. Shortness of breath. 3. Chest discomfort. HISTORY OF PRESENT ILLNESS: Mrs. Trotter is a 76-year-old female patient. She has a history of severe COPD, hypertension, hyperlipidemia, lung cancer. She is status post radiation therapy for this. She has a history of hypercalcemia, osteoporosis. She has a history of cricopharyngeal dysphagia, she has cor pulmonale, and mitral regurgitation. She is coming in to the emergency department today stating that the last couple of days, she has had progressively worsening shortness of breath and also stated cough, but she has noticed that with minimal exertion, she has been getting more and more short of breath. She has been unable to walk and get to the bathroom. She states that her breathing has not just been getting any better. She started noticing last night and tonight that anytime she took a deep breath, she is having chest discomfort within her shoulders, going into the front of her chest, just wrapping around. She describes it as a pressure. She states that she can barely take a deep breath, because it hurts. She states that she has been splinting, trying to breathe. She was hopeful to wait until the morning before coming into the ER tonight. She got up tonight and hooked her tube feed, tried to get into the bathroom, she got there, but could not get off the toilet. She denies having any fevers. She does admit to feeling cold. No nausea or vomiting is ever reported. She does admit to having some tenderness at her G- tube site, though she denies having any redness or irritation and she is following with her electronic news gathering editor for this, as this has been a longstanding problem. She states she has been taking her tube feeds, she states she has not lost any weight but she has not gained any weight. The patient came into the ER. She was evaluated and it was noted that when she got here, she appeared to be in a moderate amount of distress. She was actually placed on BiPAP. After being on BiPAP for a period of time, she decided to take it off because she was feeling better, but she was still short of breath. She required significant amount of interventions with steroids and nebs, and because of this we were asked to evaluate for admission. PAST MEDICAL HISTORY: Significant for: 1. COPD. 2. Hypertension. 3. Hyperlipidemia. 4. Lung cancer. 5. Hypercalcemia. 6. Osteoporosis. 7. Cricopharyngeal dysphagia. 8. Cor pulmonale. 9. Mitral regurgitation. PAST SURGICAL HISTORY: 1. She has had J-tube and G-tube placements. 2. She has had a parathyroidectomy. 3. She has had appendectomy. 4. Hysterectomy. 5. Laparoscopic cholecystectomy. 6. Exploratory laparotomy. 7. Tonsillectomy. HOME MEDICATIONS: According to her list and recall include: 1. Oxycodone 5 mg p.o. every 6 hours as needed. 2. Ferrous sulfate 5 cc G-tube daily. 3. MiraLAX 17 g p.o. daily via G-tube. 4. Ibuprofen 600 mg G-tube t.i.d. as needed. 5. Advair 1 puff inhale b.i.d. 6. Probiotic 1 capsule G-tube daily. 7. Estradiol 10 mcg vaginally every 72 hours. 8. Lipitor 10 mg G-tube daily. 9. Flonase 1 spray nasal b.i.d. 10. Aspirin 81 mg G-tube daily. 11. Ventolin 2.5 mg inhale every 6 hours. 12. Oxygen at bedtime 2 L. 13. Singulair 10 mg G-tube daily as needed. 14. Losartan 12.5 mg G-tube daily. 15. Xopenex 2 puffs inhale every 6 hours as needed. 16. Detrol 2 mg G-tube b.i.d. ALLERGIES TO MEDICATIONS: Include SULFA, LEVAQUIN, and CHANTIX. FAMILY HISTORY: Mother had a history of heart disease and CVA. Father had a history of kidney cancer. SOCIAL HISTORY: She is a former smoker. She does not drink alcohol. Surrogate decision maker is her son. REVIEW OF SYSTEMS: There is no weight change, although again she knows she is malnourished. She denies any double vision. There is no ear discharge. She denied having any rhinorrhea. No sore throat. No thyroid enlargement. There is chest pain per my HPI. There is dyspnea on exertion, no orthopnea, no nocturnal dyspnea. There is no abdominal pain. There is no nausea, no vomiting. No dysuria, no frequency. No seizure. There is no loss of consciousness. No pruritus. No skin ulcerations. Review of 14 systems completed, all others negative. PHYSICAL EXAMINATION GENERAL: At this time, Mrs. Trotter is a 76-year-old female patient. She is chronically ill-appearing. She does appear to be malnourished. She is sitting in the ED stretcher. She does not appear to be in any acute respiratory distress at this point. VITAL SIGNS: Blood pressure 140/90, pulse 102, respirations 25, O2 sat 95%. Temperature 97.7. She was on BiPAP initially. Her heart rate now is down to 89 and her respiratory rate is at 20. HEENT: Head is atraumatic, normocephalic. Eyes: EOMs are intact. Sclerae anicteric, not pale. Throat: Oral mucosa appears to be dry. No oropharyngeal erythema. NECK: Supple. LUNGS: Showed equal diaphragmatic expansion. She was diminished in the bases. She was splinting. HEART: Sounds S1, S2. She did have a grade 2 to 3 aortic systolic murmur. ABDOMEN: Soft, it was flat, she had a G-tune and a J-tube both present. There was no irritation or erythema surrounding the skin. Abdomen was soft, nondistended, nontender. Bowel sounds were present. EXTREMITIES: Pulses were 2+ throughout. She had no peripheral edema. NEUROLOGIC: She is awake, alert, oriented x3. No gross focal deficits. SKIN: Intact. DIAGNOSTIC STUDIES/LAB DATA: Labs, WBC 12.3, RBC of 3.97, hemoglobin of 11.6, hematocrit of 35, platelet count of 310. The INR was 0.87, PTT of 31.1. Blood gas revealed a pH of 7.42, pCO2 of 44, bicarb 27. Her sodium was 138, potassium is 3.7, chloride 102, bicarb of 29, BUN 24, creatinine of 0.73, glucose 90, lactic 0.8, calcium 10.3. Total bili 0.5, AST 23, ALT 15, and alk phos 59, troponin 0.03, CRP is 7.23, BNP 146, albumin is 3.6. She did have a chest x-ray obtained today. In addition to this, she also had an EKG. The EKG today showed a normal sinus rhythm, rate of 92, she had no ST elevation, T-wave inversions are noted. Compared to the previous EKG it is similar. She does have LVH criteria. Chest x-ray today is showing chronic interstitial lung findings. She does have findings consistent with COPD. I do not appreciate any acute infiltrates or effusions or edema. Old medical records were reviewed. She just had a chest CT done couple days ago which showed near complete resolution of the previously noted left apical nodular infiltrate, stable left upper lobe, pleural base mass, multiple new pulmonary nodules, grouped together , the other in the lateral aspect of the right upper lobe, suggestive of an acute inflammatory process, although nonspecific, metastatic disease cannot be excluded. Recommend followup. Right lower lobe infiltrate, unchanged, new compression fracture of the T5 vertebral body. Old medical records reviewed. ASSESSMENT AND PLAN: Mrs. Trotter is a 76-year-old female patient, coming into the emergency department today with complaints of increased trouble breathing, pain in her back, between her shoulders that goes into the front of her chest. The pain has been unbearable she said and in addition, experiencing more and more short of breath. She will be under inpatient status for: 1. COPD exacerbation. At this point, I will go ahead and put her on steroids, nebs every 4 hours. I have ordered azithromycin and Rocephin. I will also go ahead and continue oxygen, obviously standing and if I need to, I will put her back on BiPAP because she seemed to improve. 2. Chest pain. Again, this is atypical. Because the pain starting in her back and wrapping to the front, I questioned if it is from the T5 fracture. I consider touching base with neurosurgeon in the morning. This is probably an osteoporotic fracture. WIll consult neurosurgery to see if they have any recommendation, but at this point, I am going to strive for pain control. I have ordered morphine and oxycodone. Also, because of the chest pain, we will cycle her troponins and place her on telemetry. She is on aspirin already. 3. Hypertension. Continue meds as prescribed. 4. Hyperlipidemia. Continue meds as prescribed. 5. Lung cancer. At this point, she did have a CT scan done a couple of days ago. We will touch base with Oncology in the morning to review the results with them. We may need to consult them as well to touch base with the patient about the findings. 6. Hypercalcemia. Calcium is stable. 7. Osteoporosis. Continue meds as prescribed. 8. History of cricopharyngeal dysphagia. We will continue with feedings via G - tube. She states she takes Osmolite 1.5. She does 4 cans overnight at 78 cc an hour. 9. Cor pulmonale, does not appear to be any acute, we will monitor. 10. History of mitral regurge. Follow with her primary ip architect. 11. DVT prophylaxis: She is high risk. I have placed her on heparin subcu. 12. Code status: She wishes to be a full code. 13. Fluids, electrolytes, and nutrition: Again, I have ordered a tube feeding diet and nutrition consult. TIME SPENT: On admission was 60 minutes, greater than half the time spent face- to- face with the patient obtaining my history and physical, other half time spent going over the plan of care with the patient and implementing plan of care. I did discuss the plan of care with my attending, Dr. Epstein; he is in agreement. JOSEPH WHELAN NP [id number]/[facility] #: [id number] TANYA
--- NOTE | 2017-08-06 16:00 | PN ---
Subjective Date of Service: 08/06/17 Interval History: Patient seen and examined. States she is feeling better than yesterday, breathing is improving, however she still has exertional dyspnea which is limiting her ambulation and capacity. Denies chest pain, back pain is controlled. No further complaints. Objective Active Medications: Acetaminophen (Tylenol Adult Liq*) 650 mg G TUBE Q4H PRN PRN Reason: FEVER/PAIN Albuterol (Ventolin 2.5 Mg/3 Ml Neb.Nereyda*) 2.5 mg INH Q2H PRN PRN Reason: SOB/WHEEZING Last Admin: 08/06/17 05:17 Dose: 2.5 mg Albuterol/Ipratropium (Duoneb (Albuterol 2.5 Mg/Ipratropium 0.5 Mg)) 1 neb INH Q4H [facility] Last Admin: 08/06/17 14:51 Dose: Not Given Aspirin (Aspirin 81 Mg Chew Tab*) 81 mg G TUBE DAILY [facility] Last Admin: 08/06/17 09:20 Dose: 81 mg Atorvastatin Calcium (Lipitor*) 10 mg G TUBE DAILY [facility] Last Admin: 08/06/17 09:20 Dose: 10 mg Ferrous Sulfate (Feosol Liq*) 300 mg G TUBE DAILY [facility] Last Admin: 08/06/17 09:18 Dose: 300 mg Fluticasone Propionate (Flonase Nasal [place] 50mcg*) 1 spray NASAL BID [facility] Last Admin: 08/06/17 09:21 Dose: 1 spray Heparin Sodium (Porcine) (Heparin Vial(*)) 5,000 units SUBCUT Q8HR [facility] Last Admin: 08/06/17 15:25 Dose: 5,000 units Ceftriaxone Sodium 1 gm/ (Sodium Chloride) 50 mls @ 200 mls/hr IVPB Q24H [facility] Last Admin: 08/06/17 04:32 Dose: 200 mls/hr Azithromycin 500 mg/ Sodium (Chloride) 250 mls @ 250 mls/hr IVPB Q24H [facility] Last Admin: 08/06/17 02:53 Dose: 250 mls/hr Lactobacillus Rhamnosus (Lactobacillus Acidophilus*) 1 tab .SEE ORDER DAILY [facility] Last Admin: 08/06/17 09:20 Dose: 1 tab Losartan Potassium (Cozaar Tab*) 12.5 mg G TUBE DAILY [facility] Last Admin: 08/06/17 09:20 Dose: 12.5 mg Methylprednisolone Sodium Succinate (Solu-Medrol 40 Mg) 60 mg IV Q8H [facility] Last Admin: 08/06/17 09:19 Dose: 60 mg Mometasone Furoate/Formoterol Fumar (Dulera 200/5 Mdi*) 2 puff INH BID [facility] Last Admin: 08/06/17 11:29 Dose: 2 puff Morphine Sulfate (Morphine Vial*) 2 mg IV Q4H PRN PRN Reason: PAIN - MILD Last Admin: 08/06/17 15:30 Dose: 2 mg Nicotine (Nicotine Patch 7 Mg/24 Hr*) 1 patch TRANSDERM DAILY [facility] Last Admin: 08/06/17 09:19 Dose: 1 patch Ondansetron HCl (Zofran 40 Mg Vial*) 4 mg IV Q6H PRN PRN Reason: NAUSEA Oxybutynin Chloride (Ditropan Tab*) 5 mg G TUBE BID [facility] Last Admin: 08/06/17 09:21 Dose: 5 mg Oxycodone HCl (Oxycodone Oral.Soln*) 5 mg PO Q6H PRN PRN Reason: PAIN Pharmacy Profile Note (Nicotine Patch Removal Note*) 1 note FOLLOW UP 2100 [facility] Vital Signs - 8 hr 08/06/17 08/06/17 08/06/17 08:00 09:52 11:14 Temperature 97.6 F Pulse Rate 75 Respiratory 18 18 18 Rate Blood Pressure 110/81 (mmHg) O2 Sat by Pulse 98 Oximetry 08/06/17 08/06/17 08/06/17 11:30 11:57 15:24 Temperature Pulse Rate 78 Respiratory 18 16 Rate Blood Pressure (mmHg) O2 Sat by Pulse 97 97 Oximetry 08/06/17 15:30 Temperature Pulse Rate Respiratory 16 Rate Blood Pressure (mmHg) O2 Sat by Pulse Oximetry Oxygen Devices in Use Now: Nasal Cannula Appearance: Alert, NAD, frail appearing Ears/Nose/Mouth/Throat: NL Teeth, Lips, Gums, Clear Oropharnyx, Mucous Membranes Moist Neck: NL Appearance and Movements; NL JVP, Trachea Midline, No Thyroid Enlargement, Masses Respiratory: Symmetrical Chest Expansion and Respiratory Effort, - - diminished air entry with poor air exchange, no wheeze, no rhonchi Cardiovascular: NL Sounds; No Murmurs; No JVD, RRR, No Edema Abdominal: NL Sounds; No Tenderness; No Distention, No Hepatosplenomegaly Extremities: No Edema, No Clubbing, Cyanosis Skin: No Rash or Ulcers Neurological: Alert and Oriented x 3 Lines/Tubes/Other Access: Clean, Dry and Intact Percuteneous Feeding Tube Nutrition: - - tube feeds Result Diagrams: 08/06/17 05:10 08/06/17 05:10 Assess/Plan/Problems-Billing Assessment: This is a 76 year old female with history of severe COPD and hx of lung cancer that has been admitted for exacerbation of COPD. - Patient Problems (1) COPD exacerbation SNOMED Code(s): 311560799 Comment: - 2grams mag sulfate and 125mg solumedrol in ED last night - Continue solumendrol 40mg Q8h then taper when ready for discharge - nebs PRN - Dulera BID - Azithromycin 500mg daily - 2L NC continuous (2) Gastroparesis Code(s): K31.84 - GASTROPARESIS SNOMED Code(s): 631859012 Comment: - On tube feeds, at baseline - Hx of esophageal stricture s/p peg tube placement 20 years - 4 cans osmolite 1.5, infuses them overnight at 78 cc hr (3) Osteoporosis Code(s): M81.0 - AGE-RELATED OSTEOPOROSIS W/O CURRENT PATHOLOGICAL FRACTURE SNOMED Code(s): 07083179 Comment: - With back pain, PRN analgesics - supportive care, fall precautions (4) History of lung cancer Code(s): Z85.118 - PERSONAL HISTORY OF MALIGNANT NEOPLASM OF BRONCHUS AND LUNG SNOMED Code(s): 478529539 Comment: - Last tx in 2012 - Per oncology, patient will need f/u CT, please see note from Amanda Mcqueen NP (5) Hyperlipidemia Code(s): E78.5 - HYPERLIPIDEMIA, UNSPECIFIED SNOMED Code(s): 04798901 Comment: - Continue lipitor in evening (6) Hypertension Code(s): I10 - ESSENTIAL (PRIMARY) HYPERTENSION SNOMED Code(s): 93458236 Comment: - Continue Losartan, stable (7) DVT prophylaxis Code(s): AUE5887 - SNOMED Code(s): 594256913 (8) Full code status Code(s): Z78.9 - OTHER SPECIFIED HEALTH STATUS SNOMED Code(s): 717391018 Status and Disposition: Remain inpatient.
[2017-08-06] MEDS: Nicotine Patch Removal NOTE FOLLOW UP SCH (22:20)
[2017-08-07] MEDS: cefTRIAXone(*) 1 GM in NS 0.9% 50 ML* 50 ML IVPB SCH (02:51)
[2017-08-07] MEDS: methylPREDNISolone SOD 40 MG* 1 ML VIAL IV SCH ×3 (03:02→18:06)
[2017-08-07] MEDS: Azithromycin IV(*) 500 MG in NS 0.9% 250 ML* 250 ML IVPB SCH (03:03)
[2017-08-07] MEDS: Morphine VIAL* 4 MG/ML VIAL (1 ml vial) IV PRN ×3 (03:13→21:53)
[2017-08-07] MEDS: Albuterol/Ipratropium NEB.SOL* Albuterol 2.5 MG/Ipratropium 0.5 MG 3 ML INH SCH ×6 (04:03→22:38)
[2017-08-07] MEDS: Heparin VIAL(*) 5000 UNITS/ML VIAL (FIVE THOUSAND) SUBCUT SCH ×3 (06:11→21:50)
[2017-08-07] MEDS: Mometasone/Formoter 200/5 MDI INH SCH ×2 (07:07→19:57)
[2017-08-07] MEDS: Losartan TAB* 25 MG G TUBE SCH (09:04)
[2017-08-07] MEDS: Aspirin 81 mg CHEW TAB* 81 MG TAB.CHEW G TUBE SCH (09:07)
[2017-08-07] MEDS: Lactobacillus Acidophilus* 1 TAB SCH (09:09)
[2017-08-07] MEDS: Oxybutynin TAB* 5 MG G TUBE SCH ×2 (09:09→21:50)
[2017-08-07] MEDS: Atorvastatin* 10 MG TAB G TUBE SCH (09:09)
[2017-08-07] MEDS: Ferrous Sulfate LIQ* 300 MG/5 ML UDC G TUBE SCH (09:12)
[2017-08-07] MEDS: Nicotine PATCH 7 MG/24 HR* PATCH TRANSDERM SCH (09:15)
[2017-08-07] MEDS: Fluticasone NASAL SPRAY 50MCG* 16 gm SPRAY BTL NASAL SCH ×2 (09:15→21:50)
--- NOTE | 2017-08-07 14:54 | PN ---
Subjective Date of Service: 08/07/17 Interval History: continue to c/o shortness of breath, weakness and being tired. Denies chest pain. Denies N/V/D or abd pain. denies fever or chills Family History: Unchanged from Admission Social History: Unchanged from Admission Past Medical History: Unchanged from Admission Objective Active Medications: Acetaminophen (Tylenol Adult Liq*) 650 mg G TUBE Q4H PRN PRN Reason: FEVER/PAIN Albuterol (Ventolin 2.5 Mg/3 Ml Neb.Nereyda*) 2.5 mg INH Q2H PRN PRN Reason: SOB/WHEEZING Last Admin: 08/06/17 05:17 Dose: 2.5 mg Albuterol/Ipratropium (Duoneb (Albuterol 2.5 Mg/Ipratropium 0.5 Mg)) 1 neb INH Q4H [facility] Last Admin: 08/07/17 11:13 Dose: 1 neb Aspirin (Aspirin 81 Mg Chew Tab*) 81 mg G TUBE DAILY [facility] Last Admin: 08/07/17 09:07 Dose: 81 mg Atorvastatin Calcium (Lipitor*) 10 mg G TUBE DAILY [facility] Last Admin: 08/07/17 09:09 Dose: 10 mg Ferrous Sulfate (Feosol Liq*) 300 mg G TUBE DAILY [facility] Last Admin: 08/07/17 09:12 Dose: 300 mg Fluticasone Propionate (Flonase Nasal [place] 50mcg*) 1 spray NASAL BID [facility] Last Admin: 08/07/17 09:15 Dose: 1 spray Heparin Sodium (Porcine) (Heparin Vial(*)) 5,000 units SUBCUT Q8HR [facility] Last Admin: 08/07/17 06:11 Dose: 5,000 units Ceftriaxone Sodium 1 gm/ (Sodium Chloride) 50 mls @ 200 mls/hr IVPB Q24H [facility] Last Admin: 08/07/17 02:51 Dose: 200 mls/hr Azithromycin 500 mg/ Sodium (Chloride) 250 mls @ 250 mls/hr IVPB Q24H [facility] Last Admin: 08/07/17 03:03 Dose: 250 mls/hr Lactobacillus Rhamnosus (Lactobacillus Acidophilus*) 1 tab .SEE ORDER DAILY [facility] Last Admin: 08/07/17 09:09 Dose: 1 tab Losartan Potassium (Cozaar Tab*) 12.5 mg G TUBE DAILY [facility] Last Admin: 08/07/17 09:04 Dose: 12.5 mg Methylprednisolone Sodium Succinate (Solu-Medrol 40 Mg) 60 mg IV Q8H [facility] Last Admin: 08/07/17 11:36 Dose: 60 mg Mometasone Furoate/Formoterol Fumar (Dulera 200/5 Mdi*) 2 puff INH BID [facility] Last Admin: 08/07/17 07:07 Dose: 2 puff Morphine Sulfate (Morphine Vial*) 2 mg IV Q4H PRN PRN Reason: PAIN - MILD Last Admin: 08/07/17 03:13 Dose: 2 mg Nicotine (Nicotine Patch 7 Mg/24 Hr*) 1 patch TRANSDERM DAILY [facility] Last Admin: 08/07/17 09:15 Dose: 1 patch Ondansetron HCl (Zofran 40 Mg Vial*) 4 mg IV Q6H PRN PRN Reason: NAUSEA Oxybutynin Chloride (Ditropan Tab*) 5 mg G TUBE BID [facility] Last Admin: 08/07/17 09:09 Dose: 5 mg Oxycodone HCl (Oxycodone Oral.Soln*) 5 mg PO Q6H PRN PRN Reason: PAIN Pharmacy Profile Note (Nicotine Patch Removal Note*) 1 note FOLLOW UP 2100 [facility] Last Admin: 08/06/17 22:20 Dose: 1 note Vital Signs - 8 hr 08/07/17 08/07/17 08/07/17 07:10 07:11 07:33 Temperature 97.9 F Pulse Rate 92 90 87 Respiratory 17 17 16 Rate Blood Pressure 106/54 (mmHg) O2 Sat by Pulse 97 97 100 Oximetry 08/07/17 08/07/17 11:16 11:18 Temperature 98.7 F Pulse Rate 79 82 Respiratory 17 20 Rate Blood Pressure 117/59 (mmHg) O2 Sat by Pulse 100 100 Oximetry Oxygen Devices in Use Now: Nasal Cannula Appearance: moderate respiratory distress, sitting in the chair Eyes: No Scleral Icterus Ears/Nose/Mouth/Throat: Mucous Membranes Moist Neck: NL Appearance and Movements; NL JVP, Trachea Midline Respiratory: Symmetrical Chest Expansion and Respiratory Effort, - - diminished t/o bilat with a few crackles in bilat bases, moderate resp. distress, Cardiovascular: NL Sounds; No Murmurs; No JVD, No Edema Abdominal: NL Sounds; No Tenderness; No Distention Extremities: No Edema, No Clubbing, Cyanosis Skin: No Rash or Ulcers, No Nodules or Sclerosis Neurological: Alert and Oriented x 3 Nutrition: Taking PO's Result Diagrams: 08/06/17 05:10 08/06/17 05:10 Assess/Plan/Problems-Billing Assessment: This is a 76 year old female with history of severe COPD and hx of lung cancer that has been admitted for exacerbation of COPD. - Patient Problems (1) COPD exacerbation Current Visit: Yes Status: Acute Code(s): J44.1 - CHRONIC OBSTRUCTIVE PULMONARY DISEASE W (ACUTE) EXACERBATION SNOMED Code(s): 480498110 Comment: - continues to have moderate respiratory distress worse with exertion - Continue solumendrol 60mg Q8h then taper when ready for discharge - nebs PRN - Dulera BID - Azithromycin 500mg daily - 2L NC continuous (2) Gastroparesis Current Visit: No Status: Acute Code(s): K31.84 - GASTROPARESIS SNOMED Code(s): 809380104 Comment: - On tube feeds, at baseline - Hx of esophageal stricture s/p peg tube placement 20 years - 4 cans osmolite 1.5, infuses them overnight at 78 cc hr (3) History of lung cancer Current Visit: No Status: Chronic Code(s): Z85.118 - PERSONAL HISTORY OF MALIGNANT NEOPLASM OF BRONCHUS AND LUNG SNOMED Code(s): 501463064 Comment: - Last tx in 2012 - Per oncology, patient will need f/u CT, please see note from Amanda Mcqueen NP (4) Hypertension Current Visit: No Status: Chronic Priority: Low Code(s): I10 - ESSENTIAL ( PRIMARY) HYPERTENSION SNOMED Code(s): 21361080 Comment: - BP remains stable - Continue Losartan (5) DVT prophylaxis Current Visit: No Status: Acute Code(s): QCJ6359 - SNOMED Code(s): 457029504 Comment: - HSQ (6) Full code status Current Visit: No Status: Acute Code(s): Z78.9 - OTHER SPECIFIED HEALTH STATUS SNOMED Code(s): 015015865 Status and Disposition: Remain inpatient.
[2017-08-07] MEDS: Nicotine Patch Removal NOTE FOLLOW UP SCH (21:56)
[2017-08-08] MEDS: methylPREDNISolone SOD 40 MG* 1 ML VIAL IV SCH ×3 (00:51→17:49)
[2017-08-08] MEDS: cefTRIAXone(*) 1 GM in NS 0.9% 50 ML* 50 ML IVPB SCH (02:41)
[2017-08-08] MEDS: Azithromycin IV(*) 500 MG in NS 0.9% 250 ML* 250 ML IVPB SCH (03:10)
[2017-08-08] MEDS: Albuterol/Ipratropium NEB.SOL* Albuterol 2.5 MG/Ipratropium 0.5 MG 3 ML INH SCH ×6 (03:30→23:16)
[2017-08-08] MEDS: Morphine VIAL* 4 MG/ML VIAL (1 ml vial) IV PRN ×4 (04:47→23:49)
[2017-08-08] MEDS: Heparin VIAL(*) 5000 UNITS/ML VIAL (FIVE THOUSAND) SUBCUT SCH ×3 (04:49→21:27)
[2017-08-08] MEDS: Mometasone/Formoter 200/5 MDI INH SCH ×2 (07:18→19:47)
[2017-08-08] MEDS: Nicotine PATCH 7 MG/24 HR* PATCH TRANSDERM SCH (09:21)
[2017-08-08] MEDS: Lactobacillus Acidophilus* 1 TAB SCH (09:25)
[2017-08-08] MEDS: Losartan TAB* 25 MG G TUBE SCH (09:25)
[2017-08-08] MEDS: Aspirin 81 mg CHEW TAB* 81 MG TAB.CHEW G TUBE SCH (09:27)
[2017-08-08] MEDS: Atorvastatin* 10 MG TAB G TUBE SCH (09:27)
[2017-08-08] MEDS: Oxybutynin TAB* 5 MG G TUBE SCH ×2 (09:27→21:27)
[2017-08-08] MEDS: Ferrous Sulfate LIQ* 300 MG/5 ML UDC G TUBE SCH (09:29)
[2017-08-08] MEDS: Fluticasone NASAL SPRAY 50MCG* 16 gm SPRAY BTL NASAL SCH ×2 (09:31→21:27)
--- NOTE | 2017-08-08 13:33 | CONSULT ---
Consult Consult: Neurosurgery Consult Date of Admission: 08/06/17 Date of Consult: 08/08/17 Referring Provider: Zully Duran NP Reason for Consult: T5 compression fracture HPI: This is a 76 year old female with multiple medical conditions including COPD and lung cancer who presented to [facility] ED with complaint of difficulty breathing, shortness of breath and pain between the shoulder blades. CT chest was performed on 08/04/17 and shows T5 fracture, neurosurgery was consulted for recommendations. Currently, she complains of constant, nagging pain across the back at the level of the scapulae and wrapping around to the axillae. She denies numbness or tingling in this distribution. She denies pain anteriorly. Pain has been present since approximately April 2017. She presented to the [facility] ED for this complaint which, per the patient, she was worked up for the most major concerns and discharged. Over the past few weeks she has been experiencing increasing difficulty breathing, taking a deep breath and shortness of breath when she ambulates. The back pain worsened with attempting to take deep breaths. The pain and breathing became so severe that she asked her to call for an ambulance for transport to the ED. She was unable to ambulate to her car. She denies upper and lower extremity numbness, weakness and pain. Denies neck pain, chest pain, nausea and dizziness. Past Medical History: 1. COPD with current exacerbation 2. HTN 3. Hyperlipidemia 4. Lung cancer 5. Osteoporosis 6. Cricopharyngeal dysphagia 7. Cor pulmonale 8. Mitral regurgitation 9. Left rib cage cancer diagnosed 16 mo Past Surgical History: 1. G tube and J tube placements 2. Hysterectomy 3. Tonsillectomy 4. Exploratory laparotomy 5. Cholecystectomy 6. Appendectomy 7. Excision of rib cage cancer- [facility] 194 8. Esophageal surgery for stricture- [facility] Home Medications: 1. Aspirin 81 mg CHEW TAB* 81 mg G TUBE DAILY 06/25/12 [History Confirmed ] 2. Atorvastatin* [Lipitor 10 MG*] 10 mg G TUBE DAILY 06/25/12 [History Confirmed 08/06/17] 3. Lactobacillus Acidophilus [Probiotic] 1 cap G TUBE DAILY 06/25/12 [History Confirmed 08/06/17] 4. Losartan TAB* [Cozaar TAB*] 12.5 mg G TUBE DAILY 06/25/12 [History Confirmed 08/06/17] 5. Montelukast Sodium TAB* [Singulair 10 MG TAB*] 10 mg G TUBE DAILY PRN [History Confirmed 08/06/17] 6. Levalbuterol HFA INHALER* [Xopenex Hfa Inhaler*] 2 puff INH Q6HR PRN [History Confirmed 08/06/17] 7. Albuterol 2.5MG/3ML (0.083%)* [Ventolin 2.5 MG/3 ML NEB.MATILDE*] 2.5 mg INH Q6H PRN #100 neb.matilde 11/07/16 [Rx Confirmed 08/06/17] 8. Estradiol VAGINAL TAB(NF) [Vagifem] 10 mcg VAGINAL Q72HR 01/15/17 [History Confirmed 08/06/17] 9. Oxygen* 2 % INH BEDTIME 01/15/17 [History Confirmed 08/06/17] 10. Fluticasone NASAL SPRAY 50MCG* [Flonase NASAL SPRAY 50MCG*] 1 spray NASAL BID 07/05/17 [History Confirmed 08/06/17] 11. Tolterodine Tartrate [Detrol] 2 mg PO BID 07/05/17 [History Confirmed ] 12. Ferrous Sulfate LIQ* [Feosol LIQ*] 5 ml G TUBE DAILY 08/06/17 [History Confirmed 08/06/17] 13. Fluticasone-Salmeterol 500-50* [Advair Diskus 500-50*] 1 puff INH BID [History Confirmed 08/06/17] 14. Ibuprofen ADULT LIQ* [Motrin LIQ ADULT*] 600 mg PO TID PRN 08/06/17 [ History Confirmed 08/06/17] 15. Polyethylene Glycol 3350* [Miralax*] 17 gm PO DAILY 08/06/17 [History Confirmed 08/06/17] 16. oxyCODONE ORAL.SOLN* [Oxycodone ORAL.SOLN 5 mg/5 ml *] 5 mg PO Q6H PRN 08/06 [History Confirmed 08/06/17] Allergies: 1. Sulfa antibiotics 2. Levofloxacin 3. Varenicline ROS: Full ROS completed. Pertinent findings stated in HPI and all others negative. Physical Exam: Vital Signs: Temp Pulse Resp BP Pulse Ox 98.0 F 87 16 136/54 98 08/08/17 11:21 08/08/17 11:21 08/08/17 11:21 08/08/17 11:21 08/08/17 11:21 General: Pleasant lady, recumbent in bed. HEENT: Head is normocephalic and atraumatic. PERRL, EOMI, glasses in place. Gross hearing intact. Neck: The neck is supple and symmetric. Nontender to palpation. Full ROM. CV: Radial and pedal pulses 2+ and equal. Lungs: Breathing is mildly labored with continued conversation. Oxygen via nasal cannula. Abdomen: The abdomen is nondistended. G tube and J tube present. Neuro: Alert and oriented to person, place and time. Speech is clear and answers questions appropriately. Upper and lower extremity strength 5/5 bilaterally. Sensation intact throughout. Biceps reflex 2+, patellar reflex 2+. Hoffmans positive bilaterally. Spine: Scoliosis, Spine is nontender to palpation. No tenderness of paraspinal muscles. Extremities: Left foot cold, right warm. No cyanosis. Mild pedal edema bilaterally, left worse than right. Imagin. CT chest on 08/04/17 shows T5 compression fracture, poor quality for evaluation of fracture. Assessment: This is a 76 year old female admitted for management of COPD exacerbation who was found to have T5 compression fracture on CT chest. Plan: 1. Recommend pain management 2. Recommend CT thoracic spine for further evaluation, will review after completion 3. Recommend heat and ice application if helpful 4. Brace unlikely to be beneficial secondary to severe kyphosis
--- NOTE | 2017-08-08 16:22 | RAD ---
INDICATION: Evaluate T5 compression fracture COMPARISON: CT of the chest dated August 04, 2017 TECHNIQUE: Axial source images of the thoracic spine were acquired with coronal and sagittal reformatting. FINDINGS: There is exaggeration of the normal thoracic kyphosis. Again seen is compression deformity of the T5 vertebral body with sclerotic change of the inferior endplate. This appearance is not changed significantly since the previous CT examination. Degenerative changes are also notable at L2/L3 where there is sclerotic change of the articulating endplates and vacuum disc phenomenon. There is no new compression fracture. The prevertebral soft tissues appear normal. Innumerable renal cysts largely replaced the partially visualized left kidney. There is a gastrostomy tube that appears to be in appropriate position. There is coarse calcification of the visualized aorta as well as coarse calcification at the mitral valve. The lungs exhibit centrilobular emphysematous changes and linear density at the right lung base morphologically most consistent with atelectasis. IMPRESSION: Stable degenerative changes of the thoracic spine as described above including compression deformity and endplate sclerosis involving the T5 vertebra.
--- NOTE | 2017-08-08 17:00 | PN ---
Subjective Date of Service: 08/08/17 Interval History: reports episodes of severe shortness of breath during the night and difficulty getting to the bathrrom d/t the increased shortness of breath. Had a commode placed by the bedside. Continue to report shortness of breath with exertion. c/o back pain Denies any chest pain or abd pain. Denies n/v/d. denies fever or chills Family History: Unchanged from Admission Social History: Unchanged from Admission Past Medical History: Unchanged from Admission Objective Active Medications: Acetaminophen (Tylenol Adult Liq*) 650 mg G TUBE Q4H PRN PRN Reason: FEVER/PAIN Albuterol (Ventolin 2.5 Mg/3 Ml Neb.Nereyda*) 2.5 mg INH Q2H PRN PRN Reason: SOB/WHEEZING Last Admin: 08/06/17 05:17 Dose: 2.5 mg Albuterol/Ipratropium (Duoneb (Albuterol 2.5 Mg/Ipratropium 0.5 Mg)) 1 neb INH Q4H [facility] Last Admin: 08/08/17 15:25 Dose: 1 neb Aspirin (Aspirin 81 Mg Chew Tab*) 81 mg G TUBE DAILY [facility] Last Admin: 08/08/17 09:27 Dose: 81 mg Atorvastatin Calcium (Lipitor*) 10 mg G TUBE DAILY [facility] Last Admin: 08/08/17 09:27 Dose: 10 mg Ferrous Sulfate (Feosol Liq*) 300 mg G TUBE DAILY [facility] Last Admin: 08/08/17 09:29 Dose: 300 mg Fluticasone Propionate (Flonase Nasal [place] 50mcg*) 1 spray NASAL BID [facility] Last Admin: 08/08/17 09:31 Dose: 1 spray Heparin Sodium (Porcine) (Heparin Vial(*)) 5,000 units SUBCUT Q8HR [facility] Last Admin: 08/08/17 13:40 Dose: 5,000 units Ceftriaxone Sodium 1 gm/ (Sodium Chloride) 50 mls @ 200 mls/hr IVPB Q24H [facility] Last Admin: 08/08/17 02:41 Dose: 200 mls/hr Azithromycin 500 mg/ Sodium (Chloride) 250 mls @ 250 mls/hr IVPB Q24H [facility] Last Admin: 08/08/17 03:10 Dose: 250 mls/hr Lactobacillus Rhamnosus (Lactobacillus Acidophilus*) 1 tab .SEE ORDER DAILY [facility] Last Admin: 08/08/17 09:25 Dose: 1 tab Losartan Potassium (Cozaar Tab*) 12.5 mg G TUBE DAILY [facility] Last Admin: 08/08/17 09:25 Dose: 12.5 mg Methylprednisolone Sodium Succinate (Solu-Medrol 40 Mg) 60 mg IV Q8H [facility] Last Admin: 08/08/17 09:40 Dose: 60 mg Mometasone Furoate/Formoterol Fumar (Dulera 200/5 Mdi*) 2 puff INH BID [facility] Last Admin: 08/08/17 07:18 Dose: 2 puff Morphine Sulfate (Morphine Vial*) 2 mg IV Q4H PRN PRN Reason: PAIN - MILD Last Admin: 08/08/17 09:39 Dose: 2 mg Nicotine (Nicotine Patch 7 Mg/24 Hr*) 1 patch TRANSDERM DAILY [facility] Last Admin: 08/08/17 09:21 Dose: 1 patch Ondansetron HCl (Zofran 40 Mg Vial*) 4 mg IV Q6H PRN PRN Reason: NAUSEA Oxybutynin Chloride (Ditropan Tab*) 5 mg G TUBE BID [facility] Last Admin: 08/08/17 09:27 Dose: 5 mg Oxycodone HCl (Oxycodone Oral.Soln*) 5 mg PO Q6H PRN PRN Reason: PAIN Pharmacy Profile Note (Nicotine Patch Removal Note*) 1 note FOLLOW UP 2100 [facility] Last Admin: 08/07/17 21:56 Dose: 1 note Vital Signs - 8 hr 08/08/17 08/08/17 08/08/17 09:39 11:01 11:21 Temperature 98.0 F Pulse Rate 86 87 Respiratory 20 18 16 Rate Blood Pressure 136/54 (mmHg) O2 Sat by Pulse 98 98 Oximetry 08/08/17 08/08/17 08/08/17 13:42 15:19 15:26 Temperature 97.5 F Pulse Rate 95 86 Respiratory 22 24 22 Rate Blood Pressure 124/69 (mmHg) O2 Sat by Pulse 97 96 Oximetry 08/08/17 15:28 Temperature Pulse Rate 96 Respiratory 88 Rate Blood Pressure (mmHg) O2 Sat by Pulse 22 Oximetry Oxygen Devices in Use Now: Nasal Cannula Appearance: appears moderately short of breath sitting on the edge of the bed. moderate respiratory distress post exertion Eyes: No Scleral Icterus Ears/Nose/Mouth/Throat: Clear Oropharnyx, Mucous Membranes Moist Neck: NL Appearance and Movements; NL JVP, Trachea Midline Respiratory: Symmetrical Chest Expansion and Respiratory Effort, - - few scattered exp wheezes, diminished t/o bilat Cardiovascular: NL Sounds; No Murmurs; No JVD, No Edema Abdominal: NL Sounds; No Tenderness; No Distention Extremities: No Edema, No Clubbing, Cyanosis Skin: No Rash or Ulcers, No Nodules or Sclerosis Neurological: Alert and Oriented x 3 Nutrition: Taking PO's Result Diagrams: 08/06/17 05:10 08/06/17 05:10 Assess/Plan/Problems-Billing Assessment: This is a 76 year old female with history of severe COPD and hx of lung cancer that has been admitted for exacerbation of COPD. - Patient Problems (1) COPD exacerbation Current Visit: Yes Status: Acute Code(s): J44.1 - CHRONIC OBSTRUCTIVE PULMONARY DISEASE W (ACUTE) EXACERBATION SNOMED Code(s): 911493361 Comment: - continues to have moderate respiratory distress worse with exertion - Continue solumendrol 60mg Q8h then taper when ready for discharge - nebs PRN - Dulera BID - Azithromycin 500mg daily - 2L NC continuous - will add flutter valve to assist with productive cough- as patient reports yellow sputum (2) Gastroparesis Current Visit: No Status: Acute Code(s): K31.84 - GASTROPARESIS SNOMED Code(s): 812340525 Comment: - On tube feeds, at baseline - Hx of esophageal stricture s/p peg tube placement 20 years - 4 cans osmolite 1.5, infuses them overnight at 78 cc hr (3) History of lung cancer Current Visit: No Status: Chronic Code(s): Z85.118 - PERSONAL HISTORY OF MALIGNANT NEOPLASM OF BRONCHUS AND LUNG SNOMED Code(s): 716694828 Comment: - Last tx in 2012 - Per oncology, patient will need f/u CT, please see note from Amanda Mcqueen NP (4) Hypertension Current Visit: No Status: Chronic Priority: Low Code(s): I10 - ESSENTIAL ( PRIMARY) HYPERTENSION SNOMED Code(s): 73034232 Comment: - BP remains stable - Continue Losartan (5) Thoracic back pain Current Visit: Yes Status: Acute Code(s): M54.6 - PAIN IN THORACIC SPINE SNOMED Code(s): 044931602 Comment: neurosurgery consulted -ordered CT of the t-spine - continue with pain management as ordered for now (6) DVT prophylaxis Current Visit: No Status: Acute Code(s): CJL3556 - SNOMED Code(s): 731788993 Comment: - HSQ (7) Full code status Current Visit: No Status: Acute Code(s): Z78.9 - OTHER SPECIFIED HEALTH STATUS SNOMED Code(s): 430669635 Status and Disposition: Remain inpatient.
[2017-08-08] MEDS: Nicotine Patch Removal NOTE FOLLOW UP SCH (21:30)
[2017-08-09] MEDS: methylPREDNISolone SOD 40 MG* 1 ML VIAL IV SCH ×3 (02:10→17:37)
[2017-08-09] MEDS: Azithromycin IV(*) 500 MG in NS 0.9% 250 ML* 250 ML IVPB SCH (02:12)
[2017-08-09] MEDS: cefTRIAXone(*) 1 GM in NS 0.9% 50 ML* 50 ML IVPB SCH (03:44)
[2017-08-09] MEDS: Albuterol/Ipratropium NEB.SOL* Albuterol 2.5 MG/Ipratropium 0.5 MG 3 ML INH SCH ×6 (03:47→23:17)
[2017-08-09] MEDS: Heparin VIAL(*) 5000 UNITS/ML VIAL (FIVE THOUSAND) SUBCUT SCH ×2 (05:18→20:49)
[2017-08-09] MEDS: Morphine VIAL* 4 MG/ML VIAL (1 ml vial) IV PRN ×3 (05:32→22:38)
[2017-08-09 06:42] LABS: ABS Basophils 0 10^3/ul (0-0.2); ABS Eosinophils 0 10^3/ul (0-0.6); ABS Lymphocytes 0.4 10^3/ul (1.0-4.8); ABS Monocytes 0.2 10^3/ul (0-0.8); ABS Neutrophils 8.9 10^3/ul (1.5-7.7); ABS Nucleated RBC 0 10^3/ul; Eosinophil % 0 % (0-6); Hematocrit 31 % (35-47); Hemoglobin 10.3 g/dl (12.0-16.0); Lymphocyte % 3.9 % (25-47); Mean Corpuscular HGB Conc 33 g/dl (31-36); Mean Corpuscular Hemoglobin 29 pg (27-31); Mean Corpuscular Volume 89 fL (80-97); Mean Platelet Volume 8.9 um3 (7.4-10.4); Nucleated Red Blood Cells % 0; Platelet Count 249 10^3/ul (150-450); Red Cell Distribution Width 14 % (10.5-15); White Blood Count 9.5 10^3/ul (3.5-10.8)
[2017-08-09 06:54] LABS: EGFR Non-African American 102.8 (>60)
[2017-08-09] MEDS: Mometasone/Formoter 200/5 MDI INH SCH ×2 (07:54→19:55)
[2017-08-09] MEDS: Fluticasone NASAL SPRAY 50MCG* 16 gm SPRAY BTL NASAL SCH ×2 (09:26→20:49)
[2017-08-09] MEDS: Nicotine PATCH 7 MG/24 HR* PATCH TRANSDERM SCH (09:27)
[2017-08-09] MEDS: Ferrous Sulfate LIQ* 300 MG/5 ML UDC G TUBE SCH (09:29)
[2017-08-09] MEDS: Atorvastatin* 10 MG TAB G TUBE SCH (09:30)
[2017-08-09] MEDS: Losartan TAB* 25 MG G TUBE SCH (09:30)
[2017-08-09] MEDS: Aspirin 81 mg CHEW TAB* 81 MG TAB.CHEW G TUBE SCH (09:30)
[2017-08-09] MEDS: Lactobacillus Acidophilus* 1 TAB SCH (09:30)
[2017-08-09] MEDS: Oxybutynin TAB* 5 MG G TUBE SCH ×2 (09:31→20:49)
--- NOTE | 2017-08-09 18:53 | PN ---
Subjective Date of Service: 08/09/17 Interval History: Continues to c/o increased shortness of breath with exertion. denies chest pain or shortness of breath, patient reports that she had occult stool checked by her primary care and it was positive, she does report that she has chronic left side abd pain for the past 2 months that is currently being evaluated by Dr. Lincoln as an outpatient, states that she was started on iron prior to admission . Denies n/v/d, denies black or tarry stools Family History: Unchanged from Admission Social History: Unchanged from Admission Past Medical History: Unchanged from Admission Objective Active Medications: Acetaminophen (Tylenol Adult Liq*) 650 mg G TUBE Q4H PRN PRN Reason: FEVER/PAIN Albuterol (Ventolin 2.5 Mg/3 Ml Neb.Nereyda*) 2.5 mg INH Q2H PRN PRN Reason: SOB/WHEEZING Last Admin: 08/06/17 05:17 Dose: 2.5 mg Albuterol/Ipratropium (Duoneb (Albuterol 2.5 Mg/Ipratropium 0.5 Mg)) 1 neb INH Q4H [facility] Last Admin: 08/09/17 15:28 Dose: 1 neb Aspirin (Aspirin 81 Mg Chew Tab*) 81 mg G TUBE DAILY [facility] Last Admin: 08/09/17 09:30 Dose: 81 mg Atorvastatin Calcium (Lipitor*) 10 mg G TUBE DAILY [facility] Last Admin: 08/09/17 09:30 Dose: 10 mg Ferrous Sulfate (Feosol Liq*) 300 mg G TUBE DAILY [facility] Last Admin: 08/09/17 09:29 Dose: 300 mg Fluticasone Propionate (Flonase Nasal [place] 50mcg*) 1 spray NASAL BID [facility] Last Admin: 08/09/17 09:26 Dose: 1 spray Heparin Sodium (Porcine) (Heparin Vial(*)) 5,000 units SUBCUT Q12HR [facility] Ceftriaxone Sodium 1 gm/ (Sodium Chloride) 50 mls @ 200 mls/hr IVPB Q24H [facility] Last Admin: 08/09/17 03:44 Dose: 200 mls/hr Azithromycin 500 mg/ Sodium (Chloride) 250 mls @ 250 mls/hr IVPB Q24H [facility] Last Admin: 08/09/17 02:12 Dose: 250 mls/hr Lactobacillus Rhamnosus (Lactobacillus Acidophilus*) 1 tab .SEE ORDER DAILY [facility] Last Admin: 08/09/17 09:30 Dose: 1 tab Losartan Potassium (Cozaar Tab*) 12.5 mg G TUBE DAILY [facility] Last Admin: 08/09/17 09:30 Dose: 12.5 mg Methylprednisolone Sodium Succinate (Solu-Medrol 40 Mg) 40 mg IV Q12H [facility] Mometasone Furoate/Formoterol Fumar (Dulera 200/5 Mdi*) 2 puff INH BID [facility] Last Admin: 08/09/17 07:54 Dose: 2 puff Morphine Sulfate (Morphine Vial*) 2 mg IV Q4H PRN PRN Reason: PAIN - MILD Last Admin: 08/09/17 12:26 Dose: 2 mg Nicotine (Nicotine Patch 7 Mg/24 Hr*) 1 patch TRANSDERM DAILY [facility] Last Admin: 08/09/17 09:27 Dose: 1 patch Ondansetron HCl (Zofran 40 Mg Vial*) 4 mg IV Q6H PRN PRN Reason: NAUSEA Oxybutynin Chloride (Ditropan Tab*) 5 mg G TUBE BID [facility] Last Admin: 08/09/17 09:31 Dose: 5 mg Oxycodone HCl (Oxycodone Oral.Soln*) 5 mg PO Q6H PRN PRN Reason: PAIN Pharmacy Profile Note (Nicotine Patch Removal Note*) 1 note FOLLOW UP 2100 [facility] Last Admin: 08/08/17 21:30 Dose: 1 note Vital Signs - 8 hr 08/09/17 08/09/17 08/09/17 11:12 11:27 11:29 Temperature 97.3 F Pulse Rate 80 82 Respiratory 16 88 Rate Blood Pressure 133/57 (mmHg) O2 Sat by Pulse 100 Oximetry 08/09/17 08/09/17 08/09/17 12:26 14:25 15:16 Temperature 97.8 F Pulse Rate 78 Respiratory 24 18 16 Rate Blood Pressure 117/60 (mmHg) O2 Sat by Pulse 98 Oximetry 08/09/17 15:28 Temperature Pulse Rate 88 Respiratory Rate Blood Pressure (mmHg) O2 Sat by Pulse 97 Oximetry Oxygen Devices in Use Now: Nasal Cannula Appearance: appears mildly short of breath, seems improved since yesterday. appears comfortable sitting on the edge of the bed. Eyes: No Scleral Icterus Ears/Nose/Mouth/Throat: Clear Oropharnyx, Mucous Membranes Moist Neck: NL Appearance and Movements; NL JVP, Trachea Midline Respiratory: Symmetrical Chest Expansion and Respiratory Effort, Clear to Auscultation Cardiovascular: NL Sounds; No Murmurs; No JVD Abdominal: NL Sounds; No Tenderness; No Distention Extremities: No Clubbing, Cyanosis, - - small amt of bilat ankle edema Skin: No Rash or Ulcers, No Nodules or Sclerosis Neurological: Alert and Oriented x 3 Result Diagrams: 08/10/17 06:03 08/09/17 06:29 Microbiology and Other Data: Microbiology 08/09/17 12:50 Stool Occult Blood (CANDIDA) - Final Stool Assess/Plan/Problems-Billing Assessment: This is a 76 year old female with history of severe COPD and hx of lung cancer that has been admitted for exacerbation of COPD. - Patient Problems (1) COPD exacerbation Current Visit: Yes Status: Acute Code(s): J44.1 - CHRONIC OBSTRUCTIVE PULMONARY DISEASE W (ACUTE) EXACERBATION SNOMED Code(s): 968963827 Comment: - continues to have moderate respiratory distress worse with exertion- improving very slowly - patient has very poor respiratory reserve suspect this will take her a long period to recover - Will change solumedrol to prednisone 40mg po daily - nebs PRN - Dulera BID - Azithromycin 500mg daily-treatment finished today - 2L NC continuous - will add flutter valve to assist with productive cough- continues to reports yellow sputum- reports flutter valve is helping (2) Gastroparesis Current Visit: No Status: Acute Code(s): K31.84 - GASTROPARESIS SNOMED Code(s): 365021181 Comment: - On tube feeds, at baseline - Hx of esophageal stricture s/p peg tube placement 20 years - 4 cans osmolite 1.5, infuses them overnight at 78 cc hr (3) History of lung cancer Current Visit: No Status: Chronic Code(s): Z85.118 - PERSONAL HISTORY OF MALIGNANT NEOPLASM OF BRONCHUS AND LUNG SNOMED Code(s): 894460174 Comment: - Last tx in 2012 - Per oncology, patient will need f/u CT, please see note from Amanda cMqueen NP (4) Hypertension Current Visit: No Status: Chronic Priority: Low Code(s): I10 - ESSENTIAL ( PRIMARY) HYPERTENSION SNOMED Code(s): 91079729 Comment: - BP remains stable - Continue Losartan (5) Thoracic back pain Current Visit: Yes Status: Acute Code(s): M54.6 - PAIN IN THORACIC SPINE SNOMED Code(s): 950302077 Comment: neurosurgery consulted - recommended continuing with pain management as fracture appears to be old (6) DVT prophylaxis Current Visit: No Status: Acute Code(s): NCD7048 - SNOMED Code(s): 326881282 Comment: - HSQ (7) Full code status Current Visit: No Status: Acute Code(s): Z78.9 - OTHER SPECIFIED HEALTH STATUS SNOMED Code(s): 426525298 Status and Disposition: Remain inpatient.
--- NOTE | 2017-08-09 19:02 | PN ---
Progress Note - Progress Note Date of Service: 08/09/17 SOAP: Subjective: [Patient seen this morning. CT thoracic spine obtained yesterday afternoon and reviewed. Persistent thoracic back pain, unchanged since yesterday. Pain manageable with medication. No new complaints. ] Objective: [General: Patient sitting up on bedside. Neuro: Speech is clear. Motor normal. Spine: Scoliosis and kyphosis. CT thoracic spine on 08/08/17 shows compression fracture of T5.] Assessment: [Results of thoracic spine CT discussed with the patient. We also discussed treatment of T5 fracture with conservative therapies including pain management, heat and ice application and avoidance of activity which worsens pain. Surgical intervention is not recommended at this time. She is agreeable to this plan. Plan also discussed with Dr. Monet and Zully Duran NP. ] Plan: [1. Continue pain management 2. Heat/ice application to upper back as tolerated 3. Patient can follow up in office with neurosurgery in 4 weeks if pain persists ]
[2017-08-09] MEDS: Nicotine Patch Removal NOTE FOLLOW UP SCH (21:02)
[2017-08-10] MEDS: Azithromycin IV(*) 500 MG in NS 0.9% 250 ML* 250 ML IVPB SCH (02:07)
[2017-08-10] MEDS: cefTRIAXone(*) 1 GM in NS 0.9% 50 ML* 50 ML IVPB SCH (03:35)
[2017-08-10] MEDS: Albuterol/Ipratropium NEB.SOL* Albuterol 2.5 MG/Ipratropium 0.5 MG 3 ML INH SCH ×4 (03:46→14:48)
[2017-08-10] MEDS ORDERED: methylPREDNISolone SOD 40 MG* 1 ML VIAL IV SCH (06:00)
[2017-08-10 06:40] LABS: Hematocrit 32 % (35-47); Hemoglobin 10.5 g/dl (12.0-16.0)
[2017-08-10] MEDS: Mometasone/Formoter 200/5 MDI INH SCH ×2 (08:03→20:10)
[2017-08-10] MEDS: Lactobacillus Acidophilus* 1 TAB SCH (08:52)
[2017-08-10] MEDS: Fluticasone NASAL SPRAY 50MCG* 16 gm SPRAY BTL NASAL SCH ×2 (08:52→21:50)
[2017-08-10] MEDS: Atorvastatin* 10 MG TAB G TUBE SCH (08:53)
[2017-08-10] MEDS: Aspirin 81 mg CHEW TAB* 81 MG TAB.CHEW G TUBE SCH (08:53)
[2017-08-10] MEDS: Losartan TAB* 25 MG G TUBE SCH (08:54)
[2017-08-10] MEDS: oxyCODONE ORAL.SOLN* 5 MG/5 ML UDC PO PRN ×2 (08:54→17:09)
[2017-08-10] MEDS: Ferrous Sulfate LIQ* 300 MG/5 ML UDC G TUBE SCH (08:54)
[2017-08-10] MEDS: Nicotine PATCH 7 MG/24 HR* PATCH TRANSDERM SCH (08:55)
[2017-08-10] MEDS ORDERED: predniSONE TAB* 20 MG PO SCH (09:00)
[2017-08-10] MEDS: Oxybutynin TAB* 5 MG G TUBE SCH ×2 (09:09→21:49)
[2017-08-10] MEDS: predniSONE TAB* 20 MG PO SCH (09:09)
[2017-08-10] MEDS: Heparin VIAL(*) 5000 UNITS/ML VIAL (FIVE THOUSAND) SUBCUT SCH ×2 (09:11→21:48)
--- NOTE | 2017-08-10 09:14 | PN ---
Subjective Date of Service: 08/10/17 Interval History: Continues to c/o of shortness of breath worse with exertion. slight improvement. patient states that at baseline she is only able to walk short distances before need to rest and allow breathing to recover. Denies chest pain. Denies n/v/d. Report left sided abd pain for 2 months, since her peg tube fell out and had to be changed, following with GI as an outpatient for cause of her pain. Stool occult was positive blood yesterday patient is currently being worked up as an out patient for causes of her anemia with PMD. Family History: Unchanged from Admission Social History: Unchanged from Admission Past Medical History: Unchanged from Admission Objective Active Medications: Acetaminophen (Tylenol Adult Liq*) 650 mg G TUBE Q4H PRN PRN Reason: FEVER/PAIN Albuterol (Ventolin 2.5 Mg/3 Ml Neb.Nereyda*) 2.5 mg INH Q2H PRN PRN Reason: SOB/WHEEZING Last Admin: 08/06/17 05:17 Dose: 2.5 mg Albuterol/Ipratropium (Duoneb (Albuterol 2.5 Mg/Ipratropium 0.5 Mg)) 1 neb INH Q4H [facility] Last Admin: 08/10/17 08:02 Dose: 1 neb Aspirin (Aspirin 81 Mg Chew Tab*) 81 mg G TUBE DAILY [facility] Last Admin: 08/10/17 08:53 Dose: 81 mg Atorvastatin Calcium (Lipitor*) 10 mg G TUBE DAILY [facility] Last Admin: 08/10/17 08:53 Dose: 10 mg Ferrous Sulfate (Feosol Liq*) 300 mg G TUBE DAILY [facility] Last Admin: 08/10/17 08:54 Dose: 300 mg Fluticasone Propionate (Flonase Nasal [place] 50mcg*) 1 spray NASAL BID [facility] Last Admin: 08/10/17 08:52 Dose: 1 spray Heparin Sodium (Porcine) (Heparin Vial(*)) 5,000 units SUBCUT Q12HR [facility] Last Admin: 08/09/17 20:49 Dose: 5,000 units Ceftriaxone Sodium 1 gm/ (Sodium Chloride) 50 mls @ 200 mls/hr IVPB Q24H [facility] Last Admin: 08/10/17 03:35 Dose: 200 mls/hr Lactobacillus Rhamnosus (Lactobacillus Acidophilus*) 1 tab .SEE ORDER DAILY [facility] Last Admin: 08/10/17 08:52 Dose: 1 tab Losartan Potassium (Cozaar Tab*) 12.5 mg G TUBE DAILY [facility] Last Admin: 08/10/17 08:54 Dose: 12.5 mg Mometasone Furoate/Formoterol Fumar (Dulera 200/5 Mdi*) 2 puff INH BID [facility] Last Admin: 08/10/17 08:03 Dose: 2 puff Morphine Sulfate (Morphine Vial*) 2 mg IV Q4H PRN PRN Reason: PAIN - MILD Last Admin: 08/09/17 22:38 Dose: 2 mg Nicotine (Nicotine Patch 7 Mg/24 Hr*) 1 patch TRANSDERM DAILY [facility] Last Admin: 08/10/17 08:55 Dose: 1 patch Ondansetron HCl (Zofran 40 Mg Vial*) 4 mg IV Q6H PRN PRN Reason: NAUSEA Oxybutynin Chloride (Ditropan Tab*) 5 mg G TUBE BID [facility] Last Admin: 08/09/17 20:49 Dose: 5 mg Oxycodone HCl (Oxycodone Oral.Soln*) 5 mg PO Q6H PRN PRN Reason: PAIN Last Admin: 08/10/17 08:54 Dose: 5 mg Pharmacy Profile Note (Nicotine Patch Removal Note*) 1 note FOLLOW UP 2100 [facility] Last Admin: 08/09/17 21:02 Dose: 1 note Prednisone (Deltasone Tab*) 40 mg PO DAILY [facility] Vital Signs - 8 hr 08/10/17 08/10/17 08/10/17 03:24 03:44 07:20 Temperature 97.7 F 97.9 F Pulse Rate 107 98 85 Respiratory 20 18 16 Rate Blood Pressure 105/65 148/54 (mmHg) O2 Sat by Pulse 99 98 99 Oximetry 08/10/17 08/10/17 08/10/17 08:04 08:06 08:54 Temperature Pulse Rate 90 Respiratory 20 22 Rate Blood Pressure (mmHg) O2 Sat by Pulse 100 100 Oximetry Oxygen Devices in Use Now: Nasal Cannula Appearance: moderately short of breath , able to speak full sentences, frail , thin women Eyes: No Scleral Icterus Ears/Nose/Mouth/Throat: Clear Oropharnyx, Mucous Membranes Moist Neck: NL Appearance and Movements; NL JVP, Trachea Midline Respiratory: Symmetrical Chest Expansion and Respiratory Effort, Clear to Auscultation, - - exp wheezes on the left , Cardiovascular: NL Sounds; No Murmurs; No JVD, No Edema Abdominal: - - normal sounds , peg tubes in place, mild left sided abd tenderness with palpation Extremities: No Edema, No Clubbing, Cyanosis Skin: No Rash or Ulcers, No Nodules or Sclerosis Neurological: Alert and Oriented x 3 Nutrition: Taking PO's Result Diagrams: 08/10/17 06:03 08/09/17 06:29 Microbiology and Other Data: Microbiology 08/09/17 12:50 Stool Occult Blood (CANDIDA) - Final Stool Assess/Plan/Problems-Billing Assessment: This is a 76 year old female with history of severe COPD and hx of lung cancer that has been admitted for exacerbation of COPD. - Patient Problems (1) COPD exacerbation Current Visit: Yes Status: Acute Code(s): J44.1 - CHRONIC OBSTRUCTIVE PULMONARY DISEASE W (ACUTE) EXACERBATION SNOMED Code(s): 665368043 Comment: -Dr. Seha consulted- for further - continues to have moderate respiratory distress worse with exertion- improving very slowly - patient has very poor respiratory reserve suspect this will take her a long period to recover - Will change solumedrol to prednisone 40mg po daily - nebs PRN - Dulera BID - Azithromycin 500mg daily-treatment finished today 08/10/17 - 2L NC continuous - will add flutter valve to assist with productive cough- continues to reports yellow sputum- reports flutter valve is helping (2) Gastroparesis Current Visit: No Status: Acute Code(s): K31.84 - GASTROPARESIS SNOMED Code(s): 503546991 Comment: - On tube feeds, at baseline - Hx of esophageal stricture s/p peg tube placement 20 years - 4 cans osmolite 1.5, infuses them overnight at 78 cc hr (3) History of lung cancer Current Visit: No Status: Chronic Code(s): Z85.118 - PERSONAL HISTORY OF MALIGNANT NEOPLASM OF BRONCHUS AND LUNG SNOMED Code(s): 586354100 Comment: - Last tx in 2012 - Per oncology, patient will need f/u CT, please see note from Amanda Mcqueen NP (4) Hypertension Current Visit: No Status: Chronic Priority: Low Code(s): I10 - ESSENTIAL ( PRIMARY) HYPERTENSION SNOMED Code(s): 83693337 Comment: - BP remains stable - Continue Losartan (5) Thoracic back pain Current Visit: Yes Status: Acute Code(s): M54.6 - PAIN IN THORACIC SPINE SNOMED Code(s): 025822720 Comment: neurosurgery consulted - recommended continuing with pain management as fracture appears to be old (6) DVT prophylaxis Current Visit: No Status: Acute Code(s): IOV8606 - SNOMED Code(s): 558029153 Comment: - HSQ (7) Full code status Current Visit: No Status: Acute Code(s): Z78.9 - OTHER SPECIFIED HEALTH STATUS SNOMED Code(s): 811047180 Status and Disposition: Remain inpatient.
[2017-08-10] MEDS ORDERED: Sodium Chloride(INHALANT) 7%* 4 ML NEB.SOLN INH PRN (16:40)
[2017-08-10] MEDS ORDERED: Levalbuterol HFA INHALER* 1 PUFF MDI INH PRN (17:41)
[2017-08-10] MEDS ORDERED: Acetylcysteine INHALATION SOL* 200 MG/ML NEB.SOLN 10 ML INH SCH (19:00)
[2017-08-10] MEDS: Albuterol 2.5 MG/3 ML NEB.SOL* (0.083%) INH SCH (20:10)
[2017-08-10] MEDS: Nicotine Patch Removal NOTE FOLLOW UP SCH (21:49)
[2017-08-11] MEDS: oxyCODONE ORAL.SOLN* 5 MG/5 ML UDC PO PRN ×2 (00:02→12:17)
[2017-08-11] MEDS: Albuterol 2.5 MG/3 ML NEB.SOL* (0.083%) INH SCH ×3 (00:41→13:50)
[2017-08-11] MEDS: cefTRIAXone(*) 1 GM in NS 0.9% 50 ML* 50 ML IVPB SCH (01:53)
[2017-08-11] MEDS: Acetaminophen ADULT LIQ* 650 MG/20.3 ML UDC G TUBE PRN ×2 (02:28→12:17)
--- NOTE | 2017-08-11 03:36 | CONS ---
PULMONARY CONSULTATION REPORT: DATE OF CONSULT: 08/10/17 CONSULTATION REQUESTED BY: Zully Duran NP. REASON FOR CONSULT: Evaluation of shortness of breath, COPD exacerbation. HISTORY OF PRESENT ILLNESS: The patient is a 76-year-old female with history of severe COPD, hypertension, dyslipidemia; lung cancer, status post radiation, surgery in the past; history of hypercalcemia, osteoporosis; cricopharyngeal dysphagia, status post PEG tube placement; cor pulmonale, mitral regurgitation. The patient presents for evaluation of worsening shortness of breath, was admitted on 08/06/17. The patient reports gradually worsening shortness of breath over the past 2 weeks. The patient also reports having pain in the back of her chest in between the shoulder blades that was sharp. The patient denies significant cough, reports inability to bring out the phlegm. The patient denies chest pain, chest tightness, palpitations, dizziness. The patient recently has been having poor oral intake secondary to PEG complications. She recently was able to increase feeds through her PEG. The patient reports that her breathing has been troublesome since the surgery in April. She had complicated postop course in April. The patient was in moderate amount of distress when she presented in the emergency room, was admitted for acute COPD exacerbation. She was placed on BiPAP. The patient reports slight improvement in shortness of breath. The patient reports having trouble ambulating to the bathroom. The patient reports inability to bring out the phlegm. Has been evaluated for back pain, noted to have compression fracture of the vertebrae, was seen by Neurosurgery, and is on medical management. Nebulizers have been helpful. She was started on steroids and bronchodilators. Chest x-ray on admission was personally reviewed by me - evidence of hyperinflation, consistent with COPD with no acute parenchymal opacities. PAST MEDICAL HISTORY: 1. COPD. 2. Hypertension. 3. Dyslipidemia. 4. History of lung cancer, status post lung resection surgery and radiation. 5. Hypercalcemia. 6. Osteoporosis. 7. Cricopharyngeal dysphagia. 8. Cor pulmonale. 9. Mitral regurgitation. PAST SURGICAL HISTORY: 1. J-tube and G-tube placement. 2. Parathyroidectomy. 3. Appendectomy. 4. Hysterectomy. 5. Laparoscopic cholecystectomy. 6. Exploratory laparotomy. 7. Tonsillectomy. MEDICATIONS AT HOME: 1. Oxycodone. 2. Ferrous sulfate. 3. MiraLAX. 4. Ibuprofen. 5. Advair. 6. Probiotic. 7. Estradiol. 8. Lipitor. 9. Flonase. 10. Aspirin. 11. Ventolin. 12. Oxygen. 13. Singulair. 14. Losartan. 15. Xopenex. 16. Detrol. ALLERGIES TO MEDICATIONS: SULFA, LEVAQUIN, and CHANTIX. FAMILY HISTORY: Heart disease and CVA; kidney cancer in father. SOCIAL HISTORY: Former smoker. No alcohol or drug abuse. REVIEW OF SYSTEMS: All 14 systems reviewed and as per HPI. PHYSICAL EXAM: The patient is a thin-appearing female older than her stated age , in no apparent distress. Vital Signs: Temperature 98, pulse 75 beats per minute, respiratory rate 18 per minute, O2 sat 99% on 2 L, blood pressure 120/ 53. HEENT: Pupils are equal, reactive to light. Mucous membranes moist. Lungs : No accessory muscle usage, diminished air entry bilaterally and distant breath sounds, prolonged expiratory phase and scattered wheeze present. Cardiovascular: S1, S2 present. Regular. Abdomen: Soft. PEG tube in place. Nontender, nondistended. Bowel sounds present. Extremities: Normal range of motion. No edema. Skin: No rash or bruise. Neuro: No focal deficits. DIAGNOSTIC STUDIES/LAB DATA: WBC count 9.5, hemoglobin 10.3, hematocrit 31, platelet count 249. Blood gas analysis on admission showed evidence of compensated respiratory acidosis with pO2 of 85. Sodium 140, potassium 4.3, chloride 107, bicarb 31, BUN 33, creatinine 0.57. Troponin is within normal limits. BNP slightly elevated at 146. Chest x-ray as described above in the HPI. IMPRESSION AND RECOMMENDATIONS: 76-year-old female with history of severe emphysema, decreased reserve at baseline secondary to chronic obstructive pulmonary disease and prior lung resection surgery and radiation, admitted with worsening shortness of breath and cough, found to have acute chronic obstructive pulmonary disease exacerbation complicated by compression fracture of the back. 1. Improving slowly given low reserve to begin with, not able to see significant change. 2. Continue with current management for acute chronic obstructive pulmonary disease exacerbation. 3. Would start with 40 mg of prednisone today, taper off to 30 mg tomorrow if stable and then taper off slowly from there by 5 mg weekly, would help with overall systemic inflammation she is having, and help with the weight gain, and improving nutritional status. 4. Continue with bronchodilators. The patient has thick phlegm and is having difficulty mobilizing the phlegm. Would order hypertonic saline nebs. Will also order Mucomyst to help mobilize the phlegm. Continue with flutter device. Thank you for allowing me to participate in care of your patient. Will follow up with you. D/w Zully Duran NP [id number]/[facility] #: [id number] TANYA
[2017-08-11 07:46] VITALS: BP 138/61
[2017-08-11] MEDS: Mometasone/Formoter 200/5 MDI INH SCH (08:03)
[2017-08-11] MEDS: Nicotine PATCH 7 MG/24 HR* PATCH TRANSDERM SCH (08:48)
[2017-08-11] MEDS: Fluticasone NASAL SPRAY 50MCG* 16 gm SPRAY BTL NASAL SCH (08:50)
[2017-08-11] MEDS: Heparin VIAL(*) 5000 UNITS/ML VIAL (FIVE THOUSAND) SUBCUT SCH (08:51)
[2017-08-11] MEDS: Ferrous Sulfate LIQ* 300 MG/5 ML UDC G TUBE SCH (08:54)
[2017-08-11] MEDS: Aspirin 81 mg CHEW TAB* 81 MG TAB.CHEW G TUBE SCH (08:54)
[2017-08-11] MEDS: Oxybutynin TAB* 5 MG G TUBE SCH (08:54)
[2017-08-11] MEDS: Lactobacillus Acidophilus* 1 TAB SCH (08:54)
[2017-08-11] MEDS: Atorvastatin* 10 MG TAB G TUBE SCH (08:54)
[2017-08-11] MEDS: Losartan TAB* 25 MG G TUBE SCH (08:55)
[2017-08-11] MEDS: predniSONE TAB* 20 MG PO SCH (08:55)
[2017-08-11] MEDS ORDERED: Acetylcysteine ORAL SOL* 200 MG/ML VIAL INH SCH (13:00)
--- NOTE | 2017-08-11 14:28 | PN ---
Progress Note - Progress Note Date of Service: 08/11/17 - Pulm f/u note Note: Pt seen and examined at bedside. Pt reprots feeling better while at rest, hasnot tried walking. Hyper jimmy nebs helped to mobilize secretions Active Medications Generic Name Dose Route Start Last Admin Trade Name Freq PRN Reason Stop Dose Admin Acetaminophen 650 mg 08/06/17 01:28 08/11/17 12:17 Tylenol Adult Liq* G TUBE 650 mg Q4H PRN Administration FEVER/PAIN Acetylcysteine 400 mg 08/11/17 13:00 08/11/17 13:56 Mucomyst Oral Nereyda* INH 400 mg [id number] AWAKE ARACELI Administration Albuterol 2.5 mg 08/10/17 19:00 08/11/17 13:50 Ventolin 2.5 Mg/3 Ml Neb.Nereyda* INH 2.5 mg [id number] AWAKE ARACELI Administration Aspirin 81 mg 08/06/17 09:00 08/11/17 08:54 Aspirin 81 Mg Chew Tab* G TUBE 81 mg DAILY ARACELI Administration Atorvastatin Calcium 10 mg 08/06/17 09:00 08/11/17 08:54 Lipitor* G TUBE 10 mg DAILY ARACELI Administration Ferrous Sulfate 300 mg 08/06/17 09:00 08/11/17 08:54 Feosol Liq* G TUBE 300 mg DAILY ARACELI Administration Fluticasone Propionate 1 spray 08/06/17 09:00 08/11/17 08:50 Flonase Nasal [place] 50mcg* NASAL 1 spray BID ARACELI Administration Heparin Sodium (Porcine) 5,000 units 08/09/17 21:00 08/11/17 08:51 Heparin Vial(*) SUBCUT 5,000 units Q12HR ARACELI Administration Ceftriaxone Sodium 1 gm/ 50 mls @ 200 mls/hr 08/06/17 02:00 08/11/17 01:53 Sodium Chloride IVPB 200 mls/hr Q24H ARACELI Administration Lactobacillus Rhamnosus 1 tab 08/06/17 09:00 08/11/17 08:54 Lactobacillus Acidophilus* .SEE ORDER 1 tab DAILY ARACELI Administration Levalbuterol HCl 2 puff 08/10/17 17:41 Xopenex Hfa Inhaler* INH Q6H PRN SHORTNESS OF BREATH Losartan Potassium 12.5 mg 08/06/17 09:00 08/11/17 08:55 Cozaar Tab* G TUBE 12.5 mg DAILY ARACELI Administration Mometasone Furoate/Formoterol Fumar 2 puff 08/06/17 09:00 08/11/17 08:03 Dulera 200/5 Mdi* INH 2 puff BID ARACELI Administration Morphine Sulfate 2 mg 08/06/17 01:27 08/09/17 22:38 Morphine Vial* IV 2 mg Q4H PRN Administration PAIN - MILD Nicotine 1 patch 08/06/17 09:00 08/11/17 08:48 Nicotine Patch 7 Mg/24 Hr* TRANSDERM 1 patch DAILY ARACELI Administration Ondansetron HCl 4 mg 08/06/17 01:23 Zofran 40 Mg Vial* IV Q6H PRN NAUSEA Oxybutynin Chloride 5 mg 08/06/17 09:00 08/11/17 08:54 Ditropan Tab* G TUBE 5 mg BID ARACELI Administration Oxycodone HCl 5 mg 08/06/17 01:38 08/11/17 12:17 Oxycodone Oral.Soln* PO 5 mg Q6H PRN Administration PAIN Pharmacy Profile Note 1 note 08/06/17 21:00 08/10/17 21:49 Nicotine Patch Removal Note* FOLLOW UP 1 note 2100 ARACELI Administration Prednisone 40 mg 08/10/17 09:00 08/11/17 08:55 Deltasone Tab* PO 40 mg DAILY ARACELI Administration Sodium Chloride 4 ml 08/10/17 16:40 08/11/17 08:03 Hyper-Jimmy 7%* INH 4 ml .SEE ORDERS PRN Administration WHEEZING Vital Signs Temp Pulse Resp BP Pulse Ox 98.6 F 78 20 138/61 100 08/11/17 07:32 08/11/17 13:51 08/11/17 13:51 08/11/17 07:32 08/11/17 13:51 Active Medications O/E: Pt in NAD, sitting up in chair HEENT: PERRLA, No JVD Lungs: prolonged exp phase, scaterred wheeze + CVS: S1, S2+ Abd: Soft, BS, PEG + Neuro: No focal defecits Skin: No rash 08/09/17 08/09/17 08/10/17 06:29 06:29 06:03 WBC 9.5 RBC 3.50 L Hgb 10.3 L 10.5 L Hct 31 L 32 L MCV 89 MCH 29 MCHC 33 RDW 14 Plt Count 249 MPV 8.9 Neut % (Auto) 93.5 H Lymph % (Auto) 3.9 L [place] % (Auto) 2.5 Eos % (Auto) 0 Baso % (Auto) 0.1 Absolute Neuts (auto) 8.9 H Absolute Lymphs (auto) 0.4 L Absolute Monos (auto) 0.2 Absolute Eos (auto) 0 Absolute Basos (auto) 0 Absolute Nucleated RBC 0 Nucleated RBC % 0 Sodium 140 Potassium 4.3 Chloride 107 Carbon Dioxide 31 Anion Gap 2 BUN 33 H Creatinine 0.57 Est GFR ( Amer) 132.3 Est GFR (Non-Af Amer) 102.8 BUN/Creatinine Ratio 57.9 H Glucose 157 H Calcium 9.3 I/R: 76 y o f former smoker with h/o sever COPD, lung cancer s/p resection, s/ p PEG tube placement with complicated course recently a/w worsening SOB, being treated for acute COPD exacerbation Pt reports improvement in sx She gets winded with minimal exertion She has minimal reserve due to sever emphysema Able to mobilize phleghm with saline nebs Will c/w nebs c/w prednisone taper over 2 weeks and will stay on 5mg for 2-3 months Pt was started on pulm rehab at home, to be reinitiated upon d/c Pt has hypoxia at rest and with exertion and is on O2 supplementation Pt doesnot have portable O2 concentrator and has trouble carrying heavbier tanks She would benefit from portable O2 concentrator Will need to set up [facility] Pt feels ready to go home today Will f/u on Sunday 08/20
--- NOTE | 2017-08-12 05:42 | DS ---
CC: Alonso Santos MD; Radha Shea MD * DISCHARGE SUMMARY: DATE OF ADMISSION: 08/06/17 DATE OF DISCHARGE: 08/11/17 PRINCIPAL DISCHARGE DIAGNOSES: 1. Chronic obstructive pulmonary disease exacerbation. 2. T5 compression fracture. SECONDARY DISCHARGE DIAGNOSES: 1. Osteoporosis. 2. Chronic hypoxic respiratory failure. 3. Cricopharyngeal dysphagia. 4. History of lung cancer, in remission. 5. Hypertension. 6. Mitral regurgitation. DISCHARGE MEDICATIONS: 1. Lactobacillus 1 cap daily. 2. Singulair 10 mg daily. 3. Atorvastatin 10 mg daily. 4. Aspirin 81 mg daily. 5. Losartan 12.5 mg daily. 6. Xopenex 2 puffs q.6 p.r.n. wheezing. 7. Ventolin 2.5 mg inhaled q.6 p.r.n. wheezing. 8. 2 L of oxygen at night. 9. Estradiol 10 mcg vaginal q.72 hours. 10. Tolterodine 2 mg b.i.d. 11. Fluticasone 1 spray nasally b.i.d. 12. Oxycodone 5 mg q.6 p.r.n. pain. 13. Ferrous sulfate liquid 5 mL daily. 14. MiraLAX 17 g daily. 15. Ibuprofen 600 mg t.i.d. p.r.n. pain. 16. Advair 1 puff inhaled b.i.d. 17. Alendronate 10 mg p.o. daily. 18. Prednisone 40 mg daily for 5 more days. HOSPITAL COURSE BY PROBLEM: 1. COPD exacerbation. Ms. Trotter was admitted for worsening shortness of breath and cough. She required BiPAP at the time of admission, but was weaned off of that and on to 2 L O2. She was treated with 5 days of azithromycin. During her admission, she was treated with IV steroids and she is being discharged with p.o. prednisone for 5 more days. She was evaluated by Dr. Shea in the hospital and is well known to her from the outpatient setting. She found her to be at her baseline from a respiratory standpoint on the day of discharge. She is to continue Advair as well as p.r.n. rescue inhalers. She did not qualify for oxygen during the daytime. On ambulation, the lowest her oxygen dropped was 89%. So, she should continue oxygen nocturnally. She has a followup with Dr. Shea in 4 days. 2. T5 compression fracture. Likely related to osteoporosis and frequent steroid use. She was given pain control and neurosurgery recommended conservative management, but did not think any bracing would help due to her severe kyphosis. I have started her on alendronate at the time of discharge. 3. Cricopharyngeal dysphagia. She was continued on her tube-feeds as she does at home. She uses Osmolite 1.5 four cans overnight at 78 cc per hour. 4. History of lung cancer. She follows with Dr. Trevino for history of squamous cell cancer. Oncology was consulted on this admission due to the finding of nodules on her CT scan at admission; however, they believe them to be inflammatory and not a recurrence of malignancy. She is to follow up with Dr. Trevino on 08/23/17 where they will discuss the timing for serial CTs for followup. PHYSICAL EXAMINATION: At the time of discharge, temperature 98.6, heart rate 78 , respiratory rate 20, pulse ox 100% on 2 L, 89% with ambulation, and 93% at rest on room air. General: Thin, frail woman in no distress. She is breathing comfortably with no accessory respiratory muscles. HEENT: Pupils are equal, round, and reactive to light. Moist oral mucosa with no pharyngeal exudates. Neck: No cervical or supraclavicular lymphadenopathy. No JVP. Chest : Regular rate and rhythm. Prolonged expiratory phase. No wheezes are noted and good air movement is noted. Abdomen: Soft, nontender, nondistended. J- tube is in placed. Extremities: No edema, rashes, or ulcers. DISPOSITION: Ms. Trotter is being discharged to home with her in fair condition. She is encouraged to attend to the emergency department should she develop worsening shortness of breath, chest pain, cough, fevers, or other symptoms. TIME SPENT: 60 minutes were spent on this discharge with 50% of the time spent [id number] with the patient. Please feel free to contact me with any questions or concerns about her admission or discharge. [id number]/[facility] #: [id number] MTDD
== END 2017-08-11 16:15 | disposition home health service (06) | DRG 191 ==
LOC: ED 23:15 → MEDTELE 08-06 01:31
PROVIDERS: ADMIT Hospitalist; ATTEND Internal Medicine
DX: J44.1 Chronic obstructive pulmonary disease with (acute) exacerbation (principal); E46 Unspecified protein-calorie malnutrition; Z68.1 Body mass index [BMI] 19.9 or less, adult; J96.11 Chronic respiratory failure with hypoxia; M80.08XA Age-related osteoporosis with current pathological fracture, vertebra(e), initial encounter for fracture; I10 Essential (primary) hypertension; E78.5 Hyperlipidemia, unspecified; R13.13 Dysphagia, pharyngeal phase; I34.0 Nonrheumatic mitral (valve) insufficiency; E89.2 Postprocedural hypoparathyroidism; E83.52 Hypercalcemia; M41.9 Scoliosis, unspecified; M19.90 Unspecified osteoarthritis, unspecified site; H35.30 Unspecified macular degeneration; R91.8 Other nonspecific abnormal finding of lung field; K31.84 Gastroparesis; K22.2 Esophageal obstruction; D64.9 Anemia, unspecified; Z79.82 Long term (current) use of aspirin; Z90.710 Acquired absence of both cervix and uterus; Z85.118 Personal history of other malignant neoplasm of bronchus and lung; Z92.3 Personal history of irradiation; Z93.1 Gastrostomy status; Z90.49 Acquired absence of other specified parts of digestive tract; Z88.2 Allergy status to sulfonamides; Z88.1 Allergy status to other antibiotic agents; Z88.8 Allergy status to other drugs, medicaments and biological substances; Z82.49 Family history of ischemic heart disease and other diseases of the circulatory system; Z80.51 Family history of malignant neoplasm of kidney; Z82.3 Family history of stroke; Z87.891 Personal history of nicotine dependence; Z85.828 Personal history of other malignant neoplasm of skin; Z93.4 Other artificial openings of gastrointestinal tract status; Z99.81 Dependence on supplemental oxygen
CPT/HCPCS: 36415; 36600; 71045; 71250; 72128; 80048; 80053; 82270; 82803; 83605; 83880; 84484; 85014; 85018; 85025; 85610; 85730; 86140; 87040; 93005; 94640; 94660; 99233; 99284; A9270-GY; J0456; J0696; J1644; J2270; J2920; J2930; J3475; J7512

== ENCOUNTER 2017-09-05 19:34 | Emergency (ER) | payer MEDICARE, OTHER ==
--- NOTE | 2017-09-05 19:44 | UC ---
Skin Complaint HPI - HPI Summary HPI Summary: 76 yo female presents with chronic wound to right lower leg. She tells me that this wound has been present for about a month and she is being seen by wound care for this. Over the last two days, however, has noticed redness spreading down her leg with some swelling. She is concerned that this is infected. Initially, the nursing staff was concerned that pt was short of breath and applied 2L O2 NC. Pt tells me that she has COPD and wears oxygen at bedtime, but never during the day. She admits that she gets short of breath with any activity - but this is NOT increased from her baseline. Denies fever, chills, chest pain. - History of Current Complaint Time Seen by Provider: 09/05/17 19:44 Stated Complaint: ANKLE SWELLING,WOUND INFLAMATION Hx Obtained From: Patient Onset/Duration: Gradual Onset Onset Severity: Moderate Current Severity: Moderate - Allergy/Home Medications Allergies/Adverse Reactions: Allergies Allergy/AdvReac Type Severity Reaction Status Date / Time Sulfa (Sulfonamide Allergy Severe Hives Verified 09/05/17 19:49 Antibiotics) levofloxacin Allergy Unknown Dizziness Verified 09/05/17 19:49 [email or web address] Allergy Unknown Verified 09/05/17 19:49 Reaction Details Review of Systems Constitutional: Negative Skin: Other - Wound right leg Respiratory: Negative Cardiovascular: Negative Neurovascular: Negative Musculoskeletal: Negative Neurological: Negative Psychological: Negative All Other Systems Reviewed And Are Negative: Yes PMH/Surg Hx/FS Hx/Imm Hx - Additional Past Medical History Additional PMH: throat stricture Endocrine History: Dyslipidemia Cardiovascular History: Cardiac Disease Respiratory History: COPD - Surgical History Surgical History: Yes Surgery Procedure, Year, and Place: hysterectomy;as ribs- malignant tumor left with radiation;appendectomy;D&C x 2;cholecystectomy;left knee tumor; wrist benign;peg tube 20 yrs ago - stricture throat;cataract x 2 12/10, Skin CA removal, parathyroid surgery, J tube 05/16 - Family History Known Family History: Positive: Hypertension, Other - Neg: breast CA - Social History Occupation: Retired Lives: With Family Alcohol Use: None Substance Use Type: Prescribed Smoking Status (MU): Former Smoker Type: Cigarettes Length of Time of Smoking/Using Tobacco: Trying to quit, uses patch most days Have You Smoked in the Last Year: No - is currently using AMILCAR patch When Did the Patient Quit Smoking/Using Tobacco: 2 yrs ago Household Exposure Type: Cigarettes - Immunization History Most Recent Influenza Vaccination: 2016 Most Recent Tetanus Shot: fall 2011 Most Recent Pneumonia Vaccination: had boster but doesn't remember date Physical Exam - Summary Physical Exam Summary: GENERAL: NAD. WDWN. No pain distress. SKIN: RIGHT LOWER LEG: Anterior mid leg with 2.0cm healing wound with scant drainage and granular tissue. Posterior to this wound there is another wound that is 2.5cm and linear with a similar appearance. Mild edema and circumferential erythema extending down to the ankle. No streaking or bleeding. NECK: Supple. Nontender. No lymphadenopathy. CHEST: No accessory muscle use. Breathing comfortably and in no distress. With NC 2L O2 CV: Pulses intact DP and TP. NEURO: Alert. CN II-XII grossly intact. PSYCH: Age appropriate behavior. Triage Information Reviewed: Yes Vital Signs: Vital Signs: Temp Pulse Resp BP Pulse Ox 99.1 F 96 22 131/88 98 09/05/17 19:37 09/05/17 19:37 09/05/17 19:37 09/05/17 19:37 09/05/17 19:37 Course/Dx - Course Course Of Treatment: Chronic wound to right leg with possible infection. A culture was obtained and will be sent. She tells me that she has a lot of trouble with antibiotics giving her diarrhea - also her PCP has her allergic to cephalosporins. This limits the antibiotic option available in liquid for her j tube. She has not tolerated augmentin well in the past, but I feel this is the best choice at this time and will cause her less diarrhea than clindamycin. Advised her to f/u tomorrow with her PCP and/or wound clinic. The wound was redressed with xeroform and kerlix as how she presented. - Diagnoses Provider Diagnoses: Chronic wound to right leg Discharge - Sign-Out/Discharge Documenting (check all that apply): Discharge/Admit/Transfer - Discharge Plan Condition: Stable Disposition: HOME Referrals: Alonso Santos MD [Primary Care Provider] - 1 Day Additional Instructions: If you develop a fever, shortness of breath, chest pain, new or worsening symptoms - please call your PCP or go to the ED. 1) Please follow up with your PCP or the wound clinic tomorrow 2) If your redness and swelling increased - please go to the ER - Billing Disposition and Condition Condition: STABLE Disposition: Home
[2017-09-05 19:58] VITALS: BP 131/88
[2017-09-05] MEDS ORDERED: Amoxicillin/Clavulanate SUSP* 400 MG/5 ML BTL PO ONE (20:18)
== END 2017-09-05 20:39 | disposition home or self-care (01) ==
LOC: UCEAST 19:34
DX: S81.801A Unspecified open wound, right lower leg, initial encounter (principal); X58.XXXA Exposure to other specified factors, initial encounter; Y93.9 Activity, unspecified; Y92.9 Unspecified place or not applicable; E78.5 Hyperlipidemia, unspecified; I51.9 Heart disease, unspecified; J44.9 Chronic obstructive pulmonary disease, unspecified; Z88.1 Allergy status to other antibiotic agents; Z88.2 Allergy status to sulfonamides; Z87.891 Personal history of nicotine dependence
CPT/HCPCS: 87070; 87205; 99212; G0463

== ENCOUNTER → 2017-10-12 14:04 | Day surgery (SDC) | payer MEDICARE, OTHER ==
--- NOTE | 2017-10-12 16:13 | RAD ---
INDICATION: Jejunostomy tube placement COMPARISON: None TECHNIQUE: A single view of the abdomen is submitted. FINDINGS: There is been injection of a small amount of contrast (40 mL Gastrografin) via the jejunostomy tube and there is contrast opacification of the jejunum. There also appears to be a PEG tube. IMPRESSION: THE CONTRAST IS WITHIN THE JEJUNUM
--- NOTE | 2017-10-14 03:20 | PRO ---
CC: WILBER Pedraza; [facility] PROCEDURE NOTE: DATE OF PROCEDURE: 10/12/17 ATTENDING SURGEON: Epi Franco MD HISTORY OF PRESENT ILLNESS: This is a 76-year-old female with a feeding jejunostomy tube that was placed in [place] in April of this year. The tube fell out at home about an hour an half earlier and she presented for replacement of the tube. DESCRIPTION OF PROCEDURE: The patient brought in the tube from home that had been in placed. Nursing staff also provided additional catheters for potential use. The opening was relatively small and did not readily accept the 14-Filipino jejunostomy tube that had previously been in situ. I did dilate the tract with a 12-Filipino silicon catheter, which the patient tolerated fairly well. However , upon attempting passage of the 14-Filipino tube, it did not pass the point of the balloon and was painful for the patient. Therefore, the area of the jejunostomy was anesthetized with 1% plain lidocaine (a total of approximately 15 mL), which allowed easier dilation, and the skin and subcutaneum were dilated with a mosquito clamp, which then allowed passage of the jejunostomy tube with balloon (the balloon had been checked prior to replacement of the tube ). The balloon was filled with 10 mL of normal saline. The flange was attached along with a split dressing. There was no significant bleeding. The patient tolerated the procedure well. A Gastrografin study was obtained in the PACU area, which showed contrast within the jejunum and the patient was discharged. She has a tentative plan for replacement of the tube in October in our office and she will contact the surgeon's office in [place] to have a replacement tube available. The case was discussed with and the patient seen briefly by Dr. Franco as well. WILBER PEDRAZA [id number]/[facility] #: [id number] [facility] HOSPITALDarcie
== END | disposition home or self-care (01) ==
LOC: OR 14:04
PROVIDERS: ATTEND Surgery
DX: Z43.4 Encounter for attention to other artificial openings of digestive tract (principal); Z85.118 Personal history of other malignant neoplasm of bronchus and lung; Z85.89 Personal history of malignant neoplasm of other organs and systems; K59.8 Other specified functional intestinal disorders
CPT/HCPCS: 74018

== ENCOUNTER 2018-01-16 09:53 | Emergency (ER) | payer MEDICARE, OTHER ==
--- OUTSIDE RECORDS SUMMARY | 2018-01-16 10:00 | XMS REPORT | Continuity of Care Document ---
:1940 External Reference #:[id number] Author Name Mayo Min M.D. Address [address] [place] [address] Care Team Providers Name Role Phone Alonso Santos MD Care Team Information Table Cut Off Saw Operator Unavailable Danielle ROPER, Alonso Primary Care Physician Unavailable Payers Type Date Identification Numbers Payment Provider Subscriber Policy Number: [id number] Medicare [place] Leilani Trotter PayID: [id number] [address] [place] [address] Policy Number: [id number] [employer] Leilani Trotter PayID: [id number] [address] [place] [address] Advance Directives Description No Information Available Problems Date Description Provider Status Onset: 11/02/2013 After-cataract with vision obscured Mayo Min M.D. Active Onset: 11/13/2013 Exudative age-related macular Watson Bhandari O.D. Active degeneration Onset: 02/15/2014 Status Post Surgery Mayo Min M.D. Active Onset: 02/15/2014 Lens Replaced By Other Means Mayo Min M.D. Active Onset: 05/25/2016 Age-related exudative macular Mayo Min M.D. Active degeneration of left eye Onset: 05/25/2016 Vitreous degeneration Mayo Min M.D. Active Family History Date Family Member(s) Problem(s) Comments General Cataract General Brother Father Noncontributory Mother Heart Disease Social History Type Date Description Comments Sex Unknown ETOH Use Denies alcohol use Tobacco Use Start: Unknown End: Unknown Patient is a former smoker Smoking Status Reviewed: 12/31/17 Patient is a former smoker Allergies, Adverse Reactions, Alerts Date Description Reaction Status Severity Comments 11/02/2013 Sulfa Antibiotics Active Medications Medication Date Status Form Strength Qnty SIG Indications Ordering Provider Cozaar 00/00 Active Tablets Unknown /0000 Lipitor 00/00 Active Tablets Unknown /0000 Detrol 00/00 Active Tablets Unknown /[address] Aspir-[address] 81mg once per day Unknown by mouth Albuterol Active Unknown Sulfate Advair Diskus Active Aerosol Unknown Flonase Active Suspension 50mcg/Act Unknown Sensipar Active Tablets Unknown / Losartan Active Tablets 50mg take 1 Unknown Potassium /0000 tablet once daily Xopenex HFA Active Aerosol 45mcg/Act Inhale 2 Unknown /0000 Puffs Four Times Daily as Needed Mupirocin Active Cream 2% apply to Unknown Calcium /0000 affected area Of Blistering Skin twice a day Fluconazole Active Suspension 40mg/ml Unknown Rec Nystatin Active Suspension 306857Eeh swish and Unknown t/ML swallow 1 teaspoonful by mouth four times a day for 14 days Meclizine HCL Active Tablets 12.5mg Unknown / Bprotected Active Solution 10mg/ml Unknown Pedia / Poly-Esvin/Iron Singulair Hx Unknown /0000 - 09/08 Polyethylene Hx Powder 3350NF take 17GM Unknown Glycol 3350 /0000 (Dissolved - In 8 Ounces 12/31 Water/Juice) once daily Ibuprofen Hx Suspension 100mg/5ML take 20 Unknown /0000 milliliters - every 4 to 6 12/31 hours needed Promethazine-Co Hx Syrup 6.25-10mg Unknown deine /0000 /5ML - 12/31 Tolterodine Hx Tablets 2mg Unknown Tartrate /0000 - 12/31 Clarithromycin Hx Suspension 250mg/5ML take 10 Unknown /0000 Rec milliliters - Via G-Tube 12/31 twice a day for 14 days Fluconazole Hx Tablets 150mg take 1 Unknown /0000 tablet - 12/31 Advair Diskus Hx Aerosol 250-50mcg Unknown /0000 /Dose - 09/08 Nystatin-Triamc Hx Cream 612632-3. apply three Unknown inolone /0000 1Unit/GM- times a day - % To Vulva for 09/08 5 days needed Vagifem / Hx Tablets 10mcg insert 1 Unknown /0000 tablet - vaginally 09/08 two times a week Valacyclovir 00/ Hx Tablets 1gm take 1 Unknown HCL /0000 tablet Via - G-Tube every 09/08 8 hours 1 week Vancomycin HCL Hx Capsules 125mg take 1 Unknown /0000 capsule Per - Peg four 09/08 times a day /2015 for 10 days Ceftin Hx Suspension 250mg/5ML take 2 Unknown /0000 Rec teaspoonfuls - Via G-Tube 09/08 twice a day /2016 for 10 days Prednisone 00 Hx Solution 5mg/5ML take 4 Unknown /0000 teaspoonfuls - once daily 09/08 for 2 days then Taper By 1 Teaspoonful Mupirocin Hx Ointment 2% Apply To Unknown /0000 Wound Daily - With 09/08 Dressing /2015 Changes Albuterol Hx Nebulizer 1.25mg/3M inhale Unknown Sulfate /0000 L contents of - 1 vial by 09/08 mouth in nebulizer four times a day if ne Acetaminophen-C Hx Solution 120-12mg/ Unknown odeine /0000 5ML - 12/31 Chantix 00/00 Hx Tablets 1mg take as Unknown Continuing /0000 directed Month Marques - 12/31 Tudorza 00/00 Hx Aerosol 400mcg/Ac Unknown Pressair /0000 t - 12/31 Immunizations Description No Information Available Vital Signs Date Vital Result Comment 12/31/2017 1:39pm Intraocular Pressure Right Eye 13 mmHg Intraocular Pressure Left Eye 13 mmHg 05/25/2016 9:14am Intraocular Pressure Right Eye 13 mmHg Intraocular Pressure Left Eye 13 mmHg 03/04/2015 10:55am Intraocular Pressure Right Eye 14 mmHg Intraocular Pressure Left Eye 14 mmHg 02/15/2014 10:23am Intraocular Pressure Right Eye 12 mmHg Intraocular Pressure Left Eye 12 mmHg 11/13/2013 2:10pm Intraocular Pressure Right Eye 14 mmHg Intraocular Pressure Left Eye 14 mmHg Results Description No Information Available Procedures Date Code Description Status 12/31/2017 67020 Oct Retina Completed 12/31/2017 58172 Eye Exam Est Intermediate Completed 06/30/2017 90437 Fundus Photography W/Interpretation & Report Completed 06/30/2017 02006 Refraction Completed 06/30/2017 81272 Eye Exam Est Intermediate Completed 12/30/2016 71875 Oct Retina Completed 12/30/2016 97025 Eye Exam Est Intermediate Completed 05/25/2016 58718 Fundus Photography W/Interpretation & Report Completed 05/25/2016 69432 Ophthalmoscopy Subsequent Completed 05/25/2016 06984 Eye Exam Est Comprehensive Completed 09/09/2015 88907 Oct Retina Completed 09/09/2015 85962 Eye Exam Est Intermediate Completed 03/04/2015 91864 Eye Exam Est Comprehensive Completed 03/04/2015 62489 Fundus Photography W/Interpretation & Report Completed 08/20/2014 49841 Oct Retina Completed 08/20/2014 91746 Eye Exam Est Intermediate Completed 02/15/2014 13292 Fundus Photography W/Interpretation & Report Completed 02/15/2014 16878 Ophthalmoscopy Subsequent Completed 02/15/2014 19019 Eye Exam Est Comprehensive Completed 11/02/2013 00340 Remove Secondary Cataract, Laser (Yag) Completed 09/04/2010 10448 Ophthalmoscopy Subsequent Completed 09/04/2010 77024 Eye Exam Est Intermediate Completed 06/06/2010 67577 Fundus Photography W/Interpretation & Report Completed 06/06/2010 73971 Ophthalmoscopy Initial Completed 06/06/2010 53707 Eye Exam New Comprehensive Completed Encounters Type Date Location Provider Dx Diagnosis Office Visit 11/05/2010 Main Office Mayo Min, 362.61 Retinal Degeneration 10:45a Mani Gutiérrez 362.52 Macular Degeneration Senile Exudative Plan of Treatment 12/31/2017 - Mayo Min M.D.[id number] Exudative age-related macular degeneration, bilateral, withFollow up:6 mos full
--- NOTE | 2018-01-16 11:57 | ED ---
GI/ HPI - HPI Summary HPI Summary: Patient is a 77-year-old female presenting to the ED after her G-tube fell out this morning, although she states it may have fallen out last night. G-tube has been placed for 15+ years. She also has a J-tube in place. 24 kyrgyz has been placed x several years (not placed at this facility.) This has been leaking , but she states this is not new. She also notes to a slight bulge in the area , stating it has not been lying flat. Denies any pain or other concerns. - History of Current Complaint Chief Complaint: EDGeneral Time Seen by Provider: 01/16/18 10:00 Stated Complaint: G TUBE CAME OUT Hx Obtained From: Patient Hx Last Menstrual Period: post Onset/Duration: Started Hours Ago Timing: Constant Severity: Moderate Current Severity: Moderate Pain Intensity: 0 - Additional Pertinent History Primary Care Physician: [id number] - Allergy/Home Medications Allergies/Adverse Reactions: Allergies Allergy/AdvReac Type Severity Reaction Status Date / Time Sulfa (Sulfonamide Allergy Severe Hives Verified 01/16/18 09:58 Antibiotics) levofloxacin Allergy Unknown Dizziness Verified 01/16/18 09:58 [email or web address] Allergy Unknown Verified 01/16/18 09:58 Reaction Details PMH/Surg Hx/FS Hx/Imm Hx Previously Healthy: Yes Endocrine/Hematology History: Reports: Hx Thyroid Disease - parathyroid surgery , Other Endocrine/Hematological Disorders - Parathyroid surgery Denies: Hx Diabetes Cardiovascular History: Reports: Hx Hypercholesterolemia, Hx Hypertension - ON MEDS Denies: Hx Congestive Heart Failure, Hx Pacemaker/ICD, Other Cardiovascular Problems/Disorders - MITRAL VALVE LEAKING Respiratory History: Reports: Hx Chronic Bronchitis, Hx Chronic Obstructive Pulmonary Disease (COPD) - WITH EMPHYSEMA, Hx Lung Cancer, Other Respiratory Problems/Disorders - HISTORY OF RESPERATORY INFECTIONS SINCE CHILDHOOD. 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 per pt Denies: Hx Rheumatoid Arthritis Sensory History: Reports: Hx Contacts or Glasses, Hx Macular Degeneration Denies: Hx Hearing Aid Opthamlomology History: Reports: Hx Contacts or Glasses, Hx Macular Degeneration Neurological History: Reports: Other Neuro Impairments/Disorders - PAIN CLINIC PT Psychiatric History: Denies: Hx Panic Disorder - Cancer History Cancer Type, Location and Year: left 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 13 months, Hx Chemotherapy: No Hx Radiation Therapy: Yes - As infant extensive radiation/ PT HAS HX LUNG CA 2012 - Surgical History Surgery Procedure, Year, and Place: appendectomy, hysterectomy, [place],left knee, left rib states malignany at age 13 months removed,parathyroid,esophageal stricture that requires a feeding tube for 20 years., J tube 04/2017 Hx Anesthesia Reactions: No - Immunization History Hx Pertussis Vaccination: No Immunizations Up to Date: Yes Infectious Disease History: No Infectious Disease History: Reports: Hx Clostridium Difficile Denies: Hx Hepatitis, Hx Human Immunodeficiency Virus (HIV), Hx of Known/ Suspected MRSA, Hx Shingles, Hx Tuberculosis, Hx Known/Suspected VRE, Hx Known/ Suspected VRSA, History Other Infectious Disease, Traveled Outside the [place] in Last 30 Days - Family History Known Family History: Positive: Hypertension, Other - Neg: breast CA - Social History Occupation: Unemployed Lives: With Family Alcohol Use: None Hx Substance Use: No Substance Use Type: Reports: None Hx Tobacco Use: Yes Smoking Status (MU): Former Smoker Type: Cigarettes Length of Time of Smoking/Using Tobacco: Trying to quit, uses patch most days Have You Smoked in the Last Year: No - is currently using AMILCAR patch Review of Systems Negative: Fever, Chills, Fatigue, Skin Diaphoresis Negative: Palpitations, Chest Pain Negative: Shortness Of Breath, Cough Negative: Abdominal Pain, Vomiting, Diarrhea, Nausea, Other - G tube replacement need; J tube is placed Genitourinary: Negative Positive: no symptoms reported, see HPI Negative: Rash, Bruising Neurological: Negative All Other Systems Reviewed And Are Negative: Yes Physical Exam Triage Information Reviewed: Yes Vital Signs On Initial Exam: Initial Vitals Temp Pulse Resp BP Pulse Ox 98.2 F 87 16 127/112 100 01/16/18 09:56 01/16/18 09:56 01/16/18 09:56 01/16/18 09:56 01/16/18 09:56 Vital Signs Reviewed: Yes Appearance: Positive: No Pain Distress Skin: Positive: Warm, Skin Color Reflects Adequate Perfusion, Other - no erythema or warmth surrounding the G tube or J tube Head/Face: Positive: Normal Head/Face Inspection Eyes: Positive: EOMI, THEODORA, Conjunctiva Clear Neck: Positive: Supple, No Lymphadenopathy Respiratory/Lung Sounds: Positive: Clear to Auscultation, Breath Sounds Present Cardiovascular: Positive: RRR, Pulses are Symmetrical in both Upper and Lower Extremities Musculoskeletal: Positive: Normal, Strength/ROM Intact Neurological: Positive: Speech Normal Psychiatric: Positive: Normal, Affect/Mood Appropriate AVPU Assessment: Alert Diagnostics - Vital Signs Vital Signs Temp Pulse Resp BP Pulse Ox 01/16/18 09:56 98.2 F 87 16 127/112 100 - Laboratory Lab Statement: Any lab studies that have been ordered have been reviewed, and results considered in the medical decision making process. GIGU Course/Dx - Course Course Of Treatment: During the course treatment, the patient's evaluated for a G-tube replacement. Doctor Latonia came to attempt to replace the G-tube without success. He was advised by interventional radiology to transfer the patient as IR is not available today. However, di and [facility] were both unable to complete the procedure today and state they are willing to accept the patient for tomorrow. However we have IR tomorrow. These physicians at these facilities both have stated as well they do not believe this is a emergent situation. I communicated this to Dr. Lincoln who agrees to place the patient for return status tomorrow for a G-tube replacement as we will have IR available at that time. Discussed this with patient who is agreeable. Nothing by mouth status as of midnight. - Diagnoses Provider Diagnoses: Gastrostomy tube dysfunction - Physician Notifications Discussed Care Of Patient With: Heriberto Lincoln Instructed by Provider To: Other - patient will be seen tomorrow and scheduled for IR replacement of G tube Discharge - Sign-Out/Discharge Documenting (check all that apply): Patient Departure - Discharge Plan Condition: Stable Disposition: HOME Referrals: Alonso Santos MD [Primary Care Provider] - Additional Instructions: As discussed, you will need to be NPO after midnight - Billing Disposition and Condition Condition: STABLE Disposition: Home
[2018-01-16 14:18] VITALS: BP 130/89
--- NOTE | 2018-01-17 09:23 | CONS ---
CC: Dr. Santos * CONSULTATION REPORT: DATE OF CONSULT: 01/16/18 - EMERGENCY DEPT REQUESTING PROVIDER: WILBER Car INDICATION: G-tube malfunction. NARRATIVE: Mrs. Trotter is a very pleasant 77-year-old female well known to myself. She has a history of severe COPD, oxygen requiring, and lung cancer, who also has had a chronic indwelling G-tube for greater than 15 years. This was placed secondary to a severe esophageal dysmotility. I have changed this PEG tube many times for her in the past. The patient also had a recent J-tube placed and then replaced recently, this was secondary to gastroparesis. She uses the G-tube simply for medications and the J-tube for hydration and nutrition. The patient states that last night she went to bed around 10 p.m., she had used the G-tube just before and it was working fine. She awoke at 8 a.m. on Wednesday morning and noted that the G-tube was partially out and then went to use it and the liquid sprayed all over the place and the G-tube was totally out at that point. She then called me. I instructed her to come to the emergency room. When she presented to the emergency room, I evaluated the tract. She did have a 24-Tongan tube in place prior. I did lubricate the tube and attempted to reinsert it through the original tract. Unfortunately, I met resistance, I tried multiple different angulations with no success. I then downsized to a 16-Tongan tube, again very well lubricated and again trying to find the existing tract. I spent approximately 15 minutes trying to find the tract. Unfortunately, there was resistance and I did not feel comfortable pushing through. At that point, I then spoke to [facility] Surgery facilities operations technician, who recommended trying exactly what I also attempted. They did not feel they had any better options. I then spoke to our interventional radiologist, who was not facilities operations technician, who stated that he could potentially use some dye and fluoroscopy and a smaller catheter and try and find the tract. Unfortunately, they were not available on Wednesday. The emergency room did contacted the [facility] and [facility], both those institutions we did speak to their interventional radiologists and they stated that this could wait to be performed as an outpatient in the next few days and the patient did not need to be transferred for this. This was communicated with the patient. She was understanding and I did arrange for interventional radiology at [facility] to attempt re-accessing the tract tomorrow morning. PAST MEDICAL HISTORY: Severe COPD, gastroparesis, constipation, history of lung cancer, history of pneumonia. MEDICATIONS ON ADMISSION: Include: 1. Advair. 2. Albuterol. 3. MiraLax. 4. Sensipar. 5. Singulair. 6. Vagifem. 7. Xopenex. ALLERGIES: She is allergic to SULFA, CHANTIX, LEVAQUIN, and CEFDINIR. FAMILY HISTORY: No gastrointestinal malignancies in the family. PHYSICAL EXAMINATION: Temperature is 98.2, blood pressure is 127/112, pulse of 87, respiratory rate of 16, O2 sat is 100% on 2 L. General: Chronically ill- appearing elderly female, in no apparent distress, alert, oriented, pleasant, fluent. Lungs: Coarse breath sounds bilaterally. Heart: Regular rate and rhythm. Abdomen: Is thin, numerous scars. She has an existing G-tube site that is clean, dry, and intact and a J-tube in place. Skin is warm and dry. DIAGNOSTIC STUDIES/LAB DATA: No labs of note. ASSESSMENT AND PLAN: This is a pleasant 77-year-old female, whose G-tube just fell out. I attempted re-accessing the original tract with both a 24 and 16- Tongan. Unfortunately, I met too much resistance and I could not re-access the tract. I did speak to our interventional radiologist today who recommended an attempt under fluoroscopy with dye tomorrow. This was communicated with the patient. She is understanding and agreeable. She will be n.p.o. after midnight and then first thing tomorrow morning, I will arrange for the interventional radiology appointment. Total time with patient and on telephone with multiple providers attempting to arrange treatmemnt was >2 hrs. [id number]/[facility] #: [id number] TANYA
== END 2018-01-16 14:17 | disposition home or self-care (01) ==
LOC: ED 09:53
DX: K94.23 Gastrostomy malfunction (principal); J44.9 Chronic obstructive pulmonary disease, unspecified; Z85.118 Personal history of other malignant neoplasm of bronchus and lung; Z88.2 Allergy status to sulfonamides; Z88.1 Allergy status to other antibiotic agents; E78.00 Pure hypercholesterolemia, unspecified; I10 Essential (primary) hypertension; Z87.891 Personal history of nicotine dependence
CPT/HCPCS: 99282

== ENCOUNTER 2018-02-01 15:15 | Inpatient (IN) | payer MEDICARE, OTHER ==
[2018-02-01] MEDS ORDERED: oxyCODONE TAB* 5 MG TAB PO ONE (15:28)
[2018-02-01] MEDS ORDERED: Morphine VIAL* 4 MG/ML VIAL (1 ml vial) IV ONE ×2 (16:03→20:33)
[2018-02-01 16:18] LABS: ABS Basophils 0.1 10^3/ul (0-0.2); ABS Eosinophils 0 10^3/ul (0-0.6); ABS Lymphocytes 1.8 10^3/ul (1.0-4.8); ABS Monocytes 0.7 10^3/ul (0-0.8); ABS Neutrophils 8.5 10^3/ul (1.5-7.7); ABS Nucleated RBC 0 10^3/ul; Eosinophil % 0 %; Hematocrit 38 % (35-47); Hemoglobin 12.1 g/dl (12.0-16.0); Lymphocyte % 16.3 %; Mean Corpuscular HGB Conc 32 g/dl (31-36); Mean Corpuscular Hemoglobin 26 pg (27-31); Mean Corpuscular Volume 82 fL (80-97); Mean Platelet Volume 8.5 fL (7.4-10.4); Nucleated Red Blood Cells % 0; Platelet Count 422 10^3/ul (150-450); Red Blood Count 4.58 10^6/ul (4.00-5.40); Red Cell Distribution Width 16 % (10.5-15)
[2018-02-01 16:50] LABS: EGFR Non-African American 85.1 (>60)
--- NOTE | 2018-02-01 19:30 | ED ---
HPI Chest Pain - HPI Summary HPI Summary: Patient is a 77 y/o F presenting to ED via ambulance with complaints of back pain with radiation to her chest just under her breast. Sx are reported to have onset four days ago and progressively worsened since onset. Per EMS, EKG was normal, pain with palpation is noted. Nausea is reported as well, which has since resolved. EMS provided 4 zofran, 50 fentanyl in ambulance. PMHx of COPD and emphysema, pain is worse with breathing. Patient notes that her breathing has been swallower and faster than normal. Patient is on home o2, no recent fall reported. Patient has both G-tube and J-tube in place. On triage, pain is rated 7/10, nothing is noted to aggravate/alleviate Sx. Home medications and allergies are reviewed. - History of Current Complaint Chief Complaint: EDChestWallPain Time Seen by Provider: 02/01/18 15:20 Hx Obtained From: Patient, EMS Hx Last Menstrual Period: post Onset/Duration: Started Days Ago - onset four days ago, Still Present, Worse Since Timing: Constant, Lasting Days - four days Initial Severity: Moderate Current Severity: Severe - 7/10 Pain Intensity: 7 Pain Scale Used: 0-10 Numeric - 7/10 Chest Pain Location: Lower Sternal Chest Pain Radiates: Yes Chest Pain Radiates To:: Back Aggravating Factor(s): Other: - breathing Alleviating Factor(s): Nothing Associated Signs and Symptoms: Positive: Chest Pain, Nausea, Back Pain, Other: - POSITIVE - FAST AND SHALLOW BREATHING; NEGATIVE - RECENT FALL - Additional Pertinent History Primary Care Physician: [id number] - Allergy/Home Medications Allergies/Adverse Reactions: Allergies Allergy/AdvReac Type Severity Reaction Status Date / Time Sulfa (Sulfonamide Allergy Severe Hives Verified 01/17/18 11:26 Antibiotics) varenicline Allergy Severe See Comment Verified 01/17/18 14:30 levofloxacin Allergy Intermediate Dizziness Verified 01/17/18 14:30 cefuroxime [From Ceftin] Allergy Unknown Verified 02/01/18 16:02 Reaction Details Home Medications: Home Medications Aclidinium [place] [Tudorza Pressair] 400 mcg INH BID 02/01/18 [History Confirmed 02/01/18] Cholecalciferol (Vitamin D3) [Vitamin D3] 15 ml PEG TUBE DAILY 02/01/18 [ History Confirmed 02/01/18] Losartan TAB* [Cozaar TAB*] 50 mg PEG TUBE DAILY 02/01/18 [History Confirmed 06/16] Metoclopramide TAB* [Reglan TAB*] 10 mg PO QID PRN 02/01/18 [History Confirmed 02/01/18] Tolterodine (NF) [Detrol (NF)] 1 mg PEG TUBE DAILY 02/01/18 [History Confirmed 02/01/18] PMH/Surg Hx/FS Hx/Imm Hx Endocrine/Hematology History: Reports: Hx Thyroid Disease - parathyroid surgery , Other Endocrine/Hematological Disorders - Parathyroid surgery Denies: Hx Diabetes Cardiovascular History: Reports: Hx Hypercholesterolemia, Hx Hypertension - ON MEDS Denies: Hx Congestive Heart Failure, Hx Pacemaker/ICD, Other Cardiovascular Problems/Disorders - MITRAL VALVE LEAKING Respiratory History: Reports: Hx Chronic Bronchitis, Hx Chronic Obstructive Pulmonary Disease (COPD) - WITH EMPHYSEMA, Hx Lung Cancer, Other Respiratory Problems/Disorders - HISTORY OF RESPERATORY INFECTIONS SINCE CHILDHOOD. 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 per pt Denies: Hx Rheumatoid Arthritis Sensory History: Reports: Hx Contacts or Glasses, Hx Macular Degeneration Denies: Hx Hearing Aid Opthamlomology History: Reports: Hx Contacts or Glasses, Hx Macular Degeneration Neurological History: Reports: Other Neuro Impairments/Disorders - PAIN CLINIC PT Psychiatric History: Denies: Hx Panic Disorder - Cancer History Cancer Type, Location and Year: left ribs at age 13 months, Hx Chemotherapy: No Hx Radiation Therapy: Yes - As infant extensive radiation/ PT HAS HX LUNG CA 2012 - Surgical History Surgery Procedure, Year, and Place: appendectomy, hysterectomy, [place],left knee, left rib states malignany at age 13 months removed,parathyroid,esophageal stricture that requires a feeding tube for 20 years., J tube 04/2017 Hx Anesthesia Reactions: No Infectious Disease History: Yes Infectious Disease History: Reports: Hx Clostridium Difficile Denies: Hx Hepatitis, Hx Human Immunodeficiency Virus (HIV), Hx of Known/ Suspected MRSA, Hx Shingles, Hx Tuberculosis, Hx Known/Suspected VRE, Hx Known/ Suspected VRSA, History Other Infectious Disease, Traveled Outside the [place] in Last 30 Days - Family History Known Family History: Positive: Hypertension, Other - Neg: breast CA - Social History Alcohol Use: None Hx Substance Use: No Substance Use Type: Reports: None Hx Tobacco Use: Yes Smoking Status (MU): Former Smoker Type: Cigarettes Length of Time of Smoking/Using Tobacco: Trying to quit, uses patch most days Have You Smoked in the Last Year: No - is currently using AMILCAR patch Review of Systems Positive: Other - NEGATIVE - RECENT FALL Positive: Chest Pain Positive: Other - POSITIVE - FAST AND SHALLOW BREATHING Positive: Nausea Positive: Other - POSITIVE - BACK PAIN All Other Systems Reviewed And Are Negative: Yes Physical Exam - Summary Physical Exam Summary: Appearance: frail-appearing, cachetic Skin: Warm, dry, no obvious rash, no visible skin lesions Eyes: sclera anicteric, no conjunctival pallor ENT: mucous membranes moist, pharynx appears normal Neck: Supple, nontender Respiratory: Mild distress with respiratory with tachypnea, shallow respirations Cardiovascular: Normal S1, S2. No murmurs. Normal distal pulses in tibial and radial bilaterally. Abdomen: Soft, nontender, normal active bowel sounds present Musculoskeletal: Normal, Strength/ROM Intact; No tenderness to percussion over thoracic spine Neurological: A&Ox3, awake and alert, mentation is normal, speech is fluent and appropriate Psychiatric: affect is normal, does not appear anxious or depressed Triage Information Reviewed: Yes Vital Signs On Initial Exam: Initial Vitals Resp 69 02/01/18 15:30 Vital Signs Reviewed: Yes Diagnostics - Vital Signs Vital Signs Temp Pulse Resp BP Pulse Ox 02/01/18 16:32 75 16 129/50 100 02/01/18 16:23 18 02/01/18 16:03 76 28 105/83 98 02/01/18 16:00 78 24 100 02/01/18 15:32 99.3 F 79 17 148/54 100 02/01/18 15:30 69 - Laboratory Lab Results: Lab Results 02/01/18 02/01/18 02/01/18 Range/Units 16:00 16:00 16:00 WBC 11.0 H (3.5-10.8) 10^3/ul RBC 4.58 (4.00-5.40) 10^6/ul Hgb 12.1 (12.0-16.0) g/dl Hct 38 (35-47) % MCV 82 (80-97) fL MCH 26 L (27-31) pg MCHC 32 (31-36) g/dl RDW 16 H (10.5-15) % Plt Count 422 (150-450) 10^3/ul MPV 8.5 (7.4-10.4) fL Neut % (Auto) 76.7 % Lymph % (Auto) 16.3 % Love % (Auto) 6.4 % Eos % (Auto) 0 % Baso % (Auto) 0.6 % Absolute Neuts (auto) 8.5 H (1.5-7.7) 10^3/ul Absolute Lymphs (auto) 1.8 (1.0-4.8) 10^3/ul Absolute Monos (auto) 0.7 (0-0.8) 10^3/ul Absolute Eos (auto) 0 (0-0.6) 10^3/ul Absolute Basos (auto) 0.1 (0-0.2) 10^3/ul Absolute Nucleated RBC 0 10^3/ul Nucleated RBC % 0 Sodium 141 (135-145) mmol/L Potassium 4.8 (3.5-5.0) mmol/L Chloride 107 (101-111) mmol/L Carbon Dioxide 30 (22-32) mmol/L Anion Gap 4 (2-11) mmol/L BUN 24 (6-24) mg/dL Creatinine 0.67 (0.51-0.95) mg/dL Est GFR ( Amer) 103.0 (>60) Est GFR (Non-Af Amer) 85.1 (>60) BUN/Creatinine Ratio 35.8 H (8-20) Glucose 100 (70-100) mg/dL Lactic Acid 1.2 (0.5-2.0) mmol/L Calcium 10.9 H (8.6-10.3) mg/dL Total Bilirubin 0.40 (0.2-1.0) mg/dL AST 27 (13-39) U/L ALT 17 (7-52) U/L Alkaline Phosphatase 111 H (34-104) U/L Troponin I 0.15 H* (<0.04) ng/mL Total Protein 7.2 (6.4-8.9) g/dL Albumin 3.8 (3.2-5.2) g/dL Globulin 3.4 (2-4) g/dL Albumin/Globulin Ratio 1.1 (1-3) 02/01/18 Range/Units 18:09 WBC (3.5-10.8) 10^3/ul RBC (4.00-5.40) 10^6/ul Hgb (12.0-16.0) g/dl Hct (35-47) % MCV (80-97) fL MCH (27-31) pg MCHC (31-36) g/dl RDW (10.5-15) % Plt Count (150-450) 10^3/ul MPV (7.4-10.4) fL Neut % (Auto) % Lymph % (Auto) % Love % (Auto) % Eos % (Auto) % Baso % (Auto) % Absolute Neuts (auto) (1.5-7.7) 10^3/ul Absolute Lymphs (auto) (1.0-4.8) 10^3/ul Absolute Monos (auto) (0-0.8) 10^3/ul Absolute Eos (auto) (0-0.6) 10^3/ul Absolute Basos (auto) (0-0.2) 10^3/ul Absolute Nucleated RBC 10^3/ul Nucleated RBC % Sodium (135-145) mmol/L Potassium (3.5-5.0) mmol/L Chloride (101-111) mmol/L Carbon Dioxide (22-32) mmol/L Anion Gap (2-11) mmol/L BUN (6-24) mg/dL Creatinine (0.51-0.95) mg/dL Est GFR ( Amer) (>60) Est GFR (Non-Af Amer) (>60) BUN/Creatinine Ratio (8-20) Glucose (70-100) mg/dL Lactic Acid (0.5-2.0) mmol/L Calcium (8.6-10.3) mg/dL Total Bilirubin (0.2-1.0) mg/dL AST (13-39) U/L ALT (7-52) U/L Alkaline Phosphatase (34-104) U/L Troponin I 0.16 H* (<0.04) ng/mL Total Protein (6.4-8.9) g/dL Albumin (3.2-5.2) g/dL Globulin (2-4) g/dL Albumin/Globulin Ratio (1-3) Result Diagrams: 02/02/18 06:16 02/02/18 06:16 Lab Statement: Any lab studies that have been ordered have been reviewed, and results considered in the medical decision making process. - Radiology CXR Radiology Interpretation Completed By: Radiologist Summary of Radiographic Findings: CXR IMPRESSION: There may be some atelectasis in the right lung base just above the right. hemidiaphragm with hyperinflated lung mohr. THIS REPORT WAS REVIEWED BY ED PHYSICIAN. thoracic spine x-ray Radiology Interpretation Completed By: Radiologist Summary of Radiographic Findings: THORACIC SPINE X-RAY IMPRESSION: Mild compression T5 vertebra which is unchanged from CAT scan of December 292017. Foreshortening of the T9, T10 and T11 vertebral bodies may be due to scoliosis. Osteopenia makes evaluation difficult. THIS REPORT WAS REVIEWED BY ED PHYSICIAN. - EKG 1537 Cardiac Rate: NL - 76 BPM EKG Rhythm: Sinus Rhythm Summary of EKG Findings: NSR at 76 BPM, P waves, QRS complex, and T waves are within normal limits, T waves and intervals are normal, no ischemic changes. 1st degree AV block. Chest Pain Course/Dx - Course Course Of Treatment: Patient is a 77 y/o F presenting to ED via ambulance with complaints of back pain with radiation to her chest just under her breast. Sx are reported to have onset four days ago and progressively worsened since onset. Per EMS, EKG was normal, pain with palpation is noted. Nausea is reported as well, which has since resolved. EMS provided 4 zofran, 50 fentanyl in ambulance. PMHx of COPD and emphysema, pain is worse with breathing. Patient notes that her breathing has been swallower and faster than normal. Patient is on home o2, no recent fall reported. Patient has both G-tube and J-tube in place. On physical exam, patient is noted to be general frail, cachetic; Mild distress with tachypnea, shallow respiration; No tenderness to percussion over thoracic spine, no visible skin lesions. CXR IMPRESSION: There may be some atelectasis in the right lung base just above the right. hemidiaphragm with hyperinflated lung mohr. NSR at 76 BPM, P waves, QRS complex, and T waves are within normal limits, T waves and intervals are normal, no ischemic changes. 1st degree AV block. THORACIC SPINE X-RAY IMPRESSION: Mild compression T5 vertebra which is unchanged from CAT scan of December 292017. Foreshortening of the T9, T10 and T11 vertebral bodies may be due to scoliosis. Osteopenia makes evaluation difficult. Labs showed WBC 11, MCH 26, RDW 16, absolute neuts 8.5, BUN/creatinine ratio 35.8, calcium 10.9, alk phos 111, lactic acid 1.2, glucose 100. First trop was 0.15, second was 0.16. D-dimer < 200. During ED course, patient received morphine 4 mg IV ED ONCE ONE x 2. Patient's case was discussed with Dr. Lamas, Dr. Lamas accepts patient for admission. - Diagnoses Provider Diagnoses: Chest pain - Provider Notifications Discussed Care Of Patient With: Ragini Lamas Time Discussed With Above Provider: 20:18 Instructed by Provider To: Other - Patient's case was discussed with Dr. Lamas, Dr. Lamas accepts patient for admission. Discharge - Sign-Out/Discharge Documenting (check all that apply): Patient Departure - admit - Discharge Plan Condition: Stable Disposition: ADMITTED TO [facility] - Billing Disposition and Condition Condition: STABLE Disposition: Admitted to [facility] - Attestation Statements Document Initiated by Rickey: Yes Documenting Scribe: KUN PHILLIPS Provider For Whom Rickey is Documenting (Include Credential): RONALD MORTON MD Scribnicole Attestation: KUN Mesa , scribed for RONALD MORTON MD on 02/02/18 at 1534. Scribe Documentation Reviewed: Yes Provider Attestation: The documentation as recorded by the KUN alicia accurately reflects the service I personally performed and the decisions made by , RONALD MORTON MD Status of Scribe Document: Viewed
[2018-02-01] MEDS ORDERED: Ondansetron INJ* 2 MG/ML VIAL IV PRN (21:54)
[2018-02-01] MEDS ORDERED: Acetaminophen TAB* 325 MG PRN (21:54)
[2018-02-01] MEDS ORDERED: Aspirin 81 mg CHEW TAB* 81 MG TAB.CHEW PO ONE (21:57)
[2018-02-01] MEDS ORDERED: Polyethylene Glycol 3350* 17 GM PACKET PEG TUBE PRN (21:58)
[2018-02-01] MEDS ORDERED: Metoclopramide TAB* 10 MG PO PRN (21:58)
[2018-02-01] MEDS ORDERED: Albuterol 2.5 MG/3 ML NEB.SOL* (0.083%) INH PRN (21:58)
[2018-02-01] MEDS ORDERED: Heparin DRIP 25,000 UNITS(*) 25,000 UNITS/500 ML BAG IV SCH (22:15)
[2018-02-01] MEDS ORDERED: cefTRIAXone(*) 1 GM in NS 0.9% 50 ML* 50 ML IVPB ONE (22:40)
[2018-02-01] MEDS ORDERED: Azithromycin IV(*) 500 MG in NS 0.9% 250 ML* 250 ML IVPB ONE (22:41)
[2018-02-02] MEDS: Metoprolol Tartrate TAB* 25 MG G TUBE SCH ×2 (01:45→09:18)
[2018-02-02] MEDS: Heparin VIAL(*) 5000 UNITS/ML VIAL (FIVE THOUSAND) SUBCUT SCH ×4 (01:52→21:06)
[2018-02-02] MEDS: cefTRIAXone(*) 1 GM in NS 0.9% 50 ML* 50 ML IVPB SCH ×2 (01:53→20:13)
[2018-02-02] MEDS: Mometasone/Formoter 200/5 MDI INH SCH ×4 (02:11→23:28)
[2018-02-02] MEDS: Levalbuterol HFA INHALER* 1 PUFF MDI INH PRN ×3 (02:12→23:29)
[2018-02-02] MEDS: Morphine VIAL* 4 MG/ML VIAL (1 ml vial) IV PRN ×3 (02:13→21:06)
[2018-02-02] MEDS: Aclidinium POWDER MDI(NF) INH SCH ×3 (02:23→19:59)
[2018-02-02] MEDS ORDERED: Acetaminophen TAB* 325 MG PO PRN (02:30)
--- NOTE | 2018-02-02 04:31 | HP ---
CC: Alonso Santos MD; Radha Shea MD * HISTORY AND PHYSICAL: DATE OF ADMISSION: 02/01/18 TIME OF EVALUATION: 0. PRIMARY CARE PHYSICIAN: Alonso Santos MD PROCESS ASSISTANT: Radha Shea MD CHIEF COMPLAINT: Chest pain. HISTORY OF PRESENT ILLNESS: This is a 77-year-old female with past medical history of hypertension, hyperlipidemia, who does not take anything by mouth, has a G-tube and J-tube, presents to the emergency room after having 3 to 4 days of worsening chest wall pain. The patient states about 3 to 4 days ago, she developed pain in her mid back, in the midline and it wrapped around underneath her breasts, all across the lower part of her chest. She has a significant amount of pain while taking a deep breath. Now it is getting to the point where it is hard to move and reposition even in bed. She does have a chronic cough, no worsening in her cough. She did have a low grade temp to 99 last evening. No nausea, vomiting, no diaphoresis. No abdominal pain. No increased burping or indigestion. She states she has chronic lower extremity swelling. No abdominal pain. No recent falls. She denies any changes in her weight. She has a known T5 compression fracture. Otherwise, review of systems are negative. In the emergency room, the patient had labs and imaging. She was found to have a bumped troponin, negative D-dimer, was referred to the hospitalist service for further evaluation. In the emergency room, the patient had 4 mg of morphine. PAST MEDICAL HISTORY: 1. History of esophageal stricture, status post G-tube where she receives her medications and J-tube where she receives her hydration and nutrition. 2. Hypothyroidism. 3. Hyperlipidemia. 4. Hypertension. 5. Severe COPD, on 2 L of oxygen. 6. History of lung cancer in 2013, in remission. 7. History of parathyroid surgery. 8. Arthritis. 9. Osteoporosis. 10. History of cholecystectomy. 11. History of gastroparesis and malabsorption disorder. 12. Macular degeneration. 13. Chronic pain. 14. 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 15. History of a compression fracture in T5. MEDICATIONS: Her meds are all received via G-tube. 1. Detrol 1 mg daily. 2. Reglan 10 mg 4 times a day as needed. 3. Atorvastatin 10 mg daily. 4. Tudorza Pressair 400 mcg inhaled b.i.d. 5. Estradiol vaginal 10 mcg twice a week. 6. Vitamin D3 15 mL daily. 7. MiraLAX 17 g daily as needed. 8. Lactobacillus 1 cap daily. 9. Ibuprofen 600 mg 3 times a day as needed. 10. Flonase 1 spray to both nares twice a day. 11. Singulair 10 mg daily. 12. Losartan 50 mg daily. 13. Aspirin 81 mg daily. 14. Xopenex 2 puff inhaled 4 times a day as needed. 15. Advair 2 puffs inhaled twice a day. 16. Albuterol 2.5 mg inhaled every 6 hours as needed. ALLERGIES: SULFA, VARENICLINE, LEVOFLOXACIN, CEFUROXIME. FAMILY HISTORY: Mother at age 74 from a stroke. Father at 82 from CHF and COPD. SOCIAL HISTORY: The patient lives at home with her . She is independent of her ADL. She quit smoking 3 years ago, was smoking half pack a day for 50 years. No alcohol use or illicit drug use. Her healthcare proxy is her son, Lazarus. She is a full code. She does J-tube feeds Osmolite 1.5 four to five cans per night at 91 mL an hour, free water she states 40 to 60 mL 4 to 5 times a day. REVIEW OF SYSTEMS: A 14-point review of systems as mentioned in the HPI, otherwise negative. PHYSICAL EXAMINATION GENERAL: Frail, elderly female, in no acute distress, with her and son at the bedside. VITALS: Temp 99.3, pulse rate 76, respiratory rate 18, oxygen saturation 100% on 2 L, blood pressure is 100/65. HEENT: Head normocephalic. Pupils are equal and reactive. Anicteric. Oropharynx: Mucous membranes are moist. NECK: Supple. No adenopathy. RESPIRATORY: Diminished breath sounds, faint expiratory wheeze. No rhonchi or increased work of breathing. CARDIAC: Regular rate and rhythm. Harsh systolic blowing murmur most prominent at the left sternal base. ABDOMEN: Positive bowel sounds. Distended, J and G tube in place. No surrounding erythema or drainage. EXTREMITIES: Trace edema bilaterally. NEUROLOGIC: Alert and oriented x3. No gross focal neurologic deficits. DIAGNOSTIC STUDIES/LAB DATA: White count 11, hemoglobin 12.1, hematocrit 38, platelets 422. D-dimer is less than 200. Sodium 141, potassium 4.8, chloride 107, bicarb 30, BUN 24, creatinine 0.67. Glucose 100, troponin is 0.15 and 0.16. Radiographic data: Chest x-ray, there may be some atelectasis in the right lung base just above the right hemidiaphragm with hyperinflated lung mohr. EKG shows normal sinus rhythm, no significant ST changes. Chest x-ray: There may be atelectasis in the right lung base just above the right hemidiaphragm with hyperinflated lung mohr. Thoracic spine x-ray, mild compression in T5, which is unchanged from CAT scan of November 2017. ASSESSMENT AND PLAN: This is a 77-year-old frail female with multiple comorbidities, who presents to the emergency room with pleuritic chest pain, found to have a mildly elevated troponin. 1. Pleuritic chest pain with mildly elevated troponin. Assessment: The patient is ruled out for pulmonary embolism with a negative D- dimer. She does have an elevated white count and low grade temp. Chest x-ray read as atelectasis, but I am concerned that there is underlying pneumonia there that is causing some demand ischemia and the bump at troponin. Could be a viral process. She does have a significant murmur on exam as well, which may be contributing to the bump in her troponin. She has a significant amount of pain with mobility. Plan: Going to treat empirically with antibiotics. We will check inflammatory markers. We will continue to trend her troponin and check an echocardiogram and consider Cardiology evaluation in the morning. We will hold off on doing a stress test at this time. We will continue incentive spirometer and/or inhalers. I do not think this is a chronic obstructive pulmonary disease exacerbation. We will hold off on starting her on steroids, especially with her osteoporosis and compression fracture. We will try to limit this. 2. Elevated troponin as above, likely demand ischemia. We will put her on a low dose beta apolinar and hold her Cozaar with her soft BPs for now. She will continue on her aspirin as well and echo as above and a lipid panel. CHRONIC MEDICAL PROBLEMS: 1. We will resume her home medications as prescribed with the exception of Cozaar. 2. FEN. We will continue her tube feeds and she is able to take sips of water. We will order nutrition consult for any further guidance regarding her tube feeds. 3. DVT prophylaxis. The patient scores high risk, placed her on heparin subcu t.i.d. 4. Code status. Full code. We discussed this little bit at length regarding her severe COPD and how this should be readdressed and she should discuss this with Dr. Shea, which she is agreeable to. TIME SPENT: Greater than 60 minutes spent doing the history and physical, more than half the time spent in direct patient contact. [id number]/CPS #: [id number] TANYA
[2018-02-02 06:56] LABS: ABS Basophils 0 10^3/ul (0-0.2); ABS Eosinophils 0 10^3/ul (0-0.6); ABS Lymphocytes 1.4 10^3/ul (1.0-4.8); ABS Neutrophils 9.6 10^3/ul (1.5-7.7); ABS Nucleated RBC 0 10^3/ul; Eosinophil % 0 %; Hematocrit 36 % (35-47); Hemoglobin 11.4 g/dl (12.0-16.0); Lymphocyte % 11.7 %; Mean Corpuscular HGB Conc 31 g/dl (31-36); Mean Corpuscular Hemoglobin 26 pg (27-31); Mean Corpuscular Volume 84 fL (80-97); Mean Platelet Volume 8.6 fL (7.4-10.4); Nucleated Red Blood Cells % 0; Platelet Count 385 10^3/ul (150-450); Red Blood Count 4.36 10^6/ul (4.00-5.40); Red Cell Distribution Width 16 % (10.5-15); White Blood Count 12.1 10^3/ul (3.5-10.8)
[2018-02-02 07:40] LABS: EGFR Non-African American 71.4 (>60)
[2018-02-02] MEDS ORDERED: Losartan TAB* 25 MG PEG TUBE SCH (09:00)
[2018-02-02] MEDS ORDERED: Aspirin 81 mg CHEW TAB* 81 MG TAB.CHEW PO SCH (09:00)
[2018-02-02] MEDS ORDERED: Oxybutynin TAB* 5 MG PO SCH (09:00)
[2018-02-02] MEDS: Aspirin 81 mg CHEW TAB* 81 MG TAB.CHEW PEG TUBE SCH (09:13)
[2018-02-02] MEDS: Oxybutynin TAB* 5 MG PEG TUBE SCH (09:14)
[2018-02-02] MEDS: Atorvastatin* 10 MG TAB PEG TUBE SCH (09:16)
[2018-02-02] MEDS: Montelukast Sodium TAB* 10 MG SCH (09:16)
[2018-02-02] MEDS: Fluticasone NASAL SPRAY 50MCG* 16 gm SPRAY BTL BOTH NARES SCH ×2 (09:23→21:07)
[2018-02-02] MEDS ORDERED: NS 0.9% 1000 ML* 1,000 ML IV ONE (12:00)
--- NOTE | 2018-02-02 12:05 | PN ---
Subjective Date of Service: 02/02/18 Interval History: Pt reports her pleuritic chest pain that wraps around from her back to under her breasts is ongoing. No change in the quality or location of pain. Pt reports her breathing is stable and appears to be breathing comfortably on 3L. Reports occasional cough that is at her baseline. Pt is drowsy, but arousable and answers questions appropriately. Pt denies headache, dizziness, abdominal pain, N/V. Hypotensive to 80s/30s, so given 1L fluid bolus and started IVF at 75mL/hr Objective Active Medications: Acetaminophen (Tylenol Tab*) 650 mg PO Q4H PRN PRN Reason: FEVER/PAIN Last Admin: 02/02/18 09:11 Dose: 650 mg Aclidinium [place] (Tudorza Press Mdi(Nf)) 1 puff INH BID [facility] Last Admin: 02/02/18 07:57 Dose: Not Given Albuterol (Ventolin 2.5 Mg/3 Ml Neb.Nereyda*) 2.5 mg INH Q6H PRN PRN Reason: WHEEZING Aspirin (Aspirin 81 Mg Chew Tab*) 81 mg PEG TUBE DAILY [facility] Last Admin: 02/02/18 09:13 Dose: 81 mg Atorvastatin Calcium (Lipitor*) 10 mg PEG TUBE DAILY [facility] Last Admin: 02/02/18 09:16 Dose: 10 mg Fluticasone Propionate (Flonase Nasal [place] 50mcg*) 1 spray BOTH NARES BID [facility] Last Admin: 02/02/18 09:23 Dose: Not Given Heparin Sodium (Porcine) (Heparin Vial(*)) 5,000 units SUBCUT Q8HR [facility] Last Admin: 02/02/18 06:49 Dose: 5,000 units Ceftriaxone Sodium 1 gm/ (Sodium Chloride) 50 mls @ 200 mls/hr IVPB Q24H [facility] Last Admin: 02/02/18 01:53 Dose: 200 mls/hr Azithromycin 250 mg/ Sodium (Chloride) 250 mls @ 250 mls/hr IVPB ONCE ONE Stop: 02/02/18 21:59 Sodium Chloride (Ns 0.9% 1000 Ml*) 1,000 mls @ 0 mls/hr IV .BOLUS ONE Stop: 02/02/18 12:01 Levalbuterol HCl (Xopenex Hfa Inhaler*) 2 puff INH QID PRN PRN Reason: SOB/WHEEZING Last Admin: 02/02/18 07:57 Dose: 2 puff Metoclopramide HCl (Reglan Tab*) 10 mg PO QID PRN PRN Reason: NAUSEA/VOMITING Metoprolol Tartrate (Lopressor Tab*) 12.5 mg G TUBE Q12HR [facility] Last Admin: 02/02/18 09:18 Dose: 12.5 mg Mometasone Furoate/Formoterol Fumar (Dulera 200/5 Mdi*) 2 puff INH BID [facility] Last Admin: 02/02/18 07:57 Dose: 2 puff Montelukast Sodium (Singulair Tab*) 10 mg .SEE ORDER DAILY [facility] Last Admin: 02/02/18 09:16 Dose: 10 mg Morphine Sulfate (Morphine Vial*) 2 mg IV Q4H PRN PRN Reason: PAIN - MILD Last Admin: 02/02/18 02:13 Dose: 2 mg Ondansetron HCl (Zofran Inj*) 4 mg IV Q4H PRN PRN Reason: NAUSEA/VOMITING Oxybutynin Chloride (Ditropan Tab*) 5 mg PEG TUBE DAILY [facility]; Protocol Last Admin: 02/02/18 09:14 Dose: 5 mg Polyethylene Glycol/Electrolytes (Miralax*) 17 gm PEG TUBE DAILY PRN PRN Reason: CONSTIPATION Last Admin: 02/02/18 01:50 Dose: 17 gm Vital Signs - 8 hr 02/02/18 02/02/18 02/02/18 04:09 08:00 08:02 Temperature Pulse Rate 64 86 Respiratory 16 28 22 Rate Blood Pressure 99/45 (mmHg) O2 Sat by Pulse 100 98 Oximetry 02/02/18 02/02/18 02/02/18 08:05 08:18 08:46 Temperature 99.9 F Pulse Rate 85 Respiratory 28 Rate Blood Pressure 124/50 (mmHg) O2 Sat by Pulse 100 Oximetry 02/02/18 12:00 Temperature 98.3 F Pulse Rate 66 Respiratory 18 Rate Blood Pressure 81/38 (mmHg) O2 Sat by Pulse 98 Oximetry Oxygen Devices in Use Now: Nasal Cannula Eyes: No Scleral Icterus, PERRLA Ears/Nose/Mouth/Throat: NL Teeth, Lips, Gums Neck: NL Appearance and Movements; NL JVP, Trachea Midline Respiratory: Symmetrical Chest Expansion and Respiratory Effort, - - Diminished lung sounds. No wheezing auscultated Cardiovascular: RRR, No Edema, - - S1S2. Regular rate and rhythm. Systolic murmur hear across the pericardium Abdominal: NL Sounds; No Tenderness; No Distention, - - G and J tube in place Extremities: No Edema Neurological: Alert and Oriented x 3 Result Diagrams: 02/02/18 06:16 02/02/18 06:16 Additional Lab and Data: Lab Results 02/01/18 02/01/18 02/01/18 Range/Units 16:00 16:00 16:00 WBC 11.0 H (3.5-10.8) 10^3/ul RBC 4.58 (4.00-5.40) 10^6/ul Hgb 12.1 (12.0-16.0) g/dl Hct 38 (35-47) % MCV 82 (80-97) fL MCH 26 L (27-31) pg MCHC 32 (31-36) g/dl RDW 16 H (10.5-15) % Plt Count 422 (150-450) 10^3/ul MPV 8.5 (7.4-10.4) fL Neut % (Auto) 76.7 % Lymph % (Auto) 16.3 % [place] % (Auto) 6.4 % Eos % (Auto) 0 % Baso % (Auto) 0.6 % Absolute Neuts (auto) 8.5 H (1.5-7.7) 10^3/ul Absolute Lymphs (auto) 1.8 (1.0-4.8) 10^3/ul Absolute Monos (auto) 0.7 (0-0.8) 10^3/ul Absolute Eos (auto) 0 (0-0.6) 10^3/ul Absolute Basos (auto) 0.1 (0-0.2) 10^3/ul Absolute Nucleated RBC 0 10^3/ul Nucleated RBC % 0 Sodium 141 (135-145) mmol/L Potassium 4.8 (3.5-5.0) mmol/L Chloride 107 (101-111) mmol/L Carbon Dioxide 30 (22-32) mmol/L Anion Gap 4 (2-11) mmol/L BUN 24 (6-24) mg/dL Creatinine 0.67 (0.51-0.95) mg/dL Est GFR ( Amer) 103.0 (>60) Est GFR (Non-Af Amer) 85.1 (>60) BUN/Creatinine Ratio 35.8 H (8-20) Glucose 100 (70-100) mg/dL Lactic Acid 1.2 (0.5-2.0) mmol/L Calcium 10.9 H (8.6-10.3) mg/dL Total Bilirubin 0.40 (0.2-1.0) mg/dL AST 27 (13-39) U/L ALT 17 (7-52) U/L Alkaline Phosphatase 111 H (34-104) U/L Troponin I 0.15 H* (<0.04) ng/mL Total Protein 7.2 (6.4-8.9) g/dL Albumin 3.8 (3.2-5.2) g/dL Globulin 3.4 (2-4) g/dL Albumin/Globulin Ratio 1.1 (1-3) 02/01/18 Range/Units 18:09 WBC (3.5-10.8) 10^3/ul RBC (4.00-5.40) 10^6/ul Hgb (12.0-16.0) g/dl Hct (35-47) % MCV (80-97) fL MCH (27-31) pg MCHC (31-36) g/dl RDW (10.5-15) % Plt Count (150-450) 10^3/ul MPV (7.4-10.4) fL Neut % (Auto) % Lymph % (Auto) % [place] % (Auto) % Eos % (Auto) % Baso % (Auto) % Absolute Neuts (auto) (1.5-7.7) 10^3/ul Absolute Lymphs (auto) (1.0-4.8) 10^3/ul Absolute Monos (auto) (0-0.8) 10^3/ul Absolute Eos (auto) (0-0.6) 10^3/ul Absolute Basos (auto) (0-0.2) 10^3/ul Absolute Nucleated RBC 10^3/ul Nucleated RBC % Sodium (135-145) mmol/L Potassium (3.5-5.0) mmol/L Chloride (101-111) mmol/L Carbon Dioxide (22-32) mmol/L Anion Gap (2-11) mmol/L BUN (6-24) mg/dL Creatinine (0.51-0.95) mg/dL Est GFR ( Amer) (>60) Est GFR (Non-Af Amer) (>60) BUN/Creatinine Ratio (8-20) Glucose (70-100) mg/dL Lactic Acid (0.5-2.0) mmol/L Calcium (8.6-10.3) mg/dL Total Bilirubin (0.2-1.0) mg/dL AST (13-39) U/L ALT (7-52) U/L Alkaline Phosphatase (34-104) U/L Troponin I 0.16 H* (<0.04) ng/mL Total Protein (6.4-8.9) g/dL Albumin (3.2-5.2) g/dL Globulin (2-4) g/dL Albumin/Globulin Ratio (1-3) Assess/Plan/Problems-Billing Assessment: - Patient Problems (1) Pneumonia Current Visit: No Status: Acute Priority: High Code(s): J18.9 - PNEUMONIA , UNSPECIFIED ORGANISM SNOMED Code(s): 745456097 Comment: - Still with ongoing pleuritic chest pain, however pt reports breathing comfortably. Will add naproxen for anti-inflammatory effect. Satting well on 3L. - Afebrile (T max 99.9), however leukocytosis persists. Today pt hypotensive to 81/38 and was given sepsis IVF bolus. CXR with possible atelectasis at right lung base, but could also represent underlying PNA. Procalcitonin 0.1, so could also represent viral PNA. - Continue ceftriaxone and azithro (2) COPD (chronic obstructive pulmonary disease) Current Visit: No Status: Chronic Priority: Low Code(s): J44.9 - CHRONIC OBSTRUCTIVE PULMONARY DISEASE, UNSPECIFIED SNOMED Code(s): 39931708 Comment: - No signs of exacerbation at this time. - Continue dulera and PRN albuterol or levalbuterol (3) Elevated troponin Current Visit: Yes Status: Acute Code(s): R74.8 - ABNORMAL LEVELS OF OTHER SERUM ENZYMES SNOMED Code(s): 273991503 Comment: - Trending down, however pt's chest pain remains, and this is in the setting of initiating a beta apolinar last night. Have d/pili metoprolol today in light of hypotension. EKG showed first degree heart block that was no present on prior EKG. - Could represent demand ischemia in the setting of PNA, however will obtain echo to investigate further. Pt has known mild/moderate valvular hear disease and sees Dr. Fall as an outpatient. - Cardiology consult requested. Appreciate cardiology recommendations (4) Feeding by G-tube Current Visit: No Status: Chronic Code(s): Z93.1 - GASTROSTOMY STATUS SNOMED Code(s): 987255267 Comment: - Hx of esophageal stricture s/p peg tube placement 20 years - Continue Osmolite (5) Hyperlipidemia Current Visit: No Status: Chronic Priority: Low Code(s): E78.5 - HYPERLIPIDEMIA, UNSPECIFIED SNOMED Code(s): 79172275 Comment: - Continue lipitor (6) Hypertension Current Visit: No Status: Chronic Priority: Low Code(s): I10 - ESSENTIAL ( PRIMARY) HYPERTENSION SNOMED Code(s): 14469099 Comment: - Hold losartan in the setting of hypotension (7) Full code status Current Visit: No Status: Acute Code(s): Z78.9 - OTHER SPECIFIED HEALTH STATUS SNOMED Code(s): 111531278
[2018-02-02] MEDS ORDERED: NS 0.9% 1000 ML* 1,000 ML IV SCH (14:15)
[2018-02-02] MEDS: Nicotine PATCH 7 MG/24 HR* PATCH TRANSDERM SCH (14:39)
--- NOTE | 2018-02-02 15:30 | ECHO ---
Patient: SHARATH VASQUES [facility] Rec#: [id number] : 1940 Date: 02/02/2018 Age: 77y Height: 0 cm / .0 in Weight: 0 kg / .0 lbs Sex: F BSA: 1.21 Room#: [facility] Admit Date#: 02/01/2018 Type: Inpatient Referring: Ragini Lamas Reading: Nohelia Jernigan MD Supervisor Extruding Department: [facility] Supervisor Extruding Department: Monika Nowak ÁNGEL CC: Alonso Santos MD Transthoracic Echocardiogram Indication: Chest Pain BP: 99/45 HR: 92 Rhythm: NSR Findings History: Smoker,lung cancer,COPD,HTN,HLD,esophageal stricture, PEG tube,murmur. Technical Comments: The study quality is fair. Completed at 1035. Left Ventricle: The left ventricular chamber size is normal. Global left ventricular wall motion and contractility are within normal limits. The left ventricle appears hyperdynamic. The estimated ejection fraction is greater than 65%. Abnormal left ventricular diastolic function is observed. The left ventricular diastolic filling pattern is consistent with elevated left ventricular end-diastolic pressure. Left Atrium: The left atrial chamber size is normal. Right Ventricle: The right ventricular cavity size is normal. The right ventricular global systolic function is normal. Right Atrium: The right atrial cavity size is normal. Aortic Valve: The aortic valve is trileaflet. The aortic valve leaflets are severely thickened with reduced systolic excursion. Systolic excursion of the aortic valve cusps is reduced. There is a trace of aortic regurgitation. There is moderate to severe aortic stenosis. The mean gradient of the aortic valve is 25.471469313 mmHg. The aortic valve area, by VTI's, is calculated at 0.476568 cm2. The highest aortic valve velocity was obtained with the standard probe from the A3C view. Mitral Valve: Moderate mitral annular calcification present. The mitral valve leaflets are moderately thickened. Moderate mitral leaflet calcification is visualized. There is moderate mitral regurgitation. Tricuspid Valve: The tricuspid valve leaflets are normal. There is mild to moderate tricuspid regurgitation. The right ventricular systolic pressure is estimated at 44 mmHg. There is evidence of mild to moderate pulmonary hypertension. Pulmonic Valve: The pulmonic valve appears normal. There is trace to mild pulmonic regurgitation. There is no pulmonic stenosis. Pericardium: The pericardium appears normal. Aorta: There is no dilatation of the ascending aorta. The aortic arch is not well visualized. There is no dilation of the aortic root. Pulmonary Artery: The main pulmonary artery appears normal. Venous: The venous system is not well visualized. Secondary to PEG tube and dressing. Conclusions The left ventricular chamber size is normal. Global left ventricular wall motion and contractility are within normal limits. The left ventricle appears hyperdynamic. The estimated ejection fraction is greater than 65%. Abnormal left ventricular diastolic function is observed with elevated left ventricular end-diastolic pressure. The right ventricular global systolic function is normal. The aortic valve leaflets are severely thickened with reduced systolic excursion. There is moderate to severe aortic stenosis. -The mean gradient of the aortic valve is 26.78 mmHg. -The aortic valve area, by VTI's, is calculated at 0.5 cm2. - DI 0.25. Moderate mitral leaflet calcification is visualized. There is moderate mitral regurgitation. Evidence of mitral stenosis, not able to adequtely quantitate in this study. There is mild to moderate tricuspid regurgitation. There is evidence of mild to moderate pulmonary hypertension estimated at 44 mmHg. Compared with prior outpatient echo of 03/10/17, EF stable, previously estimated as mild, there has been interval increase in mean gradient and decrease in estimated ANDREW. MR has increased from mild, MS previously estimated as mild. Measurements Name Value Normal Range RVIDd (AP) 2D 2.26 cm (0.9 - 2.6) RVDdMajor (2D) 2.6 cm (2.2 - 4.4) RAd ISD 4CH 3.4 cm (3.4 - 4.9) RA (A4C)W 3.1 cm (2.9 - 4.6) IVSd (2D) 0.8 cm (0.6 - 1) LVPWd (2D) 0.89 cm (0.6 - 1) LVIDd (2D) 4.21 cm (3.6 - 5.4) LVIDs (2D) 1.81 cm - LV FS (2D) 56.97 % (25 - 45) EF Teichholz (2D) 87.49 % - Aortic Annulus 1.3 cm (1.4 - 2.6) Ao root diameter (2D) 1.26 cm (2.1 - 3.5) Ascending Ao 2.05 cm (2.1 - 3.4) Descending Ao 0.6 cm - LA dimension (AP) 2D 3.6 cm (2.3 - 3.8) Name Value Normal Range LA ESV SP 4CH (A/L) 72.08 ml - LA ESV SP 2CH (A/L) 59.27 ml - LA ESV BP (A/L) 66.35 ml - LA ESV SP 4CH (MOD) 67.55 ml - LA ESV SP 2CH (MOD) 56.72 ml - Name Value Normal Range MV E-wave Vmax 1.63 m/sec - MV deceleration time 56.33 msec - MV A-wave Vmax 1.99 m/sec - MV E:A ratio 0.82 ratio - LV septal e' Vmax 0.06 m/sec - LV lateral e' Vmax 0.05 m/sec - LV E:e' septal ratio 26.7 ratio - LV E:e' lateral ratio 32 ratio - Name Value Normal Range AV Vmax 3.05 m/sec - AV VTI 68.73 cm - AV peak gradient 37.21 mmHg - AV mean gradient 25.07 mmHg - LVOT diameter 1.56 cm - LVOT Vmax 0.9 m/sec - LVOT VTI 18.28 cm - LVOT peak gradient 3.27 mmHg - LVOT mean gradient 1.62 mmHg - ANDREW (continuity Vmax) 0.56 cm2 - ANDREW (continuity VTI) 0.51 cm2 - Name Value Normal Range MV Vmax 1.99 m/sec - MV VTI 38.59 cm - MV peak gradient 15.8 mmHg - MV mean gradient 7.38 mmHg - MV PHT 20.34 msec - MVA (PHT) 10.81 cm2 - MVA (continuity VTI) 0.9 cm2 - Name Value Normal Range TR Vmax 2.83 m/sec - TR peak gradient 32.23 mmHg - RAP 8 mmHg - RVSP 44 mmHg - Name Value Normal Range PV Vmax 1.06 m/sec - PV peak gradient 4.46 mmHg -
[2018-02-02] MEDS ORDERED: Naproxen TAB* 250 MG G TUBE ONE (18:30)
[2018-02-02] MEDS ORDERED: Azithromycin IV(*) 250 MG in NS 0.9% 250 ML* 250 ML IVPB ONE (21:00)
[2018-02-03] MEDS: Morphine VIAL* 4 MG/ML VIAL (1 ml vial) IV PRN ×3 (02:32→21:19)
--- NOTE | 2018-02-03 04:21 | CONS ---
CC: Dr. James Fall; Dr. Alonso Santos * CONSULTATION REPORT: DATE OF CONSULT: 02/02/18 REASON FOR CONSULT: Elevated troponin and chest pain. CHIEF COMPLAINT: Coughing, shortness of breath, and chest pain. HISTORY OF PRESENT ILLNESS: Ms. Trotter is a 77-year-old woman with a complex past medical history; she has a chronic G-tube from a distant esophageal tear, history of lung cancer in 2013, treated with radiation therapy, and a history of severe COPD/emphysema. The patient was in her usual state of health until about 4 or 5 days ago when she started to develop a productive cough of brown and yellow sputum and followed by pain in the midback that wrapped around to the front of her lower chest. There is a pleuritic quality to this and positional quality to it. She did notice some low- grade fevers at home as well. The patient states this is a typical pain she has every time she has pneumonia. Prior to this presentation, the patient's functional ability was stable. She does use home oxygen, sleeps on with a lot of pillows, but there have been no changes in this even with her respiratory illness. PAST MEDICAL HISTORY: The patient has a past medical history of: 1. 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 2. Esophageal stricture status post surgery and secondary requirements for G- tube and then J-tube. Her nutrition is chronically via feeding tube. 3. Severe COPD/emphysema, chronic oxygen use. 4. Lung cancer in 2012, status post radiation therapy, in remission. 5. Hypertension. 6. Hyperlipidemia. 7. Hypothyroid disease. 8. Parathyroid disease, status post surgery. 9. Arthritis. 10. Osteoporosis. 11. Malabsorption disorder. 12. Macular degeneration. 13. Compression fractures. PAST SURGICAL HISTORY: Includes: 1. Cholecystectomy. 2. Parathyroid surgery. MEDICATIONS: For her outpatient medications see Dr. Lamas's admission note. Current inpatient medications include: 1. Tylenol p.r.n. 2. Pressair. 3. Albuterol nebulizer. 4. Lipitor 10 mg a day. 5. Zithromax. 6. Ceftriaxone. 7. Flonase. 8. Subcutaneous heparin. 9. Xopenex. 10. Reglan 10 mg 4 times a day p.r.n. 11. Dulera 200/5 b.i.d. 2 puffs. 12. Singulair 10 mg a day. 13. Morphine p.r.n. 14. Nicotine patch. 15. Zofran p.r.n. 16. Ditropan 5 mg PEG tube daily. 17. MiraLAX 17 g p.r.n. constipation. 18. Aspirin 81 mg a day. ALLERGIES: Include SULFA, VARENICLINE, LEVOFLOXACIN, and CEFUROXIME. FAMILY HISTORY: Significant that her mother had a history of bypass surgery, strokes, and aortic aneurysm. Her father had a history of congestive heart failure, emphysema, rheumatoid arthritis, and kidney cancer. SOCIAL HISTORY: She is , has a supportive son. Both of them were in the room. She smoked since the age of 13 up to a pack and half a day. Chart reports she stopped in March 2016. REVIEW OF SYSTEMS: Other than the history of present illness with fevers, cough , productive cough, pleuritic and positional chest pain, she had some mild leg swelling. Otherwise, all other 14-point review of systems was negative. PHYSICAL EXAM: The patient is 4 feet 10 inches, weighs 78 pounds with a BMI of 16. Vital Signs: Currently blood pressure 110/42, pulse was 71 and regular, respiratory rate was 16, T-max 99.9 degrees Fahrenheit. General Appearance: Fatigued and also cachectic-appearing elderly woman with nasal cannula, seated on the edge of the bed, talking with her family but mildly tachypneic. Psychologically, pleasant and cooperative. Neurologically awake, alert, oriented to person, place, and time. Cranial nerves II through XII intact. Grossly normal sensory and motor function. Comprehension is good and she follows commands well. Skin: Warm and dry, did not appreciate cyanosis. HEENT: Mucous membranes moderately moist. Neck: Use of accessory muscles noted. No appreciable thyromegaly. Pulmonary: Back has scoliosis incidentally noted, markedly diminished breath sounds throughout, but no wheezing or rales. Coronary: Also distant S1 heard in the right upper sternal border and a soft late peaking systolic murmur heard in the right upper sternal border and no S2 heard in the right upper sternal border. Mild delay in carotid upstroke. S2 heard at Erb's point and soft systolic murmur is heard throughout the precordium. Neck without appreciable thyromegaly and strong carotid pulses that are symmetrical. Abdomen: Feeding tube noted. Flat. Active bowel sounds. Full exam not done in the seated position. Lower extremities were warm with minimal edema. DIAGNOSTIC STUDIES/LAB DATA: Chest x-ray reviewed personally shows marked hyperinflation, tiny bit of fluid in the right mid lung, atelectasis versus early pneumonia in the right lung base. Echocardiogram today showed hyperdynamic left ventricle with an ejection fraction of over 65% with abnormal diastolic filling, normal right ventricular systolic function. Calcific aortic valve sclerosis with moderate to severe valve stenosis (mean gradient 27 mmHg, aortic valve area 0.5 cm squared, and dimensionless index 0.25). Marked mitral anular calcification with moderate mitral insufficiency and evidence of mitral stenosis. Mild to moderate tricuspid insufficiency and PA pressure elevated at 44 mmHg. A 12-lead ECG showed normal sinus rhythm, 76 beats per minute with a first- degree AV block, QRS axis +90, normal intraventricular conduction times, unremarkable ST. When this was compared with her prior EKG, the first-degree AV block is new. White count 12.1, hematocrit 36, platelets 16, mild increase in monos and neutrophils. D-dimer less than 200. Sodium 137, potassium 5.3 (increased from 4.8 yesterday), chloride 106, bicarb 29, BUN 25, creatinine 0.78. AST 27, ALT 17. Troponin #1 of 0.15, #2 of 0.16, #3 of 0.12, and #4 of 0.11. C-reactive protein 16. Total protein 7.2, albumin 3.8. Total cholesterol 136, triglycerides 73, HDL cholesterol 53, LDL cholesterol 69. IMPRESSION AND PLAN: In summary, Leilani Trotter is a 77-year-old woman with longstanding severe chronic obstructive pulmonary disease, radiation exposure to the left chest in infancy admitted with coughing, fevers, pleuritic chest pain, as well as mild elevation in troponins and an echo showing moderate to severe aortic stenosis. I think Ms. Trotter's elevated troponins are related to a combination of her chronic obstructive pulmonary disease exacerbation and decreased ability to get oxygen into the blood combined with her significant aortic stenosis which leads to inability of the heart to deliver additional blood under stress Type 2/ demand ischemia. Ms. Trotter is certainly at risk for atherosclerotic heart disease, but the combination of severe emphysema and aortic stenosis would be enough to account for type 2 demand ischemia. The patient's radiation therapy to the left lung region in infancy puts the patient at additional risk for coronary artery disease and valvular heart disease. I would optimize treatment of her acute pulmonary exacerbation as it is being done to decrease the workload on the heart. I would continue with coronary artery disease risk factor modification with treatment of dyslipidemia, continuation of low-dose aspirin. I doubt Ms. Trotter would tolerate a beta apolinar, although she is not bronchospastic and in discussions with the hospitalist, a small dose had been tried, but her blood pressure dropped. She likely needs a higher heart rate. The chest pain she has does not sound cardiac. It sounds pleuritic related to her infection and I would consider adding a nonsteroidal for treatment of this pain. I do not think she would tolerate colchicine with her GI issues, and although prednisone might lead to improvements in her breathing, she is extremely frail and would avoid this unless absolutely needed. [facility], Ms. Trotter's severe emphysema limits ability to treat her aortic valve stenosis and evaluate for and treat any underlying coronary disease. I am not sure how we would safely stress her and I do not feel she would be a good interventional candidate. I did make the patient and her family aware of the TAVR, but also told them I was not sure if she would be a candidate due to her underlying illnesses and her very petite size alone could limit her candidacy. To summarize, medical management for now, additional recommendations will be made pending the patient's response to the above management issues with possible additional evaluation for ischemia/valve management when pulmonary status at baseline. [id number]/[facility] #: [id number] TANYA
[2018-02-03 05:24] LABS: ABS Basophils 0.1 10^3/ul (0-0.2); ABS Eosinophils 0 10^3/ul (0-0.6); ABS Lymphocytes 1.6 10^3/ul (1.0-4.8); ABS Monocytes 1.3 10^3/ul (0-0.8); ABS Neutrophils 9.9 10^3/ul (1.5-7.7); ABS Nucleated RBC 0 10^3/ul; Eosinophil % 0.1 %; Hematocrit 34 % (35-47); Hemoglobin 10.6 g/dl (12.0-16.0); Lymphocyte % 12.4 %; Mean Corpuscular HGB Conc 32 g/dl (31-36); Mean Corpuscular Hemoglobin 27 pg (27-31); Mean Corpuscular Volume 85 fL (80-97); Mean Platelet Volume 8.8 fL (7.4-10.4); Nucleated Red Blood Cells % 0.1; Platelet Count 365 10^3/ul (150-450); Red Blood Count 3.96 10^6/ul (4.00-5.40); Red Cell Distribution Width 16 % (10.5-15); White Blood Count 12.9 10^3/ul (3.5-10.8)
[2018-02-03 05:39] LABS: EGFR Non-African American 70.4 (>60)
[2018-02-03] MEDS: Nicotine Patch Removal NOTE FOLLOW UP SCH (06:03)
[2018-02-03] MEDS: Heparin VIAL(*) 5000 UNITS/ML VIAL (FIVE THOUSAND) SUBCUT SCH ×3 (06:03→21:18)
[2018-02-03] MEDS: Mometasone/Formoter 200/5 MDI INH SCH ×2 (07:45→20:10)
[2018-02-03] MEDS: Levalbuterol HFA INHALER* 1 PUFF MDI INH PRN ×2 (07:45→20:10)
[2018-02-03] MEDS: Aclidinium POWDER MDI(NF) INH SCH ×2 (07:49→21:21)
[2018-02-03] MEDS: Montelukast Sodium TAB* 10 MG SCH ×2 (08:21→09:12)
[2018-02-03] MEDS: Atorvastatin* 10 MG TAB PEG TUBE SCH ×2 (08:21→09:11)
[2018-02-03] MEDS: Aspirin 81 mg CHEW TAB* 81 MG TAB.CHEW PEG TUBE SCH ×2 (08:22→09:11)
[2018-02-03] MEDS: Oxybutynin TAB* 5 MG PEG TUBE SCH ×2 (08:22→09:12)
[2018-02-03] MEDS: Fluticasone NASAL SPRAY 50MCG* 16 gm SPRAY BTL BOTH NARES SCH ×2 (09:45→21:11)
[2018-02-03] MEDS: Nicotine PATCH 7 MG/24 HR* PATCH TRANSDERM SCH (09:51)
[2018-02-03] MEDS ORDERED: Furosemide IV* 10 MG/ML 2 ML VIAL (20 MG) IV ONE (09:51)
--- NOTE | 2018-02-03 10:01 | PN ---
Subjective Date of Service: 02/03/18 Interval History: Received call from RN about increased work of breathing and high residuals from G tube that are rust colored. Pt reports shortness of breath at baseline, but is tachypneic. CXR ordered. Suspect she is now overloaded in light of fluids yesterday. Pt says pleuritic chest pain is still present, worse in the back than in the front. Says is slightly improved since yesterday. Pt denies abdominal pain, but does express some discomfort near G tube site. RN reports site unremarkable. 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 No nausea/vomiting. Abdominal XR ordered. Objective Active Medications: Acetaminophen (Tylenol Tab*) 650 mg PO Q4H PRN PRN Reason: FEVER/PAIN Last Admin: 02/02/18 09:11 Dose: 650 mg Aclidinium [place] (Tudorza Pressair Mdi(Nf)) 1 puff INH [facility]ID [facility] Last Admin: 02/03/18 07:49 Dose: Not Given Albuterol (Ventolin 2.5 Mg/3 Ml Neb.Nereyda*) 2.5 mg INH Q6H PRN PRN Reason: WHEEZING Aspirin (Aspirin 81 Mg Chew Tab*) 81 mg PEG TUBE DAILY [facility] Last Admin: 02/03/18 09:11 Dose: Not Given Atorvastatin Calcium (Lipitor*) 10 mg PEG TUBE [facility] Last Admin: 02/03/18 09:11 Dose: Not Given Fluticasone Propionate (Flonase Nasal [place] 50mcg*) 1 spray BOTH NARES BID [facility] Last Admin: 02/03/18 09:45 Dose: 1 spray Furosemide (Lasix Iv*) 20 mg IV ONCE ONE Stop: 02/03/18 09:52 Heparin Sodium (Porcine) (Heparin Vial(*)) 5,000 units SUBCUT Q8HR [facility] Last Admin: 02/03/18 06:03 Dose: 5,000 units Ceftriaxone Sodium 1 gm/ (Sodium Chloride) 50 mls @ 200 mls/hr IVPB Q24H [facility] Last Admin: 02/02/18 20:13 Dose: 200 mls/hr Sodium Chloride (Ns 0.9% 1000 Ml*) 1,000 mls @ 75 mls/hr IV PER RATE [facility] Last Admin: 02/02/18 14:44 Dose: 75 mls/hr Levalbuterol HCl (Xopenex Hfa Inhaler*) 2 puff INH QID PRN PRN Reason: SOB/WHEEZING Last Admin: 02/03/18 07:45 Dose: 2 puff Metoclopramide HCl (Reglan Tab*) 10 mg PO QID PRN PRN Reason: NAUSEA/VOMITING Mometasone Furoate/Formoterol Fumar (Dulera 200/5 Mdi*) 2 puff INH [facility]ID [facility] Last Admin: 02/03/18 07:45 Dose: 2 puff Montelukast Sodium (Singulair Tab*) 10 mg .SEE ORDER DAILY [facility] Last Admin: 02/03/18 09:12 Dose: Not Given Morphine Sulfate (Morphine Vial*) 2 mg IV Q4H PRN PRN Reason: PAIN - MILD Last Admin: 02/03/18 06:32 Dose: 2 mg Nicotine (Nicotine Patch 7 Mg/24 Hr*) 1 patch TRANSDERM DAILY [facility] Last Admin: 02/03/18 09:51 Dose: 1 patch Ondansetron HCl (Zofran Inj*) 4 mg IV Q4H PRN PRN Reason: NAUSEA/VOMITING Oxybutynin Chloride (Ditropan Tab*) 5 mg PEG TUBE DA[facility]; Protocol Last Admin: 02/03/18 09:12 Dose: Not Given Pharmacy Profile Note (Nicotine Patch Removal Note*) 1 note FOLLOW UP 0600 [facility] Last Admin: 02/03/18 06:03 Dose: 1 note Polyethylene Glycol/Electrolytes (Miralax*) 17 gm PEG TUBE DAILY PRN PRN Reason: CONSTIPATION Last Admin: 02/02/18 01:50 Dose: 17 gm Vital Signs - 8 hr 02/03/18 02/03/18 02/03/18 02:32 03:18 03:32 Temperature 98.8 F Pulse Rate 80 Respiratory 20 18 20 Rate Blood Pressure 114/38 (mmHg) O2 Sat by Pulse 96 Oximetry 02/03/18 02/03/18 02/03/18 06:32 07:32 07:46 Temperature 98.5 F Pulse Rate 89 90 Respiratory 24 20 18 Rate Blood Pressure 113/46 (mmHg) O2 Sat by Pulse 95 98 Oximetry 02/03/18 02/03/18 08:00 09:12 Temperature Pulse Rate Respiratory 24 24 Rate Blood Pressure (mmHg) O2 Sat by Pulse Oximetry Oxygen Devices in Use Now: Nasal Cannula Eyes: No Scleral Icterus, PERRLA Ears/Nose/Mouth/Throat: NL Teeth, Lips, Gums, Clear Oropharnyx Neck: NL Appearance and Movements; NL JVP, Trachea Midline Respiratory: - - Lung sounds diminished. No rales on ronchi. Increased work of breathing and tachypnea. Cardiovascular: RRR, No Edema, - - Systolic murmur heard across pericardium. Abdominal: - - Abdomen soft but distended. No tenderness to palpation except near G tube site Extremities: No Edema, No Clubbing, Cyanosis Skin: No Rash or Ulcers Neurological: Alert and Oriented x 3 Result Diagrams: 02/03/18 12:07 02/03/18 04:45 Additional Lab and Data: Lab Results 02/01/18 02/01/18 02/01/18 Range/Units 16:00 16:00 16:00 WBC 11.0 H (3.5-10.8) 10^3/ul RBC 4.58 (4.00-5.40) 10^6/ul Hgb 12.1 (12.0-16.0) g/dl Hct 38 (35-47) % MCV 82 (80-97) fL MCH 26 L (27-31) pg MCHC 32 (31-36) g/dl RDW 16 H (10.5-15) % Plt Count 422 (150-450) 10^3/ul MPV 8.5 (7.4-10.4) fL Neut % (Auto) 76.7 % Lymph % (Auto) 16.3 % Rowan % (Auto) 6.4 % Eos % (Auto) 0 % Baso % (Auto) 0.6 % Absolute Neuts (auto) 8.5 H (1.5-7.7) 10^3/ul Absolute Lymphs (auto) 1.8 (1.0-4.8) 10^3/ul Absolute Monos (auto) 0.7 (0-0.8) 10^3/ul Absolute Eos (auto) 0 (0-0.6) 10^3/ul Absolute Basos (auto) 0.1 (0-0.2) 10^3/ul Absolute Nucleated RBC 0 10^3/ul Nucleated RBC % 0 Sodium 141 (135-145) mmol/L Potassium 4.8 (3.5-5.0) mmol/L Chloride 107 (101-111) mmol/L Carbon Dioxide 30 (22-32) mmol/L Anion Gap 4 (2-11) mmol/L BUN 24 (6-24) mg/dL Creatinine 0.67 (0.51-0.95) mg/dL Est GFR ( Amer) 103.0 (>60) Est GFR (Non-Af Amer) 85.1 (>60) BUN/Creatinine Ratio 35.8 H (8-20) Glucose 100 (70-100) mg/dL Lactic Acid 1.2 (0.5-2.0) mmol/L Calcium 10.9 H (8.6-10.3) mg/dL Total Bilirubin 0.40 (0.2-1.0) mg/dL AST 27 (13-39) U/L ALT 17 (7-52) U/L Alkaline Phosphatase 111 H (34-104) U/L Troponin I 0.15 H* (<0.04) ng/mL Total Protein 7.2 (6.4-8.9) g/dL Albumin 3.8 (3.2-5.2) g/dL Globulin 3.4 (2-4) g/dL Albumin/Globulin Ratio 1.1 (1-3) 02/01/18 Range/Units 18:09 WBC (3.5-10.8) 10^3/ul RBC (4.00-5.40) 10^6/ul Hgb (12.0-16.0) g/dl Hct (35-47) % MCV (80-97) fL MCH (27-31) pg MCHC (31-36) g/dl RDW (10.5-15) % Plt Count (150-450) 10^3/ul MPV (7.4-10.4) fL Neut % (Auto) % Lymph % (Auto) % Rowan % (Auto) % Eos % (Auto) % Baso % (Auto) % Absolute Neuts (auto) (1.5-7.7) 10^3/ul Absolute Lymphs (auto) (1.0-4.8) 10^3/ul Absolute Monos (auto) (0-0.8) 10^3/ul Absolute Eos (auto) (0-0.6) 10^3/ul Absolute Basos (auto) (0-0.2) 10^3/ul Absolute Nucleated RBC 10^3/ul Nucleated RBC % Sodium (135-145) mmol/L Potassium (3.5-5.0) mmol/L Chloride (101-111) mmol/L Carbon Dioxide (22-32) mmol/L Anion Gap (2-11) mmol/L BUN (6-24) mg/dL Creatinine (0.51-0.95) mg/dL Est GFR ( Amer) (>60) Est GFR (Non-Af Amer) (>60) BUN/Creatinine Ratio (8-20) Glucose (70-100) mg/dL Lactic Acid (0.5-2.0) mmol/L Calcium (8.6-10.3) mg/dL Total Bilirubin (0.2-1.0) mg/dL AST (13-39) U/L ALT (7-52) U/L Alkaline Phosphatase (34-104) U/L Troponin I 0.16 H* (<0.04) ng/mL Total Protein (6.4-8.9) g/dL Albumin (3.2-5.2) g/dL Globulin (2-4) g/dL Albumin/Globulin Ratio (1-3) Assess/Plan/Problems-Billing Assessment: - Patient Problems (1) Pneumonia Current Visit: No Status: Acute Priority: High Code(s): J18.9 - PNEUMONIA , UNSPECIFIED ORGANISM SNOMED Code(s): 117954436 Comment: - Satting well on 3L, however did have increased WOB this morning after getting fluids yesterday. CXR with pulmonary vascular congestion and interstitial edema. Given 20mg IV lasix and pt reporting breathing has improved. Will continue to monitor. - Afebrile (T max 99.6), however leukocytosis persists. - Continue ceftriaxone and azithro (2) COPD (chronic obstructive pulmonary disease) Current Visit: No Status: Chronic Priority: Low Code(s): J44.9 - CHRONIC OBSTRUCTIVE PULMONARY DISEASE, UNSPECIFIED SNOMED Code(s): 42769703 Comment: - No signs of exacerbation at this time. No wheezing on exam. - Continue dulera and PRN albuterol or levalbuterol - Pulm consult appreciated (3) GIB (gastrointestinal bleeding) Current Visit: Yes Status: Acute Code(s): K92.2 - GASTROINTESTINAL HEMORRHAGE, UNSPECIFIED SNOMED Code(s): 04590483 Comment: - RN called for maroon GI residuals. Gastric occult blood positive. Did recieve 1 dose of naproxen last night, and does take motrin PRN as an outpatient - Given IV protonix bolus followed by drip - H/H and BP, HR stable. Will continue to trend H/H - GI consulted (4) Elevated troponin Current Visit: Yes Status: Acute Code(s): R74.8 - ABNORMAL LEVELS OF OTHER SERUM ENZYMES SNOMED Code(s): 119211495 Comment: - Cardiology consult requested. They feel this is likely demand ischemia in the setting of severe COPD coupled with moderate to severe aortic stenosis ( demonstrated on echo 02/02). Cardiology feels that she would not be a safe candidate for stress test during her acute illness, and can re-evaluate this and options for valve management when her pulm status is at her baseline. - Continue aspirin and lipitor (5) Feeding by G-tube Current Visit: No Status: Chronic Code(s): Z93.1 - GASTROSTOMY STATUS SNOMED Code(s): 317496217 Comment: - Hx of esophageal stricture s/p peg tube placement 20 years - Continue Osmolite and water flushes (6) Hyperlipidemia Current Visit: No Status: Chronic Priority: Low Code(s): E78.5 - HYPERLIPIDEMIA, UNSPECIFIED SNOMED Code(s): 24709573 Comment: - Continue lipitor (7) Hypertension Current Visit: No Status: Chronic Priority: Low Code(s): I10 - ESSENTIAL ( PRIMARY) HYPERTENSION SNOMED Code(s): 28449349 Comment: - Hold losartan in the setting of hypotension (8) DVT prophylaxis Current Visit: No Status: Acute Code(s): PDW3001 - SNOMED Code(s): 416650343 Comment: - HSQ (9) Full code status Current Visit: No Status: Acute Code(s): Z78.9 - OTHER SPECIFIED HEALTH STATUS SNOMED Code(s): 132409324
[2018-02-03] MEDS ORDERED: Pantoprazole IV* 40 MG IV ONE (10:21)
[2018-02-03] MEDS ORDERED: Magnesium Hydroxide LIQ* 30 ML UDC J TUBE ONE (10:57)
[2018-02-03] MEDS ORDERED: Azithromycin TAB* 250 MG PO SCH (11:00)
[2018-02-03] MEDS ORDERED: Pantoprazole* 80 mg IN NS 80 MG/250 ML BAG IVPB SCH (12:00)
[2018-02-03 12:22] LABS: Hematocrit 34 % (35-47); Hemoglobin 10.6 g/dl (12.0-16.0)
[2018-02-03] MEDS: Azithromycin IV(*) 500 MG in NS 0.9% 250 ML* 250 ML IVPB SCH (12:33)
[2018-02-03 20:21] LABS: Hematocrit 33 % (35-47); Hemoglobin 10.4 g/dl (12.0-16.0)
[2018-02-03] MEDS: cefTRIAXone(*) 1 GM in NS 0.9% 50 ML* 50 ML IVPB SCH (21:12)
[2018-02-04] MEDS: Morphine VIAL* 4 MG/ML VIAL (1 ml vial) IV PRN ×3 (02:35→22:02)
[2018-02-04] MEDS: Nicotine Patch Removal NOTE FOLLOW UP SCH ×2 (02:36→04:54)
[2018-02-04] MEDS: Albuterol/Ipratropium NEB.SOL* Albuterol 2.5 MG/Ipratropium 0.5 MG 3 ML INH PRN ×2 (02:46→09:47)
[2018-02-04] MEDS: Heparin VIAL(*) 5000 UNITS/ML VIAL (FIVE THOUSAND) SUBCUT SCH ×3 (05:11→21:58)
[2018-02-04 05:46] LABS: ABS Basophils 0 10^3/ul (0-0.2); ABS Eosinophils 0 10^3/ul (0-0.6); ABS Lymphocytes 1.3 10^3/ul (1.0-4.8); ABS Neutrophils 9.9 10^3/ul (1.5-7.7); ABS Nucleated RBC 0 10^3/ul; Eosinophil % 0 %; Hematocrit 30 % (35-47); Hemoglobin 9.8 g/dl (12.0-16.0); Lymphocyte % 10.2 %; Mean Corpuscular HGB Conc 32 g/dl (31-36); Mean Corpuscular Hemoglobin 27 pg (27-31); Mean Corpuscular Volume 83 fL (80-97); Mean Platelet Volume 8.7 fL (7.4-10.4); Nucleated Red Blood Cells % 0; Platelet Count 366 10^3/ul (150-450); Red Blood Count 3.66 10^6/ul (4.00-5.40); Red Cell Distribution Width 16 % (10.5-15); White Blood Count 12.2 10^3/ul (3.5-10.8)
[2018-02-04 06:08] LABS: EGFR Non-African American 85.1 (>60)
[2018-02-04] MEDS: Aclidinium POWDER MDI(NF) INH SCH ×2 (07:40→20:24)
[2018-02-04] MEDS: Mometasone/Formoter 200/5 MDI INH SCH ×2 (08:12→19:26)
[2018-02-04] MEDS: Levalbuterol HFA INHALER* 1 PUFF MDI INH PRN (08:14)
[2018-02-04] MEDS: Oxybutynin TAB* 5 MG PEG TUBE SCH (09:31)
[2018-02-04] MEDS: Fluticasone NASAL SPRAY 50MCG* 16 gm SPRAY BTL BOTH NARES SCH ×2 (09:31→20:23)
[2018-02-04] MEDS: Nicotine PATCH 7 MG/24 HR* PATCH TRANSDERM SCH (09:32)
[2018-02-04] MEDS: Montelukast Sodium TAB* 10 MG SCH (09:32)
[2018-02-04] MEDS: Aspirin 81 mg CHEW TAB* 81 MG TAB.CHEW PEG TUBE SCH (09:32)
[2018-02-04] MEDS: Atorvastatin* 10 MG TAB PEG TUBE SCH (09:32)
[2018-02-04] MEDS: predniSONE TAB* 20 MG PO SCH (10:06)
[2018-02-04] MEDS: Azithromycin IV(*) 500 MG in NS 0.9% 250 ML* 250 ML IVPB SCH (11:20)
[2018-02-04] MEDS ORDERED: oxyCODONE/Acetamin 5/325 MG* TAB PO PRN (11:31)
[2018-02-04] MEDS: Albuterol/Ipratropium NEB.SOL* Albuterol 2.5 MG/Ipratropium 0.5 MG 3 ML INH SCH ×2 (12:39→19:28)
[2018-02-04] MEDS: Docusate LIQ* 100 MG/10 ML UDC PO SCH (13:12)
--- NOTE | 2018-02-04 16:18 | PN ---
Subjective Date of Service: 02/04/18 Interval History: Called by nurse for increased WOB and shortness of breath. Given duonebs which pt reports helped shortness of breath somewhat. Also given prednisone. Still with pleuritic chest pain unchanged from yesterday. Still with no BM. Will add additional agents. Denies dizziness, headache, abdominal pain, nausea/vomiting/ diarrhea. Objective Active Medications: Acetaminophen (Tylenol Tab*) 650 mg PO Q4H PRN PRN Reason: FEVER/PAIN Last Admin: 02/02/18 09:11 Dose: 650 mg Aclidinium [place] (Lino Lowe Mdi(Nf)) 1 puff INH BID [facility] Last Admin: 02/04/18 07:40 Dose: Not Given Albuterol (Ventolin 2.5 Mg/3 Ml Neb.Nereyda*) 2.5 mg INH Q6H PRN PRN Reason: WHEEZING Albuterol/Ipratropium (Duoneb (Albuterol 2.5 Mg/Ipratropium 0.5 Mg)) 1 neb INH [id number] AWAKE [facility] Last Admin: 02/04/18 12:39 Dose: 1 neb Aspirin (Aspirin 81 Mg Chew Tab*) 81 mg PEG TUBE DAILY [facility] Last Admin: 02/04/18 09:32 Dose: 81 mg Atorvastatin Calcium (Lipitor*) 10 mg PEG TUBE DAILY [facility] Last Admin: 02/04/18 09:32 Dose: 10 mg Docusate Sodium (Colace Liq*) 100 mg PO DAILY [facility] Last Admin: 02/04/18 13:12 Dose: 100 mg Fluticasone Propionate (Flonase Nasal [place] 50mcg*) 1 spray BOTH NARES BID [facility] Last Admin: 02/04/18 09:31 Dose: 1 spray Heparin Sodium (Porcine) (Heparin Vial(*)) 5,000 units SUBCUT Q8HR [facility] Last Admin: 02/04/18 13:13 Dose: 5,000 units Ceftriaxone Sodium 1 gm/ (Sodium Chloride) 50 mls @ 200 mls/hr IVPB Q24H [facility]ELI Last Admin: 02/03/18 21:12 Dose: 200 mls/hr Azithromycin 500 mg/ Sodium (Chloride) 250 mls @ 250 mls/hr IVPB Q24H [facility] Last Admin: 02/04/18 11:20 Dose: 250 mls/hr Levalbuterol HCl (Xopenex Hfa Inhaler*) 2 puff INH QID PRN PRN Reason: SOB/WHEEZING Last Admin: 02/04/18 08:14 Dose: 2 puff Metoclopramide HCl (Reglan Tab*) 10 mg PO QID PRN PRN Reason: NAUSEA/VOMITING Mometasone Furoate/Formoterol Fumar (Dulera 200/5 Mdi*) 2 puff INH BID [facility] Last Admin: 02/04/18 08:12 Dose: 2 puff Montelukast Sodium (Singulair Tab*) 10 mg .SEE ORDER DAILY [facility] Last Admin: 02/04/18 09:32 Dose: 10 mg Morphine Sulfate (Morphine Vial*) 2 mg IV Q4H PRN PRN Reason: PAIN - MILD Last Admin: 02/04/18 10:06 Dose: 2 mg Nicotine (Nicotine Patch 7 Mg/24 Hr*) 1 patch TRANSDERM DAILY [facility] Last Admin: 02/04/18 09:32 Dose: 1 patch Ondansetron HCl (Zofran Inj*) 4 mg IV Q4H PRN PRN Reason: NAUSEA/VOMITING Oxybutynin Chloride (Ditropan Tab*) 5 mg PEG TUBE DAILY [facility]; Protocol Last Admin: 02/04/18 09:31 Dose: 5 mg Oxycodone/Acetaminophen (Percocet 5/325 Tab*) 1 tab PO Q4H PRN PRN Reason: PAIN Pharmacy Profile Note (Nicotine Patch Removal Note*) 1 note FOLLOW UP 0600 [facility] Last Admin: 02/04/18 04:54 Dose: Not Given Polyethylene Glycol/Electrolytes (Miralax*) 17 gm PEG TUBE DAILY PRN PRN Reason: CONSTIPATION Last Admin: 02/02/18 01:50 Dose: 17 gm Prednisone (Deltasone Tab*) 40 mg PO DAILY [facility] Last Admin: 02/04/18 10:06 Dose: 40 mg Vital Signs - 8 hr 02/04/18 02/04/18 02/04/18 08:20 10:06 11:13 Temperature 97.5 F 99.8 F Pulse Rate 93 86 Respiratory 24 24 24 Rate Blood Pressure 105/53 126/39 (mmHg) O2 Sat by Pulse 96 97 Oximetry 02/04/18 02/04/18 02/04/18 11:28 12:40 15:42 Temperature 98.9 F Pulse Rate 88 81 Respiratory 18 18 18 Rate Blood Pressure 122/52 (mmHg) O2 Sat by Pulse 97 97 Oximetry Oxygen Devices in Use Now: Nasal Cannula Eyes: No Scleral Icterus, PERRLA Ears/Nose/Mouth/Throat: NL Teeth, Lips, Gums, Clear Oropharnyx, Mucous Membranes Moist Neck: NL Appearance and Movements; NL JVP, Trachea Midline Respiratory: - - Lung sounds diminished. No wheezes or crackles auscultated. Increased work of breathing with accessory muscle usage. Cardiovascular: - - Systolic murmur heard across pericordium. Trace lower extremity edema. Abdominal: - - Abdomen soft but distended. No tenderness to palpation. Normoactive bowel sounds. J tube in place. Extremities: No Clubbing, Cyanosis Skin: No Rash or Ulcers Neurological: Alert and Oriented x 3, NL Muscle Strength and Tone Lines/Tubes/Other Access: Clean, Dry and Intact Peripheral IV Result Diagrams: 02/04/18 05:01 02/04/18 05:01 Additional Lab and Data: Lab Results 02/01/18 02/01/18 02/01/18 Range/Units 16:00 16:00 16:00 WBC 11.0 H (3.5-10.8) 10^3/ul RBC 4.58 (4.00-5.40) 10^6/ul Hgb 12.1 (12.0-16.0) g/dl Hct 38 (35-47) % MCV 82 (80-97) fL MCH 26 L (27-31) pg MCHC 32 (31-36) g/dl RDW 16 H (10.5-15) % Plt Count 422 (150-450) 10^3/ul MPV 8.5 (7.4-10.4) fL Neut % (Auto) 76.7 % Lymph % (Auto) 16.3 % [place] % (Auto) 6.4 % Eos % (Auto) 0 % Baso % (Auto) 0.6 % Absolute Neuts (auto) 8.5 H (1.5-7.7) 10^3/ul Absolute Lymphs (auto) 1.8 (1.0-4.8) 10^3/ul Absolute Monos (auto) 0.7 (0-0.8) 10^3/ul Absolute Eos (auto) 0 (0-0.6) 10^3/ul Absolute Basos (auto) 0.1 (0-0.2) 10^3/ul Absolute Nucleated RBC 0 10^3/ul Nucleated RBC % 0 Sodium 141 (135-145) mmol/L Potassium 4.8 (3.5-5.0) mmol/L Chloride 107 (101-111) mmol/L Carbon Dioxide 30 (22-32) mmol/L Anion Gap 4 (2-11) mmol/L BUN 24 (6-24) mg/dL Creatinine 0.67 (0.51-0.95) mg/dL Est GFR ( Amer) 103.0 (>60) Est GFR (Non-Af Amer) 85.1 (>60) BUN/Creatinine Ratio 35.8 H (8-20) Glucose 100 (70-100) mg/dL Lactic Acid 1.2 (0.5-2.0) mmol/L Calcium 10.9 H (8.6-10.3) mg/dL Total Bilirubin 0.40 (0.2-1.0) mg/dL AST 27 (13-39) U/L ALT 17 (7-52) U/L Alkaline Phosphatase 111 H (34-104) U/L Troponin I 0.15 H* (<0.04) ng/mL Total Protein 7.2 (6.4-8.9) g/dL Albumin 3.8 (3.2-5.2) g/dL Globulin 3.4 (2-4) g/dL Albumin/Globulin Ratio 1.1 (1-3) 02/01/18 Range/Units 18:09 WBC (3.5-10.8) 10^3/ul RBC (4.00-5.40) 10^6/ul Hgb (12.0-16.0) g/dl Hct (35-47) % MCV (80-97) fL MCH (27-31) pg MCHC (31-36) g/dl RDW (10.5-15) % Plt Count (150-450) 10^3/ul MPV (7.4-10.4) fL Neut % (Auto) % Lymph % (Auto) % [place] % (Auto) % Eos % (Auto) % Baso % (Auto) % Absolute Neuts (auto) (1.5-7.7) 10^3/ul Absolute Lymphs (auto) (1.0-4.8) 10^3/ul Absolute Monos (auto) (0-0.8) 10^3/ul Absolute Eos (auto) (0-0.6) 10^3/ul Absolute Basos (auto) (0-0.2) 10^3/ul Absolute Nucleated RBC 10^3/ul Nucleated RBC % Sodium (135-145) mmol/L Potassium (3.5-5.0) mmol/L Chloride (101-111) mmol/L Carbon Dioxide (22-32) mmol/L Anion Gap (2-11) mmol/L BUN (6-24) mg/dL Creatinine (0.51-0.95) mg/dL Est GFR ( Amer) (>60) Est GFR (Non-Af Amer) (>60) BUN/Creatinine Ratio (8-20) Glucose (70-100) mg/dL Lactic Acid (0.5-2.0) mmol/L Calcium (8.6-10.3) mg/dL Total Bilirubin (0.2-1.0) mg/dL AST (13-39) U/L ALT (7-52) U/L Alkaline Phosphatase (34-104) U/L Troponin I 0.16 H* (<0.04) ng/mL Total Protein (6.4-8.9) g/dL Albumin (3.2-5.2) g/dL Globulin (2-4) g/dL Albumin/Globulin Ratio (1-3) Microbiology and Other Data: Microbiology 02/03/18 08:46 Gastric Occult Blood - Final Gastric Fluid Assess/Plan/Problems-Billing Assessment: - Patient Problems (1) Pneumonia Current Visit: No Status: Acute Priority: High Code(s): J18.9 - PNEUMONIA , UNSPECIFIED ORGANISM SNOMED Code(s): 713995216 Comment: - Satting well on 3L, however did have increased WOB this morning and still has pleuritic chest pain. Recieved duonebs and prednisone as per pulm which decreased her WOB somewhat. Dr Lincoln was ok with pt receiving prednisone despite blood in gastric fluid as Dr Lincoln feels this is chronic for her. - Dr Shea following, appreciate reqs. She has added metanebs and flutter valve therapy. - CXR with pulmonary vascular congestion and interstitial edema. Given 20mg IV lasix with good output. Hesitant to give more as BP in low 100s, however continue to monitor. - Afebrile (T max 99.6), however leukocytosis persists. - Continue ceftriaxone and azithro (2) COPD (chronic obstructive pulmonary disease) Current Visit: No Status: Chronic Priority: Low Code(s): J44.9 - CHRONIC OBSTRUCTIVE PULMONARY DISEASE, UNSPECIFIED SNOMED Code(s): 05764142 Comment: - No wheezing, but not moving much air. Prednisone added as above, as well as metanebs and flutter valve - Continue dulera and scheduled duonebs - Pulm consult appreciated (3) GIB (gastrointestinal bleeding) Current Visit: Yes Status: Acute Code(s): K92.2 - GASTROINTESTINAL HEMORRHAGE, UNSPECIFIED SNOMED Code(s): 39163312 Comment: - Pt was evaluated by Dr Lincoln who follows her as an outpatient. He is not concerned about the occult blood in her gastric residuals as he feels this is chronic for this patient. He was also ok with her receiving prednisone in the setting. - Initially given IV protonix bolus followed by drip, now d/pili - Will continue to trend H/H (4) Elevated troponin Current Visit: Yes Status: Acute Code(s): R74.8 - ABNORMAL LEVELS OF OTHER SERUM ENZYMES SNOMED Code(s): 372273298 Comment: - Cardiology consult requested. They feel this is likely demand ischemia in the setting of severe COPD coupled with moderate to severe aortic stenosis ( demonstrated on echo 02/02). Cardiology feels that she would not be a safe candidate for stress test during her acute illness, and can re-evaluate this and options for valve management when her pulm status is at her baseline. - Continue aspirin and lipitor (5) Feeding by G-tube Current Visit: No Status: Chronic Code(s): Z93.1 - GASTROSTOMY STATUS SNOMED Code(s): 340665499 Comment: - Hx of esophageal stricture s/p peg tube placement 20 years - Continue Osmolite and water flushes (6) Hyperlipidemia Current Visit: No Status: Chronic Priority: Low Code(s): E78.5 - HYPERLIPIDEMIA, UNSPECIFIED SNOMED Code(s): 24525658 Comment: - Continue lipitor (7) Hypertension Current Visit: No Status: Chronic Priority: Low Code(s): I10 - ESSENTIAL ( PRIMARY) HYPERTENSION SNOMED Code(s): 42725621 Comment: - Hold losartan in the setting of hypotension (8) DVT prophylaxis Current Visit: No Status: Acute Code(s): JHW1748 - SNOMED Code(s): 777049992 Comment: - Continue heparin sq (9) Full code status Current Visit: No Status: Acute Code(s): Z78.9 - OTHER SPECIFIED HEALTH STATUS SNOMED Code(s): 801321202 Status and Disposition: Inpatient. Anticipate discharge to home when medically stable
[2018-02-04] MEDS: cefTRIAXone(*) 1 GM in NS 0.9% 50 ML* 50 ML IVPB SCH (20:23)
--- NOTE | 2018-02-04 22:29 | CONS ---
PULMONARY CONSULTATION REPORT: DATE OF CONSULT: 02/04/18. CONSULTATION REQUESTED BY: Kenisha Kimble NP. REASON FOR CONSULT: Evaluation of respiratory distress. HISTORY OF PRESENT ILLNESS: 77-year-old female with a history of hypertension, dyslipidemia, history of esophageal stricture, status post G-tube placement, hypothyroidism, dyslipidemia, hypertension, severe COPD, lung cancer in 2013, in remission, also underwent surgery, parathyroid surgery, arthritis, osteoporosis, cholecystectomy, gastroparesis, malabsorption, history of prior admissions for pneumonia and COPD exacerbation. The patient presents for evaluation of chest pain. The patient has had sick contacts. Recently, her has been in the hospital and she has been visiting him. The patient reports fevers at home and chills. The patient started having worsening shortness of breath and cough. The patient also noticed pleuritic chest pain starting in her back and radiating around her rib cage. She has a history of pneumonias in the past and felt like similar symptoms and presented to the emergency room for further evaluation. The patient was found to have elevated troponins with negative D-dimer. The patient was in mild respiratory distress. The patient was tachypneic, requiring O2 supplementation at 3 to 4 L per minute. The patient had laboratory workup, which showed leukocytosis. The patient also had a chest x-ray that was personally reviewed by me and with the patient today - the patient noted to have airspace opacity in the right base. She was admitted for management of pneumonia. She was initiated on Rocephin and Zithromax. The patient also on nicotine patch. She was started on bronchodilators. She continued to have respiratory distress and a pulmonary consultation was requested. The patient is using accessory muscles of respiration at the time of my evaluation. She was unable to complete full sentences. She is just breathing shallowly. She noted to have wheezing on auscultation and diminished air entry bilaterally. She has remained afebrile since admission. She has been saturating well in the high 90s on 3 L. She was found to have no elevation in bicarbonate on peripheral labs. Procalcitonin was within normal limits. Her lactic acid was within normal limits. She is hemodynamically stable other than tachycardia initially. Steroids were started today. PAST MEDICAL HISTORY: 1. Esophageal stricture. 2. Severe COPD, on 2 L O2 at home. 3. History of multiple pneumonias in the past. 4. Hypothyroidism. 5. Hyperlipidemia. 6. Hypertension. 7. Lung cancer in 2013, in remission. 8. Parathyroid surgery. 9. Arthritis. 10. Osteoporosis. 11. History of cholecystectomy. 12. History of gastroparesis, malabsorption. 13. Macular degeneration. 14. Chronic pain. 15. 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 16. History of compression fracture in T5. MEDICATIONS: Through G-tube. 1. Detrol. 2. Reglan. 3. Atorvastatin. 4. Tudorza. 5. Estradiol. 6. Vitamin D. 7. MiraLAX. 8. Lactobacillus. 9. Ibuprofen. 10. Flonase. 11. Singulair. 12. Losartan. 13. Aspirin. 14. Xopenex. 15. Advair. 16. Albuterol. ALLERGIES: SULFA, VARENICLINE, LEVOFLOXACIN, CEFUROXIME. FAMILY HISTORY: Mother at age 74 with stroke. Father at age 82 from CHF and COPD. SOCIAL HISTORY: Lives at home with her . Independent of activities of daily living . Quit smoking 3 years ago. Has significant smoking history prior to that. REVIEW OF SYSTEMS: All 14 systems reviewed, as per HPI. PHYSICAL EXAMINATION: An elderly female, in mild distress, using accessory muscle of respirations. Vital Signs: Temperature 99.8, pulse 88 beats per minute, respiratory rate 18 per minute, O2 sat 97% on 3 L, blood pressure 126/ 39. HEENT: Pupils equal, reactive to light. Mucous membranes moist. Lungs: Diminished air entry bilaterally. Expiratory wheeze present bilaterally. Cardiovascular: S1, S2 present, regular. Abdomen: Soft, nontender, nondistended. Bowel sounds present. Extremities: Normal range of motion. Had 1+ edema prior to Lasix administration yesterday. Neuro: Alert, awake, oriented x3. No focal deficits. Skin: No rash. DIAGNOSTIC STUDIES/LAB DATA: WBC count 12.2; hemoglobin 9.8; hematocrit 30; platelet count 366. D-dimer less than 200. Sodium 138, potassium 4.8, chloride 107, bicarbonate 29, BUN 30, creatinine 0.67. Troponins elevated. Trending down. LFTs within normal limits. Chest x-ray as described above in HPI. Repeat chest x-ray from 02/03/18 was also reviewed. Evidence of pulmonary vascular congestion. Echocardiogram on admission showed normal LV chamber size with normal contractility and EF of 65%, evidence of diastolic dysfunction, right ventricular systolic function, found to be normal, [id number] aortic stenosis noted, moderate mitral calcification and moderate mitral regurgitation. Evidence of tricuspid regurgitation with [id number] pulmonary hypertension was noted. In comparison with prior echo, there is worsening of aortic stenosis. IMPRESSION AND RECOMMENDATION: 77-year-old female with a history of severe chronic obstructive pulmonary disease and history of recurrent pneumonias. She does have a history of lung cancer, status post surgery in the past. The patient with minimal pulmonary reserve with FEV1 of 0.5 L or 34% predicted on last PFTs from January 2017. 1. The patient with acute chronic obstructive pulmonary disease exacerbation. 2. Community acquired pneumonia after recent sick contact. 3. Elevated troponin, likely stress and demand ischemia related. 4. Increased work of breathing secondary to poor reserve in the setting of severe chronic obstructive pulmonary disease and pneumonia and pulmonary vascular congestion. 5. Moderate aortic stenosis. 6. Pulmonary vascular congestion and fluid overload and diastolic congestive heart failure. 7. The patient's shortness of breath is multifactorial - likely secondary to acute chronic obstructive pulmonary disease exacerbation and pneumonia/ bronchitis from recent sick contacts. The patient started on community acquired pneumonia coverage. She is receiving bronchodilators. The patient reports inability to expectorate the phlegm. The patient would benefit from MetaNeb treatments with her bronchodilators. The patient also with pleuritic chest pain receiving morphine as needed. She was found to have worsening aortic stenosis, received IV hydration upon admission, which might have resulted in congestive heart failure also. She received Lasix and had some improvement. Would recommend reevaluation for need for diuretic. Continue with bronchodilators q. 6 hours [id number] along with MetaNebs. Recommended prednisone at 40 mg daily given that she has acute chronic obstructive pulmonary disease exacerbation and even though she has a history of osteoporosis , benefits overweigh the risks at this time. Flutter device usage was discussed with the patient. She is comfortable at current FiO2 levels. Do not see need for high flow or BiPAP at this time Given her poor reserve, she could potentially deteriorate. This was discussed in detail with the patient. She wishes to be full code at this time. She is stable enough for being managed on floor at this time. She understands that she would be transferred to ICU if her condition deteriorates. She expressed understanding to the plan of care. Thank you for allowing me to participate in care of your patient. Will follow up with you. Above recommendations was discussed with Kenisha iKmble NP. [id number]/[facility] #: [id number] TANYA
[2018-02-05] MEDS: Albuterol/Ipratropium NEB.SOL* Albuterol 2.5 MG/Ipratropium 0.5 MG 3 ML INH SCH ×4 (01:04→19:55)
[2018-02-05] MEDS: Heparin VIAL(*) 5000 UNITS/ML VIAL (FIVE THOUSAND) SUBCUT SCH ×3 (05:16→21:13)
[2018-02-05] MEDS: Nicotine Patch Removal NOTE FOLLOW UP SCH (05:16)
[2018-02-05 05:19] LABS: ABS Basophils 0 10^3/ul (0-0.2); ABS Eosinophils 0 10^3/ul (0-0.6); ABS Monocytes 0.5 10^3/ul (0-0.8); ABS Neutrophils 7.8 10^3/ul (1.5-7.7); ABS Nucleated RBC 0 10^3/ul; Eosinophil % 0 %; Hematocrit 30 % (35-47); Hemoglobin 9.8 g/dl (12.0-16.0); Lymphocyte % 10.3 %; Mean Corpuscular HGB Conc 33 g/dl (31-36); Mean Corpuscular Hemoglobin 27 pg (27-31); Mean Corpuscular Volume 82 fL (80-97); Mean Platelet Volume 8.7 fL (7.4-10.4); Nucleated Red Blood Cells % 0; Platelet Count 393 10^3/ul (150-450); Red Blood Count 3.61 10^6/ul (4.00-5.40); Red Cell Distribution Width 15 % (10.5-15); White Blood Count 9.4 10^3/ul (3.5-10.8)
[2018-02-05 05:34] LABS: EGFR Non-African American 91.4 (>60)
[2018-02-05] MEDS ORDERED: Albuterol/Ipratropium NEB.SOL* Albuterol 2.5 MG/Ipratropium 0.5 MG 3 ML ONE (07:22)
[2018-02-05] MEDS: Mometasone/Formoter 200/5 MDI INH SCH ×2 (07:29→19:55)
[2018-02-05] MEDS: Aclidinium POWDER MDI(NF) INH SCH ×2 (07:49→20:35)
[2018-02-05] MEDS: predniSONE TAB* 20 MG PO SCH (08:25)
[2018-02-05] MEDS: Oxybutynin TAB* 5 MG PEG TUBE SCH (08:25)
[2018-02-05] MEDS: Montelukast Sodium TAB* 10 MG SCH (08:25)
[2018-02-05] MEDS: Atorvastatin* 10 MG TAB PEG TUBE SCH (08:25)
[2018-02-05] MEDS: Docusate LIQ* 100 MG/10 ML UDC PO SCH (08:25)
[2018-02-05] MEDS: Nicotine PATCH 7 MG/24 HR* PATCH TRANSDERM SCH (08:25)
[2018-02-05] MEDS: Aspirin 81 mg CHEW TAB* 81 MG TAB.CHEW PEG TUBE SCH (08:25)
[2018-02-05] MEDS: Fluticasone NASAL SPRAY 50MCG* 16 gm SPRAY BTL BOTH NARES SCH ×2 (08:25→20:34)
[2018-02-05] MEDS ORDERED: Furosemide IV* 10 MG/ML 2 ML VIAL (20 MG) IV ONE (10:01)
--- NOTE | 2018-02-05 10:11 | PN ---
Subjective Date of Service: 02/05/18 Interval History: Pt reports shortness of breath slightly improved from yesterday, but still more short of breath than baseline and still with increased work of breathing. Still with pleuritic chest pain. Since starting metanebs, has started coughing up small amounts of dark colored sputum. Denies abdominal pain, N/V, last BM yesterday. Objective Active Medications: Acetaminophen (Tylenol Tab*) 650 mg PO Q4H PRN PRN Reason: FEVER/PAIN Last Admin: 02/02/18 09:11 Dose: 650 mg Aclidinium [place] (Lino Lowe Mdi(Nf)) 1 puff INH BID [facility] Last Admin: 02/05/18 07:49 Dose: Not Given Albuterol (Ventolin 2.5 Mg/3 Ml Neb.Nereyda*) 2.5 mg INH Q6H PRN PRN Reason: WHEEZING Albuterol/Ipratropium (Duoneb (Albuterol 2.5 Mg/Ipratropium 0.5 Mg)) 1 neb INH [id number] AWAKE [facility] Last Admin: 02/05/18 07:28 Dose: 1 neb Aspirin (Aspirin 81 Mg Chew Tab*) 81 mg PEG TUBE DAILY [facility] Last Admin: 02/05/18 08:25 Dose: 81 mg Atorvastatin Calcium (Lipitor*) 10 mg PEG TUBE DAILY [facility] Last Admin: 02/05/18 08:25 Dose: 10 mg Docusate Sodium (Colace Liq*) 100 mg PO DAILY [facility] Last Admin: 02/05/18 08:25 Dose: 100 mg Fluticasone Propionate (Flonase Nasal [place] 50mcg*) 1 spray BOTH NARES BID [facility] Last Admin: 02/05/18 08:25 Dose: Not Given Furosemide (Lasix Iv*) 20 mg IV ONCE ONE Stop: 02/05/18 10:02 Heparin Sodium (Porcine) (Heparin Vial(*)) 5,000 units SUBCUT Q8HR [facility] Last Admin: 02/05/18 05:16 Dose: 5,000 units Ceftriaxone Sodium 1 gm/ (Sodium Chloride) 50 mls @ 200 mls/hr IVPB Q24H [facility] Last Admin: 02/04/18 20:23 Dose: 200 mls/hr Azithromycin 500 mg/ Sodium (Chloride) 250 mls @ 250 mls/hr IVPB Q24H [facility] Last Admin: 02/04/18 11:20 Dose: 250 mls/hr Levalbuterol HCl (Xopenex Hfa Inhaler*) 2 puff INH QID PRN PRN Reason: SOB/WHEEZING Last Admin: 02/04/18 08:14 Dose: 2 puff Metoclopramide HCl (Reglan Tab*) 10 mg PO QID PRN PRN Reason: NAUSEA/VOMITING Mometasone Furoate/Formoterol Fumar (Dulera 200/5 Mdi*) 2 puff INH BID [facility] Last Admin: 02/05/18 07:29 Dose: 2 puff Montelukast Sodium (Singulair Tab*) 10 mg .SEE ORDER DAILY [facility] Last Admin: 02/05/18 08:25 Dose: 10 mg Morphine Sulfate (Morphine Vial*) 2 mg IV Q4H PRN PRN Reason: PAIN - MILD Last Admin: 02/04/18 22:02 Dose: 2 mg Nicotine (Nicotine Patch 7 Mg/24 Hr*) 1 patch TRANSDERM DAILY [facility] Last Admin: 02/05/18 08:25 Dose: 1 patch Ondansetron HCl (Zofran Inj*) 4 mg IV Q4H PRN PRN Reason: NAUSEA/VOMITING Oxybutynin Chloride (Ditropan Tab*) 5 mg PEG TUBE DAILY [facility]; Protocol Last Admin: 02/05/18 08:25 Dose: 5 mg Oxycodone/Acetaminophen (Percocet 5/325 Tab*) 1 tab PO Q4H PRN PRN Reason: PAIN Pharmacy Profile Note (Nicotine Patch Removal Note*) 1 note FOLLOW UP 0600 [facility] Last Admin: 02/05/18 05:16 Dose: 1 note Polyethylene Glycol/Electrolytes (Miralax*) 17 gm PEG TUBE DAILY PRN PRN Reason: CONSTIPATION Last Admin: 02/02/18 01:50 Dose: 17 gm Prednisone (Deltasone Tab*) 40 mg PO DAILY [facility] Last Admin: 02/05/18 08:25 Dose: 40 mg Vital Signs - 8 hr 02/05/18 02/05/18 02/05/18 03:47 07:25 07:31 Temperature 97.4 F 98.2 F Pulse Rate 79 81 84 Respiratory 24 24 17 Rate Blood Pressure 134/63 131/63 (mmHg) O2 Sat by Pulse 99 100 98 Oximetry 02/05/18 08:00 Temperature Pulse Rate Respiratory 24 Rate Blood Pressure (mmHg) O2 Sat by Pulse Oximetry Oxygen Devices in Use Now: Nasal Cannula Eyes: No Scleral Icterus, PERRLA Ears/Nose/Mouth/Throat: NL Teeth, Lips, Gums, Mucous Membranes Moist Neck: NL Appearance and Movements; NL JVP, Trachea Midline Respiratory: - - Lung sounds diminished bilaterally. No wheezing auscultated. Increased work of breathing with accesssory muscle use. Cardiovascular: - - S1S2. Systolic murmur heard across precordium Abdominal: - - Abdomen soft but distended. No tenderness to palpation. Bowel sounds preasent x4. Extremities: - - +1 lower extremity peripheral edema. Skin: No Rash or Ulcers Neurological: Alert and Oriented x 3 Result Diagrams: 02/05/18 04:49 02/05/18 04:49 Additional Lab and Data: Lab Results 02/01/18 02/01/18 02/01/18 Range/Units 16:00 16:00 16:00 WBC 11.0 H (3.5-10.8) 10^3/ul RBC 4.58 (4.00-5.40) 10^6/ul Hgb 12.1 (12.0-16.0) g/dl Hct 38 (35-47) % MCV 82 (80-97) fL MCH 26 L (27-31) pg MCHC 32 (31-36) g/dl RDW 16 H (10.5-15) % Plt Count 422 (150-450) 10^3/ul MPV 8.5 (7.4-10.4) fL Neut % (Auto) 76.7 % Lymph % (Auto) 16.3 % [place] % (Auto) 6.4 % Eos % (Auto) 0 % Baso % (Auto) 0.6 % Absolute Neuts (auto) 8.5 H (1.5-7.7) 10^3/ul Absolute Lymphs (auto) 1.8 (1.0-4.8) 10^3/ul Absolute Monos (auto) 0.7 (0-0.8) 10^3/ul Absolute Eos (auto) 0 (0-0.6) 10^3/ul Absolute Basos (auto) 0.1 (0-0.2) 10^3/ul Absolute Nucleated RBC 0 10^3/ul Nucleated RBC % 0 Sodium 141 (135-145) mmol/L Potassium 4.8 (3.5-5.0) mmol/L Chloride 107 (101-111) mmol/L Carbon Dioxide 30 (22-32) mmol/L Anion Gap 4 (2-11) mmol/L BUN 24 (6-24) mg/dL Creatinine 0.67 (0.51-0.95) mg/dL Est GFR ( Amer) 103.0 (>60) Est GFR (Non-Af Amer) 85.1 (>60) BUN/Creatinine Ratio 35.8 H (8-20) Glucose 100 (70-100) mg/dL Lactic Acid 1.2 (0.5-2.0) mmol/L Calcium 10.9 H (8.6-10.3) mg/dL Total Bilirubin 0.40 (0.2-1.0) mg/dL AST 27 (13-39) U/L ALT 17 (7-52) U/L Alkaline Phosphatase 111 H (34-104) U/L Troponin I 0.15 H* (<0.04) ng/mL Total Protein 7.2 (6.4-8.9) g/dL Albumin 3.8 (3.2-5.2) g/dL Globulin 3.4 (2-4) g/dL Albumin/Globulin Ratio 1.1 (1-3) 02/01/18 Range/Units 18:09 WBC (3.5-10.8) 10^3/ul RBC (4.00-5.40) 10^6/ul Hgb (12.0-16.0) g/dl Hct (35-47) % MCV (80-97) fL MCH (27-31) pg MCHC (31-36) g/dl RDW (10.5-15) % Plt Count (150-450) 10^3/ul MPV (7.4-10.4) fL Neut % (Auto) % Lymph % (Auto) % [place] % (Auto) % Eos % (Auto) % Baso % (Auto) % Absolute Neuts (auto) (1.5-7.7) 10^3/ul Absolute Lymphs (auto) (1.0-4.8) 10^3/ul Absolute Monos (auto) (0-0.8) 10^3/ul Absolute Eos (auto) (0-0.6) 10^3/ul Absolute Basos (auto) (0-0.2) 10^3/ul Absolute Nucleated RBC 10^3/ul Nucleated RBC % Sodium (135-145) mmol/L Potassium (3.5-5.0) mmol/L Chloride (101-111) mmol/L Carbon Dioxide (22-32) mmol/L Anion Gap (2-11) mmol/L BUN (6-24) mg/dL Creatinine (0.51-0.95) mg/dL Est GFR ( Amer) (>60) Est GFR (Non-Af Amer) (>60) BUN/Creatinine Ratio (8-20) Glucose (70-100) mg/dL Lactic Acid (0.5-2.0) mmol/L Calcium (8.6-10.3) mg/dL Total Bilirubin (0.2-1.0) mg/dL AST (13-39) U/L ALT (7-52) U/L Alkaline Phosphatase (34-104) U/L Troponin I 0.16 H* (<0.04) ng/mL Total Protein (6.4-8.9) g/dL Albumin (3.2-5.2) g/dL Globulin (2-4) g/dL Albumin/Globulin Ratio (1-3) Microbiology and Other Data: Microbiology 02/03/18 08:46 Gastric Occult Blood - Final Gastric Fluid Assess/Plan/Problems-Billing Assessment: - Patient Problems (1) Pneumonia Current Visit: No Status: Acute Priority: High Code(s): J18.9 - PNEUMONIA , UNSPECIFIED ORGANISM SNOMED Code(s): 271037703 Comment: - Work of breathing somewhat improved since yesterday, but still with accessory muscle use. - Dr Shea following, appreciate reqs. Continue prednisone, scheduled duonebs, dulera, metanebs, flutter valve. - Continue ceftriaxone and azithro - CXR with pulmonary vascular congestion and interstitial edema. Given 20mg IV lasix with good output x1. Will try another dose today as pt still with increased WOB and +1 peripheral edema. (2) COPD (chronic obstructive pulmonary disease) Current Visit: No Status: Chronic Priority: Low Code(s): J44.9 - CHRONIC OBSTRUCTIVE PULMONARY DISEASE, UNSPECIFIED SNOMED Code(s): 51475806 Comment: - No wheezing, but not moving much air. - Continue dulera, prednisone and scheduled duonebs - Pulm consult appreciated (3) GIB (gastrointestinal bleeding) Current Visit: Yes Status: Acute Code(s): K92.2 - GASTROINTESTINAL HEMORRHAGE, UNSPECIFIED SNOMED Code(s): 25082239 Comment: - H/H stable - Pt was evaluated by Dr Lincoln who follows her as an outpatient. He is not concerned about the occult blood in her gastric residuals as he feels this is chronic for this patient. He was also ok with her receiving prednisone in the setting. - Initially given IV protonix bolus followed by drip, now d/pili - Will continue to trend H/H (4) Elevated troponin Current Visit: Yes Status: Acute Code(s): R74.8 - ABNORMAL LEVELS OF OTHER SERUM ENZYMES SNOMED Code(s): 861711513 Comment: - Stable - Cardiology consult requested. They feel this is likely demand ischemia in the setting of severe COPD coupled with moderate to severe aortic stenosis ( demonstrated on echo 02/02). Cardiology feels that she would not be a safe candidate for stress test during her acute illness, and can re-evaluate this and options for valve management when her pulm status is at her baseline. - Continue aspirin and lipitor (5) Feeding by G-tube Current Visit: No Status: Chronic Code(s): Z93.1 - GASTROSTOMY STATUS SNOMED Code(s): 208511706 Comment: - Hx of esophageal stricture s/p peg tube placement 20 years - Continue Osmolite and water flushes (6) Hyperlipidemia Current Visit: No Status: Chronic Priority: Low Code(s): E78.5 - HYPERLIPIDEMIA, UNSPECIFIED SNOMED Code(s): 75020838 Comment: - Continue lipitor (7) Hypertension Current Visit: No Status: Chronic Priority: Low Code(s): I10 - ESSENTIAL ( PRIMARY) HYPERTENSION SNOMED Code(s): 20794962 Comment: - Hold losartan in the setting of hypotension (8) DVT prophylaxis Current Visit: No Status: Acute Code(s): HDQ0363 - SNOMED Code(s): 987419177 Comment: - Continue heparin sq (9) Full code status Current Visit: No Status: Acute Code(s): Z78.9 - OTHER SPECIFIED HEALTH STATUS SNOMED Code(s): 343336826 Status and Disposition: Inpatient. Anticipate discharge to home when medically stable
[2018-02-05] MEDS: Morphine VIAL* 4 MG/ML VIAL (1 ml vial) IV PRN ×2 (10:51→22:46)
[2018-02-05] MEDS: Azithromycin IV(*) 500 MG in NS 0.9% 250 ML* 250 ML IVPB SCH (11:33)
--- NOTE | 2018-02-05 16:44 | PN ---
Progress Note - Progress Note Date of Service: 02/05/18 - Pulm f/u note Note: Pt seen and examined at bedside. Feeling slightly better. ROS: Pt had cough with streaks of blood mixed in phleghm after neb treatments. SOB is slightly improved, feeling fatigued. No further episodes of dark fluid through PEJ. Had bowel movement. Denies urinary complaints other than increased frequency after Lasix. Denies headaches, fever, chills, rash Active Medications Generic Name Dose Route Start Last Admin Trade Name Freq PRN Reason Stop Dose Admin Acetaminophen 650 mg 02/02/18 02:30 02/02/18 09:11 Tylenol Tab* PO 650 mg Q4H PRN Administration FEVER/PAIN Aclidinium [place] 1 puff 02/01/18 22:00 02/05/18 07:49 Lino Lowe Mdi(Nf) INH Not Given BID [facility] Albuterol 2.5 mg 02/01/18 21:58 Ventolin 2.5 Mg/3 Ml Neb.Nereyda* INH Q6H PRN WHEEZING Albuterol/Ipratropium 1 neb 02/04/18 13:00 02/05/18 13:09 Duoneb (Albuterol 2.5 Mg/Ipratropium 0.5 Mg) INH 1 neb [id number] AWAKE [facility] Administration Aspirin 81 mg 02/02/18 09:00 02/05/18 08:25 Aspirin 81 Mg Chew Tab* PEG TUBE 81 mg DAILY [facility] Administration Atorvastatin Calcium 10 mg 02/02/18 09:00 02/05/18 08:25 Lipitor* PEG TUBE 10 mg DAILY [facility] Administration Docusate Sodium 100 mg 02/04/18 12:00 02/05/18 08:25 Colace Liq* PO 100 mg DAILY [facility] Administration Fluticasone Propionate 1 spray 02/02/18 09:00 02/05/18 08:25 Flonase Nasal [place] 50mcg* BOTH NARES Not Given BID [facility] Heparin Sodium (Porcine) 5,000 units 02/01/18 22:00 02/05/18 13:16 Heparin Vial(*) SUBCUT 5,000 units Q8HR [facility] Administration Ceftriaxone Sodium 1 gm/ 50 mls @ 200 mls/hr 02/02/18 20:30 02/04/18 20:23 Sodium Chloride IVPB 200 mls/hr Q24H [facility] Administration Azithromycin 500 mg/ Sodium 250 mls @ 250 mls/hr 02/03/18 12:00 02/05/18 11: 33 Chloride IVPB 250 mls/hr Q24H [facility] Administration Levalbuterol HCl 2 puff 02/01/18 21:58 02/04/18 08:14 Xopenex Hfa Inhaler* INH 2 puff QID PRN Administration SOB/WHEEZING Metoclopramide HCl 10 mg 02/01/18 21:58 Reglan Tab* PO QID PRN NAUSEA/VOMITING Mometasone Furoate/Formoterol Fumar 2 puff 02/01/18 22:00 02/05/18 07:29 Dulera 200/5 Mdi* INH 2 puff BID [facility] Administration Montelukast Sodium 10 mg 02/02/18 09:00 02/05/18 08:25 Singulair Tab* .SEE ORDER 10 mg DAILY [facility] Administration Morphine Sulfate 2 mg 02/01/18 21:54 02/05/18 10:51 Morphine Vial* IV 2 mg Q4H PRN Administration PAIN - MILD Nicotine 1 patch 02/02/18 15:00 02/05/18 08:25 Nicotine Patch 7 Mg/24 Hr* TRANSDERM 1 patch DAILY [facility] Administration Ondansetron HCl 4 mg 02/01/18 21:54 Zofran Inj* IV Q4H PRN NAUSEA/VOMITING Oxybutynin Chloride 5 mg 02/02/18 09:00 02/05/18 08:25 Ditropan Tab* PEG TUBE 5 mg DAILY [facility] Administration Protocol Oxycodone/Acetaminophen 1 tab 02/04/18 11:31 Percocet 5/325 Tab* PO Q4H PRN PAIN Pharmacy Profile Note 1 note 02/03/18 06:00 02/05/18 05:16 Nicotine Patch Removal Note* FOLLOW UP 1 note 0600 [facility] Administration Polyethylene Glycol/Electrolytes 17 gm 02/01/18 21:58 02/02/18 01:50 Miralax* PEG TUBE 17 gm DAILY PRN Administration CONSTIPATION Prednisone 40 mg 02/04/18 10:00 02/05/18 08:25 Deltasone Tab* PO 40 mg DAILY [facility] Administration Vital Signs Temp Pulse Resp BP Pulse Ox 98.0 F 73 18 121/79 99 02/05/18 15:25 02/05/18 15:25 02/05/18 15:25 02/05/18 15:25 02/05/18 15:25 O/E: Pt in NAD HEENT: PERRLA, no JVD Lungs: Diminished air entry b/l, scaterred wheeze+ CVS: S1, S2+, regular Abd: PEJ +, NT, ND Ext: Normal ROM Musculskeletal: Kyphoscoliosis + Skin: No rash Neuro: NO focal deficits Laboratory Results - last 24 hr 02/05/18 02/05/18 04:49 04:49 WBC 9.4 RBC 3.61 L Hgb 9.8 L Hct 30 L MCV 82 MCH 27 MCHC 33 RDW 15 Plt Count 393 MPV 8.7 Neut % (Auto) 83.5 Lymph % (Auto) 10.3 [place] % (Auto) 5.8 Eos % (Auto) 0 Baso % (Auto) 0.4 Absolute Neuts (auto) 7.8 H Absolute Lymphs (auto) 1.0 Absolute Monos (auto) 0.5 Absolute Eos (auto) 0 Absolute Basos (auto) 0 Absolute Nucleated RBC 0 Nucleated RBC % 0 Sodium 138 Potassium 5.0 Chloride 106 Carbon Dioxide 31 Anion Gap 1 L BUN 29 H Creatinine 0.63 Est GFR ( Amer) 110.6 Est GFR (Non-Af Amer) 91.4 BUN/Creatinine Ratio 46.0 H Glucose 97 Calcium 10.2 I/R: 77 y o f with h/o severe COPD, recurrent PNA, h/o lung cancer s/p resection , gastroparesis, esophageal stricture s/p PEJ placement a/w worsening SOB after recent sick contacts being treated for PNA and acute COPD exacerbation Pt with inability expectorating phleghm ,metanebs helping 2 episodes of blood in sputum, likely from PNA Also component of fluid overload, Lasix helping Started on 40mg prednisone given acute COPD exacerbation Has h/o GI bleed, stable Pl chest pain- improved with meds c/w abx c/w bronchodialtors c/w O2 to keep O2 sat around 92% DVT px
[2018-02-05] MEDS: cefTRIAXone(*) 1 GM in NS 0.9% 50 ML* 50 ML IVPB SCH (20:34)
[2018-02-06] MEDS: Albuterol/Ipratropium NEB.SOL* Albuterol 2.5 MG/Ipratropium 0.5 MG 3 ML INH SCH ×4 (01:49→20:02)
[2018-02-06 05:22] LABS: ABS Basophils 0 10^3/ul (0-0.2); ABS Eosinophils 0 10^3/ul (0-0.6); ABS Lymphocytes 1.8 10^3/ul (1.0-4.8); ABS Monocytes 0.6 10^3/ul (0-0.8); ABS Neutrophils 6.4 10^3/ul (1.5-7.7); ABS Nucleated RBC 0 10^3/ul; Eosinophil % 0 %; Hematocrit 30 % (35-47); Hemoglobin 9.6 g/dl (12.0-16.0); Lymphocyte % 20.8 %; Mean Corpuscular HGB Conc 32 g/dl (31-36); Mean Corpuscular Hemoglobin 26 pg (27-31); Mean Corpuscular Volume 82 fL (80-97); Mean Platelet Volume 8.4 fL (7.4-10.4); Nucleated Red Blood Cells % 0; Platelet Count 418 10^3/ul (150-450); Red Blood Count 3.68 10^6/ul (4.00-5.40); Red Cell Distribution Width 16 % (10.5-15); White Blood Count 8.8 10^3/ul (3.5-10.8)
[2018-02-06] MEDS: Heparin VIAL(*) 5000 UNITS/ML VIAL (FIVE THOUSAND) SUBCUT SCH ×3 (05:41→21:27)
[2018-02-06 05:43] LABS: EGFR Non-African American 98.6 (>60)
[2018-02-06] MEDS: Nicotine Patch Removal NOTE FOLLOW UP SCH (05:43)
[2018-02-06] MEDS: Aclidinium POWDER MDI(NF) INH SCH ×2 (07:45→20:08)
[2018-02-06] MEDS: Mometasone/Formoter 200/5 MDI INH SCH ×2 (07:55→20:02)
[2018-02-06] MEDS: Morphine VIAL* 4 MG/ML VIAL (1 ml vial) IV PRN ×2 (09:08→22:39)
[2018-02-06] MEDS: Nicotine PATCH 7 MG/24 HR* PATCH TRANSDERM SCH (09:09)
[2018-02-06] MEDS: Fluticasone NASAL SPRAY 50MCG* 16 gm SPRAY BTL BOTH NARES SCH ×2 (09:09→21:27)
[2018-02-06] MEDS: Docusate LIQ* 100 MG/10 ML UDC PO SCH (09:09)
[2018-02-06] MEDS: predniSONE TAB* 20 MG PO SCH (09:10)
[2018-02-06] MEDS: Oxybutynin TAB* 5 MG PEG TUBE SCH (09:10)
[2018-02-06] MEDS: Atorvastatin* 10 MG TAB PEG TUBE SCH (09:10)
[2018-02-06] MEDS: Aspirin 81 mg CHEW TAB* 81 MG TAB.CHEW PEG TUBE SCH (09:10)
[2018-02-06] MEDS: Montelukast Sodium TAB* 10 MG SCH (09:10)
[2018-02-06] MEDS: Azithromycin IV(*) 500 MG in NS 0.9% 250 ML* 250 ML IVPB SCH (11:45)
--- NOTE | 2018-02-06 13:43 | PN ---
Progress Note - Progress Note Date of Service: 02/06/18 - Pulm f/u note Note: Pt seen and examined at bedside. Pt reports feeling fatigued. SOB is slightly improved. Feels better after expectorating phleghm. Had phleghm with streaks of blood- 1 episode. Nose feels congested- improves with nasal spray Active Medications Generic Name Dose Route Start Last Admin Trade Name Freq PRN Reason Stop Dose Admin Acetaminophen 650 mg 02/02/18 02:30 02/02/18 09:11 Tylenol Tab* PO 650 mg Q4H PRN Administration FEVER/PAIN Aclidinium [place] 1 puff 02/01/18 22:00 02/06/18 07:45 Lino Lowe Mdi(Nf) INH Not Given BID [facility] Albuterol 2.5 mg 02/01/18 21:58 Ventolin 2.5 Mg/3 Ml Neb.Neeryda* INH Q6H PRN WHEEZING Albuterol/Ipratropium 1 neb 02/04/18 13:00 02/06/18 07:54 Duoneb (Albuterol 2.5 Mg/Ipratropium 0.5 Mg) INH 1 neb [id number] AWAKE [facility] Administration Aspirin 81 mg 02/02/18 09:00 02/06/18 09:10 Aspirin 81 Mg Chew Tab* PEG TUBE 81 mg DAILY [facility] Administration Atorvastatin Calcium 10 mg 02/02/18 09:00 02/06/18 09:10 Lipitor* PEG TUBE 10 mg DAILY [facility] Administration Docusate Sodium 100 mg 02/04/18 12:00 02/06/18 09:09 Colace Liq* PO Not Given DAILY [facility] Fluticasone Propionate 1 spray 02/02/18 09:00 02/06/18 09:09 Flonase Nasal [place] 50mcg* BOTH NARES 1 spray BID [facility] Administration Heparin Sodium (Porcine) 5,000 units 02/01/18 22:00 02/06/18 05:41 Heparin Vial(*) SUBCUT 5,000 units Q8HR [facility] Administration Ceftriaxone Sodium 1 gm/ 50 mls @ 200 mls/hr 02/02/18 20:30 02/05/18 20:34 Sodium Chloride IVPB 200 mls/hr Q24H [facility] Administration Azithromycin 500 mg/ Sodium 250 mls @ 250 mls/hr 02/03/18 12:00 02/06/18 11: 45 Chloride IVPB 250 mls/hr Q24H [facility] Administration Levalbuterol HCl 2 puff 02/01/18 21:58 02/04/18 08:14 Xopenex Hfa Inhaler* INH 2 puff QID PRN Administration SOB/WHEEZING Metoclopramide HCl 10 mg 02/01/18 21:58 Reglan Tab* PO QID PRN NAUSEA/VOMITING Mometasone Furoate/Formoterol Fumar 2 puff 02/01/18 22:00 02/06/18 07:55 Dulera 200/5 Mdi* INH 2 puff BID [facility] Administration Montelukast Sodium 10 mg 02/02/18 09:00 02/06/18 09:10 Singulair Tab* .SEE ORDER 10 mg DAILY [facility] Administration Morphine Sulfate 2 mg 02/01/18 21:54 02/06/18 09:08 Morphine Vial* IV 2 mg Q4H PRN Administration PAIN - MILD Nicotine 1 patch 02/02/18 15:00 02/06/18 09:09 Nicotine Patch 7 Mg/24 Hr* TRANSDERM 1 patch DAILY [facility] Administration Ondansetron HCl 4 mg 02/01/18 21:54 Zofran Inj* IV Q4H PRN NAUSEA/VOMITING Oxybutynin Chloride 5 mg 02/02/18 09:00 02/06/18 09:10 Ditropan Tab* PEG TUBE 5 mg DAILY [facility] Administration Protocol Oxycodone/Acetaminophen 1 tab 02/04/18 11:31 Percocet 5/325 Tab* PO Q4H PRN PAIN Pharmacy Profile Note 1 note 02/03/18 06:00 02/06/18 05:43 Nicotine Patch Removal Note* FOLLOW UP Not Given 0600 [facility] Polyethylene Glycol/Electrolytes 17 gm 02/01/18 21:58 02/02/18 01:50 Miralax* PEG TUBE 17 gm DAILY PRN Administration CONSTIPATION Prednisone 40 mg 02/04/18 10:00 02/06/18 09:10 Deltasone Tab* PO 40 mg DAILY [facility] Administration Vital Signs Temp Pulse Resp BP Pulse Ox 99.4 F 84 24 145/61 97 02/06/18 11:54 02/06/18 11:54 02/06/18 11:54 02/06/18 11:54 02/06/18 11:54 O/E: Pt in NAD HEENT: PERRLA, No JVD Lungs: Diminished air entry b/l, wheeze is improved CVS: S1, S2+, regular Abd: Soft, BS+ Musculoskeletal: Kypho-scoliosis + Neuro: No focal deficits Skin: NO rash Laboratory Results - last 24 hr 02/06/18 02/06/18 02/06/18 04:55 04:55 04:55 WBC RBC Hgb Hct MCV MCH MCHC RDW Plt Count MPV Neut % (Auto) Lymph % (Auto) [place] % (Auto) Eos % (Auto) Baso % (Auto) Absolute Neuts (auto) Absolute Lymphs (auto) Absolute Monos (auto) Absolute Eos (auto) Absolute Basos (auto) Absolute Nucleated RBC Nucleated RBC % Sodium 138 Potassium 4.6 Chloride 105 Carbon Dioxide 33 H BUN 29 H Creatinine 0.59 Est GFR ( Amer) 119.3 Est GFR (Non-Af Amer) 98.6 BUN/Creatinine Ratio 49.2 H Glucose 91 Calcium 9.8 C-Reactive Protein 14.69 H B-Natriuretic Peptide 454 H Procalcitonin < 0.1 02/06/18 04:57 WBC 8.8 RBC 3.68 L Hgb 9.6 L Hct 30 L MCV 82 MCH 26 L MCHC 32 RDW 16 H Plt Count 418 MPV 8.4 Neut % (Auto) 72.0 Lymph % (Auto) 20.8 [place] % (Auto) 6.7 Eos % (Auto) 0 Baso % (Auto) 0.5 Absolute Neuts (auto) 6.4 Absolute Lymphs (auto) 1.8 Absolute Monos (auto) 0.6 Absolute Eos (auto) 0 Absolute Basos (auto) 0 Absolute Nucleated RBC 0 Nucleated RBC % 0 Sodium Potassium Chloride Carbon Dioxide BUN Creatinine Est GFR ( Amer) Est GFR (Non-Af Amer) BUN/Creatinine Ratio Glucose Calcium C-Reactive Protein B-Natriuretic Peptide Procalcitonin I/R: 77 y o f with h/o severe COPD, recurrent PNA, h/o lung cancer s/p resection , gastroparesis, esophageal stricture s/p PEJ placement a/w worsening SOB after recent sick contacts being treated for PNA and acute COPD exacerbation Pt with thick phleghm ,metanebs helping 1 episodes of blood in sputum, likely from PNA. No active bleeding Received Lasix, congestion improved c/w 40mg prednisone for acute COPD exacerbation Has h/o GI bleed, stable Pl chest pain- improved with pain meds c/w abx c/w bronchodialtors c/w flutter device c/w O2 to keep O2 sat around 92%, currently on 3l ECHO with worsening of , pt f/u with Dr Youngblood as out pt DVT px D/w Dr Bundy
--- NOTE | 2018-02-06 19:19 | PN ---
Subjective Date of Service: 02/06/18 Interval History: Pt fatigued. continued pleuritic pain wrapping around chest. Weight checked and up 9lbs since admission. getting up thick and blood tinged sputum with the metaneb machine. follows with Dr. Fall (next in March) Tmax 99.4 Objective Active Medications: Acetaminophen (Tylenol Tab*) 650 mg PO Q4H PRN PRN Reason: FEVER/PAIN Last Admin: 02/02/18 09:11 Dose: 650 mg Aclidinium [place] (Tudorza Pressair Mdi(Nf)) 1 puff INH BID [facility] Last Admin: 02/06/18 07:45 Dose: Not Given Albuterol (Ventolin 2.5 Mg/3 Ml Neb.Nereyda*) 2.5 mg INH Q6H PRN PRN Reason: WHEEZING Albuterol/Ipratropium (Duoneb (Albuterol 2.5 Mg/Ipratropium 0.5 Mg)) 1 neb INH [id number] AWAKE [facility] Last Admin: 02/06/18 13:46 Dose: 1 neb Aspirin (Aspirin 81 Mg Chew Tab*) 81 mg PEG TUBE DAILY [facility] Last Admin: 02/06/18 09:10 Dose: 81 mg Atorvastatin Calcium (Lipitor*) 10 mg PEG TUBE DAILY [facility] Last Admin: 02/06/18 09:10 Dose: 10 mg Docusate Sodium (Colace Liq*) 100 mg PO DAILY [facility] Last Admin: 02/06/18 09:09 Dose: Not Given Fluticasone Propionate (Flonase Nasal [place] 50mcg*) 1 spray BOTH NARES BID [facility] Last Admin: 02/06/18 09:09 Dose: 1 spray Furosemide (Lasix Iv*) 40 mg IV ONCE ONE Stop: 02/07/18 07:01 Heparin Sodium (Porcine) (Heparin Vial(*)) 5,000 units SUBCUT Q8HR [facility] Last Admin: 02/06/18 13:57 Dose: 5,000 units Ceftriaxone Sodium 1 gm/ (Sodium Chloride) 50 mls @ 200 mls/hr IVPB Q24H [facility] Last Admin: 02/05/18 20:34 Dose: 200 mls/hr Azithromycin 500 mg/ Sodium (Chloride) 250 mls @ 250 mls/hr IVPB Q24H [facility] Last Admin: 02/06/18 11:45 Dose: 250 mls/hr Levalbuterol HCl (Xopenex Hfa Inhaler*) 2 puff INH QID PRN PRN Reason: SOB/WHEEZING Last Admin: 02/04/18 08:14 Dose: 2 puff Metoclopramide HCl (Reglan Tab*) 10 mg PO QID PRN PRN Reason: NAUSEA/VOMITING Mometasone Furoate/Formoterol Fumar (Dulera 200/5 Mdi*) 2 puff INH BID [facility] Last Admin: 02/06/18 07:55 Dose: 2 puff Montelukast Sodium (Singulair Tab*) 10 mg .SEE ORDER DAILY [facility] Last Admin: 02/06/18 09:10 Dose: 10 mg Morphine Sulfate (Morphine Vial*) 2 mg IV Q4H PRN PRN Reason: PAIN - MILD Last Admin: 02/06/18 09:08 Dose: 2 mg Nicotine (Nicotine Patch 7 Mg/24 Hr*) 1 patch TRANSDERM DAILY [facility] Last Admin: 02/06/18 09:09 Dose: 1 patch Ondansetron HCl (Zofran Inj*) 4 mg IV Q4H PRN PRN Reason: NAUSEA/VOMITING Oxybutynin Chloride (Ditropan Tab*) 5 mg PEG TUBE DAILY [facility]; Protocol Last Admin: 02/06/18 09:10 Dose: 5 mg Oxycodone/Acetaminophen (Percocet 5/325 Tab*) 1 tab PO Q4H PRN PRN Reason: PAIN Pharmacy Profile Note (Nicotine Patch Removal Note*) 1 note FOLLOW UP 0600 [facility] Last Admin: 02/06/18 05:43 Dose: Not Given Polyethylene Glycol/Electrolytes (Miralax*) 17 gm PEG TUBE DAILY PRN PRN Reason: CONSTIPATION Last Admin: 02/02/18 01:50 Dose: 17 gm Prednisone (Deltasone Tab*) 40 mg PO DAILY [facility] Last Admin: 02/06/18 09:10 Dose: 40 mg Vital Signs - 8 hr 02/06/18 02/06/18 11:54 16:11 Temperature 99.4 F 98.1 F Pulse Rate 84 75 Respiratory 24 17 Rate Blood Pressure 145/61 138/65 (mmHg) O2 Sat by Pulse 97 100 Oximetry Oxygen Devices in Use Now: Nasal Cannula Appearance: NAD. Eyes: No Scleral Icterus, PERRLA Respiratory: - - diminished breath sounds and decreased further at bases. No wheezing or rales. Cardiovascular: - - elevated JVD, RRR, ZAIDA Abdominal: - - soft, slightly distended, nontender. no rebound or guarding. Extremities: - - 1+ edema in legs. 4cm collection of pitting edema in mid back( left side) Skin: No Rash or Ulcers Neurological: Alert and Oriented x 3 Lines/Tubes/Other Access: Clean, Dry and Intact Percuteneous Feeding Tube - G and J tubes Result Diagrams: 02/06/18 04:57 02/06/18 04:55 Additional Lab and Data: Laboratory Results - last 24 hr 02/06/18 02/06/18 02/06/18 04:55 04:55 04:55 WBC RBC Hgb Hct MCV MCH MCHC RDW Plt Count MPV Neut % (Auto) Lymph % (Auto) [place] % (Auto) Eos % (Auto) Baso % (Auto) Absolute Neuts (auto) Absolute Lymphs (auto) Absolute Monos (auto) Absolute Eos (auto) Absolute Basos (auto) Absolute Nucleated RBC Nucleated RBC % Sodium 138 Potassium 4.6 Chloride 105 Carbon Dioxide 33 H BUN 29 H Creatinine 0.59 Est GFR ( Amer) 119.3 Est GFR (Non-Af Amer) 98.6 BUN/Creatinine Ratio 49.2 H Glucose 91 Calcium 9.8 C-Reactive Protein 14.69 H B-Natriuretic Peptide 454 H Procalcitonin < 0.1 02/06/18 04:57 WBC 8.8 RBC 3.68 L Hgb 9.6 L Hct 30 L MCV 82 MCH 26 L MCHC 32 RDW 16 H Plt Count 418 MPV 8.4 Neut % (Auto) 72.0 Lymph % (Auto) 20.8 [place] % (Auto) 6.7 Eos % (Auto) 0 Baso % (Auto) 0.5 Absolute Neuts (auto) 6.4 Absolute Lymphs (auto) 1.8 Absolute Monos (auto) 0.6 Absolute Eos (auto) 0 Absolute Basos (auto) 0 Absolute Nucleated RBC 0 Nucleated RBC % 0 Sodium Potassium Chloride Carbon Dioxide BUN Creatinine Est GFR ( Amer) Est GFR (Non-Af Amer) BUN/Creatinine Ratio Glucose Calcium C-Reactive Protein B-Natriuretic Peptide Procalcitonin Microbiology and Other Data: Microbiology 02/03/18 08:46 Gastric Fluid Gastric Occult Blood - Final Assess/Plan/Problems-Billing Assessment: 77 yo female PMH severe COPD, chronic hypoxic respiratory failure (on 2L), esophogeal stricture and gastroparesis, s/p G & J tubes for decades, worsening Aortic Stenosis (moderate to severe (ANDREW 0.5, Grad 25mmg) p/w pleuritic chest pain, productive cough. Suspected multifactorial severe COPD + pneumonia + worsening . Very slow improvement on abx, steroids and now metaneb machine. Increasing diurese. - Patient Problems (1) Pneumonia Current Visit: No Status: Acute Priority: High Code(s): J18.9 - PNEUMONIA , UNSPECIFIED ORGANISM SNOMED Code(s): 040361481 Comment: - Appreciate Dr Shea recs. Metanebs seem to be helping to mobilize secretions. At risk for aspirations from tube feeds. But no focal infiltrates have been seen on imaging. Procalcition was 0.1 on admission. Suspect likely severe COPD + severe low flow are more likely. Continue prednisone, scheduled duonebs, dulera, metanebs, flutter valve. - Continue ceftriaxone and azithro - CXR with pulmonary vascular congestion and interstitial edema. BNP elevated. Volume overloaded on exam. weight is up. daily weights, strict ios. Will give 20mg IV BID starting at 0800 tomorrow(she objected to mid afternoon administration as would be up all night) and again at 1500. (2) Elevated troponin Current Visit: Yes Status: Acute Code(s): R74.8 - ABNORMAL LEVELS OF OTHER SERUM ENZYMES SNOMED Code(s): 367028754 Comment: - peaked 0.16 - appreciate Cardiology recs. likely demand ischemia in the setting of severe COPD + CHF 2/2 severe low flow aortic stenosis - not candidate for stress test currently. - Continue aspirin and lipitor (3) Thoracic back pain Current Visit: No Status: Acute Code(s): M54.6 - PAIN IN THORACIC SPINE SNOMED Code(s): 489382047 Comment: has T5 compression fracture, confirmed again on thoracic Xray. known since July 2017. Foreshortening of multiple other levels. (4) Feeding by G-tube Current Visit: No Status: Chronic Code(s): Z93.1 - GASTROSTOMY STATUS SNOMED Code(s): 019518464 Comment: - Hx of esophageal stricture s/p peg tube placement 20 years - Continue Osmolite and water flushes (5) History of lung cancer Current Visit: No Status: Chronic Code(s): Z85.118 - PERSONAL HISTORY OF MALIGNANT NEOPLASM OF BRONCHUS AND LUNG SNOMED Code(s): 133836209 Comment: - Last tx in 2012 - last CT chest 12/29 with stable size right apical mass. 2.6x1.4cm (6) Hyperlipidemia Current Visit: No Status: Chronic Priority: Low Code(s): E78.5 - HYPERLIPIDEMIA, UNSPECIFIED SNOMED Code(s): 47051299 Comment: - Continue lipitor (7) Tobacco abuse Current Visit: No Status: Chronic Code(s): Z72.0 - TOBACCO USE SNOMED Code (s): 410714080 Comment: - Quit Mar 2016 - still using Nictotine patch reportedly planning to use lifelong (8) COPD (chronic obstructive pulmonary disease) Current Visit: No Status: Chronic Priority: Low Code(s): J44.9 - CHRONIC OBSTRUCTIVE PULMONARY DISEASE, UNSPECIFIED SNOMED Code(s): 21051336 Comment: plan as above. (9) Aortic stenosis, severe Current Visit: Yes Status: Acute Code(s): I35.0 - NONRHEUMATIC AORTIC (VALVE ) STENOSIS SNOMED Code(s): 07067976 Comment: ANDREW only 0.5, likely low flow 25mmHg. Appreciate Dr. Delon meehan. may not be a TAVR candidate given her severe COPD. she is volume overloaded and will try to diuresis with lasix 20mg IV BID. (10) GIB (gastrointestinal bleeding) Current Visit: Yes Status: Acute Code(s): K92.2 - GASTROINTESTINAL HEMORRHAGE, UNSPECIFIED SNOMED Code(s): 22537971 Comment: - H/H stable - Pt was evaluated by Dr Lincoln who follows her as an outpatient. He is not concerned about the occult blood in her gastric residuals as he feels this is chronic for this patient. He was also ok with her receiving prednisone in the setting. - Initially given IV protonix bolus followed by drip, now d/pili - Will continue to trend H/H (11) Hypertension Current Visit: No Status: Chronic Priority: Low Code(s): I10 - ESSENTIAL ( PRIMARY) HYPERTENSION SNOMED Code(s): 65688947 Comment: SBP 110-140. Hold losartan in the setting of initial hypotension and now using BP room for diuresis. Status and Disposition: Medicine Inpatient.
[2018-02-06] MEDS: cefTRIAXone(*) 1 GM in NS 0.9% 50 ML* 50 ML IVPB SCH (21:22)
[2018-02-07] MEDS: Albuterol/Ipratropium NEB.SOL* Albuterol 2.5 MG/Ipratropium 0.5 MG 3 ML INH SCH ×4 (02:34→19:23)
[2018-02-07] MEDS: Morphine VIAL* 4 MG/ML VIAL (1 ml vial) IV PRN ×3 (03:31→22:02)
[2018-02-07] MEDS: Heparin VIAL(*) 5000 UNITS/ML VIAL (FIVE THOUSAND) SUBCUT SCH ×3 (05:50→22:02)
[2018-02-07] MEDS: Nicotine Patch Removal NOTE FOLLOW UP SCH (05:52)
[2018-02-07] MEDS: Mometasone/Formoter 200/5 MDI INH SCH ×2 (07:15→19:23)
[2018-02-07] MEDS ORDERED: Furosemide IV* 10 MG/ML VIAL (40 MG) IV ONE (07:15)
[2018-02-07] MEDS: Aclidinium POWDER MDI(NF) INH SCH ×2 (07:26→19:35)
[2018-02-07] MEDS: Atorvastatin* 10 MG TAB PEG TUBE SCH (09:16)
[2018-02-07] MEDS: Montelukast Sodium TAB* 10 MG SCH (09:16)
[2018-02-07] MEDS: predniSONE TAB* 20 MG PO SCH (09:16)
[2018-02-07] MEDS: Docusate LIQ* 100 MG/10 ML UDC PO SCH (09:16)
[2018-02-07] MEDS: Oxybutynin TAB* 5 MG PEG TUBE SCH (09:16)
[2018-02-07] MEDS: Aspirin 81 mg CHEW TAB* 81 MG TAB.CHEW PEG TUBE SCH (09:16)
[2018-02-07] MEDS: Furosemide IV* 10 MG/ML VIAL (40 MG) IV SCH ×2 (09:17→14:38)
[2018-02-07] MEDS: Fluticasone NASAL SPRAY 50MCG* 16 gm SPRAY BTL BOTH NARES SCH ×2 (09:17→20:19)
[2018-02-07] MEDS: Nicotine PATCH 7 MG/24 HR* PATCH TRANSDERM SCH (09:17)
--- NOTE | 2018-02-07 10:14 | PN ---
Subjective Date of Service: 02/07/18 Interval History: f/u radiation heart disease patient tripod position today volume overloaded ++i/o since admission now beginning diuresing Medications Active Medications: Acetaminophen (Tylenol Tab*) 650 mg PO Q4H PRN PRN Reason: FEVER/PAIN Last Admin: 02/02/18 09:11 Dose: 650 mg Aclidinium [place] (Tudorza Pressair Mdi(Nf)) 1 puff INH BID [facility] Last Admin: 02/07/18 07:26 Dose: Not Given Albuterol (Ventolin 2.5 Mg/3 Ml Neb.Nereyda*) 2.5 mg INH Q6H PRN PRN Reason: WHEEZING Albuterol/Ipratropium (Duoneb (Albuterol 2.5 Mg/Ipratropium 0.5 Mg)) 1 neb INH [id number] AWAKE [facility] Last Admin: 02/07/18 07:15 Dose: 1 neb Aspirin (Aspirin 81 Mg Chew Tab*) 81 mg PEG TUBE DAILY [facility] Last Admin: 02/07/18 09:16 Dose: 81 mg Atorvastatin Calcium (Lipitor*) 10 mg PEG TUBE DAILY [facility] Last Admin: 02/07/18 09:16 Dose: 10 mg Docusate Sodium (Colace Liq*) 100 mg PO DAILY [facility] Last Admin: 02/07/18 09:16 Dose: Not Given Fluticasone Propionate (Flonase Nasal [place] 50mcg*) 1 spray BOTH NARES BID [facility] Last Admin: 02/07/18 09:17 Dose: 1 spray Furosemide (Lasix Iv*) 20 mg IV 0800,1500 [facility] Last Admin: 02/07/18 09:17 Dose: 20 mg Heparin Sodium (Porcine) (Heparin Vial(*)) 5,000 units SUBCUT Q12H [facility] Ceftriaxone Sodium 1 gm/ (Sodium Chloride) 50 mls @ 200 mls/hr IVPB Q24H [facility] Last Admin: 02/06/18 21:22 Dose: 200 mls/hr Azithromycin 500 mg/ Sodium (Chloride) 250 mls @ 250 mls/hr IVPB Q24H [facility] Last Admin: 02/06/18 11:45 Dose: 250 mls/hr Levalbuterol HCl (Xopenex Hfa Inhaler*) 2 puff INH QID PRN PRN Reason: SOB/WHEEZING Last Admin: 02/04/18 08:14 Dose: 2 puff Metoclopramide HCl (Reglan Tab*) 10 mg PO QID PRN PRN Reason: NAUSEA/VOMITING Mometasone Furoate/Formoterol Fumar (Dulera 200/5 Mdi*) 2 puff INH BID [facility] Last Admin: 02/07/18 07:15 Dose: 2 puff Montelukast Sodium (Singulair Tab*) 10 mg .SEE ORDER DAILY [facility] Last Admin: 02/07/18 09:16 Dose: 10 mg Morphine Sulfate (Morphine Vial*) 2 mg IV Q4H PRN PRN Reason: PAIN - MILD Last Admin: 02/07/18 03:31 Dose: 2 mg Nicotine (Nicotine Patch 7 Mg/24 Hr*) 1 patch TRANSDERM DAILY [facility] Last Admin: 02/07/18 09:17 Dose: 1 patch Ondansetron HCl (Zofran Inj*) 4 mg IV Q4H PRN PRN Reason: NAUSEA/VOMITING Oxybutynin Chloride (Ditropan Tab*) 5 mg PEG TUBE DAILY [facility]; Protocol Last Admin: 02/07/18 09:16 Dose: 5 mg Oxycodone/Acetaminophen (Percocet 5/325 Tab*) 1 tab PO Q4H PRN PRN Reason: PAIN Pharmacy Profile Note (Nicotine Patch Removal Note*) 1 note FOLLOW UP 0600 [facility] Last Admin: 02/07/18 05:52 Dose: 1 note Polyethylene Glycol/Electrolytes (Miralax*) 17 gm PEG TUBE DAILY PRN PRN Reason: CONSTIPATION Last Admin: 02/02/18 01:50 Dose: 17 gm Prednisone (Deltasone Tab*) 40 mg PO DAILY [facility] Last Admin: 02/07/18 09:16 Dose: 40 mg Objective Vital Signs: Temp Pulse Resp BP Pulse Ox 98.1 F 76 22 139/60 97 02/07/18 07:17 02/07/18 07:24 02/07/18 08:00 02/07/18 07:17 02/07/18 07:24 Oxygen Devices in Use Now: Nasal Cannula Appearance: chronically ill and frail appearing Neck: Trachea Midline Respiratory: - - kyphotic, increased work of breathing and tachypnea, diffuse crackles Cardiovascular: - - 3/6 higher pitched murmur heard best LLSB radiates to carotids unsure if loudest is related to or MR Skin: No Rash or Ulcers, - - 1+ ankle edema Laboratory Results: 02/06/18 04:57 02/06/18 04:55 Total Bilirubin 0.40 mg/dL (0.2-1.0) 02/01/18 16:00 AST 27 U/L (13-39) 02/01/18 16:00 ALT 17 U/L (7-52) 02/01/18 16:00 Alkaline Phosphatase 111 U/L (34-104) H 02/01/18 16:00 B-Natriuretic Peptide 454 pg/mL (<=100) H 02/06/18 04:55 Total Protein 7.2 g/dL (6.4-8.9) 02/01/18 16:00 Albumin 3.8 g/dL (3.2-5.2) 02/01/18 16:00 Globulin 3.4 g/dL (2-4) 02/01/18 16:00 Albumin/Globulin Ratio 1.1 (1-3) 02/01/18 16:00 Triglycerides 73 mg/dL 02/02/18 06:16 Cholesterol 136 mg/dL 02/02/18 06:16 LDL Cholesterol 69 mg/dL 02/02/18 06:16 HDL Cholesterol 52.9 mg/dL 02/02/18 06:16 02/01/18 02/01/18 02/01/18 16:00 18:09 22:03 Troponin I 0.15 H* 0.16 H* 0.12 H* 02/02/18 06:16 Troponin I 0.11 H* Diagnostic Imaging: Echo 02/01/2018 personally reviewed Very hyperdynamic LVEF >70% Normal RV size/function Severe LA dilation Severe MAC with mixed moderate MR/MS, mean gradient 7.4 (in setting of hyperdynamic LVEF) Severe aortic annulus calcification, valve itself some restricted opening but appears mild-moderate on image 8, 20, 22, 37, 46 PW LVOT only one measurement taken image 78 was markedly off-axis > 30 degrees and not reliable (C.I at HR 80 bpm on calculated from this study was 2.33 which is low and approaches cardiogenic shock) Unable to calculate BSA indexed ANDREW. Mean gradient 26.78 mmHg (mild range), peak velocity 3.56 m/s (consistent moderate ) both suspect much higher than baseline related to very hyperdynamic LVEF overestimating severity. Assessment/Plan at very worst is moderate and not a current predominant factor. She does not need a TAVR currently. She has developed HF while inpatient from having +i/ o that is likely related to diastolic dysfunction and possibly mitral valve disease. I think the risks of a MAGY to further evaluate the mitral valve outweigh the benefits at this point. Continue diuresis (needs home dosing which she has been on prior to use PRN edema once euvolemic and discharged).
[2018-02-07] MEDS: Azithromycin IV(*) 500 MG in NS 0.9% 250 ML* 250 ML IVPB SCH (11:39)
--- NOTE | 2018-02-07 16:24 | PN ---
Subjective Date of Service: 02/07/18 Interval History: Pt seen and examined. Meds and labs reviewed. CC: N/A ROS: Denied JEFFRIES/dizziness, F/C, N/V, CP, SOB, increased cough, sputum production , abd pain, diarrhea, constipation, dysuria, myalgias, arthralgias, throat pain , and new skin lesions. The rest of the 14 point ROS are unremarkable. PHYSICAL EXAM: GEN APPEARANCE: Awake, not in acute distress HEENT: NC/AT, PERRLA, moist oral mucosa, (-) throat erythema NECK: Soft, supple, (-) cervical LAD, (+)JVD, (+)HJR HEART: S1S2 WNL, RRR, No RG, (+)4/6 murmur CHEST: CTA, BL, GAE, No W/R/R ABD: Soft, ND/NT, NABS 4x Q EXT: No C/C/BLLE edema +1 SKIN: Warm to touch PSYCH: No active psychosis, hallucinations, depression, SI/HI Objective Active Medications: Acetaminophen (Tylenol Tab*) 650 mg PO Q4H PRN PRN Reason: FEVER/PAIN Last Admin: 02/02/18 09:11 Dose: 650 mg Aclidinium [place] (Tudorza Pressair Mdi(Nf)) 1 puff INH BID PENDING SALE TO [facility] Last Admin: 02/07/18 07:26 Dose: Not Given Albuterol (Ventolin 2.5 Mg/3 Ml Neb.Nereyda*) 2.5 mg INH Q6H PRN PRN Reason: WHEEZING Albuterol/Ipratropium (Duoneb (Albuterol 2.5 Mg/Ipratropium 0.5 Mg)) 1 neb INH [id number] AWAKE PENDING SALE TO [facility] Last Admin: 02/07/18 12:52 Dose: 1 neb Aspirin (Aspirin 81 Mg Chew Tab*) 81 mg PEG TUBE DAILY PENDING SALE TO [facility] Last Admin: 02/07/18 09:16 Dose: 81 mg Atorvastatin Calcium (Lipitor*) 10 mg PEG TUBE DAILY PENDING SALE TO [facility] Last Admin: 02/07/18 09:16 Dose: 10 mg Docusate Sodium (Colace Liq*) 100 mg PO DAILY PENDING SALE TO [facility] Last Admin: 02/07/18 09:16 Dose: Not Given Fluticasone Propionate (Flonase Nasal [place] 50mcg*) 1 spray BOTH NARES BID PENDING SALE TO [facility] Last Admin: 02/07/18 09:17 Dose: 1 spray Furosemide (Lasix Iv*) 20 mg IV 0800,1500 PENDING SALE TO [facility] Last Admin: 02/07/18 14:38 Dose: 20 mg Heparin Sodium (Porcine) (Heparin Vial(*)) 5,000 units SUBCUT Q12H PENDING SALE TO [facility] Last Admin: 02/07/18 10:09 Dose: Not Given Ceftriaxone Sodium 1 gm/ (Sodium Chloride) 50 mls @ 200 mls/hr IVPB Q24H PENDING SALE TO [facility] Last Admin: 02/06/18 21:22 Dose: 200 mls/hr Azithromycin 500 mg/ Sodium (Chloride) 250 mls @ 250 mls/hr IVPB Q24H PENDING SALE TO [facility] Last Admin: 02/07/18 11:39 Dose: 250 mls/hr Levalbuterol HCl (Xopenex Hfa Inhaler*) 2 puff INH QID PRN PRN Reason: SOB/WHEEZING Last Admin: 02/04/18 08:14 Dose: 2 puff Metoclopramide HCl (Reglan Tab*) 10 mg PO QID PRN PRN Reason: NAUSEA/VOMITING Mometasone Furoate/Formoterol Fumar (Dulera 200/5 Mdi*) 2 puff INH BID PENDING SALE TO [facility] Last Admin: 02/07/18 07:15 Dose: 2 puff Montelukast Sodium (Singulair Tab*) 10 mg .SEE ORDER DAILY PENDING SALE TO [facility] Last Admin: 02/07/18 09:16 Dose: 10 mg Morphine Sulfate (Morphine Vial*) 2 mg IV Q4H PRN PRN Reason: PAIN - MILD Last Admin: 02/07/18 03:31 Dose: 2 mg Nicotine (Nicotine Patch 7 Mg/24 Hr*) 1 patch TRANSDERM DAILY PENDING SALE TO [facility] Last Admin: 02/07/18 09:17 Dose: 1 patch Ondansetron HCl (Zofran Inj*) 4 mg IV Q4H PRN PRN Reason: NAUSEA/VOMITING Oxybutynin Chloride (Ditropan Tab*) 5 mg PEG TUBE DAILY PENDING SALE TO [facility]; Protocol Last Admin: 02/07/18 09:16 Dose: 5 mg Oxycodone/Acetaminophen (Percocet 5/325 Tab*) 1 tab PO Q4H PRN PRN Reason: PAIN Pharmacy Profile Note (Nicotine Patch Removal Note*) 1 note FOLLOW UP 0600 PENDING SALE TO [facility] Last Admin: 02/07/18 05:52 Dose: 1 note Polyethylene Glycol/Electrolytes (Miralax*) 17 gm PEG TUBE DAILY PRN PRN Reason: CONSTIPATION Last Admin: 02/02/18 01:50 Dose: 17 gm Prednisone (Deltasone Tab*) 40 mg PO DAILY ARACELI Last Admin: 02/07/18 09:16 Dose: 40 mg Vital Signs - 8 hr 02/07/18 02/07/18 02/07/18 11:21 12:56 13:03 Temperature 98.4 F Pulse Rate 78 75 76 Respiratory 22 17 17 Rate Blood Pressure 125/59 (mmHg) O2 Sat by Pulse 96 96 97 Oximetry 02/07/18 15:06 Temperature 98.5 F Pulse Rate 78 Respiratory 24 Rate Blood Pressure 120/56 (mmHg) O2 Sat by Pulse 96 Oximetry Oxygen Devices in Use Now: Nasal Cannula Result Diagrams: 02/06/18 04:57 02/06/18 04:55 Additional Lab and Data: Laboratory Results - last 24 hr 02/06/18 02/06/18 02/06/18 04:55 04:55 04:55 WBC RBC Hgb Hct MCV MCH MCHC RDW Plt Count MPV Neut % (Auto) Lymph % (Auto) [place] % (Auto) Eos % (Auto) Baso % (Auto) Absolute Neuts (auto) Absolute Lymphs (auto) Absolute Monos (auto) Absolute Eos (auto) Absolute Basos (auto) Absolute Nucleated RBC Nucleated RBC % Sodium 138 Potassium 4.6 Chloride 105 Carbon Dioxide 33 H BUN 29 H Creatinine 0.59 Est GFR ( Amer) 119.3 Est GFR (Non-Af Amer) 98.6 BUN/Creatinine Ratio 49.2 H Glucose 91 Calcium 9.8 C-Reactive Protein 14.69 H B-Natriuretic Peptide 454 H Procalcitonin < 0.1 02/06/18 04:57 WBC 8.8 RBC 3.68 L Hgb 9.6 L Hct 30 L MCV 82 MCH 26 L MCHC 32 RDW 16 H Plt Count 418 MPV 8.4 Neut % (Auto) 72.0 Lymph % (Auto) 20.8 [place] % (Auto) 6.7 Eos % (Auto) 0 Baso % (Auto) 0.5 Absolute Neuts (auto) 6.4 Absolute Lymphs (auto) 1.8 Absolute Monos (auto) 0.6 Absolute Eos (auto) 0 Absolute Basos (auto) 0 Absolute Nucleated RBC 0 Nucleated RBC % 0 Sodium Potassium Chloride Carbon Dioxide BUN Creatinine Est GFR ( Amer) Est GFR (Non-Af Amer) BUN/Creatinine Ratio Glucose Calcium C-Reactive Protein B-Natriuretic Peptide Procalcitonin Microbiology and Other Data: Microbiology 02/03/18 08:46 Gastric Fluid Gastric Occult Blood - Final Assess/Plan/Problems-Billing Assessment: 77 yo female PMH severe COPD, chronic hypoxic respiratory failure (on 2L), esophogeal stricture and gastroparesis, s/p G & J tubes for decades, worsening Aortic Stenosis (moderate to severe (ANDREW 0.5, Grad 25mmg) p/w pleuritic chest pain, productive cough. Suspected multifactorial severe COPD + pneumonia + worsening . Very slow improvement on abx, steroids and now metaneb machine. Increasing diurese. - Patient Problems (1) Pneumonia Current Visit: No Status: Acute Priority: High Code(s): J18.9 - PNEUMONIA , UNSPECIFIED ORGANISM SNOMED Code(s): 611166676 Comment: - Appreciate Dr Shea recs. Metanebs seem to be helping to mobilize secretions. At risk for aspirations from tube feeds. But no focal infiltrates have been seen on imaging. Procalcition was 0.1 on admission. Suspect likely severe COPD + severe low flow are more likely. -Continue prednisone, scheduled duonebs, dulera, metanebs, flutter valve. -Continue ceftriaxone and azithro (2) Diastolic CHF Current Visit: Yes Status: Acute Code(s): I50.30 - UNSPECIFIED DIASTOLIC ( CONGESTIVE) HEART FAILURE SNOMED Code(s): 270915548 Comment: -Appreciate Dr. Browning input - at very worst is moderate and not a current predominant factor and possibly mitral valve disease more important at this time. She does not need a TAVR currently. However, per Dr. Fall, MAGY to further evaluate the mitral valve outweigh the benefits at this point. -Continue IV Lasix as ordered -Continue to monitor I/Os and daily weights (3) Elevated troponin Current Visit: Yes Status: Acute Code(s): R74.8 - ABNORMAL LEVELS OF OTHER SERUM ENZYMES SNOMED Code(s): 254454544 Comment: - peaked 0.16 - appreciate Cardiology recs. likely demand ischemia in the setting of severe COPD + CHF 2/2 severe low flow aortic stenosis - not candidate for stress test currently. - Continue aspirin and lipitor (4) Thoracic back pain Current Visit: No Status: Acute Code(s): M54.6 - PAIN IN THORACIC SPINE SNOMED Code(s): 002625008 Comment: has T5 compression fracture, confirmed again on thoracic Xray. known since July 2017. Foreshortening of multiple other levels. (5) Feeding by G-tube Current Visit: No Status: Chronic Code(s): Z93.1 - GASTROSTOMY STATUS SNOMED Code(s): 735490228 Comment: - Hx of esophageal stricture s/p peg tube placement 20 years - Continue Osmolite and water flushes (6) History of lung cancer Current Visit: No Status: Chronic Code(s): Z85.118 - PERSONAL HISTORY OF MALIGNANT NEOPLASM OF BRONCHUS AND LUNG SNOMED Code(s): 320669228 Comment: - Last tx in 2012 - last CT chest 12/29 with stable size right apical mass. 2.6x1.4cm (7) Hyperlipidemia Current Visit: No Status: Chronic Priority: Low Code(s): E78.5 - HYPERLIPIDEMIA, UNSPECIFIED SNOMED Code(s): 35486336 Comment: - Continue lipitor (8) Tobacco abuse Current Visit: No Status: Chronic Code(s): Z72.0 - TOBACCO USE SNOMED Code (s): 491447460 Comment: - Quit Mar 2016 - still using Nictotine patch reportedly planning to use lifelong (9) COPD exacerbation Current Visit: No Status: Acute Code(s): J44.1 - CHRONIC OBSTRUCTIVE PULMONARY DISEASE W (ACUTE) EXACERBATION SNOMED Code(s): 349183076 Comment: -Dr. Shea consulted- for further - continues to have moderate respiratory distress worse with exertion- improving very slowly - patient has very poor respiratory reserve suspect this will take her a long period to recover - Will change solumedrol to prednisone 40mg po daily - nebs PRN - Dulera BID - Azithromycin 500mg daily-treatment finished today 08/10/17 - 2L NC continuous - will add flutter valve to assist with productive cough- continues to reports yellow sputum- reports flutter valve is helping (10) GIB (gastrointestinal bleeding) Current Visit: Yes Status: Acute Code(s): K92.2 - GASTROINTESTINAL HEMORRHAGE, UNSPECIFIED SNOMED Code(s): 10068490 Comment: - H/H stable - Pt was evaluated by Dr Lincoln who follows her as an outpatient. He is not concerned about the occult blood in her gastric residuals as he feels this is chronic for this patient. He was also ok with her receiving prednisone in the setting. - Initially given IV protonix bolus followed by drip, now d/pili - Will continue to trend H/H (11) Hypertension Current Visit: No Status: Chronic Priority: Low Code(s): I10 - ESSENTIAL ( PRIMARY) HYPERTENSION SNOMED Code(s): 04833810 Comment: SBP 110-140. Hold losartan in the setting of initial hypotension and now using BP room for diuresis. (12) DVT prophylaxis Current Visit: No Status: Acute Code(s): DMY3135 - SNOMED Code(s): 157072051 Comment: -Changed SQ Heparin to q12H given advanced age Status and Disposition: -Possible D/C in 1-2 days -For ambulatory sats in AMon2L at home and currently at 3L
--- NOTE | 2018-02-07 17:51 | PN ---
Progress Note - Progress Note Date of Service: 02/07/18 - Pulm f/u note Note: Pt seen and examined at bedside. Pt reports slight improvement in SOB. Becoming dyspneic even with slight movement. Active Medications Generic Name Dose Route Start Last Admin Trade Name Freq PRN Reason Stop Dose Admin Acetaminophen 650 mg 02/02/18 02:30 02/02/18 09:11 Tylenol Tab* PO 650 mg Q4H PRN Administration FEVER/PAIN Aclidinium [place] 1 puff 02/01/18 22:00 02/07/18 07:26 Lino Lowe Mdi(Nf) INH Not Given BID ARACELI Albuterol 2.5 mg 02/01/18 21:58 Ventolin 2.5 Mg/3 Ml Neb.Nereyda* INH Q6H PRN WHEEZING Albuterol/Ipratropium 1 neb 02/04/18 13:00 02/07/18 12:52 Duoneb (Albuterol 2.5 Mg/Ipratropium 0.5 Mg) INH 1 neb [id number] AWAKE ARACELI Administration Aspirin 81 mg 02/02/18 09:00 02/07/18 09:16 Aspirin 81 Mg Chew Tab* PEG TUBE 81 mg DAILY ARACELI Administration Atorvastatin Calcium 10 mg 02/02/18 09:00 02/07/18 09:16 Lipitor* PEG TUBE 10 mg DAILY ARACELI Administration Docusate Sodium 100 mg 02/04/18 12:00 02/07/18 09:16 Colace Liq* PO Not Given DAILY ARACELI Fluticasone Propionate 1 spray 02/02/18 09:00 02/07/18 09:17 Flonase Nasal [place] 50mcg* BOTH NARES 1 spray BID ARACELI Administration Furosemide 20 mg 02/07/18 08:00 02/07/18 14:38 Lasix Iv* IV 20 mg 0800,1500 ARACELI Administration Heparin Sodium (Porcine) 5,000 units 02/07/18 10:00 02/07/18 10:09 Heparin Vial(*) SUBCUT Not Given Q12H ARACELI Ceftriaxone Sodium 1 gm/ 50 mls @ 200 mls/hr 02/02/18 20:30 02/06/18 21:22 Sodium Chloride IVPB 200 mls/hr Q24H ARACELI Administration Azithromycin 500 mg/ Sodium 250 mls @ 250 mls/hr 02/03/18 12:00 02/07/18 11: 39 Chloride IVPB 250 mls/hr Q24H ARACELI Administration Levalbuterol HCl 2 puff 02/01/18 21:58 02/04/18 08:14 Xopenex Hfa Inhaler* INH 2 puff QID PRN Administration SOB/WHEEZING Metoclopramide HCl 10 mg 02/01/18 21:58 Reglan Tab* PO QID PRN NAUSEA/VOMITING Mometasone Furoate/Formoterol Fumar 2 puff 02/01/18 22:00 02/07/18 07:15 Dulera 200/5 Mdi* INH 2 puff BID ARACELI Administration Montelukast Sodium 10 mg 02/02/18 09:00 02/07/18 09:16 Singulair Tab* .SEE ORDER 10 mg DAILY ARACELI Administration Morphine Sulfate 2 mg 02/01/18 21:54 02/07/18 17:47 Morphine Vial* IV 2 mg Q4H PRN Administration PAIN - MILD Nicotine 1 patch 02/02/18 15:00 02/07/18 09:17 Nicotine Patch 7 Mg/24 Hr* TRANSDERM 1 patch DAILY ARACELI Administration Ondansetron HCl 4 mg 02/01/18 21:54 Zofran Inj* IV Q4H PRN NAUSEA/VOMITING Oxybutynin Chloride 5 mg 02/02/18 09:00 02/07/18 09:16 Ditropan Tab* PEG TUBE 5 mg DAILY ARACELI Administration Protocol Oxycodone/Acetaminophen 1 tab 02/04/18 11:31 Percocet 5/325 Tab* PO Q4H PRN PAIN Pharmacy Profile Note 1 note 02/03/18 06:00 02/07/18 05:52 Nicotine Patch Removal Note* FOLLOW UP 1 note 0600 ARACELI Administration Polyethylene Glycol/Electrolytes 17 gm 02/01/18 21:58 02/02/18 01:50 Miralax* PEG TUBE 17 gm DAILY PRN Administration CONSTIPATION Prednisone 40 mg 02/04/18 10:00 02/07/18 09:16 Deltasone Tab* PO 40 mg DAILY ARACELI Administration Vital Signs Temp Pulse Resp BP Pulse Ox 98.5 F 78 22 120/56 96 02/07/18 15:06 02/07/18 15:06 02/07/18 17:47 02/07/18 15:06 02/07/18 15:06 O/E: Pt in NAD HEENT: JAMIE, no JVD Lungs: Diminished air entry b/l, improved wheeze CVS: S1, S2+, regular Abd: Soft, BS+ Ext: No edema, normal ROM Skin: NO rash Neuro: AAOx3, no focal deficits I/R: 77 y o f with h/o severe COPD, recurrent PNA, h/o lung cancer s/p resection , gastroparesis, esophageal stricture s/p PEJ placement a/w worsening SOB after recent sick contacts being treated for PNA and acute COPD exacerbation Pt with thick phleghm ,metanebs helping No further episodes of hemoptysis Received Lasix, congestion improved c/w 40mg prednisone for acute COPD exacerbation Has h/o GI bleed, stable Pl chest pain- still continues to have pain c/w abx c/w bronchodilators c/w flutter device c/w O2 to keep O2 sat around 92%, currently on 3l ECHO with worsening of , pt f/u with Dr Youngblood as out pt DVT px
[2018-02-07] MEDS: cefTRIAXone(*) 1 GM in NS 0.9% 50 ML* 50 ML IVPB SCH (20:19)
[2018-02-08] MEDS: Albuterol/Ipratropium NEB.SOL* Albuterol 2.5 MG/Ipratropium 0.5 MG 3 ML INH SCH ×4 (00:43→19:15)
[2018-02-08] MEDS: Nicotine Patch Removal NOTE FOLLOW UP SCH (05:17)
[2018-02-08] MEDS: Aclidinium POWDER MDI(NF) INH SCH ×2 (07:41→21:24)
[2018-02-08] MEDS: Mometasone/Formoter 200/5 MDI INH SCH ×2 (07:42→19:15)
[2018-02-08] MEDS: predniSONE TAB* 20 MG PO SCH (08:24)
[2018-02-08] MEDS: Oxybutynin TAB* 5 MG PEG TUBE SCH (08:24)
[2018-02-08] MEDS: Furosemide IV* 10 MG/ML VIAL (40 MG) IV SCH ×2 (08:24→14:50)
[2018-02-08] MEDS: Atorvastatin* 10 MG TAB PEG TUBE SCH (08:24)
[2018-02-08] MEDS: Montelukast Sodium TAB* 10 MG SCH (08:24)
[2018-02-08] MEDS: Aspirin 81 mg CHEW TAB* 81 MG TAB.CHEW PEG TUBE SCH (08:24)
[2018-02-08] MEDS: Fluticasone NASAL SPRAY 50MCG* 16 gm SPRAY BTL BOTH NARES SCH ×2 (08:25→22:14)
[2018-02-08] MEDS: Nicotine PATCH 7 MG/24 HR* PATCH TRANSDERM SCH (08:25)
[2018-02-08] MEDS: Docusate LIQ* 100 MG/10 ML UDC PO SCH (08:25)
[2018-02-08] MEDS: Morphine VIAL* 4 MG/ML VIAL (1 ml vial) IV PRN ×3 (10:37→22:14)
[2018-02-08] MEDS: Heparin VIAL(*) 5000 UNITS/ML VIAL (FIVE THOUSAND) SUBCUT SCH ×2 (10:37→22:13)
[2018-02-08] MEDS: Azithromycin IV(*) 500 MG in NS 0.9% 250 ML* 250 ML IVPB SCH (11:39)
--- NOTE | 2018-02-08 16:53 | PN ---
Progress Note - Progress Note Date of Service: 02/08/18 Note: Surgical progress note: Asked to see this patient, well known to our office, with both G-tube (for meds ) and J-tube for feeds, admitted w/ pneumonia, now with slightly increased drainage and tenderness at J-tube site. Vital Signs - 8 hr 02/08/18 02/08/18 02/08/18 10:37 11:14 11:30 Temperature 98.3 F Pulse Rate 90 Respiratory 24 24 24 Rate Blood Pressure 149/85 (mmHg) O2 Sat by Pulse 96 Oximetry 02/08/18 02/08/18 02/08/18 13:32 15:08 16:07 Temperature 98.2 F Pulse Rate 74 79 Respiratory 20 18 24 Rate Blood Pressure 121/51 (mmHg) O2 Sat by Pulse 98 95 Oximetry G-tube site is clean and without tenderness or erythema J-tube site shows scant green-tinged drainage on dsg; there is some mild tenderness to palp, but no erythema and no expressible discharge around the tube. The balloon appears to be intact when traction is applied (I did not deflate) and the tube is able to be rotated 360 degrees making it unlikely to be within the abdominal wall, though that remains a possibility. For now, will continue to observe and recheck in the next day or two. Patient agrees with plan.
--- NOTE | 2018-02-08 18:20 | PN ---
Subjective Date of Service: 02/08/18 Interval History: Pt seen and examined. Meds and labs reviewed. CC: Complains of greenish fluid around J-tube for the first time ROS: Denied JEFFRIES/dizziness, F/C, N/V, CP, SOB, increased cough, sputum production , abd pain, diarrhea, constipation, dysuria, myalgias, arthralgias, throat pain , and new skin lesions. The rest of the 14 point ROS are unremarkable. PHYSICAL EXAM: GEN APPEARANCE: Awake, not in acute distress HEENT: NC/AT, PERRLA, moist oral mucosa, (-) throat erythema NECK: Soft, supple, (-) cervical LAD, (+)JVD, (+)HJR HEART: S1S2 WNL, RRR, No RG, (+)4/6 murmur CHEST: CTA, BL, GAE, No W/R/R ABD: Soft, ND/NT, NABS 4x Q, G and J tube in place, no erythema around J tube but with tenderness to palpation EXT: No C/C/BLLE edema +1 SKIN: Warm to touch PSYCH: No active psychosis, hallucinations, depression, SI/HI Objective Active Medications: Acetaminophen (Tylenol Tab*) 650 mg PO Q4H PRN PRN Reason: FEVER/PAIN Last Admin: 02/02/18 09:11 Dose: 650 mg Aclidinium [place] ([employer] Mdi(Nf)) 1 puff INH BID [facility] Last Admin: 02/08/18 07:41 Dose: Not Given Albuterol (Ventolin 2.5 Mg/3 Ml Neb.Nereyda*) 2.5 mg INH Q6H PRN PRN Reason: WHEEZING Albuterol/Ipratropium (Duoneb (Albuterol 2.5 Mg/Ipratropium 0.5 Mg)) 1 neb INH [id number] AWAKE [facility] Last Admin: 02/08/18 13:32 Dose: 1 neb Aspirin (Aspirin 81 Mg Chew Tab*) 81 mg PEG TUBE DAILY [facility] Last Admin: 02/08/18 08:24 Dose: 81 mg Atorvastatin Calcium (Lipitor*) 10 mg PEG TUBE DAILY [facility] Last Admin: 02/08/18 08:24 Dose: 10 mg Docusate Sodium (Colace Liq*) 100 mg PO DAILY [facility] Last Admin: 02/08/18 08:25 Dose: Not Given Fluticasone Propionate (Flonase Nasal [place] 50mcg*) 1 spray BOTH NARES BID [facility] Last Admin: 02/08/18 08:25 Dose: 1 spray Furosemide (Lasix Iv*) 20 mg IV 0800,1500 [facility] Last Admin: 02/08/18 14:50 Dose: 20 mg Heparin Sodium (Porcine) (Heparin Vial(*)) 5,000 units SUBCUT Q12H [facility] Last Admin: 02/08/18 10:37 Dose: 5,000 units Ceftriaxone Sodium 1 gm/ (Sodium Chloride) 50 mls @ 200 mls/hr IVPB Q24H [facility] Last Admin: 02/07/18 20:19 Dose: 200 mls/hr Levalbuterol HCl (Xopenex Hfa Inhaler*) 2 puff INH QID PRN PRN Reason: SOB/WHEEZING Last Admin: 02/04/18 08:14 Dose: 2 puff Metoclopramide HCl (Reglan Tab*) 10 mg PO QID PRN PRN Reason: NAUSEA/VOMITING Mometasone Furoate/Formoterol Fumar (Dulera 200/5 Mdi*) 2 puff INH BID [facility] Last Admin: 02/08/18 07:42 Dose: 2 puff Montelukast Sodium (Singulair Tab*) 10 mg .SEE ORDER DAILY [facility] Last Admin: 02/08/18 08:24 Dose: 10 mg Morphine Sulfate (Morphine Vial*) 2 mg IV Q4H PRN PRN Reason: PAIN - MILD Last Admin: 02/08/18 16:07 Dose: 2 mg Nicotine (Nicotine Patch 7 Mg/24 Hr*) 1 patch TRANSDERM DAILY [facility] Last Admin: 02/08/18 08:25 Dose: 1 patch Ondansetron HCl (Zofran Inj*) 4 mg IV Q4H PRN PRN Reason: NAUSEA/VOMITING Oxybutynin Chloride (Ditropan Tab*) 5 mg PEG TUBE DAILY [facility]; Protocol Last Admin: 02/08/18 08:24 Dose: 5 mg Oxycodone/Acetaminophen (Percocet 5/325 Tab*) 1 tab PO Q4H PRN PRN Reason: PAIN Pharmacy Profile Note (Nicotine Patch Removal Note*) 1 note FOLLOW UP 0600 [facility] Last Admin: 02/08/18 05:17 Dose: Not Given Polyethylene Glycol/Electrolytes (Miralax*) 17 gm PEG TUBE DAILY PRN PRN Reason: CONSTIPATION Last Admin: 02/02/18 01:50 Dose: 17 gm Prednisone (Deltasone Tab*) 40 mg PO DAILY [facility] Last Admin: 02/08/18 08:24 Dose: 40 mg Vital Signs - 8 hr 02/08/18 02/08/18 02/08/18 10:37 11:14 11:30 Temperature 98.3 F Pulse Rate 90 Respiratory 24 24 24 Rate Blood Pressure 149/85 (mmHg) O2 Sat by Pulse 96 Oximetry 02/08/18 02/08/18 02/08/18 13:32 15:08 16:07 Temperature 98.2 F Pulse Rate 74 79 Respiratory 20 18 24 Rate Blood Pressure 121/51 (mmHg) O2 Sat by Pulse 98 95 Oximetry 02/08/18 17:07 Temperature Pulse Rate Respiratory 24 Rate Blood Pressure (mmHg) O2 Sat by Pulse Oximetry Oxygen Devices in Use Now: Nasal Cannula Result Diagrams: 02/06/18 04:57 02/06/18 04:55 Additional Lab and Data: Laboratory Results - last 24 hr 02/06/18 02/06/18 02/06/18 04:55 04:55 04:55 WBC RBC Hgb Hct MCV MCH MCHC RDW Plt Count MPV Neut % (Auto) Lymph % (Auto) [place] % (Auto) Eos % (Auto) Baso % (Auto) Absolute Neuts (auto) Absolute Lymphs (auto) Absolute Monos (auto) Absolute Eos (auto) Absolute Basos (auto) Absolute Nucleated RBC Nucleated RBC % Sodium 138 Potassium 4.6 Chloride 105 Carbon Dioxide 33 H BUN 29 H Creatinine 0.59 Est GFR ( Amer) 119.3 Est GFR (Non-Af Amer) 98.6 BUN/Creatinine Ratio 49.2 H Glucose 91 Calcium 9.8 C-Reactive Protein 14.69 H B-Natriuretic Peptide 454 H Procalcitonin < 0.1 02/06/18 04:57 WBC 8.8 RBC 3.68 L Hgb 9.6 L Hct 30 L MCV 82 MCH 26 L MCHC 32 RDW 16 H Plt Count 418 MPV 8.4 Neut % (Auto) 72.0 Lymph % (Auto) 20.8 [place] % (Auto) 6.7 Eos % (Auto) 0 Baso % (Auto) 0.5 Absolute Neuts (auto) 6.4 Absolute Lymphs (auto) 1.8 Absolute Monos (auto) 0.6 Absolute Eos (auto) 0 Absolute Basos (auto) 0 Absolute Nucleated RBC 0 Nucleated RBC % 0 Sodium Potassium Chloride Carbon Dioxide BUN Creatinine Est GFR ( Amer) Est GFR (Non-Af Amer) BUN/Creatinine Ratio Glucose Calcium C-Reactive Protein B-Natriuretic Peptide Procalcitonin Microbiology and Other Data: Microbiology 02/03/18 08:46 Gastric Fluid Gastric Occult Blood - Final Assess/Plan/Problems-Billing Assessment: 77 yo female PMH severe COPD, chronic hypoxic respiratory failure (on 2L), esophogeal stricture and gastroparesis, s/p G & J tubes for decades, worsening Aortic Stenosis (moderate to severe (ANDREW 0.5, Grad 25mmg) p/w pleuritic chest pain, productive cough. Suspected multifactorial severe COPD + pneumonia + worsening . Very slow improvement on abx, steroids and now metaneb machine. Increasing diurese. - Patient Problems (1) Pneumonia Current Visit: No Status: Acute Priority: High Code(s): J18.9 - PNEUMONIA , UNSPECIFIED ORGANISM SNOMED Code(s): 507420968 Comment: - Appreciate Dr Shea recs. Metanebs seem to be helping to mobilize secretions. At risk for aspirations from tube feeds. But no focal infiltrates have been seen on imaging. Procalcition was 0.1 on admission. Suspect likely severe COPD + severe low flow are more likely. -Continue prednisone, scheduled duonebs, dulera, metanebs, flutter valve. -Continue ceftriaxone and azithro -Will touch base with Dr. Shea in AM (2) Jejunostomy tube leak Current Visit: Yes Status: Acute Code(s): K94.13 - ENTEROSTOMY MALFUNCTION SNOMED Code(s): 888402196 Comment: -Appreciate Sx eval -Will continue watchful waiting and will await for any Sx input (3) Diastolic CHF Current Visit: Yes Status: Acute Code(s): I50.30 - UNSPECIFIED DIASTOLIC ( CONGESTIVE) HEART FAILURE SNOMED Code(s): 323246350 Comment: -Appreciate Dr. Browning input - at very worst is moderate and not a current predominant factor and possibly mitral valve disease more important at this time. She does not need a TAVR currently. However, per Dr. Fall, MAGY to further evaluate the mitral valve outweigh the benefits at this point. -Continue IV Lasix as ordered -Continue to monitor I/Os and daily weights (4) Elevated troponin Current Visit: Yes Status: Acute Code(s): R74.8 - ABNORMAL LEVELS OF OTHER SERUM ENZYMES SNOMED Code(s): 786290819 Comment: - peaked 0.16 - appreciate Cardiology recs. likely demand ischemia in the setting of severe COPD + CHF 2/2 severe low flow aortic stenosis - not candidate for stress test currently. - Continue aspirin and lipitor (5) Thoracic back pain Current Visit: No Status: Acute Code(s): M54.6 - PAIN IN THORACIC SPINE SNOMED Code(s): 945495305 Comment: has T5 compression fracture, confirmed again on thoracic Xray. known since July 2017. Foreshortening of multiple other levels. (6) Feeding by G-tube Current Visit: No Status: Chronic Code(s): Z93.1 - GASTROSTOMY STATUS SNOMED Code(s): 387065396 Comment: - Hx of esophageal stricture s/p peg tube placement 20 years - Continue Osmolite and water flushes (7) History of lung cancer Current Visit: No Status: Chronic Code(s): Z85.118 - PERSONAL HISTORY OF MALIGNANT NEOPLASM OF BRONCHUS AND LUNG SNOMED Code(s): 290962625 Comment: - Last tx in 2012 - last CT chest 12/29 with stable size right apical mass. 2.6x1.4cm (8) Hyperlipidemia Current Visit: No Status: Chronic Priority: Low Code(s): E78.5 - HYPERLIPIDEMIA, UNSPECIFIED SNOMED Code(s): 52909843 Comment: - Continue lipitor (9) Tobacco abuse Current Visit: No Status: Chronic Code(s): Z72.0 - TOBACCO USE SNOMED Code (s): 322706793 Comment: - Quit Mar 2016 - still using Nictotine patch reportedly planning to use lifelong (10) COPD exacerbation Current Visit: No Status: Acute Code(s): J44.1 - CHRONIC OBSTRUCTIVE PULMONARY DISEASE W (ACUTE) EXACERBATION SNOMED Code(s): 247396141 Comment: -Dr. Shea consulted- for further - continues to have moderate respiratory distress worse with exertion- improving very slowly - patient has very poor respiratory reserve suspect this will take her a long period to recover - Will change solumedrol to prednisone 40mg po daily - nebs PRN - Dulera BID - Azithromycin 500mg daily-treatment finished today 08/10/17 - 2L NC continuous - will add flutter valve to assist with productive cough- continues to reports yellow sputum- reports flutter valve is helping (11) GIB (gastrointestinal bleeding) Current Visit: Yes Status: Acute Code(s): K92.2 - GASTROINTESTINAL HEMORRHAGE, UNSPECIFIED SNOMED Code(s): 92705311 Comment: - H/H stable - Pt was evaluated by Dr Lincoln who follows her as an outpatient. He is not concerned about the occult blood in her gastric residuals as he feels this is chronic for this patient. He was also ok with her receiving prednisone in the setting. - Initially given IV protonix bolus followed by drip, now d/pili - Will continue to trend H/H (12) Hypertension Current Visit: No Status: Chronic Priority: Low Code(s): I10 - ESSENTIAL ( PRIMARY) HYPERTENSION SNOMED Code(s): 58193042 Comment: SBP 110-140. Hold losartan in the setting of initial hypotension and now using BP room for diuresis. (13) DVT prophylaxis Current Visit: No Status: Acute Code(s): MUA9278 - SNOMED Code(s): 171386270 Comment: -Changed SQ Heparin to q12H given advanced age Status and Disposition: -Possible D/C in AM---will touch base w/Dr. Shea -For ambulatory sats in AMon2L at home and currently at 3L
[2018-02-08] MEDS: cefTRIAXone(*) 1 GM in NS 0.9% 50 ML* 50 ML IVPB SCH (20:22)
[2018-02-09] MEDS: Albuterol/Ipratropium NEB.SOL* Albuterol 2.5 MG/Ipratropium 0.5 MG 3 ML INH SCH ×3 (00:27→19:35)
[2018-02-09] MEDS: Morphine VIAL* 4 MG/ML VIAL (1 ml vial) IV PRN ×4 (03:23→22:39)
[2018-02-09] MEDS: Nicotine Patch Removal NOTE FOLLOW UP SCH (05:46)
[2018-02-09] MEDS: Aclidinium POWDER MDI(NF) INH SCH ×2 (07:08→19:27)
[2018-02-09] MEDS: Mometasone/Formoter 200/5 MDI INH SCH ×2 (07:25→19:35)
[2018-02-09] MEDS: Atorvastatin* 10 MG TAB PEG TUBE SCH (09:00)
[2018-02-09] MEDS: predniSONE TAB* 20 MG PO SCH (09:00)
[2018-02-09] MEDS: Aspirin 81 mg CHEW TAB* 81 MG TAB.CHEW PEG TUBE SCH (09:00)
[2018-02-09] MEDS: Oxybutynin TAB* 5 MG PEG TUBE SCH (09:00)
[2018-02-09] MEDS: Docusate LIQ* 100 MG/10 ML UDC PO SCH (09:00)
[2018-02-09] MEDS: Montelukast Sodium TAB* 10 MG SCH (09:00)
[2018-02-09] MEDS: Fluticasone NASAL SPRAY 50MCG* 16 gm SPRAY BTL BOTH NARES SCH ×2 (09:01→20:40)
[2018-02-09] MEDS: Nicotine PATCH 7 MG/24 HR* PATCH TRANSDERM SCH (09:01)
[2018-02-09] MEDS: Furosemide IV* 10 MG/ML VIAL (40 MG) IV SCH ×2 (09:01→15:14)
[2018-02-09] MEDS: Heparin VIAL(*) 5000 UNITS/ML VIAL (FIVE THOUSAND) SUBCUT SCH ×2 (11:00→22:39)
--- NOTE | 2018-02-09 19:35 | PN ---
Hospitalist Progress Note Date of Service: 02/09/18 Pt seen and examined today and D/C paper work and summary dictated. However, pt requests another stay and mentions she can be D/C'd in AM. Please see my dictated D/C summary for today. Will provide addendum in AM
[2018-02-09] MEDS: cefTRIAXone(*) 1 GM in NS 0.9% 50 ML* 50 ML IVPB SCH (20:40)
--- NOTE | 2018-02-09 21:10 | PN ---
Progress Note - Progress Note Date of Service: 02/09/18 - Pulm f/u note Note: Pt seen and examined at bedside. Pt reports slight improvement in breathing. No hemoptysis. Reports that she walked with PT, became winded and had to stop. Active Medications Generic Name Dose Route Start Last Admin Trade Name Freq PRN Reason Stop Dose Admin Acetaminophen 650 mg 02/02/18 02:30 02/02/18 09:11 Tylenol Tab* PO 650 mg Q4H PRN Administration FEVER/PAIN Aclidinium [place] 1 puff 02/01/18 22:00 02/09/18 19:27 Lino Lowe Mdi(Nf) INH Not Given BID [facility] Albuterol 2.5 mg 02/01/18 21:58 Ventolin 2.5 Mg/3 Ml Neb.Nereyda* INH Q6H PRN WHEEZING Albuterol/Ipratropium 1 neb 02/09/18 19:00 02/09/18 19:35 Duoneb (Albuterol 2.5 Mg/Ipratropium 0.5 Mg) INH 1 neb RT.BID [facility] Administration Aspirin 81 mg 02/02/18 09:00 02/09/18 09:00 Aspirin 81 Mg Chew Tab* PEG TUBE 81 mg DAILY [facility] Administration Atorvastatin Calcium 10 mg 02/02/18 09:00 02/09/18 09:00 Lipitor* PEG TUBE 10 mg DAILY [facility] Administration Docusate Sodium 100 mg 02/04/18 12:00 02/09/18 09:00 Colace Liq* PO 100 mg DAILY [facility] Administration Fluticasone Propionate 1 spray 02/02/18 09:00 02/09/18 20:40 Flonase Nasal [place] 50mcg* BOTH NARES 1 spray BID [facility] Administration Furosemide 20 mg 02/07/18 08:00 02/09/18 15:14 Lasix Iv* IV 20 mg 0800,1500 [facility] Administration Heparin Sodium (Porcine) 5,000 units 02/07/18 10:00 02/09/18 11:00 Heparin Vial(*) SUBCUT 5,000 units Q12H [facility] Administration Ceftriaxone Sodium 1 gm/ 50 mls @ 200 mls/hr 02/02/18 20:30 02/09/18 20:40 Sodium Chloride IVPB 200 mls/hr Q24H [facility] Administration Levalbuterol HCl 2 puff 02/01/18 21:58 12/07/18 08:14 Xopenex Hfa Inhaler* INH 2 puff QID PRN Administration SOB/WHEEZING Metoclopramide HCl 10 mg 02/01/18 21:58 Reglan Tab* PO QID PRN NAUSEA/VOMITING Mometasone Furoate/Formoterol Fumar 2 puff 02/01/18 22:00 02/09/18 19:35 Dulera 200/5 Mdi* INH 2 puff BID [facility] Administration Montelukast Sodium 10 mg 02/02/18 09:00 02/09/18 09:00 Singulair Tab* .SEE ORDER 10 mg DAILY [facility] Administration Morphine Sulfate 2 mg 02/01/18 21:54 02/09/18 16:35 Morphine Vial* IV 2 mg Q4H PRN Administration PAIN - MILD Nicotine 1 patch 02/02/18 15:00 02/09/18 09:01 Nicotine Patch 7 Mg/24 Hr* TRANSDERM 1 patch DAILY [facility] Administration Ondansetron HCl 4 mg 02/01/18 21:54 Zofran Inj* IV Q4H PRN NAUSEA/VOMITING Oxybutynin Chloride 5 mg 02/02/18 09:00 02/09/18 09:00 Ditropan Tab* PEG TUBE 5 mg DAILY [facility] Administration Protocol Oxycodone/Acetaminophen 1 tab 02/04/18 11:31 Percocet 5/325 Tab* PO Q4H PRN PAIN Pharmacy Profile Note 1 note 02/03/18 06:00 02/09/18 05:46 Nicotine Patch Removal Note* FOLLOW UP 1 note 0600 [facility] Administration Polyethylene Glycol/Electrolytes 17 gm 02/01/18 21:58 02/02/18 01:50 Miralax* PEG TUBE 17 gm DAILY PRN Administration CONSTIPATION Prednisone 40 mg 02/04/18 10:00 02/09/18 09:00 Deltasone Tab* PO 40 mg DAILY [facility] Administration Vital Signs Temp Pulse Resp BP Pulse Ox 98.0 F 76 16 129/54 94 02/09/18 19:17 02/09/18 19:36 02/09/18 19:36 02/09/18 19:17 02/09/18 19:36 O/E: Pt in NAD, pursed lip breathing HEENT: PERRLA Lungs: Diminished air entry b/l, no wheeze, prolongd exp phase CVS: S1, S2+ Abd: PEG tube +, no tenderness Skin: No rash Neuro: No focal deficits Labs: nO new labs I/R: 77 y o f with h/o severe COPD, recurrent PNA, h/o lung cancer s/p resection , gastroparesis, esophageal stricture s/p PEJ placement a/w worsening SOB after recent sick contacts being treated for PNA and acute COPD exacerbation Pt with thick phleghm ,metanebs helping No further episodes of hemoptysis c/w 40mg prednisone for acute COPD exacerbation Has h/o GI bleed, stable Pl chest pain- still continues to have pain c/w abx c/w bronchodilators c/w flutter device c/w O2 to keep O2 sat around 92%, currently on 2l ECHO with worsening of , pt f/u with Dr Youngblood as out pt Pt to be d/pili today as per primary team Pt reported that she is concerned about d/c given dyspnea during attempt with PT Pt willing to be d/pili in am if no issues o/n Discussed slow recovery in her case given severe COPD and minimal reserve Also discussed concern with prolonged hospital stay with risk for nosocomnial infections DVT px
--- NOTE | 2018-02-10 03:09 | DS ---
UPDATE ADDENDUM IS NOW INCLUDED ON THIS REPORT CC: Dr. Ragini Lamas; Dr. Nahun Patel; Dr. Nohelia Jerniagn; Dr. Heriberto Lincoln ; Dr. Radha Shea; Dr. Garner. * DISCHARGE SUMMARY: DATE OF ADMISSION: DATE OF DISCHARGE: 02/10/18 DISCHARGE DIAGNOSES: 1. Shortness of breath, multifactorial, secondary to: a. Community-acquired pneumonia. b. Chronic obstructive pulmonary disease exacerbation due to #A. c. Diastolic congestive heart failure exacerbation. 2. Greenish fluid around jejunostomy tube, stable; evaluated by Surgery. DISCHARGE MEDICATIONS: 1. Aclidinium bromide 400 mcg inhalation b.i.d. 2. Albuterol nebulization inhalation q.6 p.r.n. 3. Aspirin 81 mg per PEG daily. 4. Atorvastatin 10 mg per PEG tube daily. 5. Fluticasone nasal spray 50 mcg 1 spray both nares b.i.d. 6. Fluticasone/salmeterol (Advair Diskus) 500/50 mcg 1 puff inhalation b.i.d. 7. Levalbuterol HFA inhaler 2 puffs inhalation four times a day p.r.n. 8. Metoclopramide 10 mg p.o. four times a day p.r.n. 9. Nicotine patch 7 mg per 24 hours daily. 10. Percocet 5/325 tab 1 tab p.o. q.6 p.r.n., 10 tabs dispensed with zero refills. 11. Prednisone slow taper. 12. Tolterodine 1 mg per PEG tube daily. 13. Cefotaxime 200 mg p.o. or per PEG q.12 for 3 more days. 14. Cholecalciferol 15 mL per PEG daily. 15. Estradiol 10 mcg vaginal twice a week. 16. Ibuprofen 600 mg per PEG tube t.i.d. 17. Lactobacillus acidophilus 1 cap per PEG daily. 18. Losartan 50 mg per PEG tube daily. 19. Montelukast sodium 10 per PEG daily. 20. Polyethylene glycol 17 g per PEG daily p.r.n. 21. Torsemide 20 mg p.o. daily. HISTORY OF PRESENT ILLNESS/HOSPITAL COURSE: The patient is a 77-year-old lady with history of hypertension, hyperlipidemia, who takes nothing by mouth and has a G- tube and J-tube, who presented to the emergency room after having 3 to 4 days worsening of chest wall pain. She was also complaining of some chest pain at the time of admission. Her troponins were mildly elevated with a maximum of 0.16, likely due to demand ischemia due to shortness of breath due to multifactorial cause such as community-acquired pneumonia, COPD exacerbation due to her pneumonia as well as CHF, diastolic exacerbation. She was placed on IV Lasix 20 b.i.d. as well as a slow taper of her steroids along with nebulizations for her COPD as well as Rocephin and azithromycin for her respiratory issues. All of which placed the patient back to her baseline. She tolerated ambulatory sats at 2 L and hence will be discharged. She has also been ruled out for venous thromboembolism with a D- dimer less than 200 during this admission. She had been advised to follow up and to call her PCP within 3 days post discharge and to make sure to follow up with her surgeon whom she mentioned is Dr. Franco that follows her J-tube given her complaints of greenish fluid coming out of her J- tube. She has been evaluated by the surgical team prior to her discharge who have advised watchful waiting and hence we will defer. She was advised to refrain from smoking and to call her PCP if she needs any refills for any of her prescribed control pain medications. She was advised to limit her salt intake to no more than 2 g per day and to take all of her meds as prescribed per PEG. She was further advised that if her symptoms resume or develop new ones or feel unwell for any reason, to call her PCP first and if the PCP cannot entertain her due to scheduling issues alone to call [facility] if the issue is considered nonemergent. She was advised to call my office regarding any questions, concerns, or further clarifications regarding her discharge plans and/or prescriptions and to take her medications as prescribed. REVIEW OF SYSTEMS: On review of systems, currently the patient denied any headache, dizziness, fevers, chills, nausea, vomiting, chest pain, shortness of breath, that is significant from her baseline given her known COPD that is oxygen- dependent. Denied any abdominal pain, diarrhea, constipation, pain and/ or increased frequency in urination, myalgias, arthralgias, throat pain, or new skin lesions. The rest of the 14-point review of systems are otherwise unremarkable. PHYSICAL EXAMINATION: Reveals the most recent vital signs of records with blood pressure of 122/54; 89% saturation at 2 L with ambulation, which does not meet criteria for further oxygenation at this time, but at 98% at rest at 2 L; 67 beats per minute of heart rate; 98.2 degrees Fahrenheit. General Appearance: The patient is awake, alert, and oriented x3, not in acute distress. HEENT: Normocephalic, atraumatic. PERRLA. Extraocular muscles intact. Negative for icterus. Moist oral mucosa. Negative throat erythema. Neck is soft, supple, with no cervical lymphadenopathy, no JVD. Heart: S1, S2 within normal limits. Regular rate and rhythm. No murmurs, rubs, and gallops. Chest: Clear to auscultation bilaterally. Good air entry. No wheezes, rales , or rhonchi. Abdomen is soft, nondistended, nontender. Normoactive bowel sounds x4 quadrants. Extremities: No cyanosis, clubbing, or edema. Psychiatric: No active psychosis, depression, suicidal or homicidal ideations. Skin is warm to touch. TIME SPENT: The total time spent evaluating the patient, reviewing pertinent data, and appropriate documentation is 60 minutes. UPDATE ADDENDUM: Addendum to recently dictated discharge summary from yesterday, after the patient had been reevaluated, given her request to stay one more night. Please see my dictation from yesterday for details. Discharge medication changes are as follows: Given the patient takes most of her medications in her G-tube or J-tube, we will discontinue Percocet p.r.n. and instead we will place her on liquid morphine as ordered, and we will also discontinue oral prednisone tablets and instead place her on prednisolone solution for a slow taper as ordered. As previously discussed, she stayed overnight given her request and subjective complaints of cough and still feeling not at her baseline, although she had passed ambulatory saturation test and seemed to be at baseline on exam. She mentions that she feels better today and agrees that she can be discharged and hence, we will do so. I have also spoken with Dionne, her plant health care technician, to set up a possible chest physiotherapy. Unfortunately, she does not quality for a Vest to have this done and when enquired whether a person can do this for her it seems that this is not possible. The patient was made aware. REVIEW OF SYSTEMS: Currently, the patient denied any headaches, dizziness, fevers, chills, nausea, vomiting, increasing shortness of breath, cough, abdominal pain, diarrhea, constipation, pain and/or increased frequency in urination, myalgias, arthralgias, throat pain, or new skin lesions. The rest of the 14-point review of systems are otherwise unremarkable. PHYSICAL EXAMINATION: Reveals the most recent vital signs of records with blood pressure of 144/68, 24 per minute respiratory rate from 18 at 2 liters nasal cannula, and 68 beats per minute heart rate. General Appearance: The patient is awake, alert, and oriented x3; not in acute distress. HEENT: Normocephalic and atraumatic. PERRLA. Extraocular muscles are intact. Negative for icterus. Moist oral mucosa. Negative throat erythema. Neck is soft and supple, with no cervical lymphadenopathy. No JVD. Heart: S1 and S2 within normal limits. Regular rate and rhythm. No murmurs, rubs, or gallops. Chest: Clear to auscultation bilaterally. Good air entry. No wheezes, rales or rhonchi. Abdomen is soft, nondistended, and nontender. Normoactive bowel sounds x4 quadrants. Extremities: No cyanosis, clubbing, or edema. Psychiatric : No active psychosis, depression, suicidal or homicidal ideation. Skin is warm to touch. TIME SPENT: The total time spent evaluating patient, reviewing pertinent data and appropriate documentations, was 40 minutes. [id number] #: [id number] - 02/09/18 1543 - [id number]/CPS #: [id number] - 02/10/18 1117 TANYA
[2018-02-10] MEDS: Nicotine Patch Removal NOTE FOLLOW UP SCH (05:46)
--- NOTE | 2018-02-10 07:02 | PN ---
Progress Note - Progress Note Date of Service: 02/10/18 - Pulm f/u note Note: Pt seen and examined at bedside. Pt reports no change in sx since last night. Denies significant cough or sputum production. Back pain is bothering, morphine helps Active Medications Generic Name Dose Route Start Last Admin Trade Name Freq PRN Reason Stop Dose Admin Acetaminophen 650 mg 02/02/18 02:30 02/02/18 09:11 Tylenol Tab* PO 650 mg Q4H PRN Administration FEVER/PAIN Aclidinium Vesuvius 1 puff 02/01/18 22:00 02/09/18 19:27 Lino Lowe Mdi(Nf) INH Not Given BID ARACELI Albuterol 2.5 mg 02/01/18 21:58 Ventolin 2.5 Mg/3 Ml Neb.Nereyda* INH Q6H PRN WHEEZING Albuterol/Ipratropium 1 neb 02/09/18 19:00 02/09/18 19:35 Duoneb (Albuterol 2.5 Mg/Ipratropium 0.5 Mg) INH 1 neb RT.BID ARACELI Administration Aspirin 81 mg 02/02/18 09:00 02/09/18 09:00 Aspirin 81 Mg Chew Tab* PEG TUBE 81 mg DAILY ARACELI Administration Atorvastatin Calcium 10 mg 02/02/18 09:00 02/09/18 09:00 Lipitor* PEG TUBE 10 mg DAILY ARACELI Administration Docusate Sodium 100 mg 02/04/18 12:00 02/09/18 09:00 Colace Liq* PO 100 mg DAILY ARACELI Administration Fluticasone Propionate 1 spray 02/02/18 09:00 02/09/18 20:40 Flonase Nasal [place] 50mcg* BOTH NARES 1 spray BID ARACELI Administration Furosemide 20 mg 02/07/18 08:00 02/09/18 15:14 Lasix Iv* IV 20 mg 0800,1500 ARACELI Administration Heparin Sodium (Porcine) 5,000 units 02/07/18 10:00 02/09/18 22:39 Heparin Vial(*) SUBCUT 5,000 units Q12H ARACELI Administration Ceftriaxone Sodium 1 gm/ 50 mls @ 200 mls/hr 02/02/18 20:30 02/09/18 20:40 Sodium Chloride IVPB 200 mls/hr Q24H ARACELI Administration Levalbuterol HCl 2 puff 02/01/18 21:58 02/04/18 08:14 Xopenex Hfa Inhaler* INH 2 puff QID PRN Administration SOB/WHEEZING Metoclopramide HCl 10 mg 02/01/18 21:58 Reglan Tab* PO QID PRN NAUSEA/VOMITING Mometasone Furoate/Formoterol Fumar 2 puff 02/01/18 22:00 02/09/18 19:35 Dulera 200/5 Mdi* INH 2 puff BID ARACELI Administration Montelukast Sodium 10 mg 02/02/18 09:00 02/09/18 09:00 Singulair Tab* .SEE ORDER 10 mg DAILY ARACELI Administration Morphine Sulfate 2 mg 02/01/18 21:54 02/09/18 22:39 Morphine Vial* IV 2 mg Q4H PRN Administration PAIN - MILD Nicotine 1 patch 02/02/18 15:00 02/09/18 09:01 Nicotine Patch 7 Mg/24 Hr* TRANSDERM 1 patch DAILY ARACELI Administration Ondansetron HCl 4 mg 02/01/18 21:54 Zofran Inj* IV Q4H PRN NAUSEA/VOMITING Oxybutynin Chloride 5 mg 02/02/18 09:00 02/09/18 09:00 Ditropan Tab* PEG TUBE 5 mg DAILY ARACELI Administration Protocol Oxycodone/Acetaminophen 1 tab 02/04/18 11:31 Percocet 5/325 Tab* PO Q4H PRN PAIN Pharmacy Profile Note 1 note 02/03/18 06:00 02/10/18 05:46 Nicotine Patch Removal Note* FOLLOW UP 1 note 0600 ARACELI Administration Polyethylene Glycol/Electrolytes 17 gm 02/01/18 21:58 02/02/18 01:50 Miralax* PEG TUBE 17 gm DAILY PRN Administration CONSTIPATION Prednisone 40 mg 02/04/18 10:00 02/09/18 09:00 Deltasone Tab* PO 40 mg DAILY ARACELI Administration Vital Signs Temp Pulse Resp BP Pulse Ox 98.0 F 76 20 144/68 97 02/10/18 03:27 02/10/18 03:27 02/10/18 03:27 02/10/18 03:27 02/10/18 03:27 O/E: Pt in NAD HEENT: PERRLA Lungs: Diminished air entry b/l, no wheeze, prolongd exp phase CVS: S1, S2+ Abd: PEG tube +, no tenderness Skin: No rash Neuro: Alert, awake, oriented x4, No focal deficits Labs: No new labs I/R: 77 y o f with h/o severe COPD, recurrent PNA, h/o lung cancer s/p resection , gastroparesis, esophageal stricture s/p PEJ placement a/w worsening SOB after recent sick contacts being treated for PNA and acute COPD exacerbation Not expectorating sputum anymore No further episodes of hemoptysis c/w 40mg prednisone for acute COPD exacerbation, will taper over 2 weeks. Will need liquid formulation Has h/o GI bleed, stable Pl chest pain- still continues to have pain, morphine is helping, will need to be d/pili on morphine liquid Completed abx. No need to be d/pili on abx c/w bronchodilators c/w flutter device c/w O2 at 2l, has O2 at home ECHO with worsening of , pt f/u with Dr Youngblood as out pt Pt to be d/pili today with home PT arrangements
[2018-02-10] MEDS: Mometasone/Formoter 200/5 MDI INH SCH (07:46)
[2018-02-10] MEDS: Albuterol/Ipratropium NEB.SOL* Albuterol 2.5 MG/Ipratropium 0.5 MG 3 ML INH SCH (07:46)
[2018-02-10] MEDS: Aclidinium POWDER MDI(NF) INH SCH (07:57)
[2018-02-10 08:14] VITALS: BP 136/101
[2018-02-10] MEDS: Fluticasone NASAL SPRAY 50MCG* 16 gm SPRAY BTL BOTH NARES SCH (09:30)
[2018-02-10] MEDS: Morphine VIAL* 4 MG/ML VIAL (1 ml vial) IV PRN (09:31)
[2018-02-10] MEDS: Furosemide IV* 10 MG/ML VIAL (40 MG) IV SCH (09:34)
[2018-02-10] MEDS: Oxybutynin TAB* 5 MG PEG TUBE SCH (09:38)
[2018-02-10] MEDS: Atorvastatin* 10 MG TAB PEG TUBE SCH (09:38)
[2018-02-10] MEDS: Montelukast Sodium TAB* 10 MG SCH (09:40)
[2018-02-10] MEDS: Aspirin 81 mg CHEW TAB* 81 MG TAB.CHEW PEG TUBE SCH (09:40)
[2018-02-10] MEDS: predniSONE TAB* 20 MG PO SCH (09:41)
[2018-02-10] MEDS: Docusate LIQ* 100 MG/10 ML UDC PO SCH (09:46)
[2018-02-10] MEDS: Heparin VIAL(*) 5000 UNITS/ML VIAL (FIVE THOUSAND) SUBCUT SCH (09:46)
[2018-02-10] MEDS: Nicotine PATCH 7 MG/24 HR* PATCH TRANSDERM SCH (09:46)
--- NOTE | 2018-02-10 15:16 | DS ---
CC: Dr. Shea; Dr. Nahun Patel; Dr. Nohelia Jernigan; Dr. Heriberto Lincoln; Dr. Reynaldo Garner DISCHARGE SUMMARY: ADDENDUM: Addendum to recently dictated discharge summary from yesterday, after the patient had been reevaluated, given her request to stay one more night. Please see my dictation from yesterday for details. Discharge medication changes are as follows: Given the patient takes most of her medications in her G-tube or J-tube, we will discontinue Percocet p.r.n. and instead we will place her on liquid morphine as ordered, and we will also discontinue oral prednisone tablets and instead place her on prednisolone solution for a slow taper as ordered. As previously discussed, she stayed overnight given her request and subjective complaints of cough and still feeling not at her baseline, although she had passed ambulatory saturation test and seemed to be at baseline on exam. She mentions that she feels better today and agrees that she can be discharged and hence, we will do so. I have also spoken with Dionne, her primary care md, to set up a possible chest physiotherapy. Unfortunately, she does not quality for a Vest to have this done and when enquired whether a person can do this for her it seems that this is not possible. The patient was made aware. REVIEW OF SYSTEMS: Currently, the patient denied any headaches, dizziness, fevers, chills, nausea, vomiting, increasing shortness of breath, cough, abdominal pain, diarrhea, constipation, pain and/or increased frequency in urination, myalgias, arthralgias, throat pain, or new skin lesions. The rest of the 14-point review of systems are otherwise unremarkable. PHYSICAL EXAMINATION: Reveals the most recent vital signs of records with blood pressure of 144/68, 24 per minute respiratory rate from 18 at 2 liters nasal cannula, and 68 beats per minute heart rate. General Appearance: The patient is awake, alert, and oriented x3; not in acute distress. HEENT: Normocephalic and atraumatic. PERRLA. Extraocular muscles are intact. Negative for icterus. Moist oral mucosa. Negative throat erythema. Neck is soft and supple, with no cervical lymphadenopathy. No JVD. Heart: S1 and S2 within normal limits. Regular rate and rhythm. No murmurs, rubs, or gallops. Chest: Clear to auscultation bilaterally. Good air entry. No wheezes, rales or rhonchi. Abdomen is soft, nondistended, and nontender. Normoactive bowel sounds x4 quadrants. Extremities: No cyanosis, clubbing, or edema. Psychiatric : No active psychosis, depression, suicidal or homicidal ideation. Skin is warm to touch. TIME SPENT: The total time spent evaluating patient, reviewing pertinent data and appropriate documentations, was 40 minutes. [id number]/[facility] #: [id number] [facility]ITALDarcie
== END 2018-02-10 14:00 | disposition home health service (06) | DRG 193 ==
LOC: ED 15:15 → MEDTELE 21:54
PROVIDERS: ADMIT Pediatrics; ATTEND Student in an Organized Health Care Education/Training Program
DX: J18.9 Pneumonia, unspecified organism (principal); I50.33 Acute on chronic diastolic (congestive) heart failure; I24.8 Other forms of acute ischemic heart disease; R64 Cachexia; M48.54XA Collapsed vertebra, not elsewhere classified, thoracic region, initial encounter for fracture; K92.2 Gastrointestinal hemorrhage, unspecified; K94.23 Gastrostomy malfunction; Z68.1 Body mass index [BMI] 19.9 or less, adult; E78.5 Hyperlipidemia, unspecified; I11.0 Hypertensive heart disease with heart failure; J43.9 Emphysema, unspecified; M19.90 Unspecified osteoarthritis, unspecified site; M81.0 Age-related osteoporosis without current pathological fracture; M41.9 Scoliosis, unspecified; H35.30 Unspecified macular degeneration; N28.1 Cyst of kidney, acquired; K31.84 Gastroparesis; E03.9 Hypothyroidism, unspecified; I27.20 Pulmonary hypertension, unspecified; I08.1 Rheumatic disorders of both mitral and tricuspid valves; G89.29 Other chronic pain; Z90.89 Acquired absence of other organs; Z99.81 Dependence on supplemental oxygen; Z87.01 Personal history of pneumonia (recurrent); Z79.82 Long term (current) use of aspirin; Z90.710 Acquired absence of both cervix and uterus; Z82.49 Family history of ischemic heart disease and other diseases of the circulatory system; Z87.891 Personal history of nicotine dependence; Z85.118 Personal history of other malignant neoplasm of bronchus and lung; Z90.49 Acquired absence of other specified parts of digestive tract; Z88.2 Allergy status to sulfonamides; Z88.1 Allergy status to other antibiotic agents; Z88.8 Allergy status to other drugs, medicaments and biological substances; Z82.3 Family history of stroke; Z83.6 Family history of other diseases of the respiratory system; I95.9 Hypotension, unspecified; Y84.8 Other medical procedures as the cause of abnormal reaction of the patient, or of later complication, without mention of misadventure at the time of the procedure; Y92.239 Unspecified place in hospital as the place of occurrence of the external cause
CPT/HCPCS: 36415; 71046; 72070; 74019; 80048; 80053; 80061; 82271; 83605; 83735; 83880; 84145; 84484; 85014; 85018; 85025; 85379; 86140; 93005; 93306; 94640; 94667; 94668; 99283; A9270-GY; G8978-GP-CL; G8979-GP-CI; J0456; J0696; J1644; J1940; J2270; J7512